=== PATIENT | male | born 1955 | race Caucasian/White ===

== ENCOUNTER → 2016-04-02 | Outpatient (CLI) | payer MEDICARE, MEDICAID ==
[~2016-04-02] MED LIST: /AUGM25TA PEG; /CIPR75TA PO; /MOM400 PEG; /ONDA4TA SL; /SCOPPA TD; ATIV0.5T3 PEG; BUSP30TA PEG; CELE40TA PEG; CIPR500T89 PEG; CLON1TAB PEG; DOCU10ELUD PEG; FLEEENE4 PR; FLEXERIL PO; HALDOL PO; HEPA50VL SC; KLON0.5T PEG; LACT20EL PEG; LANSOPRAZOLE PEG; MIRALEX PEG; NAPR500T OR; PERC5TAB PO; PREV30CA6 PEG; REGLAN LIQ PEG; RISP2TAB12 PEG; SYNT100T PEG; TERA1CA GT; TYLENOL ELIXIR PEG; VIST25CA OR; ZYPR5TAB PEG; ZYPR5TAB2 PEG
[2016-04-02 19:39] LABS: ALBUMIN 3.8 GM/DL (3.2-5.2); ALBUMIN/GLOBULIN RATIO 1.09 (1.00-1.93); ALKALINE PHOSPHATASE 104 U/L (45-117); ALT/SGPT 43 U/L (12-78); ANION GAP 6 MEQ/L (8-16); AST/SGOT 33 U/L (15-37); BILIRUBIN,TOTAL 0.6 MG/DL (0.2-1.0); BLOOD UREA NITROGEN 26 MG/DL (7-18); CALCIUM LEVEL 9.2 MG/DL (8.8-10.2); CARBON DIOXIDE LEVEL 33 MEQ/L (21-32); CHLORIDE LEVEL 103 MEQ/L (98-107); GLOMERULAR FILTRATION RATE > 60.0 (>49); GLUCOSE, FASTING 80 MG/DL (80-110); POTASSIUM SERUM 4.2 MEQ/L (3.5-5.1); SODIUM LEVEL 142 MEQ/L (136-145); TOTAL PROTEIN 7.3 GM/DL (6.4-8.2)
[2016-04-02 19:48] LABS: MEAN CORPUSCULAR HEMOGLOBIN 33.4 pg (27.0-33.0); MEAN CORPUSCULAR HGB CONC 32.7 g/dl (32.0-36.5); MEAN CORPUSCULAR VOLUME 102.2 fl (80.0-96.0); RED CELL DISTRIBUTION WIDTH 14.8 % (11.5-14.5); WHITE BLOOD COUNT 4.3 K/mm3 (4.0-10.0)
== END ==
LOC: M WUC 08:48
PROVIDERS: ATTEND Nurse Practitioner Family
DX: Z51.81 Encounter for therapeutic drug level monitoring (principal); Z79.899 Other long term (current) drug therapy

== ENCOUNTER 2016-05-31 09:38 | Inpatient (IN) | payer MEDICARE, MEDICAID ==
[2016-05-31] VITALS (9 sets, daily range): BP systolic 97–112; BP diastolic 59–66
[~2016-05-31] VITALS: Ht 177.8 cm; Wt 61.6 kg
[2016-05-31] MEDS ORDERED: NS 1,000 ML IV SCH (10:08)
[2016-05-31] MEDS ORDERED: cefTRIAXone SOD 2 GM in D5W MINI-BAG PLUS 50 ML IV ONE (10:15)
[2016-05-31] MEDS ORDERED: VANCOMYCIN HCL 1,000 MG, VIAL MATE ADAPTER 1 EACH in D5W 250 ML IV ONE (10:15)
[2016-05-31] MEDS ORDERED: DILUENT IV ONE (10:15)
[2016-05-31] MEDS ORDERED: ACETAMINOPHEN 325 MG TAB PO ONE (10:15)
[2016-05-31] MEDS ORDERED: NS IV ONE (10:15)
[2016-05-31] MEDS ORDERED: BUSP30TA GT (10:18)
[2016-05-31] MEDS ORDERED: PREV30TA3 GT (10:18)
[2016-05-31] MEDS ORDERED: NEUR300C GT (10:18)
[2016-05-31] MEDS ORDERED: ZOFR4TAB3 GT (10:18)
[2016-05-31] MEDS ORDERED: FOLI1TAB2 GT (10:18)
[2016-05-31] MEDS ORDERED: RISP1TAB41 GT (10:18)
[2016-05-31] MEDS ORDERED: LEVO75TA4 GT (10:18)
[2016-05-31] MEDS ORDERED: ZYPR15TA3 GT ×2 (10:18→12:20)
[2016-05-31 10:24] LABS: BASO % 0.1 % (0.0-1.0); EOS % 0.1 % (0.0-3.0); LARGE UNSTAINED CELL # 0.1 K/mm3 (0.0-0.4); LARGE UNSTAINED CELL % 1.2 % (0.0-4.0); LYMPH # 0.4 K/mm3 (1.5-4.5); LYMPH % 4.6 % (24.0-44.0); MEAN CORPUSCULAR HEMOGLOBIN 33.4 pg (27.0-33.0); MEAN CORPUSCULAR HGB CONC 33.1 g/dl (32.0-36.5); MONO # 0.4 K/mm3 (0.0-0.8); MONO % 5.7 % (0.0-5.0); NEUTROPHILS # 6.7 K/mm3 (1.8-7.7); NEUTROPHILS % 88.4 % (36.0-66.0); PLATELET COUNT, AUTOMATED 170 k/mm3 (150-450); RED CELL DISTRIBUTION WIDTH 15.7 % (11.5-14.5); WHITE BLOOD COUNT 7.5 K/mm3 (4.0-10.0)
[2016-05-31 10:25] LABS: INR 1.01
[2016-05-31 10:41] LABS: ALBUMIN 2.8 GM/DL (3.2-5.2); ALKALINE PHOSPHATASE 78 U/L (45-117); ALT/SGPT 46 U/L (12-78); AMYLASE 173 U/L (25-115); ANION GAP 6 MEQ/L (8-16); AST/SGOT 60 U/L (15-37); BILIRUBIN,DIRECT < 0.1 MG/DL (0.0-0.2); BILIRUBIN,TOTAL 0.3 MG/DL (0.2-1.0); BLOOD UREA NITROGEN 37 MG/DL (7-18); CALCIUM LEVEL 8.5 MG/DL (8.8-10.2); CARBON DIOXIDE LEVEL 31 MEQ/L (21-32); CHLORIDE LEVEL 101 MEQ/L (98-107); GLOMERULAR FILTRATION RATE 59.9 (>49); GLUCOSE, FASTING 159 MG/DL (80-110); POTASSIUM SERUM 4.2 MEQ/L (3.5-5.1); SODIUM LEVEL 138 MEQ/L (136-145); TOTAL PROTEIN 6.3 GM/DL (6.4-8.2)
--- NOTE | 2016-05-31 10:58 | REP ---
PORTABLE CHEST, ONE VIEW: HISTORY: Sepsis. COMPARISON: 06/04/2015. An increase in interstitial markings is present in the lungs consistent with chronic interstitial fibrosis. Increased density is present in the lower lobes consistent with bibasilar atelectasis or infiltrates. The heart is normal in size. The pulmonary vasculature is prominent. A hiatal hernia is present. There is marked dilatation of the esophagus. IMPRESSION: 1. Bibasilar atelectasis or infiltrates. 2. Chronic interstitial fibrosis. 3. Hiatal hernia. 4. There is a markedly dilated esophagus. Signed by Harman Wade MD 05/31/2016 11:27 A
[2016-05-31] MEDS ORDERED: IPRATROPIUM 0.5MG/ALBUTEROL 2.5MG INH SOL UD 3ML (DUONEB)(J7620) NEB ONE (11:45)
[2016-05-31] MEDS ORDERED: methylPREDNISolone INJ 125 MG/2 ML VIAL (J2930) IV ONE (11:45)
[2016-05-31] MEDS ORDERED: ALBUTEROL SULFATE 2.5 MG/0.5 ML INH NEB SOLN INH ONE (11:45)
[2016-05-31 12:09] LABS: ABG BASE EXCESS 2.7 (-2.0-2.0); ABG HCO3 27.3 MEQ/L (22.0-26.0); ABG PARTIAL PRESSURE O2 66.5 mmHg (75.0-100.0); ABG STANDARD HCO3 26.8 MEQ/L (22.0-26.0); ABG TOTAL CO2 28.6 MEQ/L (23.0-31.0); ABG pH (ARTERIAL) 7.431 UNITS (7.350-7.450)
[2016-05-31] MEDS ORDERED: CITA40TA4 GT (12:20)
[2016-05-31] MEDS ORDERED: METO5EL GT (12:20)
[2016-05-31] MEDS ORDERED: VITA500T3 GT (12:20)
[2016-05-31] MEDS ORDERED: FOLI400T GT (12:20)
[2016-05-31] MEDS ORDERED: ACET500L GT (12:20)
[2016-05-31] MEDS ORDERED: BISA10SU27 PR (12:20)
[2016-05-31] MEDS ORDERED: CLON0.5T GT (12:20)
[2016-05-31] MEDS ORDERED: TRAN1.5D2 TOP (12:20)
[2016-05-31] MEDS ORDERED: MIRA33504 GT (12:20)
[2016-05-31] MEDS ORDERED: TERA2CAP3 GT (12:20)
[2016-05-31] MEDS: NS 1,000 ML IV SCH ×2 (12:47→21:14)
--- NOTE | 2016-05-31 12:59 | HPEPDOC ---
Medical History and Physical Date of Admission 05/31/16 History and Physical ATTENDING: Dr. Jolley PCP: Jose G Toledo NP CC: Lethargy, Hypoxia HPI: 60yoM resident of [facility] with a past medical history significant for aspiration and dysphagia who has had cold symptoms, fatigue and fever for the past 5 days. This AM was noticed by staff to be lethargic, fatigued and when O2 sat was checked was in the 80s. EMS was called and was brought to ED for evaluation. Pt gives limited history. He is accompanied by [facility] staff. Pt has had congested cough- nonproductive. Denies any ABBOTT, CP, palpitations, abdominal pain, N/V/D or changes in bowel or bladder habits. Upon presentation to the hospital the patient was found to have aspiration pneumonia, thus the hospitalist team was consulted. PMHx: Mental Retardation. resident of [facility]. Anxiety depression Behavioral issues GERD Chronic aspiration/feeding tube. hypothyroid H/O C2, C7 fracture. Nondisplaced. 7/12 H/O Left hip fracture 7/12 H/O fall. PSHX: peg tube placement SOCHX: Resides in: [facility] residence [facility] Tobacco use: non smoker ETOH:none Recent travel: none Advanced directives: [facility] staff states has DNR valid at [facility] only. HCP christiane Ureña [phone]. FAMHX: Mother: Father: Siblings: 1 brother, 1 sister Alive, well Children: none ROS: As noted in HPI, otherwise 11pt ROS of systems reviewed and remarkable only for recent illness and cough. Pt is known to have chronic dysphagia. PE: GEN: 60yoM, appears stated age. Well-nourished, well developed. No acute distress. Alert. HEENT: Normocephalic, atraumatic. Pupils are equal, round, and reactive to light. Extraocular movements are intact. No nystagmus appreciated. Sclera are nonicteric. Conjunctiva without injection. Nose midline. Nasal turbinates without bogginess. EACs both patent BL. TMs both visualized and reyes with good cone of light, no bulging or erythema. No facial asymmetry. Moist mucous membranes. Dentition poor. Pharynx pink and moist, no cobblestoning. Neck supple , trachea midline. No lymphadenopathy or thyromegaly appreciated. CHEST: Regular rate and rhythm, +S1, +S2 LUNGS: Decreased BS bilaterally. Coarse rhonchi noted with inspiratory rales at bases. ABD: Round, soft, non-tender, non-distended. +Bowel sounds throughout. No rebound or guarding. No costovertebral angle tenderness. EXT: Pulses 2+ bilaterally dorsalis pedis and radial. No lower extremity edema appreciated. SKIN: [place], dry, warm. Capillary refill <2sec. No rashes. NEURO: Alert. Cranial nerves III-XII are intact. No focal deficits appreciated. CXR: 1. Bibasilar atelectasis or infiltrates. 2. Chronic interstitial fibrosis. 3. Hiatal hernia. 4. .There is a markedly dilated esophagus EKG: SR, NSST abn, 93 bpm BLOOD CULTURES: x 2 pending. UC pending. LA 2.2 Rapid flu pending Respiratory panel pending. A&P: HPI: 60yoM resident of [facility] with a past medical history significant for aspiration and dysphagia who has had cold symptoms, fatigue and fever for the past 5 days. This AM was noticed by staff to be lethargic, fatigued and when O2 sat was checked was in the 80s. EMS was called and was brought to ED for evaluation. The patient will be admitted to ICU for at least [address] Jolley's service. Pt is discussed with Dr Cosby. Severe sepsis. IVF bolus x 3 liters given in ED. IVF 120cc/hr. BP 84/52 in ED. Monitor closely. Aspiration pneumonia. IV Vanco with Pharm dosing/IV Cefepime. Duonebs/O2. Chronic aspiration/peg tube. NPO/IVF. Consider restarting feedings tomorrow. MR/Anxiety/depression/behavioral issues. Continue supportive care. hypothyroid. Cont supplement. GERD. PPI IV. prn Zofran IV. DVT prophylaxis. Lovenox. The patient is a Full code. PFS to assist with establishing code status. I have both independently examined this patient as well as reviewed the H&P. I have discussed in detail with Belkis the findings and plan of treatment as documented in [facility] note. I will continue to follow the patient and offer further guidance to the patients care as necessary during this hospital stay. Claudine Cosby MD Vital Signs 84/52 100 96.2 16 96% Laboratory Data Labs 24H Laboratory Tests 2 05/31/16 09:54: Activated Partial Thromboplast Time 33.2, Prothromb Time International Ratio 1.01, Prothrombin Time 13.4 05/31/16 09:55: Aspartate Amino Transf (AST/SGOT) 60H, Alanine Aminotransferase (ALT/SGPT) 46, Alkaline Phosphatase 78, Total Bilirubin 0.3, Direct Bilirubin < 0.1, Albumin 2.8L, Albumin/Globulin Ratio 0.80L, Amylase Level 173H, Anion Gap 6L, White Blood Count 7.5, Red Blood Count 3.27L, Hemoglobin 10.9L, Hematocrit 33.1L, Mean Corpuscular Volume 101.0H, Mean Corpuscular Hemoglobin 33.4H, Mean Corpuscular Hemoglobin Concent 33.1, Red Cell Distribution Width 15.7H, Platelet Count 170, Neutrophils (%) (Auto) 88.4H, Lymphocytes (%) (Auto) 4.6L, Monocytes (%) (Auto) 5.7H, Eosinophils (%) (Auto) 0.1, Basophils (%) (Auto) 0.1 , Neutrophils # (Auto) 6.7, Lymphocytes # (Auto) 0.4L, Monocytes # (Auto) 0.4, Eosinophils # (Auto) 0.0, Basophils # (Auto) 0.0, C-Reactive Protein, Quantitative 4.08H, Calcium Level 8.5L, Creatine Kinase MB 3.5, Creatine Kinase MB Relative Index 0.41, Glomerular Filtration Rate 59.9, Lactic Acid Level 2.2*H , Large Unclassified Cells # 0.1, Large Unclassified Cells % 1.2, Total Creatine Kinase 849H, Total Protein 6.3L, Troponin I 0.02 05/31/16 11:51: Arterial Blood pH 7.431, Arterial Blood Partial Pressure CO2 42.0, Arterial Blood Partial Pressure O2 66.5L, Arterial Blood Total CO2 28.6, Arterial Blood HCO3 27.3H, Arterial Blood Base Excess 2.7H, Arterial Blood Oxygen Saturation 92.7L, Blood Gas Bicarbonate Standard 26.8H CBC/BMP Laboratory Tests 05/31/16 09:55 Red Blood Count 3.27 L, Mean Corpuscular Volume 101.0 H, Mean Corpuscular Hemoglobin 33.4 H, Mean Corpuscular Hemoglobin Concent 33.1, Red Cell Distribution Width 15.7 H, Neutrophils (%) (Auto) 88.4 H, Lymphocytes (%) (Auto ) 4.6 L, Monocytes (%) (Auto) 5.7 H, Eosinophils (%) (Auto) 0.1, Basophils (%) ( Auto) 0.1, Neutrophils # (Auto) 6.7, Lymphocytes # (Auto) 0.4 L, Monocytes # ( Auto) 0.4, Eosinophils # (Auto) 0.0, Basophils # (Auto) 0.0 Microbiology Microbiology 05/31/16 Blood Culture, Received Pending 05/31/16 Blood Culture, Received Pending Home Medications Scheduled Buspirone HCl (Buspirone HCl) 30 Mg Tab 30 MG GT BID 0730,1530 Citalopram Hydrobromide (Citalopram Hydrobromide) 40 Mg Tab 40 MG GT DAILY Clonazepam (Clonazepam) 0.5 Mg Tab 0.5 MG GT TID 0730,1200,1530 Cyanocobalamin (Vitamin B-12) 500 Mcg Tab 500 MCG GT QHS Folic Acid (Folic Acid) 400 Mcg Tab 400 MCG GT QHS Gabapentin (Neurontin) 300 Mg Cap 600 MG GT TID 0730,1000,1530 Lansoprazole (Prevacid Solutab) 30 Mg Tab 30 MG GT DAILY Levothyroxine Sodium (Synthroid) 75 Mcg Tab 75 MCG GT DAILY Metoclopramide HCl (Metoclopramide HCl) 5 Mg/5 Ml Liq 10 MG GT AC OLANZapine DISINTEGRATING (Zyprexa Zydis) 15 Mg Tab 15 MG GT TID 0730,1000,1530 Risperidone (Risperdal) 1 Mg Tab 1 MG GT DAILY Scopolamine (Transderm-Scop) 1.5 Mg Dis 1.5 MG TOP Q72H Terazosin HCl (Terazosin HCl) 2 Mg Cap 2 MG GT QHS Scheduled PRN (Acetaminophen Extra Stren) 500 Mg/15 Ml Liq 20 ML GT Q4H PRN PRN PAIN / FEVER Bisacodyl (Bisacodyl Laxative) 10 Mg Sup 10 MG HI DAILY PRN PRN CONSTIPATION Ondansetron (Zofran Odt) 4 Mg Tab 4 MG GT Q8H PRN PRN NAUSEA Polyethylene Glycol (Miralax) 1 Pow Pow 17 GM GT DAILY PRN PRN CONSTIPATION Allergies Coded Allergies: No Known Drug Allergy (Verified Allergy, Unknown, CAREGIVER SAYS NO ALLERGIES, 05/31/16) Belkis Barton May 31, 2016 12:59 CLAUDINE COSBY MD Jun 06, 2016 08:35
[2016-05-31] MEDS ORDERED: NS 1,000 ML IV ONE (13:00)
[2016-05-31] MEDS ORDERED: IPRATROPIUM 0.5MG/ALBUTEROL 2.5MG INH SOL UD 3ML (DUONEB)(J7620) NEB PRN (13:15)
--- NOTE | 2016-05-31 13:29 | PHACANCOPD ---
PHARMACY VANCOMYCIN DOSING Pt Demographics Demographics Patient Age:60 , Weight: , Gender: male Adjusted Body Weight Date: 05/31/16, Adjusted Body Weight: [55.3] Kg Events Past 24 Hours Events Past 24 Hours: NO: Change in CrCl, Dialysis, Diuretic Therapy, Elevation in WBC, Fever, Other, Pending Diagnostics, Pending Procedures Vancomycin Vancomycin indication: SEPSIS/ ASPIRATION Vancomycin Target Ranges: 15-20 mcg/ml Vancomycin Load Y/N: Yes Load Dose Date Time Vancomycin Load Dose: 1.25G Date: 05/31/16 Time: 14 Vancomycin Dose Date: 05/31/16. Current Vancomycin Dose: Intermittent Dosing?: No Labs Labs Item Value Date Time White Blood Count 7.5 K/mm3 05/31/16 0955 Creatinine 1.30 MG/DL 05/31/16 0955 Micro Microbiology 05/31/16 Blood Culture, Received Pending 05/31/16 Blood Culture, Received Pending Creatinine Clearance Date:05/31/16. Creatinine Clearance: [62.4ML/MIN]. Assessment and Plan Maintaining Current Dose?: Yes Reason for dose change: No Dose Change Pharmacist Note Pharmacist Note Date: 05/31/16. Pharmacist note: PT is a 60 y/o male being treated for sepsis/ aspiration pna goal trough 15-20mcg/ml. pt has been treated with vancomycin at [facility] back in 2011. To achieve goal a 1.25g loading dose was gave at 14. Maintenance therapy will consist of 1g q12h starting 06/01 @ 01. We will continue to monitor and adjust dose as needed. NATALIIA CERNA PHARMACY May 31, 2016 13:29
[2016-05-31] MEDS ORDERED: ONDANSETRON 4MG/2ML VIAL (J2405) IV PRN (13:30)
[2016-05-31] MEDS: IPRATROPIUM 0.5MG/ALBUTEROL 2.5MG INH SOL UD 3ML (DUONEB)(J7620) NEB SCH ×2 (14:00→19:36)
[2016-05-31] MEDS ORDERED: VANCOMYCIN HCL 750 MG, VIAL MATE ADAPTER 1 EACH in D5W 250 ML IV ONE (14:00)
[2016-05-31] MEDS ORDERED: HYDROCORTISONE 100 MG/2 ML VIAL (J1720) IV ONE (14:15)
[2016-05-31] MEDS ORDERED: VANCOMYCIN HCL 500 MG in D5W MINI-BAG PLUS 100 ML IV ONE (15:00)
[2016-05-31] MEDS: ENOXAPARIN 40 MG/0.4 ML SYRINGE (J1650) SC SCH (15:09)
--- NOTE | 2016-05-31 15:38 | PHACANCOPD ---
PHARMACY VANCOMYCIN DOSING Pt Demographics Demographics Patient Age:60 , Weight: , Gender: male Adjusted Body Weight Date: 05/31/16, Adjusted Body Weight: [55.3] Kg Vancomycin Vancomycin indication: SEPSIS/ ASPIRATION Vancomycin Target Ranges: 15-20 mcg/ml Vancomycin Load Y/N: Yes Load Dose Date Time Vancomycin Load Dose: 1.25G Date: 05/31/16 Time: 14 Vancomycin Dose Date: 05/31/16. Current Vancomycin Dose: Intermittent Dosing?: No Labs Micro Microbiology 05/31/16 Blood Culture, Received Pending 05/31/16 Blood Culture, Received Pending 05/31/16 MRSA Screen, Received Pending 05/31/16 Respiratory Virus Panel (PCR) (EDMUND), Received Pending 05/31/16 Influenza Virus Type A Antigen, Received Pending 05/31/16 Influenza Virus Type B Antigen, Received Pending 05/31/16 Urine Culture, Received Pending Creatinine Clearance Date:05/31/16. Creatinine Clearance: [62.4ML/MIN]. Assessment and Plan Maintaining Current Dose?: Yes Reason for dose change: No Dose Change Pharmacist Note Pharmacist Note Date: 05/31/16. Pharmacist note: PT is a 60 y/o male being treated for sepsis/ aspiration pna goal trough 15-20mcg/ml. pt has been treated with vancomycin at [facility] back in 2011 A 1G dose was administered at 12:00 in the ER. Maintenance therapy will consist of 1g q12h starting 05/31 @ . We will continue to monitor and adjust dose as needed. NATALIIA CERNA PHARMACY May 31, 2016 15:38
--- NOTE | 2016-05-31 16:57 | CCN ---
DATE: 06/01/2015 CRITICAL CARE NOTE: I was called to evaluate this 60-year-old male for septic shock and respiratory failure. He has a history per the emergency department of current aspiration episode had a percutaneous endoscopic gastrostomy (PEG) tube placed in 2004 changed to a J-tube in 2006. He presented today from [facility] ([facility]) with lethargy hypoxemia. Apparently has been ill for 5 days but lethargic and coughing today. The patient off today. The patient is able. Answers to questions but only very simple answers, yes and no. History was obtained from [facility] staff that he is nothing by mouth (NPO) care since staff that he is nothing by mouth (n.p.o.) except citlali feedings which consist of a small amount of ice cream he is given orally. They do not believe that he was given a prior to the onset of his current symptom complex. He is kept in the upright posture when he receives his G tube feedings according to [facility] staff. His past medical history electronic health record includes acid reflux disease, chronic aspiration, hypothyroidism on replacement therapy. He has had fractures of the cervical spine and hip and left hip from falls in the past. Basal cell cancer removed from his nose in 2012. At bedside his temperature is 98, pulse rate 86, respirations 22, blood pressure 116/82. On a non-rebreather mask saturation 95%. HEENT: The patient is microcephalic oral mucosa is pink. He has mild to moderate periodontal disease There is no obvious stridor over the trachea. Jugular veins are 2 cm above sternal angle at 45 degrees carotid upstroke brisk no bruits. Heart sounds are regular. Breath sounds are coarse in the bases, otherwise clear. Abdomen soft. The G-tube is in place. Site is clean. There are bowel sounds and near somewhat hyperactive. Extremities are cool. His left hand shows some contracture deformities. Pulses are diminished but palpable. There is no edema. There is some excoriations of the skin of his legs. DIAGNOSTIC STUDIES White cell count is 7.5. Differential white cell count 88% neutrophils, 5.7 monocytes. Hemoglobin is 10.9, hematocrit 33, platelet count 170,000, PT 13, PTT 33. His sodium is 138, potassium 4.2, chloride 101, CO2 31, BUN 37, creatinine 1.3, glucose is 159, lactate 2.2, albumin 2.8, amylase 173. His arterial blood gases on oxygen, FIO2 unknown showed a pH 7.343, pCO2 42, pO2 65. Chest x-ray shows bibasilar atelectasis and chronic fibrosis, esophageal dilation in the upper chest and no other infiltrates are identified She will ventilation of the upper chest and no other infiltrates are identified. The primary problem requiring critical attention is hypoxemia. Presumably secondary to an aspiration event. He has had nine hospitalizations since 2004 for similar problems. He has been started on broad-spectrum antibiotic. Cultures will be attempted and we will change him to an aerosol oxygen system to facilitate cough and sputum production. One wonders if he may benefit from change to a G tube to reduce the likelihood of aspiration event and given the presence of periodontal disease whether. Hypotension. The patient has responded to initial fluid resuscitation. Given his hypoxemia, there may be limited opportunity for additional fluids should his blood pressure fall once again. A central line would be reasonable for administration of pressor therapy and measurement of central venous pressure. Deep venous thrombosis (DVT) prophylaxis and has been written and also has ulcer prophylaxis. I have updated the patient's brother at bedside. 87 minutes spent provision of bedside critical care coordination.
[2016-05-31] MEDS: OSELTAMIVIR 6 MG/ML 60ML SUSP PEG SCH (21:14)
[2016-05-31] MEDS: VANCOMYCIN HCL 1,000 MG, VIAL MATE ADAPTER 1 EACH in D5W 250 ML IV SCH (21:14)
[2016-05-31] MEDS: CEFEPIME HCL 2 GM in D5W MINI-BAG PLUS 50 ML IV SCH (22:43)
[2016-06-01] VITALS (18 sets, daily range): BP systolic 107–132; BP diastolic 66–81
[2016-06-01] MEDS: NS 1,000 ML IV SCH ×3 (00:15→15:02)
[2016-06-01] MEDS: IPRATROPIUM 0.5MG/ALBUTEROL 2.5MG INH SOL UD 3ML (DUONEB)(J7620) NEB SCH ×4 (01:03→20:06)
[2016-06-01] MEDS: LEVOTHYROXINE 0.075 MG TAB (75 MCG) GT SCH (06:04)
[2016-06-01 06:14] LABS: BASO % 0.1 % (0.0-1.0); EOS % 0.1 % (0.0-3.0); LARGE UNSTAINED CELL # 0.1 K/mm3 (0.0-0.4); LARGE UNSTAINED CELL % 1.1 % (0.0-4.0); LYMPH # 0.6 K/mm3 (1.5-4.5); LYMPH % 5.4 % (24.0-44.0); MEAN CORPUSCULAR HEMOGLOBIN 32.9 pg (27.0-33.0); MEAN CORPUSCULAR HGB CONC 32.9 g/dl (32.0-36.5); MONO # 0.6 K/mm3 (0.0-0.8); MONO % 4.9 % (0.0-5.0); NEUTROPHILS # 10.5 K/mm3 (1.8-7.7); NEUTROPHILS % 88.5 % (36.0-66.0); PLATELET COUNT, AUTOMATED 159 k/mm3 (150-450); RED CELL DISTRIBUTION WIDTH 15.3 % (11.5-14.5); WHITE BLOOD COUNT 11.9 K/mm3 (4.0-10.0)
[2016-06-01 06:25] LABS: ALBUMIN 2.4 GM/DL (3.2-5.2); ALBUMIN/GLOBULIN RATIO 0.71 (1.00-1.93); ALKALINE PHOSPHATASE 64 U/L (45-117); ALT/SGPT 41 U/L (12-78); ANION GAP 6 MEQ/L (8-16); AST/SGOT 45 U/L (15-37); BILIRUBIN,TOTAL 0.2 MG/DL (0.2-1.0); BLOOD UREA NITROGEN 27 MG/DL (7-18); CALCIUM LEVEL 7.4 MG/DL (8.8-10.2); CARBON DIOXIDE LEVEL 26 MEQ/L (21-32); CHLORIDE LEVEL 110 MEQ/L (98-107); GLOMERULAR FILTRATION RATE > 60.0 (>49); GLUCOSE, FASTING 127 MG/DL (80-110); MAGNESIUM LEVEL 1.7 MG/DL (1.8-2.4); POTASSIUM SERUM 4.3 MEQ/L (3.5-5.1); SODIUM LEVEL 142 MEQ/L (136-145); TOTAL PROTEIN 5.8 GM/DL (6.4-8.2)
--- NOTE | 2016-06-01 07:15 | ECGEPIP ---
Stationary ECG Study [facility] - ED Test Date: 2016-05-31 Pat Name: MAURICIO BOBBY Department: Room: - Gender: M Inventory Coordinator: JT : 1955 Requested By: Bhavya Goldstein Order Number: [id number] Reading MD: Libra Williamson Measurements Intervals [place] Rate: 93 P: 46 CA: 120 QRS: -11 QRSD: 97 T: 43 QT: 397 QTc: 495 Interpretive Statements SINUS RHYTHM NONSPECIFIC T-WAVE ABNORMALITY LOW VOLTAGE LIMB INCREASED RATE 01/17/13 Electronically Signed On 06-01-2016 7:15:38 EDT by Libra Williamson
[2016-06-01] MEDS ORDERED: MAG SULF 1GM/100ML (MAG RUN) 1 GM in APPROPRIATE DILUENT 1 EA IV ONE (07:30)
--- NOTE | 2016-06-01 08:13 | REP ---
Clinical: Aspiration pneumonia. Comparison: 05/31/2016 Findings: Mediastinum demonstrates a chronically distended air filled esophagus which is unchanged compared to 2015. The cardiac silhouette is stable. The lung arreola demonstrate chronic changes with superimposed lower lobe infiltrates (right greater than left). Right layering effusion cannot be excluded. No pneumothorax. Skeletal structures demonstrate osteopenia and degenerative changes. Impression: 1. Bibasilar consolidation/atelectasis (right greater than left) and suspected layering right effusion. 2. Chronically dilated air filled esophagus Signed by Niranjan Saenz MD 06/01/2016 08:05 A
[2016-06-01] MEDS: PANTOPRAZOLE 40MG INJ (PROTONIX) (C9113) IV SCH (09:42)
[2016-06-01] MEDS: CEFEPIME HCL 2 GM in D5W MINI-BAG PLUS 50 ML IV SCH ×2 (09:42→21:08)
[2016-06-01] MEDS: ENOXAPARIN 40 MG/0.4 ML SYRINGE (J1650) SC SCH (09:43)
[2016-06-01] MEDS: SCOPOLAMINE 1.5 MG TRANSDERMAL TOP SCH (09:43)
[2016-06-01] MEDS: OSELTAMIVIR 6 MG/ML 60ML SUSP PEG SCH (09:44)
[2016-06-01] MEDS: VANCOMYCIN HCL 1,000 MG, VIAL MATE ADAPTER 1 EACH in D5W 250 ML IV SCH ×2 (10:38→22:40)
[2016-06-01] MEDS ORDERED: busPIRone 10 MG TAB GT SCH (21:00)
[2016-06-01] MEDS ORDERED: OLANZapine ORAL DISINTEGRATING TAB 5MG GT ONE (22:15)
[2016-06-01] MEDS ORDERED: clonazePAM 0.5 MG TAB GT ONE (22:15)
[2016-06-02] VITALS (18 sets, daily range): BP systolic 100–148; BP diastolic 60–115
[2016-06-02] MEDS: IPRATROPIUM 0.5MG/ALBUTEROL 2.5MG INH SOL UD 3ML (DUONEB)(J7620) NEB SCH ×4 (02:00→21:30)
[2016-06-02] MEDS: NS 1,000 ML IV SCH (02:51)
[2016-06-02 04:46] LABS: BASO % 0.2 % (0.0-1.0); EOS # 0.1 K/mm3 (0.0-0.50); EOS % 0.7 % (0.0-3.0); LARGE UNSTAINED CELL # 0.2 K/mm3 (0.0-0.4); LARGE UNSTAINED CELL % 1.3 % (0.0-4.0); LYMPH # 1.3 K/mm3 (1.5-4.5); LYMPH % 8.2 % (24.0-44.0); MEAN CORPUSCULAR HEMOGLOBIN 32.8 pg (27.0-33.0); MEAN CORPUSCULAR HGB CONC 33.1 g/dl (32.0-36.5); MEAN CORPUSCULAR VOLUME 99.1 fl (80.0-96.0); MONO # 0.8 K/mm3 (0.0-0.8); MONO % 6.3 % (0.0-5.0); NEUTROPHILS # 11.1 K/mm3 (1.8-7.7); NEUTROPHILS % 83.3 % (36.0-66.0); PLATELET COUNT, AUTOMATED 182 k/mm3 (150-450); RED CELL DISTRIBUTION WIDTH 15.6 % (11.5-14.5); WHITE BLOOD COUNT 13.3 K/mm3 (4.0-10.0)
[2016-06-02] MEDS: LEVOTHYROXINE 0.075 MG TAB (75 MCG) GT SCH (05:09)
[2016-06-02] MEDS: ACETAMINOPHEN 325 MG/10.15 ML UDC GT PRN (05:09)
[2016-06-02 05:15] LABS: ALBUMIN 2.2 GM/DL (3.2-5.2); ALBUMIN/GLOBULIN RATIO 0.67 (1.00-1.93); ALKALINE PHOSPHATASE 62 U/L (45-117); ALT/SGPT 37 U/L (12-78); ANION GAP 10 MEQ/L (8-16); AST/SGOT 48 U/L (15-37); BILIRUBIN,TOTAL 0.5 MG/DL (0.2-1.0); BLOOD UREA NITROGEN 23 MG/DL (7-18); CALCIUM LEVEL 7.7 MG/DL (8.8-10.2); CARBON DIOXIDE LEVEL 25 MEQ/L (21-32); CHLORIDE LEVEL 111 MEQ/L (98-107); CREATININE FOR GFR 0.79 MG/DL (0.70-1.30); GLOMERULAR FILTRATION RATE > 60.0 (>49); GLUCOSE, FASTING 87 MG/DL (80-110); MAGNESIUM LEVEL 1.9 MG/DL (1.8-2.4); POTASSIUM SERUM 4.4 MEQ/L (3.5-5.1); SODIUM LEVEL 146 MEQ/L (136-145); TOTAL PROTEIN 5.5 GM/DL (6.4-8.2)
--- NOTE | 2016-06-02 08:28 | REP ---
Clinical: Hypoxemia. Comparison: Multiple examinations dating to 12/22/2014. Findings: Increasing bilateral lower lobe infiltrates suggest atelectasis/pneumonia and possible layering right effusion. Findings have progressed over time and also increased since 06/01/2016. Mediastinum and cardiac silhouette are stable distended esophagus and possible hiatal hernia. Cardiac silhouette is upper limits of normal. Impression: Increasing lower lobe infiltrates/opacities suggesting multifocal atelectasis/pneumonia and possible layering right effusion. Signed by Niranjan Saenz MD 06/02/2016 08:20 A
[2016-06-02] MEDS: clonazePAM 0.5 MG TAB GT SCH ×3 (08:31→15:03)
[2016-06-02] MEDS: OLANZapine ORAL DISINTEGRATING TAB 5MG GT SCH ×3 (08:31→15:03)
[2016-06-02] MEDS: ENOXAPARIN 40 MG/0.4 ML SYRINGE (J1650) SC SCH (08:32)
[2016-06-02] MEDS: PANTOPRAZOLE 40MG INJ (PROTONIX) (C9113) IV SCH (08:32)
[2016-06-02] MEDS ORDERED: clonazePAM 0.5 MG TAB GT SCH (09:00)
[2016-06-02] MEDS: CEFEPIME HCL 2 GM in D5W MINI-BAG PLUS 50 ML IV SCH ×2 (11:03→21:25)
[2016-06-02] MEDS: VANCOMYCIN HCL 1,000 MG, VIAL MATE ADAPTER 1 EACH in D5W 250 ML IV SCH ×2 (11:03→22:17)
--- NOTE | 2016-06-02 12:10 | IPNPDOC ---
Subjective Date Seen The patient was seen on 06/01/16. Subjective Chief Complaint/HPI The patient is a 60-year-old male admitted with a reason for visit of Pneumonia ; Sepsis. Events since last encounter patient did not allow physical examination today was getting very agitated on trying to do physical exam , patient responding to [facility] staff to simple questions with yes or no, not in any acute distress. Objective Physical Examination General Exam: Positive: Alert, No Acute Distress Eye Exam: Positive: PERRLA ENT Exam: Positive: Atraumatic, Mucous membr. moist/pink, Other ENT ( microcephaly) Neck Exam: Positive: Supple, Negative: JVD, thyromegaly Chest Exam: Positive: Rales Heart Exam: Positive: Normal S1, Normal S2, Rate Normal, Regular Rhythm Telemetry: Positive: No significant arrhythmia Abdomen Exam: Positive: Soft Extremity Exam: Positive: Normal pulses, Negative: Clubbing, Cyanosis, Edema Assessment /Plan Problems (1) Acute respiratory failure with hypoxemia Status: Acute Problem Text: due to pneumonia , possible aspiration and influenza. continue cefepime and vancomycin (2) Pneumonia Status: Acute Problem Text: possibly aspiration continue cefepime and vancomycin cultures are pending. (3) Influenza Status: Acute Problem Text: pcr positive for influenza b however symptoms have been for more than 5 days so tamiflu is not going to help (4) Sepsis Status: Acute Problem Text: due to respiratory tract infection continue antibiotics. (5) PEG (percutaneous endoscopic gastrostomy) status Status: Chronic (6) Hypothyroidism Status: Chronic (7) Developmental disability Status: Chronic Problem Text: is a resident of [facility] , at baseline is ambulatory by self. (8) GERD (gastroesophageal reflux disease) Status: Chronic (9) Esophageal dilatation Status: Chronic (10) Hiatal hernia Status: Chronic (11) Periodontal disease Status: Chronic Problem Text: will need to be evaluated by dental surgeon. Plan/VTE VTE Prophylaxis Ordered?: Yes Plan/Urinary Catheter Reason for insertion/continuin: Critical Pt monitoring VS, I&O, 24H, [place] Vital Signs/I&O Vital Signs Date Time Temp Pulse Resp B/P Pulse Ox O2 Delivery O2 Flow Rate FiO2 06/01/16 12:00 98.6 73 18 123/75 96 High Flow Cannula 20.0 I&O- Last 24 Hours up to 6 AM 06/01/16 05:59 Intake Total 5350 ml Output Total 1690 ml Balance 3660 ml Laboratory Data 24H LABS Laboratory Tests 2 05/31/16 15:13: Urine Amorphous Sediment , Urine Appearance CLEAR, Urine Color YELLOW, Urine pH 6.0, Urine Specific [place] 1.017, Urine Protein 1+H, Urine Glucose (UA) NEGATIVE, Urine Ketones NEGATIVE, Urine Urobilinogen 0.2, Urine Bilirubin NEGATIVE, Urine Leukocyte Esterase NEGATIVE, Urine Bacteria (Auto) NEGATIVE, Urine Blood NEGATIVE, Urine Calcium Carbonate Cryst(Auto) , Urine Calcium Oxalate Cryst (Auto) , Urine Calcium Phosphate Areli (Auto) , Urine Cellular Casts , Urine Cystine Crystals , Urine Granular Casts (Auto) , Urine Hyaline Casts (Auto) 0, Urine Leucine Crystals , Urine Mucus (Auto) , Urine Nitrite NEGATIVE, Urine Oval Fat Bodies (Auto) , Urine RBC (Auto) 4H, Urine Renal Epithelial Cells , Urine Sperm (Auto) , Urine Squamous Epithelial Cells 0, Urine Transitional Epithelial Cells , Urine Trichomonas (Auto) , Urine Triple Phosphate Cryst (Auto) , Urine Tyrosine Crystals , Urine Uric Acid Crystals ( Auto) , Urine WBC (Auto) 2, Urine Waxy Casts (Auto) , Urine Yeast-Like Cells ( Auto) 05/31/16 17:52: Lactic Acid Level 2.8*H 06/01/16 00:21: Lactic Acid Level 2.8*H 06/01/16 05:54: Lactic Acid Level 2.2*H, Blood Urea Nitrogen 27H, Creatinine 0.90, Sodium Level 142, Potassium Level 4.3, Chloride Level 110H, Carbon Dioxide Level 26, Calcium Level 7.4L, Aspartate Amino Transf (AST/SGOT) 45H, Alanine Aminotransferase (ALT /SGPT) 41, Alkaline Phosphatase 64, Total Bilirubin 0.2, Total Protein 5.8L, Albumin 2.4L, Albumin/Globulin Ratio 0.71L, Anion Gap 6L, White Blood Count 11.9H, Red Blood Count 3.31L, Hemoglobin 10.9L, Hematocrit 33.1L, Mean Corpuscular Volume 100.0H, Mean Corpuscular Hemoglobin 32.9, Mean Corpuscular Hemoglobin Concent 32.9, Red Cell Distribution Width 15.3H, Platelet Count 159, Neutrophils (%) (Auto) 88.5H, Lymphocytes (%) (Auto) 5.4L, Monocytes (%) (Auto) 4.9, Eosinophils (%) (Auto) 0.1, Basophils (%) (Auto) 0.1, Neutrophils # (Auto) 10.5H, Lymphocytes # (Auto) 0.6L, Monocytes # (Auto) 0.6, Eosinophils # (Auto) 0.0, Basophils # (Auto) 0.0, C-Reactive Protein, Quantitative 5.86H, Glomerular Filtration Rate > 60.0, Large Unclassified Cells # 0.1, Large Unclassified Cells % 1.1, Magnesium Level 1.7L CBC/BMP Laboratory Tests 06/01/16 05:54 Calcium Level 7.4 L, Aspartate Amino Transf (AST/SGOT) 45 H, Alanine Aminotransferase (ALT/SGPT) 41, Alkaline Phosphatase 64, Total Bilirubin 0.2, Total Protein 5.8 L, Albumin 2.4 L, Red Blood Count 3.31 L, Mean Corpuscular Volume 100.0 H, Mean Corpuscular Hemoglobin 32.9, Mean Corpuscular Hemoglobin Concent 32.9, Red Cell Distribution Width 15.3 H, Neutrophils (%) (Auto) 88.5 H , Lymphocytes (%) (Auto) 5.4 L, Monocytes (%) (Auto) 4.9, Eosinophils (%) (Auto ) 0.1, Basophils (%) (Auto) 0.1, Neutrophils # (Auto) 10.5 H, Lymphocytes # ( Auto) 0.6 L, Monocytes # (Auto) 0.6, Eosinophils # (Auto) 0.0, Basophils # (Auto ) 0.0 Microbiology Microbiology 05/31/16 Blood Culture - Preliminary, Resulted No growth after 24 hours . All specim... 05/31/16 Blood Culture - Preliminary, Resulted No growth after 24 hours . All specim... 05/31/16 MRSA Screen, Received Pending 05/31/16 Respiratory Virus Panel (PCR) (EDMUND) - Final, Complete Influenza B 05/31/16 Influenza Virus Type A Antigen - Final, Complete 05/31/16 Influenza Virus Type B Antigen - Final, Complete 05/31/16 Urine Culture, Received Pending ERICA TORRES MD Jun 01, 2016 14:33
[2016-06-02] MEDS ORDERED: MIRALAX *UNIT DOSE* 17GM PACKET GT PRN (12:15)
--- NOTE | 2016-06-02 12:20 | IPNPDOC ---
Subjective Date Seen The patient was seen on 06/02/16. Subjective Chief Complaint/HPI The patient is a 60-year-old male admitted with a reason for visit of Pneumonia ; Sepsis. Events since last encounter patient better today , more cooperative , agitation reduced after starting his home antipsychotic medication , still on 20 L high flow oxygen , febrile overnight , continues to have severe episodes of coughing and drooling requiring recurrent suction. Objective Physical Examination General Exam: Positive: Alert, No Acute Distress Eye Exam: Positive: PERRLA ENT Exam: Positive: Atraumatic, Mucous membr. moist/pink, Other ENT ( microcephaly) Neck Exam: Positive: Supple, Negative: JVD, thyromegaly Chest Exam: Positive: Rales Heart Exam: Positive: Normal S1, Normal S2, Rate Normal, Regular Rhythm Telemetry: Positive: No significant arrhythmia Abdomen Exam: Positive: Soft Extremity Exam: Positive: Normal pulses, Negative: Clubbing, Cyanosis, Edema Assessment /Plan Problems (1) Acute respiratory failure with hypoxemia Status: Acute Problem Text: due to pneumonia , possible aspiration and influenza. continue cefepime and vancomycin (2) Pneumonia Status: Acute Problem Text: possibly aspiration continue cefepime and vancomycin cultures are pending. (3) Influenza Status: Acute Problem Text: pcr positive for influenza b however symptoms have been for more than 5 days so tamiflu is not going to help (4) Sepsis Status: Acute Problem Text: due to respiratory tract infection continue antibiotics. (5) PEG (percutaneous endoscopic gastrostomy) status Status: Chronic Problem Text: will restart PEG tube feeding. (6) Hypothyroidism Status: Chronic (7) Developmental disability Status: Chronic Problem Text: is a resident of [facility] , at baseline is ambulatory by self. will restart buspirone, gabapentin , risperidone, olanzepine, citalopram. (8) GERD (gastroesophageal reflux disease) Status: Chronic (9) Esophageal dilatation Status: Chronic (10) Hiatal hernia Status: Chronic (11) Periodontal disease Status: Chronic Problem Text: will need to be evaluated by dental surgeon. Plan/VTE VTE Prophylaxis Ordered?: Yes Plan/Urinary Catheter Reason for insertion/continuin: Critical Pt monitoring VS, I&O, 24H, Fishbone Vital Signs/I&O Vital Signs Date Time Temp Pulse Resp B/P Pulse Ox O2 Delivery O2 Flow Rate FiO2 06/02/16 10:00 61 19 114/77 100 High Flow Cannula 20.0 06/02/16 08:00 100.3 I&O- Last 24 Hours up to 6 AM 06/02/16 06:00 Intake Total 2680 ml Output Total 1975 ml Balance 705 ml Laboratory Data 24H LABS Laboratory Tests 2 06/02/16 04:25: Blood Urea Nitrogen 23H, Creatinine 0.79, Sodium Level 146H, Potassium Level 4.4 , Chloride Level 111H, Carbon Dioxide Level 25, Calcium Level 7.7L, Aspartate Amino Transf (AST/SGOT) 48H, Alanine Aminotransferase (ALT/SGPT) 37, Alkaline Phosphatase 62, Total Bilirubin 0.5#, Total Protein 5.5L, Albumin 2.2L, Albumin/ Globulin Ratio 0.67L, Anion Gap 10, Glomerular Filtration Rate > 60.0, Magnesium Level 1.9 06/02/16 04:26: White Blood Count 13.3H, Red Blood Count 3.42L, Hemoglobin 11.2L, Hematocrit 33.8L, Mean Corpuscular Volume 99.1H, Mean Corpuscular Hemoglobin 32.8, Mean Corpuscular Hemoglobin Concent 33.1, Red Cell Distribution Width 15.6H, Platelet Count 182, Neutrophils (%) (Auto) 83.3H, Lymphocytes (%) (Auto) 8.2L, Monocytes (%) (Auto) 6.3H, Eosinophils (%) (Auto) 0.7, Basophils (%) (Auto) 0.2 , Neutrophils # (Auto) 11.1H, Lymphocytes # (Auto) 1.3L, Monocytes # (Auto) 0.8 , Eosinophils # (Auto) 0.1, Basophils # (Auto) 0.0, Large Unclassified Cells # 0.2, Large Unclassified Cells % 1.3 06/02/16 09:10: Vancomycin Level Trough 18.0 CBC/BMP Laboratory Tests 06/02/16 04:25 Calcium Level 7.7 L, Aspartate Amino Transf (AST/SGOT) 48 H, Alanine Aminotransferase (ALT/SGPT) 37, Alkaline Phosphatase 62, Total Bilirubin 0.5 #, Total Protein 5.5 L, Albumin 2.2 L 06/02/16 04:26 Red Blood Count 3.42 L, Mean Corpuscular Volume 99.1 H, Mean Corpuscular Hemoglobin 32.8, Mean Corpuscular Hemoglobin Concent 33.1, Red Cell Distribution Width 15.6 H, Neutrophils (%) (Auto) 83.3 H, Lymphocytes (%) (Auto ) 8.2 L, Monocytes (%) (Auto) 6.3 H, Eosinophils (%) (Auto) 0.7, Basophils (%) ( Auto) 0.2, Neutrophils # (Auto) 11.1 H, Lymphocytes # (Auto) 1.3 L, Monocytes # (Auto) 0.8, Eosinophils # (Auto) 0.1, Basophils # (Auto) 0.0 Microbiology Microbiology 05/31/16 Blood Culture - Preliminary, Resulted No Growth after 48 hours. All Specime... 05/31/16 Blood Culture - Preliminary, Resulted No Growth after 48 hours. All Specime... 05/31/16 MRSA Screen - Final, Complete 05/31/16 Respiratory Virus Panel (PCR) ([facility]) - Final, Complete Influenza B 05/31/16 Influenza Virus Type A Antigen - Final, Complete 05/31/16 Influenza Virus Type B Antigen - Final, Complete 05/31/16 Urine Culture - Final, Complete ERICA TORRES MD Jun 02, 2016 12:20
[2016-06-02] MEDS: CitaloPRAM (CeleXA) 20 MG TAB GT SCH (12:58)
[2016-06-02] MEDS: busPIRone 10 MG TAB GT SCH ×2 (12:58→21:25)
[2016-06-02] MEDS: risperiDONE 1 MG TAB GT SCH (12:58)
[2016-06-02] MEDS: GABAPENTIN 300 MG CAP GT SCH ×2 (15:04→21:25)
[2016-06-03] VITALS (12 sets, daily range): BP systolic 102–123; BP diastolic 56–80; O2SAT 95–98
[2016-06-03] MEDS: IPRATROPIUM 0.5MG/ALBUTEROL 2.5MG INH SOL UD 3ML (DUONEB)(J7620) NEB SCH ×4 (02:00→19:42)
[2016-06-03 05:28] LABS: BASO % 0.3 % (0.0-1.0); EOS % 0.2 % (0.0-3.0); LARGE UNSTAINED CELL # 0.2 K/mm3 (0.0-0.4); LARGE UNSTAINED CELL % 2.8 % (0.0-4.0); LYMPH # 1.2 K/mm3 (1.5-4.5); LYMPH % 14.7 % (24.0-44.0); MEAN CORPUSCULAR HEMOGLOBIN 33.1 pg (27.0-33.0); MEAN CORPUSCULAR HGB CONC 32.9 g/dl (32.0-36.5); MEAN CORPUSCULAR VOLUME 100.5 fl (80.0-96.0); MONO # 0.8 K/mm3 (0.0-0.8); MONO % 11.9 % (0.0-5.0); NEUTROPHILS # 4.9 K/mm3 (1.8-7.7); NEUTROPHILS % 70.1 % (36.0-66.0); PLATELET COUNT, AUTOMATED 230 k/mm3 (150-450); RED CELL DISTRIBUTION WIDTH 15.5 % (11.5-14.5); WHITE BLOOD COUNT 6.9 K/mm3 (4.0-10.0)
[2016-06-03 05:46] LABS: ALBUMIN/GLOBULIN RATIO 0.57 (1.00-1.93); ALKALINE PHOSPHATASE 63 U/L (45-117); ALT/SGPT 36 U/L (12-78); ANION GAP 7 MEQ/L (8-16); AST/SGOT 43 U/L (15-37); BILIRUBIN,TOTAL 0.5 MG/DL (0.2-1.0); BLOOD UREA NITROGEN 19 MG/DL (7-18); CALCIUM LEVEL 7.7 MG/DL (8.8-10.2); CARBON DIOXIDE LEVEL 28 MEQ/L (21-32); CHLORIDE LEVEL 108 MEQ/L (98-107); CREATININE FOR GFR 0.72 MG/DL (0.70-1.30); GLOMERULAR FILTRATION RATE > 60.0 (>49); GLUCOSE, FASTING 85 MG/DL (80-110); MAGNESIUM LEVEL 1.8 MG/DL (1.8-2.4); POTASSIUM SERUM 3.6 MEQ/L (3.5-5.1); SODIUM LEVEL 143 MEQ/L (136-145); TOTAL PROTEIN 5.5 GM/DL (6.4-8.2)
[2016-06-03] MEDS: LEVOTHYROXINE 0.075 MG TAB (75 MCG) GT SCH (06:10)
[2016-06-03] MEDS: clonazePAM 0.5 MG TAB GT SCH ×3 (08:11→16:38)
[2016-06-03] MEDS: risperiDONE 1 MG TAB GT SCH (08:12)
[2016-06-03] MEDS: CitaloPRAM (CeleXA) 20 MG TAB GT SCH (08:12)
[2016-06-03] MEDS: busPIRone 10 MG TAB GT SCH ×2 (08:12→20:55)
[2016-06-03] MEDS: OLANZapine ORAL DISINTEGRATING TAB 5MG GT SCH ×3 (08:12→16:39)
[2016-06-03] MEDS: ENOXAPARIN 40 MG/0.4 ML SYRINGE (J1650) SC SCH (08:13)
[2016-06-03] MEDS: PANTOPRAZOLE 40MG INJ (PROTONIX) (C9113) IV SCH (08:13)
[2016-06-03] MEDS: GABAPENTIN 300 MG CAP GT SCH ×3 (08:17→20:55)
--- NOTE | 2016-06-03 08:46 | IPNPDOC ---
Subjective Date Seen The patient was seen on 06/03/16. Subjective Chief Complaint/HPI The patient is a 60-year-old male admitted with a reason for visit of Pneumonia ; Sepsis. Events since last encounter patient comfortable, says feels better, cough decreased, patient calm and slept well overnight, no fever or chills, no diarrhea or vomiting or nausea, no abdominal pain Objective Physical Examination General Exam: Positive: Alert, No Acute Distress Eye Exam: Positive: PERRLA ENT Exam: Positive: Atraumatic, Mucous membr. moist/pink, Other ENT ( microcephaly) Neck Exam: Positive: Supple, Negative: JVD, thyromegaly Chest Exam: Positive: Rales Heart Exam: Positive: Normal S1, Normal S2, Rate Normal, Regular Rhythm Telemetry: Positive: No significant arrhythmia Abdomen Exam: Positive: Soft Extremity Exam: Positive: Normal pulses, Negative: Clubbing, Cyanosis, Edema Assessment /Plan Problems (1) Acute respiratory failure with hypoxemia Status: Acute Problem Text: due to pneumonia , possible aspiration and influenza. continue cefepime and vancomycin (2) Pneumonia Status: Acute Problem Text: possibly aspiration continue cefepime and start metronidazole . will dc vancomycin as no MRSA history. will consider changing gastrostomy tube to jejunostomy Tube to minimize episodes of aspiration. cultures are pending. (3) Influenza Status: Acute Problem Text: pcr positive for influenza b however symptoms have been for more than 5 days so tamiflu is not going to help (4) Sepsis Status: Acute Problem Text: due to pneumonia continue antibiotics. (5) PEG (percutaneous endoscopic gastrostomy) status Status: Chronic Problem Text: will restart PEG tube feeding. (6) Hypothyroidism Status: Chronic (7) Developmental disability Status: Chronic Problem Text: is a resident of [facility] , at baseline is ambulatory by self. will restart buspirone, gabapentin , risperidone, olanzepine, citalopram. (8) GERD (gastroesophageal reflux disease) Status: Chronic (9) Esophageal dilatation Status: Chronic (10) Hiatal hernia Status: Chronic (11) Periodontal disease Status: Chronic Problem Text: will need to be evaluated by dental surgeon. Plan/VTE VTE Prophylaxis Ordered?: Yes Plan/Urinary Catheter Reason for insertion/continuin: Critical Pt monitoring VS, I&O, 24H, Fishbone Vital Signs/I&O Vital Signs Date Time Temp Pulse Resp B/P Pulse Ox O2 Delivery O2 Flow Rate FiO2 06/03/16 08:00 98.6 63 19 113/77 96 High Flow Cannula 20.0 I&O- Last 24 Hours up to 6 AM 06/03/16 06:00 Intake Total 1600 ml Output Total 2595 ml Balance -995 ml Laboratory Data 24H LABS Laboratory Tests 2 06/02/16 09:10: Vancomycin Level Trough 18.0 06/03/16 04:54: Blood Urea Nitrogen 19H, Creatinine 0.72, Sodium Level 143, Potassium Level 3.6 , Chloride Level 108H, Carbon Dioxide Level 28, Calcium Level 7.7L, Aspartate Amino Transf (AST/SGOT) 43H, Alanine Aminotransferase (ALT/SGPT) 36, Alkaline Phosphatase 63, Total Bilirubin 0.5, Total Protein 5.5L, Albumin 2.0L, Albumin/ Globulin Ratio 0.57L, Anion Gap 7L, White Blood Count 6.9, Red Blood Count 3.29L , Hemoglobin 10.9L, Hematocrit 33.1L, Mean Corpuscular Volume 100.5H, Mean Corpuscular Hemoglobin 33.1H, Mean Corpuscular Hemoglobin Concent 32.9, Red Cell Distribution Width 15.5H, Platelet Count 230, Neutrophils (%) (Auto) 70.1H , Lymphocytes (%) (Auto) 14.7L, Monocytes (%) (Auto) 11.9H, Eosinophils (%) ( Auto) 0.2, Basophils (%) (Auto) 0.3, Neutrophils # (Auto) 4.9, Lymphocytes # ( Auto) 1.2L, Monocytes # (Auto) 0.8, Eosinophils # (Auto) 0.0, Basophils # (Auto ) 0.0, Glomerular Filtration Rate > 60.0, Large Unclassified Cells # 0.2, Large Unclassified Cells % 2.8, Magnesium Level 1.8 CBC/BMP Laboratory Tests 06/03/16 04:54 Calcium Level 7.7 L, Aspartate Amino Transf (AST/SGOT) 43 H, Alanine Aminotransferase (ALT/SGPT) 36, Alkaline Phosphatase 63, Total Bilirubin 0.5, Total Protein 5.5 L, Albumin 2.0 L, Red Blood Count 3.29 L, Mean Corpuscular Volume 100.5 H, Mean Corpuscular Hemoglobin 33.1 H, Mean Corpuscular Hemoglobin Concent 32.9, Red Cell Distribution Width 15.5 H, Neutrophils (%) (Auto) 70.1 H , Lymphocytes (%) (Auto) 14.7 L, Monocytes (%) (Auto) 11.9 H, Eosinophils (%) ( Auto) 0.2, Basophils (%) (Auto) 0.3, Neutrophils # (Auto) 4.9, Lymphocytes # ( Auto) 1.2 L, Monocytes # (Auto) 0.8, Eosinophils # (Auto) 0.0, Basophils # (Auto ) 0.0 Microbiology Microbiology 05/31/16 Blood Culture - Preliminary, Resulted No Growth after 48 hours. All Specime... 05/31/16 Blood Culture - Preliminary, Resulted No Growth after 48 hours. All Specime... 05/31/16 MRSA Screen - Final, Complete 05/31/16 Respiratory Virus Panel (PCR) ([facility]) - Final, Complete Influenza B 05/31/16 Influenza Virus Type A Antigen - Final, Complete 05/31/16 Influenza Virus Type B Antigen - Final, Complete 05/31/16 Urine Culture - Final, Complete ERICA TORRES MD Jun 03, 2016 08:46
--- NOTE | 2016-06-03 09:40 | REP ---
Clinical: Viral pneumonia. Comparison: 06/02/2016. Findings: New small infiltrate along the basilar right upper lobe is identified along with bilateral lower lobe infiltrates similar to prior examination. Layering effusion cannot be excluded. No pneumothorax. Mediastinum and cardiac silhouette stable. Skeletal structures stable. Impression: Multifocal infiltrates with new basilar right upper lobe infiltrate. Signed by Niranjan Saenz MD 06/03/2016 09:33 A
[2016-06-03] MEDS: CHLORHEXIDINE GLUCONATE 0.12 % 15ML UDC (PERIDEX ORAL RINSE) MT SCH ×3 (10:31→20:54)
[2016-06-03] MEDS: metroNIDAZOLE 500 MG in APPROPRIATE DILUENT 1 EA IV SCH ×2 (10:31→16:40)
[2016-06-03] MEDS: CEFEPIME HCL 2 GM in D5W MINI-BAG PLUS 50 ML IV SCH ×2 (10:32→20:53)
[2016-06-04 00:15] VITALS: O2SAT 98
[2016-06-04] MEDS: metroNIDAZOLE 500 MG in APPROPRIATE DILUENT 1 EA IV SCH ×4 (00:54→18:55)
[2016-06-04] MEDS: IPRATROPIUM 0.5MG/ALBUTEROL 2.5MG INH SOL UD 3ML (DUONEB)(J7620) NEB SCH ×4 (02:10→20:21)
[2016-06-04] MEDS: LEVOTHYROXINE 0.075 MG TAB (75 MCG) GT SCH (05:38)
[2016-06-04 06:00] VITALS: BP 118/69
[2016-06-04 06:32] LABS: MEAN CORPUSCULAR HEMOGLOBIN 32.6 pg (27.0-33.0); MEAN CORPUSCULAR HGB CONC 32.3 g/dl (32.0-36.5); PLATELET COUNT, AUTOMATED 250 k/mm3 (150-450); RED CELL DISTRIBUTION WIDTH 15.7 % (11.5-14.5)
[2016-06-04 06:39] LABS: ALBUMIN 1.8 GM/DL (3.2-5.2); ALBUMIN/GLOBULIN RATIO 0.51 (1.00-1.93); ALKALINE PHOSPHATASE 64 U/L (45-117); ALT/SGPT 35 U/L (12-78); ANION GAP 5 MEQ/L (8-16); AST/SGOT 31 U/L (15-37); BILIRUBIN,TOTAL 0.3 MG/DL (0.2-1.0); BLOOD UREA NITROGEN 20 MG/DL (7-18); CALCIUM LEVEL 7.7 MG/DL (8.8-10.2); CARBON DIOXIDE LEVEL 31 MEQ/L (21-32); CHLORIDE LEVEL 109 MEQ/L (98-107); CREATININE FOR GFR 0.78 MG/DL (0.70-1.30); GLOMERULAR FILTRATION RATE > 60.0 (>49); GLUCOSE, FASTING 97 MG/DL (80-110); MAGNESIUM LEVEL 1.9 MG/DL (1.8-2.4); POTASSIUM SERUM 3.8 MEQ/L (3.5-5.1); SODIUM LEVEL 145 MEQ/L (136-145); TOTAL PROTEIN 5.3 GM/DL (6.4-8.2)
[2016-06-04 07:22] LABS: BANDS 1 % (< 11)
[2016-06-04 07:23] LABS: ANISOCYTOSIS 1+
[2016-06-04] MEDS: clonazePAM 0.5 MG TAB GT SCH ×3 (07:30→14:48)
[2016-06-04] MEDS: CitaloPRAM (CeleXA) 20 MG TAB GT SCH (09:00)
[2016-06-04] MEDS: SCOPOLAMINE 1.5 MG TRANSDERMAL TOP SCH (09:00)
[2016-06-04] MEDS: ENOXAPARIN 40 MG/0.4 ML SYRINGE (J1650) SC SCH (09:35)
[2016-06-04] MEDS: busPIRone 10 MG TAB GT SCH ×2 (09:36→20:14)
[2016-06-04] MEDS: risperiDONE 1 MG TAB GT SCH (09:36)
[2016-06-04] MEDS: OLANZapine ORAL DISINTEGRATING TAB 5MG GT SCH ×3 (09:36→14:52)
[2016-06-04] MEDS: PANTOPRAZOLE 40MG INJ (PROTONIX) (C9113) IV SCH (09:37)
[2016-06-04] MEDS: GABAPENTIN 300 MG CAP GT SCH ×3 (09:37→20:14)
[2016-06-04] MEDS: CHLORHEXIDINE GLUCONATE 0.12 % 15ML UDC (PERIDEX ORAL RINSE) MT SCH ×3 (09:37→20:13)
[2016-06-04] MEDS: CEFEPIME HCL 2 GM in D5W MINI-BAG PLUS 50 ML IV SCH ×2 (09:37→20:11)
--- NOTE | 2016-06-04 11:15 | IPNPDOC ---
Subjective Date Seen The patient was seen on 06/04/16. Subjective Chief Complaint/HPI The patient is a 60-year-old male admitted with a reason for visit of Pneumonia ; Sepsis. Events since last encounter feeling better slept all night , very sleepy this morning so will hold the clonazepam, no fever or chills, no nausea or vomiting or diarrhea, no chest pain or sob , continues to have cough with lots of secretion. Objective Physical Examination General Exam: Positive: Alert, No Acute Distress Eye Exam: Positive: PERRLA ENT Exam: Positive: Atraumatic, Mucous membr. moist/pink, Other ENT ( microcephaly) Neck Exam: Positive: Supple, Negative: JVD, thyromegaly Chest Exam: Positive: Rales Heart Exam: Positive: Normal S1, Normal S2, Rate Normal, Regular Rhythm Telemetry: Positive: No significant arrhythmia Abdomen Exam: Positive: Soft Extremity Exam: Positive: Normal pulses, Negative: Clubbing, Cyanosis, Edema Assessment /Plan Problems (1) Acute respiratory failure with hypoxemia Status: Acute Problem Text: due to pneumonia , possible aspiration and influenza. continue cefepime and vancomycin (2) Pneumonia Status: Acute Problem Text: possibly aspiration continue cefepime and start metronidazole . will dc vancomycin as no MRSA history. will consider changing gastrostomy tube to jejunostomy Tube to minimize episodes of aspiration. cultures are pending. (3) Influenza Status: Acute Problem Text: pcr positive for influenza b however symptoms have been for more than 5 days so tamiflu is not going to help (4) Sepsis Status: Acute Problem Text: due to pneumonia continue antibiotics. (5) PEG (percutaneous endoscopic gastrostomy) status Status: Chronic Problem Text: will restart PEG tube feeding. (6) Hypothyroidism Status: Chronic (7) Developmental disability Status: Chronic Problem Text: is a resident of [facility] , at baseline is ambulatory by self. will restart buspirone, gabapentin , risperidone, olanzepine, citalopram. (8) GERD (gastroesophageal reflux disease) Status: Chronic (9) Esophageal dilatation Status: Chronic (10) Hiatal hernia Status: Chronic (11) Periodontal disease Status: Chronic Problem Text: will need to be evaluated by dental surgeon. Plan/VTE VTE Prophylaxis Ordered?: Yes Plan/Urinary Catheter Reason for insertion/continuin: Critical Pt monitoring VS, I&O, 24H, Fishbone Vital Signs/I&O Vital Signs Date Time Temp Pulse Resp B/P Pulse Ox O2 Delivery O2 Flow Rate FiO2 06/04/16 06:00 99.1 60 16 118/69 97 High Flow Cannula 10.0 I&O- Last 24 Hours up to 6 AM 06/04/16 05:59 Intake Total 565 ml Output Total 1120 ml Balance -555 ml Laboratory Data 24H LABS Laboratory Tests 2 06/04/16 05:48: Blood Urea Nitrogen 20H, Creatinine 0.78, Sodium Level 145, Potassium Level 3.8 , Chloride Level 109H, Carbon Dioxide Level 31, Calcium Level 7.7L, Aspartate Amino Transf (AST/SGOT) 31, Alanine Aminotransferase (ALT/SGPT) 35, Alkaline Phosphatase 64, Total Bilirubin 0.3, Total Protein 5.3L, Albumin 1.8L, Albumin/ Globulin Ratio 0.51L, Anion Gap 5L, Anisocytosis 1+, Atypical Lymphocytes 4, Band Neutrophils 1, White Blood Count 10.0, Red Blood Count 3.22L, Hemoglobin 10.5L, Hematocrit 32.5L, Mean Corpuscular Volume 101.0H, Mean Corpuscular Hemoglobin 32.6, Mean Corpuscular Hemoglobin Concent 32.3, Red Cell Distribution Width 15.7H, Platelet Count 250, Neutrophils (%) (Auto) , Lymphocytes (%) (Auto) , Monocytes (%) (Auto) , Eosinophils (%) (Auto) , Basophils (%) (Auto) , Neutrophils # (Auto) , Lymphocytes # (Auto) , Monocytes # (Auto) , Eosinophils # (Auto) , Basophils # (Auto) , Glomerular Filtration Rate > 60.0, Large Unclassified Cells # , Large Unclassified Cells % , Lymphocytes (Manual) 15L, Magnesium Level 1.9, Monocytes (Manual) 11H, Neutrophils 69, Platelet Estimate NORMAL CBC/BMP Laboratory Tests 06/04/16 05:48 Calcium Level 7.7 L, Aspartate Amino Transf (AST/SGOT) 31, Alanine Aminotransferase (ALT/SGPT) 35, Alkaline Phosphatase 64, Total Bilirubin 0.3, Total Protein 5.3 L, Albumin 1.8 L, Red Blood Count 3.22 L, Mean Corpuscular Volume 101.0 H, Mean Corpuscular Hemoglobin 32.6, Mean Corpuscular Hemoglobin Concent 32.3, Red Cell Distribution Width 15.7 H, Neutrophils (%) (Auto) , Lymphocytes (%) (Auto) , Monocytes (%) (Auto) , Eosinophils (%) (Auto) , Basophils (%) (Auto) , Neutrophils # (Auto) , Lymphocytes # (Auto) , Monocytes # (Auto) , Eosinophils # (Auto) , Basophils # (Auto) Microbiology Microbiology 05/31/16 Blood Culture - Preliminary, Resulted No Growth after 72 hours. All specime... 05/31/16 Blood Culture - Preliminary, Resulted No Growth after 72 hours. All specime... 05/31/16 MRSA Screen - Final, Complete 05/31/16 Respiratory Virus Panel (PCR) ([facility]) - Final, Complete Influenza B 05/31/16 Influenza Virus Type A Antigen - Final, Complete 05/31/16 Influenza Virus Type B Antigen - Final, Complete 05/31/16 Urine Culture - Final, Complete ERICA TORRES MD Jun 04, 2016 11:15
[2016-06-04 14:00] VITALS: BP 110/65
[2016-06-04 20:23] VITALS: O2SAT 97
[2016-06-04 22:00] VITALS: BP 101/70
[2016-06-05] MEDS: metroNIDAZOLE 500 MG in APPROPRIATE DILUENT 1 EA IV SCH ×3 (00:44→17:40)
[2016-06-05] MEDS: IPRATROPIUM 0.5MG/ALBUTEROL 2.5MG INH SOL UD 3ML (DUONEB)(J7620) NEB SCH ×5 (02:00→23:51)
[2016-06-05] MEDS: LEVOTHYROXINE 0.075 MG TAB (75 MCG) GT SCH (05:32)
[2016-06-05 06:00] VITALS: BP 100/57
--- NOTE | 2016-06-05 06:03 | IPNPDOC ---
Subjective Date Seen The patient was seen on 06/05/16. Subjective Chief Complaint/HPI The patient is a 60-year-old male admitted with a reason for visit of Pneumonia ; Sepsis. Events since last encounter no new complaints, sleeping well, still on 10 liters high flow oxygen . cough slightly better however still has lots of secretions. no fever or chills. Objective Physical Examination General Exam: Positive: Alert, No Acute Distress Eye Exam: Positive: PERRLA ENT Exam: Positive: Atraumatic, Mucous membr. moist/pink, Other ENT ( microcephaly) Neck Exam: Positive: Supple, Negative: JVD, thyromegaly Chest Exam: Positive: Rales Heart Exam: Positive: Normal S1, Normal S2, Rate Normal, Regular Rhythm Telemetry: Positive: No significant arrhythmia Abdomen Exam: Positive: Soft Extremity Exam: Positive: Normal pulses, Negative: Clubbing, Cyanosis, Edema Assessment /Plan Problems (1) Acute respiratory failure with hypoxemia Status: Acute Problem Text: due to pneumonia , possible aspiration and influenza. continue cefepime and vancomycin (2) Pneumonia Status: Acute Problem Text: possibly aspiration continue cefepime and start metronidazole . will dc vancomycin as no MRSA history. will consider changing gastrostomy tube to jejunostomy Tube to minimize episodes of aspiration. cultures are pending. (3) Influenza Status: Acute Problem Text: pcr positive for influenza b however symptoms have been for more than 5 days so tamiflu is not going to help (4) Sepsis Status: Acute Problem Text: due to pneumonia continue antibiotics. (5) PEG (percutaneous endoscopic gastrostomy) status Status: Chronic Problem Text: will restart PEG tube feeding. (6) Hypothyroidism Status: Chronic (7) Developmental disability Status: Chronic Problem Text: is a resident of [facility] , at baseline is ambulatory by self. will restart buspirone, gabapentin , risperidone, olanzepine, citalopram. (8) GERD (gastroesophageal reflux disease) Status: Chronic (9) Esophageal dilatation Status: Chronic (10) Hiatal hernia Status: Chronic (11) Periodontal disease Status: Chronic Problem Text: will need to be evaluated by dental surgeon. Plan/VTE VTE Prophylaxis Ordered?: Yes Plan/Urinary Catheter Reason for insertion/continuin: Critical Pt monitoring VS, I&O, 24H, Fishbone Vital Signs/I&O Vital Signs Date Time Temp Pulse Resp B/P Pulse Ox O2 Delivery O2 Flow Rate FiO2 3/25/17 22:00 98.6 80 20 101/70 94 High Flow Cannula 10.0 I&O- Last 24 Hours up to 6 AM 06/05/16 06:00 Intake Total 0 ml Output Total 600 ml Balance -600 ml Laboratory Data 24H LABS Laboratory Tests 2 06/05/16 05:35: Microbiology Microbiology 05/31/16 Blood Culture - Preliminary, Resulted No Growth after 72 hours. All specime... 05/31/16 Blood Culture - Preliminary, Resulted No Growth after 72 hours. All specime... 05/31/16 MRSA Screen - Final, Complete 05/31/16 Respiratory Virus Panel (PCR) ([facility]) - Final, Complete Influenza B 05/31/16 Influenza Virus Type A Antigen - Final, Complete 05/31/16 Influenza Virus Type B Antigen - Final, Complete 05/31/16 Urine Culture - Final, Complete ERICA TORRES MD Jun 05, 2016 06:03
[2016-06-05 06:12] LABS: MEAN CORPUSCULAR HEMOGLOBIN 33.1 pg (27.0-33.0); MEAN CORPUSCULAR HGB CONC 32.9 g/dl (32.0-36.5); MEAN CORPUSCULAR VOLUME 100.6 fl (80.0-96.0); PLATELET COUNT, AUTOMATED 285 k/mm3 (150-450); RED CELL DISTRIBUTION WIDTH 15.7 % (11.5-14.5); WHITE BLOOD COUNT 10.6 K/mm3 (4.0-10.0)
[2016-06-05 06:25] LABS: ALBUMIN 1.9 GM/DL (3.2-5.2); ALBUMIN/GLOBULIN RATIO 0.53 (1.00-1.93); ALKALINE PHOSPHATASE 64 U/L (45-117); ALT/SGPT 32 U/L (12-78); ANION GAP 6 MEQ/L (8-16); AST/SGOT 30 U/L (15-37); BILIRUBIN,TOTAL 0.4 MG/DL (0.2-1.0); BLOOD UREA NITROGEN 18 MG/DL (7-18); CALCIUM LEVEL 8.1 MG/DL (8.8-10.2); CARBON DIOXIDE LEVEL 30 MEQ/L (21-32); CHLORIDE LEVEL 106 MEQ/L (98-107); CREATININE FOR GFR 0.72 MG/DL (0.70-1.30); GLOMERULAR FILTRATION RATE > 60.0 (>49); GLUCOSE, FASTING 95 MG/DL (80-110); MAGNESIUM LEVEL 1.7 MG/DL (1.8-2.4); POTASSIUM SERUM 4.2 MEQ/L (3.5-5.1); SODIUM LEVEL 142 MEQ/L (136-145); TOTAL PROTEIN 5.5 GM/DL (6.4-8.2)
[2016-06-05 06:50] LABS: BASOPHILS 1 % (0-4)
[2016-06-05 06:52] LABS: ANISOCYTOSIS 1+
[2016-06-05] MEDS: OLANZapine ORAL DISINTEGRATING TAB 5MG GT SCH ×4 (07:30→17:39)
[2016-06-05] MEDS: busPIRone 5 MG TAB GT SCH ×2 (10:30→22:12)
[2016-06-05] MEDS: CEFEPIME HCL 2 GM in D5W MINI-BAG PLUS 50 ML IV SCH ×2 (10:43→22:12)
[2016-06-05] MEDS: ENOXAPARIN 40 MG/0.4 ML SYRINGE (J1650) SC SCH (10:44)
[2016-06-05] MEDS: CHLORHEXIDINE GLUCONATE 0.12 % 15ML UDC (PERIDEX ORAL RINSE) MT SCH ×3 (10:44→22:12)
[2016-06-05] MEDS: PANTOPRAZOLE 40MG INJ (PROTONIX) (C9113) IV SCH (10:44)
[2016-06-05] MEDS: CitaloPRAM (CeleXA) 20 MG TAB GT SCH (10:45)
[2016-06-05] MEDS: risperiDONE 1 MG TAB GT SCH (10:45)
[2016-06-05] MEDS: GABAPENTIN 300 MG CAP GT SCH ×3 (10:45→22:13)
[2016-06-05] MEDS: clonazePAM 0.5 MG TAB GT SCH (17:39)
[2016-06-05 19:02] VITALS: O2SAT 96
[2016-06-05 20:05] VITALS: O2SAT 90
[2016-06-05 22:00] VITALS: BP 91/50
[2016-06-05 23:45] VITALS: O2SAT 97
[2016-06-06] MEDS: metroNIDAZOLE 500 MG in APPROPRIATE DILUENT 1 EA IV SCH ×2 (01:50→09:45)
[2016-06-06] MEDS: LEVOTHYROXINE 0.075 MG TAB (75 MCG) GT SCH (05:27)
[2016-06-06 06:00] VITALS: BP 102/63
[2016-06-06 06:47] LABS: MEAN CORPUSCULAR HEMOGLOBIN 32.1 pg (27.0-33.0); MEAN CORPUSCULAR HGB CONC 32.7 g/dl (32.0-36.5); MEAN CORPUSCULAR VOLUME 98.3 fl (80.0-96.0); PLATELET COUNT, AUTOMATED 343 k/mm3 (150-450); RED CELL DISTRIBUTION WIDTH 15.1 % (11.5-14.5); WHITE BLOOD COUNT 10.5 K/mm3 (4.0-10.0)
[2016-06-06 07:00] LABS: ALBUMIN/GLOBULIN RATIO 0.57 (1.00-1.93); ALKALINE PHOSPHATASE 70 U/L (45-117); ALT/SGPT 44 U/L (12-78); ANION GAP 6 MEQ/L (8-16); AST/SGOT 51 U/L (15-37); BILIRUBIN,TOTAL 0.3 MG/DL (0.2-1.0); BLOOD UREA NITROGEN 20 MG/DL (7-18); CARBON DIOXIDE LEVEL 31 MEQ/L (21-32); CHLORIDE LEVEL 104 MEQ/L (98-107); CREATININE FOR GFR 0.79 MG/DL (0.70-1.30); GLOMERULAR FILTRATION RATE > 60.0 (>49); GLUCOSE, FASTING 138 MG/DL (80-110); MAGNESIUM LEVEL 1.8 MG/DL (1.8-2.4); POTASSIUM SERUM 4.2 MEQ/L (3.5-5.1); SODIUM LEVEL 141 MEQ/L (136-145); TOTAL PROTEIN 5.5 GM/DL (6.4-8.2)
[2016-06-06 07:19] LABS: BANDS 1 % (< 11); EOSINOPHILS 1 % (0-5)
[2016-06-06 07:20] LABS: ANISOCYTOSIS 1+
[2016-06-06 07:21] LABS: TOXIC GRANULATION 1+
[2016-06-06] MEDS: IPRATROPIUM 0.5MG/ALBUTEROL 2.5MG INH SOL UD 3ML (DUONEB)(J7620) NEB SCH ×3 (08:01→21:15)
[2016-06-06] MEDS: ENOXAPARIN 40 MG/0.4 ML SYRINGE (J1650) SC SCH (09:00)
--- NOTE | 2016-06-06 09:06 | IPNPDOC ---
Subjective Date Seen The patient was seen on 06/06/16. Subjective Chief Complaint/HPI The patient is a 60-year-old male admitted with a reason for visit of Pneumonia ; Sepsis. Events since last encounter patient says he feels better, cough and secretions less, he is cooperative and not in any distress, still on 10 l high flow normally does not use any oxygen at [facility] . will start weaning him off oxygen. Patient walks by himself at [facility]. will start mobilizing him. Objective Physical Examination General Exam: Positive: Alert, No Acute Distress Eye Exam: Positive: PERRLA ENT Exam: Positive: Atraumatic, Mucous membr. moist/pink, Other ENT ( microcephaly) Neck Exam: Positive: Supple, Negative: JVD, thyromegaly Chest Exam: Positive: Rales Heart Exam: Positive: Normal S1, Normal S2, Rate Normal, Regular Rhythm Telemetry: Positive: No significant arrhythmia Abdomen Exam: Positive: Soft Extremity Exam: Positive: Normal pulses, Negative: Clubbing, Cyanosis, Edema Assessment /Plan Problems (1) Acute respiratory failure with hypoxemia Status: Acute Response to Treatment: Improving Problem Text: due to pneumonia , possible aspiration and influenza. continue cefepime and vancomycin (2) Pneumonia Status: Acute Response to Treatment: Improving Problem Text: possibly aspiration continue cefepime and start metronidazole . will dc vancomycin as no MRSA history. will consider changing gastrostomy tube to jejunostomy Tube to minimize episodes of aspiration. cultures are pending. (3) Influenza Status: Acute Problem Text: pcr positive for influenza b however symptoms have been for more than 5 days so tamiflu is not going to help (4) Sepsis Status: Acute Problem Text: due to pneumonia continue antibiotics. (5) PEG (percutaneous endoscopic gastrostomy) status Status: Chronic Problem Text: will restart PEG tube feeding. (6) Hypothyroidism Status: Chronic (7) Developmental disability Status: Chronic Problem Text: is a resident of [facility] , at baseline is ambulatory by self. will restart buspirone, gabapentin , risperidone, olanzepine, citalopram. (8) GERD (gastroesophageal reflux disease) Status: Chronic (9) Esophageal dilatation Status: Chronic (10) Hiatal hernia Status: Chronic (11) Periodontal disease Status: Chronic Problem Text: will need to be evaluated by dental surgeon. Plan/VTE VTE Prophylaxis Ordered?: Yes Plan/Urinary Catheter Reason for insertion/continuin: Critical Pt monitoring VS, I&O, 24H, [facility] Vital Signs/I&O Vital Signs Date Time Temp Pulse Resp B/P Pulse Ox O2 Delivery O2 Flow Rate FiO2 06/06/16 06:00 98.7 69 18 102/63 94 Nasal Cannula 10.0 I&O- Last 24 Hours up to 6 AM 06/06/16 06:00 Intake Total 560 ml Output Total 1600 ml Balance -1040 ml Laboratory Data 24H LABS Laboratory Tests 2 06/06/16 06:25: Blood Urea Nitrogen 20H, Creatinine 0.79, Sodium Level 141, Potassium Level 4.2 , Chloride Level 104, Carbon Dioxide Level 31, Calcium Level 8.0L, Aspartate Amino Transf (AST/SGOT) 51H, Alanine Aminotransferase (ALT/SGPT) 44, Alkaline Phosphatase 70, Total Bilirubin 0.3, Total Protein 5.5L, Albumin 2.0L, Albumin/ Globulin Ratio 0.57L, Anion Gap 6L, Anisocytosis 1+, Band Neutrophils 1, White Blood Count 10.5H, Red Blood Count 3.17L, Hemoglobin 10.2L, Hematocrit 31.2L, Mean Corpuscular Volume 98.3H, Mean Corpuscular Hemoglobin 32.1, Mean Corpuscular Hemoglobin Concent 32.7, Red Cell Distribution Width 15.1H, Platelet Count 343, Neutrophils (%) (Auto) , Lymphocytes (%) (Auto) , Monocytes (%) (Auto) , Eosinophils (%) (Auto) , Basophils (%) (Auto) , Neutrophils # (Auto ) , Lymphocytes # (Auto) , Monocytes # (Auto) , Eosinophils # (Auto) , Basophils # (Auto) , Eosinophils (Manual) 1, Glomerular Filtration Rate > 60.0, Large Unclassified Cells # , Large Unclassified Cells % , Lymphocytes (Manual) 6L, Magnesium Level 1.8, Monocytes (Manual) 7, Myelocytes 4H, Neutrophils 81H, Platelet Estimate NORMAL, Toxic Granulation 1+ CBC/BMP Laboratory Tests 06/06/16 06:25 Calcium Level 8.0 L, Aspartate Amino Transf (AST/SGOT) 51 H, Alanine Aminotransferase (ALT/SGPT) 44, Alkaline Phosphatase 70, Total Bilirubin 0.3, Total Protein 5.5 L, Albumin 2.0 L, Red Blood Count 3.17 L, Mean Corpuscular Volume 98.3 H, Mean Corpuscular Hemoglobin 32.1, Mean Corpuscular Hemoglobin Concent 32.7, Red Cell Distribution Width 15.1 H, Neutrophils (%) (Auto) , Lymphocytes (%) (Auto) , Monocytes (%) (Auto) , Eosinophils (%) (Auto) , Basophils (%) (Auto) , Neutrophils # (Auto) , Lymphocytes # (Auto) , Monocytes # (Auto) , Eosinophils # (Auto) , Basophils # (Auto) Microbiology Microbiology 05/31/16 Blood Culture - Final, Complete NO GROWTH AFTER 5 DAYS 05/31/16 Blood Culture - Final, Complete NO GROWTH AFTER 5 DAYS 05/31/16 MRSA Screen - Final, Complete 05/31/16 Respiratory Virus Panel (PCR) ([facility]) - Final, Complete Influenza B 05/31/16 Influenza Virus Type A Antigen - Final, Complete 05/31/16 Influenza Virus Type B Antigen - Final, Complete 05/31/16 Urine Culture - Final, Complete ERICA TORRES MD Jun 06, 2016 09:06
[2016-06-06] MEDS: CHLORHEXIDINE GLUCONATE 0.12 % 15ML UDC (PERIDEX ORAL RINSE) MT SCH ×3 (09:43→21:45)
[2016-06-06] MEDS: CitaloPRAM (CeleXA) 20 MG TAB GT SCH (09:43)
[2016-06-06] MEDS: OLANZapine ORAL DISINTEGRATING TAB 5MG GT SCH ×3 (09:44→15:30)
[2016-06-06] MEDS: busPIRone 5 MG TAB GT SCH ×2 (09:44→21:45)
[2016-06-06] MEDS: GABAPENTIN 300 MG CAP GT SCH ×3 (09:44→21:45)
[2016-06-06] MEDS: risperiDONE 1 MG TAB GT SCH (09:44)
[2016-06-06] MEDS: PANTOPRAZOLE 40MG INJ (PROTONIX) (C9113) IV SCH (09:49)
[2016-06-06] MEDS: CEFEPIME HCL 2 GM in D5W MINI-BAG PLUS 50 ML IV SCH ×2 (10:00→21:45)
[2016-06-06 14:00] VITALS: BP 99/70
[2016-06-06] MEDS: metroNIDAZOLE (FLAGYL) 500 MG TAB GT SCH ×2 (14:00→21:45)
[2016-06-06] MEDS: clonazePAM 0.5 MG TAB GT SCH (15:30)
[2016-06-06 22:00] VITALS: BP 92/52
[2016-06-07] MEDS: IPRATROPIUM 0.5MG/ALBUTEROL 2.5MG INH SOL UD 3ML (DUONEB)(J7620) NEB SCH ×4 (01:32→21:06)
[2016-06-07] MEDS: metroNIDAZOLE (FLAGYL) 500 MG TAB GT SCH ×3 (05:41→21:34)
[2016-06-07] MEDS: LEVOTHYROXINE 0.075 MG TAB (75 MCG) GT SCH (05:41)
[2016-06-07 06:00] VITALS: BP 105/69
[2016-06-07 06:56] LABS: MEAN CORPUSCULAR HEMOGLOBIN 32.7 pg (27.0-33.0); MEAN CORPUSCULAR VOLUME 99.2 fl (80.0-96.0); PLATELET COUNT, AUTOMATED 414 k/mm3 (150-450); WHITE BLOOD COUNT 10.2 K/mm3 (4.0-10.0)
[2016-06-07 07:10] LABS: ALKALINE PHOSPHATASE 79 U/L (45-117); ALT/SGPT 54 U/L (12-78); ANION GAP 5 MEQ/L (8-16); AST/SGOT 56 U/L (15-37); BILIRUBIN,TOTAL 0.4 MG/DL (0.2-1.0); BLOOD UREA NITROGEN 25 MG/DL (7-18); CALCIUM LEVEL 8.6 MG/DL (8.8-10.2); CARBON DIOXIDE LEVEL 32 MEQ/L (21-32); CHLORIDE LEVEL 104 MEQ/L (98-107); CREATININE FOR GFR 0.86 MG/DL (0.70-1.30); GLOMERULAR FILTRATION RATE > 60.0 (>49); GLUCOSE, FASTING 118 MG/DL (80-110); POTASSIUM SERUM 4.4 MEQ/L (3.5-5.1); SODIUM LEVEL 141 MEQ/L (136-145)
[2016-06-07 07:11] LABS: ALBUMIN 2.3 GM/DL (3.2-5.2); ALBUMIN/GLOBULIN RATIO 0.58 (1.00-1.93); MAGNESIUM LEVEL 1.8 MG/DL (1.8-2.4); TOTAL PROTEIN 6.3 GM/DL (6.4-8.2)
[2016-06-07 07:19] LABS: BANDS 3 % (< 11); EOSINOPHILS 2 % (0-5)
[2016-06-07 07:20] LABS: TOXIC GRANULATION 1+
[2016-06-07] MEDS: OLANZapine ORAL DISINTEGRATING TAB 5MG GT SCH ×3 (07:41→15:24)
[2016-06-07] MEDS: PANTOPRAZOLE 40MG INJ (PROTONIX) (C9113) IV SCH (09:51)
[2016-06-07] MEDS: CitaloPRAM (CeleXA) 20 MG TAB GT SCH (09:54)
[2016-06-07] MEDS: CHLORHEXIDINE GLUCONATE 0.12 % 15ML UDC (PERIDEX ORAL RINSE) MT SCH ×3 (09:54→21:34)
[2016-06-07] MEDS: ENOXAPARIN 40 MG/0.4 ML SYRINGE (J1650) SC SCH (09:54)
[2016-06-07] MEDS: busPIRone 5 MG TAB GT SCH ×2 (09:54→21:34)
[2016-06-07] MEDS: GABAPENTIN 300 MG CAP GT SCH ×3 (09:54→21:34)
[2016-06-07] MEDS: CEFEPIME HCL 2 GM in D5W MINI-BAG PLUS 50 ML IV SCH ×2 (09:55→22:30)
[2016-06-07] MEDS: SCOPOLAMINE 1.5 MG TRANSDERMAL TOP SCH (09:55)
[2016-06-07] MEDS: risperiDONE 1 MG TAB GT SCH (09:55)
[2016-06-07 14:00] VITALS: BP 95/70
[2016-06-07] MEDS: clonazePAM 0.5 MG TAB GT SCH (15:23)
[2016-06-07 22:00] VITALS: BP 100/68
[2016-06-08 01:25] VITALS: O2SAT 90
[2016-06-08] MEDS: IPRATROPIUM 0.5MG/ALBUTEROL 2.5MG INH SOL UD 3ML (DUONEB)(J7620) NEB SCH ×4 (01:26→20:39)
[2016-06-08] MEDS: metroNIDAZOLE (FLAGYL) 500 MG TAB GT SCH ×3 (05:38→20:00)
[2016-06-08] MEDS: LEVOTHYROXINE 0.075 MG TAB (75 MCG) GT SCH (05:38)
[2016-06-08 06:00] VITALS: BP 101/68
[2016-06-08] MEDS: NS 1,000 ML IV SCH (06:30)
[2016-06-08] MEDS: OLANZapine ORAL DISINTEGRATING TAB 5MG GT SCH ×3 (07:33→14:48)
[2016-06-08] MEDS: GABAPENTIN 300 MG CAP GT SCH ×3 (09:45→20:00)
[2016-06-08] MEDS: risperiDONE 1 MG TAB GT SCH (09:46)
[2016-06-08] MEDS: busPIRone 5 MG TAB GT SCH ×2 (09:46→20:00)
[2016-06-08] MEDS: CitaloPRAM (CeleXA) 20 MG TAB GT SCH (09:46)
[2016-06-08] MEDS: CHLORHEXIDINE GLUCONATE 0.12 % 15ML UDC (PERIDEX ORAL RINSE) MT SCH ×3 (09:46→19:59)
[2016-06-08] MEDS: ENOXAPARIN 40 MG/0.4 ML SYRINGE (J1650) SC SCH (09:46)
[2016-06-08] MEDS: CEFEPIME HCL 2 GM in D5W MINI-BAG PLUS 50 ML IV SCH ×2 (09:47→19:59)
[2016-06-08] MEDS: PANTOPRAZOLE 40MG INJ (PROTONIX) (C9113) IV SCH (09:47)
[2016-06-08] MEDS: clonazePAM 0.5 MG TAB GT SCH (14:48)
[2016-06-08 22:00] VITALS: BP 94/58
[2016-06-09 01:23] VITALS: O2SAT 91
[2016-06-09] MEDS: IPRATROPIUM 0.5MG/ALBUTEROL 2.5MG INH SOL UD 3ML (DUONEB)(J7620) NEB SCH ×4 (01:24→20:13)
[2016-06-09] MEDS: metroNIDAZOLE (FLAGYL) 500 MG TAB GT SCH ×3 (05:27→22:07)
[2016-06-09] MEDS: LEVOTHYROXINE 0.075 MG TAB (75 MCG) GT SCH ×2 (05:27→06:00)
[2016-06-09] MEDS: NS 1,000 ML IV SCH (05:28)
[2016-06-09 06:00] VITALS: BP 97/62
[2016-06-09] MEDS: OLANZapine ORAL DISINTEGRATING TAB 5MG GT SCH ×3 (07:50→16:43)
[2016-06-09] MEDS: ENOXAPARIN 40 MG/0.4 ML SYRINGE (J1650) SC SCH (07:57)
[2016-06-09] MEDS: GABAPENTIN 300 MG CAP GT SCH ×3 (07:58→22:07)
[2016-06-09] MEDS: CHLORHEXIDINE GLUCONATE 0.12 % 15ML UDC (PERIDEX ORAL RINSE) MT SCH ×3 (07:58→22:06)
[2016-06-09] MEDS: risperiDONE 1 MG TAB GT SCH (07:59)
[2016-06-09] MEDS: CitaloPRAM (CeleXA) 20 MG TAB GT SCH (08:00)
[2016-06-09] MEDS: busPIRone 5 MG TAB GT SCH ×2 (08:00→22:07)
[2016-06-09] MEDS: PANTOPRAZOLE 40MG INJ (PROTONIX) (C9113) IV SCH (08:01)
--- NOTE | 2016-06-09 08:34 | IPNPDOC ---
Subjective Date Seen The patient was seen on 06/08/16. pt was seen on 06/08 note is entered on 06/09 Subjective Chief Complaint/HPI The patient is a 60-year-old male admitted with a reason for visit of Pneumonia ; Sepsis. General: Reports: ROS Unobtainable Objective Physical Examination General Exam: Positive: Cooperative, No Acute Distress Eye Exam: Positive: PERRLA ENT Exam: Positive: Atraumatic, Mucous membr. moist/pink, Other ENT ( microcephaly) Neck Exam: Positive: Supple, Negative: JVD, thyromegaly Chest Exam: Positive: Rales Heart Exam: Positive: Normal S1, Normal S2, Rate Normal, Regular Rhythm Telemetry: Positive: No significant arrhythmia Abdomen Exam: Positive: Soft Extremity Exam: Positive: Normal pulses, Negative: Clubbing, Cyanosis, Edema Assessment /Plan Problems (1) Urinary retention Status: Acute Problem Text: * unknown if this is a chronic problem * per care process manager pt has a hard time voiding at baseline but no history of catheterization * since admission pt had a villasenor that was placed in the ED and been requiring straight cath since it was discontinued * will continue bladder scan and if he continues to require catheterization will replace villasenor and have pt follow up with urology outpt * will check psa level and start Flomax (2) Acute respiratory failure with hypoxemia Status: Acute Response to Treatment: Improving Problem Text: * due to pneumonia , possible aspiration and influenza. * will switch to oral levaquin (3) Pneumonia Status: Acute Response to Treatment: Improving Problem Text: * possibly aspiration * will switch to oral levaquin. (4) Influenza Status: Acute Problem Text: pcr positive for influenza b however symptoms have been for more than 5 days so tamiflu is not going to help he received 2 doses (5) Sepsis Status: Resolved Problem Text: due to pneumonia continue antibiotics. (6) PEG (percutaneous endoscopic gastrostomy) status Status: Chronic Problem Text: continue PEG tube feeding. (7) Hypothyroidism Status: Chronic (8) Developmental disability Status: Chronic Problem Text: is a resident of [facility] , at baseline is ambulatory by self. continue buspirone, gabapentin , risperidone, olanzepine, citalopram. (9) GERD (gastroesophageal reflux disease) Status: Chronic (10) Esophageal dilatation Status: Chronic (11) Hiatal hernia Status: Chronic (12) Periodontal disease Status: Chronic Problem Text: will need to be evaluated by dental surgeon. Plan/VTE VTE Prophylaxis Ordered?: Yes Plan/Urinary Catheter Reason for insertion/continuin: Critical Pt monitoring VS, I&O, 24H, Fishbone Vital Signs/I&O Vital Signs Date Time Temp Pulse Resp B/P Pulse Ox O2 Delivery O2 Flow Rate FiO2 06/09/16 06:00 98.6 63 18 97/62 97 Room Air 06/07/16 14:00 1.5 I&O- Last 24 Hours up to 6 AM 06/09/16 06:00 Intake Total 410 ml Output Total 1450 ml Balance -1040 ml Laboratory Data Microbiology Microbiology 05/31/16 Blood Culture - Final, Complete NO GROWTH AFTER 5 DAYS 05/31/16 Blood Culture - Final, Complete NO GROWTH AFTER 5 DAYS 05/31/16 MRSA Screen - Final, Complete 05/31/16 Respiratory Virus Panel (PCR) (EDMUND) - Final, Complete Influenza B 05/31/16 Influenza Virus Type A Antigen - Final, Complete 05/31/16 Influenza Virus Type B Antigen - Final, Complete 05/31/16 Urine Culture - Final, Complete ADELA CORRALES DO Jun 09, 2016 08:34
[2016-06-09 09:15] LABS: ALBUMIN 2.5 GM/DL (3.2-5.2); ALBUMIN/GLOBULIN RATIO 0.61 (1.00-1.93); ALKALINE PHOSPHATASE 76 U/L (45-117); ALT/SGPT 62 U/L (12-78); ANION GAP 6 MEQ/L (8-16); AST/SGOT 65 U/L (15-37); BILIRUBIN,TOTAL 0.4 MG/DL (0.2-1.0); BLOOD UREA NITROGEN 24 MG/DL (7-18); CALCIUM LEVEL 8.9 MG/DL (8.8-10.2); CARBON DIOXIDE LEVEL 30 MEQ/L (21-32); CHLORIDE LEVEL 105 MEQ/L (98-107); CREATININE FOR GFR 0.91 MG/DL (0.70-1.30); GLOMERULAR FILTRATION RATE > 60.0 (>49); GLUCOSE, FASTING 104 MG/DL (80-110); POTASSIUM SERUM 4.4 MEQ/L (3.5-5.1); SODIUM LEVEL 141 MEQ/L (136-145); TOTAL PROTEIN 6.6 GM/DL (6.4-8.2)
[2016-06-09] MEDS: CEFEPIME HCL 2 GM in D5W MINI-BAG PLUS 50 ML IV SCH ×2 (11:02→22:07)
[2016-06-09 14:00] VITALS: BP 99/64
[2016-06-09 15:43] LABS: MEAN CORPUSCULAR HEMOGLOBIN 32.6 pg (27.0-33.0); PLATELET COUNT, AUTOMATED 463 k/mm3 (150-450); RED CELL DISTRIBUTION WIDTH 15.2 % (11.5-14.5); WHITE BLOOD COUNT 6.8 K/mm3 (4.0-10.0)
[2016-06-09 16:16] LABS: EOSINOPHILS 5 % (0-5)
[2016-06-09 16:17] LABS: ANISOCYTOSIS 1+; DOHLE BODIES 1+; POIKILOCYTOSIS 1+; SMUDGE CELLS 1+; TOXIC GRANULATION 1+
[2016-06-09 16:18] LABS: OVALOCYTES 1+; POLYCHROMASIA 1+
--- NOTE | 2016-06-09 16:23 | IPNPDOC ---
Subjective Date Seen The patient was seen on 06/09/16. Subjective Chief Complaint/HPI The patient is a 60-year-old male admitted with a reason for visit of Pneumonia ; Sepsis. Objective Physical Examination General Exam: Positive: Cooperative, No Acute Distress Eye Exam: Positive: PERRLA ENT Exam: Positive: Atraumatic, Mucous membr. moist/pink, Other ENT ( microcephaly) Neck Exam: Positive: Supple, Negative: JVD, thyromegaly Chest Exam: Positive: Rales Heart Exam: Positive: Normal S1, Normal S2, Rate Normal, Regular Rhythm Telemetry: Positive: No significant arrhythmia Abdomen Exam: Positive: Soft Extremity Exam: Positive: Normal pulses, Negative: Clubbing, Cyanosis, Edema Assessment /Plan Problems (1) Urinary retention Status: Acute Problem Text: * unknown if this is a chronic problem * per urgent care pt has a hard time voiding at baseline but no history of catheterization * since admission pt had a villasenor that was placed in the ED and been requiring straight cath since it was discontinued * will continue bladder scan and if he continues to require catheterization will replace villasenor and have pt follow up with urology outpt * will check psa level and start Flomax (2) Acute respiratory failure with hypoxemia Status: Acute Response to Treatment: Improving Problem Text: * due to pneumonia , possible aspiration and influenza. * will switch to oral levaquin (3) Pneumonia Status: Acute Response to Treatment: Improving Problem Text: * possibly aspiration * will switch to oral levaquin. (4) Influenza Status: Acute Problem Text: pcr positive for influenza b however symptoms have been for more than 5 days so tamiflu is not going to help he received 2 doses (5) Sepsis Status: Resolved Problem Text: due to pneumonia continue antibiotics. (6) PEG (percutaneous endoscopic gastrostomy) status Status: Chronic Problem Text: continue PEG tube feeding. (7) Hypothyroidism Status: Chronic (8) Developmental disability Status: Chronic Problem Text: is a resident of [facility] [[email or web address]] , at baseline is ambulatory by self. continue buspirone, gabapentin , risperidone, olanzepine, citalopram. (9) GERD (gastroesophageal reflux disease) Status: Chronic (10) Esophageal dilatation Status: Chronic (11) Hiatal hernia Status: Chronic (12) Periodontal disease Status: Chronic Problem Text: will need to be evaluated by dental surgeon. Plan/VTE VTE Prophylaxis Ordered?: Yes Plan/Urinary Catheter Reason for insertion/continuin: Critical Pt monitoring VS, I&O, 24H, Fishbone Vital Signs/I&O Vital Signs Date Time Temp Pulse Resp B/P Pulse Ox O2 Delivery O2 Flow Rate FiO2 06/09/16 06:00 98.6 63 18 97/62 97 Room Air 06/07/16 14:00 1.5 I&O- Last 24 Hours up to 6 AM 06/09/16 06:00 Intake Total 410 ml Output Total 1450 ml Balance -1040 ml Laboratory Data 24H LABS Laboratory Tests 2 06/09/16 08:39: Blood Urea Nitrogen 24H, Creatinine 0.91, Sodium Level 141, Potassium Level 4.4 , Chloride Level 105, Carbon Dioxide Level 30, Calcium Level 8.9, Aspartate Amino Transf (AST/SGOT) 65H, Alanine Aminotransferase (ALT/SGPT) 62, Alkaline Phosphatase 76, Total Bilirubin 0.4, Total Protein 6.6, Albumin 2.5L, Albumin/ Globulin Ratio 0.61L, Anion Gap 6L, Anisocytosis 1+, Atypical Lymphocytes 6H, White Blood Count 6.8, Red Blood Count 3.61L, Hemoglobin 11.8L, Hematocrit 36.9L , Mean Corpuscular Volume 102.0H, Mean Corpuscular Hemoglobin 32.6, Mean Corpuscular Hemoglobin Concent 32.0, Red Cell Distribution Width 15.2H, Platelet Count 463H, Neutrophils (%) (Auto) , Lymphocytes (%) (Auto) , Monocytes (%) (Auto) , Eosinophils (%) (Auto) , Basophils (%) (Auto) , Neutrophils # (Auto) , Lymphocytes # (Auto) , Monocytes # (Auto) , Eosinophils # (Auto) , Basophils # (Auto) , Dohle Bodies 1+, Eosinophils (Manual) 5, Glomerular Filtration Rate > 60.0, Large Unclassified Cells # , Large Unclassified Cells % , Lymphocytes (Manual) 23, Macrocytosis 1+, Metamyelocytes 1H, Monocytes (Manual) 3, Myelocytes 5H, Neutrophils 57, Ovalocytes 1+, Platelet Estimate INCREASED, Poikilocytosis 1+, Polychromasia 1+, Prostate Specific Antigen 4.06H, Smudge Cells 1+, Toxic Granulation 1+ CBC/BMP Laboratory Tests 06/09/16 08:39 Calcium Level 8.9, Aspartate Amino Transf (AST/SGOT) 65 H, Alanine Aminotransferase (ALT/SGPT) 62, Alkaline Phosphatase 76, Total Bilirubin 0.4, Total Protein 6.6, Albumin 2.5 L, Red Blood Count 3.61 L, Mean Corpuscular Volume 102.0 H, Mean Corpuscular Hemoglobin 32.6, Mean Corpuscular Hemoglobin Concent 32.0, Red Cell Distribution Width 15.2 H, Neutrophils (%) (Auto) , Lymphocytes (%) (Auto) , Monocytes (%) (Auto) , Eosinophils (%) (Auto) , Basophils (%) (Auto) , Neutrophils # (Auto) , Lymphocytes # (Auto) , Monocytes # (Auto) , Eosinophils # (Auto) , Basophils # (Auto) Microbiology Microbiology 05/31/16 Blood Culture - Final, Complete NO GROWTH AFTER 5 DAYS 05/31/16 Blood Culture - Final, Complete NO GROWTH AFTER 5 DAYS 05/31/16 MRSA Screen - Final, Complete 05/31/16 Respiratory Virus Panel (PCR) (EDMUND) - Final, Complete Influenza B 05/31/16 Influenza Virus Type A Antigen - Final, Complete 05/31/16 Influenza Virus Type B Antigen - Final, Complete 05/31/16 Urine Culture - Final, Complete ADELA CORRALES DO Jun 09, 2016 16:23
[2016-06-09] MEDS: clonazePAM 0.5 MG TAB GT SCH (16:43)
[2016-06-09 22:00] VITALS: BP 95/66
[2016-06-10] MEDS: IPRATROPIUM 0.5MG/ALBUTEROL 2.5MG INH SOL UD 3ML (DUONEB)(J7620) NEB SCH ×4 (01:58→19:25)
[2016-06-10 06:00] VITALS: BP 95/60
[2016-06-10] MEDS: LEVOTHYROXINE 0.075 MG TAB (75 MCG) GT SCH (06:04)
[2016-06-10] MEDS: metroNIDAZOLE (FLAGYL) 500 MG TAB GT SCH ×3 (06:04→21:04)
[2016-06-10] MEDS: NS 1,000 ML IV SCH (06:05)
[2016-06-10] MEDS: OLANZapine ORAL DISINTEGRATING TAB 5MG GT SCH ×3 (06:07→15:30)
[2016-06-10] MEDS: ENOXAPARIN 40 MG/0.4 ML SYRINGE (J1650) SC SCH (09:00)
[2016-06-10] MEDS: busPIRone 5 MG TAB GT SCH ×2 (09:55→21:03)
[2016-06-10] MEDS: CEFEPIME HCL 2 GM in D5W MINI-BAG PLUS 50 ML IV SCH ×2 (09:55→21:03)
[2016-06-10] MEDS: PANTOPRAZOLE 40MG INJ (PROTONIX) (C9113) IV SCH (09:55)
[2016-06-10] MEDS: CHLORHEXIDINE GLUCONATE 0.12 % 15ML UDC (PERIDEX ORAL RINSE) MT SCH ×3 (09:56→21:02)
[2016-06-10] MEDS: CitaloPRAM (CeleXA) 20 MG TAB GT SCH (09:56)
[2016-06-10] MEDS: GABAPENTIN 300 MG CAP GT SCH ×3 (09:56→21:04)
[2016-06-10] MEDS: SCOPOLAMINE 1.5 MG TRANSDERMAL TOP SCH (09:59)
[2016-06-10] MEDS: risperiDONE 1 MG TAB GT SCH (09:59)
[2016-06-10 14:00] VITALS: BP 87/55
--- NOTE | 2016-06-10 16:07 | IPNPDOC ---
Subjective Date Seen The patient was seen on 06/10/16. Subjective Chief Complaint/HPI The patient is a 60-year-old male admitted with a reason for visit of Pneumonia ; Sepsis. Objective Physical Examination General Exam: Positive: Cooperative, No Acute Distress Eye Exam: Positive: PERRLA ENT Exam: Positive: Atraumatic, Mucous membr. moist/pink, Other ENT ( microcephaly) Neck Exam: Positive: Supple, Negative: JVD, thyromegaly Chest Exam: Positive: Rales Heart Exam: Positive: Normal S1, Normal S2, Rate Normal, Regular Rhythm Telemetry: Positive: No significant arrhythmia Abdomen Exam: Positive: Soft Extremity Exam: Positive: Normal pulses, Negative: Clubbing, Cyanosis, Edema Assessment /Plan Problems (1) Urinary retention Status: Acute Problem Text: * unknown if this is a chronic problem * per housekeeper caregiver pt has a hard time voiding at baseline but no history of catheterization * since admission pt had a villasenor that was placed in the ED and been requiring straight cath since it was discontinued * will continue bladder scan and if he continues to require catheterization will replace villasenor and have pt follow up with urology outpt * will check psa level and start Flomax (2) Acute respiratory failure with hypoxemia Status: Acute Response to Treatment: Improving Problem Text: * due to pneumonia , possible aspiration and influenza. * will switch to oral levaquin (3) Pneumonia Status: Acute Response to Treatment: Improving Problem Text: * possibly aspiration * will switch to oral levaquin. (4) Influenza Status: Acute Problem Text: pcr positive for influenza b however symptoms have been for more than 5 days so tamiflu is not going to help he received 2 doses (5) Sepsis Status: Resolved Problem Text: due to pneumonia continue antibiotics. (6) PEG (percutaneous endoscopic gastrostomy) status Status: Chronic Problem Text: continue PEG tube feeding. (7) Hypothyroidism Status: Chronic (8) Developmental disability Status: Chronic Problem Text: is a resident of [facility] , at baseline is ambulatory by self. continue buspirone, gabapentin , risperidone, olanzepine, citalopram. (9) GERD (gastroesophageal reflux disease) Status: Chronic (10) Esophageal dilatation Status: Chronic (11) Hiatal hernia Status: Chronic (12) Periodontal disease Status: Chronic Problem Text: will need to be evaluated by dental surgeon. Plan/VTE VTE Prophylaxis Ordered?: Yes Plan/Urinary Catheter Reason for insertion/continuin: Critical Pt monitoring VS, I&O, 24H, Fishbone Vital Signs/I&O Vital Signs Date Time Temp Pulse Resp B/P Pulse Ox O2 Delivery O2 Flow Rate FiO2 06/10/16 14:00 99.6 89 16 87/55 93 Room Air 06/07/16 14:00 1.5 I&O- Last 24 Hours up to 6 AM 06/10/16 06:00 Intake Total 1311 ml Output Total 3250 ml Balance -1939 ml Laboratory Data Microbiology Microbiology 05/31/16 Blood Culture - Final, Complete NO GROWTH AFTER 5 DAYS 05/31/16 Blood Culture - Final, Complete NO GROWTH AFTER 5 DAYS 05/31/16 MRSA Screen - Final, Complete 05/31/16 Respiratory Virus Panel (PCR) (EDMUND) - Final, Complete Influenza B 05/31/16 Influenza Virus Type A Antigen - Final, Complete 05/31/16 Influenza Virus Type B Antigen - Final, Complete 05/31/16 Urine Culture - Final, Complete ADELA CORRALES DO Jun 10, 2016 16:07
[2016-06-10] MEDS: clonazePAM 0.5 MG TAB GT SCH (16:56)
[2016-06-10 19:26] VITALS: O2SAT 93
[2016-06-10 22:00] VITALS: BP 93/54
[2016-06-11] MEDS: IPRATROPIUM 0.5MG/ALBUTEROL 2.5MG INH SOL UD 3ML (DUONEB)(J7620) NEB SCH ×3 (00:39→13:24)
[2016-06-11] MEDS: LEVOTHYROXINE 0.075 MG TAB (75 MCG) GT SCH (05:10)
[2016-06-11] MEDS: metroNIDAZOLE (FLAGYL) 500 MG TAB GT SCH ×2 (05:10→14:00)
[2016-06-11 06:00] VITALS: BP 111/77
[2016-06-11] MEDS: NS 1,000 ML IV SCH (06:30)
[2016-06-11] MEDS: OLANZapine ORAL DISINTEGRATING TAB 5MG GT SCH ×2 (07:30→10:00)
[2016-06-11] MEDS: CEFEPIME HCL 2 GM in D5W MINI-BAG PLUS 50 ML IV SCH (10:50)
[2016-06-11] MEDS: PANTOPRAZOLE 40MG INJ (PROTONIX) (C9113) IV SCH (10:50)
[2016-06-11] MEDS: ENOXAPARIN 40 MG/0.4 ML SYRINGE (J1650) SC SCH (10:53)
[2016-06-11] MEDS: CHLORHEXIDINE GLUCONATE 0.12 % 15ML UDC (PERIDEX ORAL RINSE) MT SCH (10:53)
[2016-06-11] MEDS: busPIRone 5 MG TAB GT SCH (10:54)
[2016-06-11] MEDS: ACETAMINOPHEN 325 MG/10.15 ML UDC GT PRN (10:54)
[2016-06-11] MEDS: risperiDONE 1 MG TAB GT SCH (10:55)
[2016-06-11] MEDS: CitaloPRAM (CeleXA) 20 MG TAB GT SCH (10:55)
[2016-06-11] MEDS: GABAPENTIN 300 MG CAP GT SCH (10:55)
[2016-06-11 11:11] LABS: DIFF SLIDE NUMBER 102; MEAN CORPUSCULAR HEMOGLOBIN 33.6 pg (27.0-33.0); MEAN CORPUSCULAR HGB CONC 33.1 g/dl (32.0-36.5); MEAN CORPUSCULAR VOLUME 101.4 fl (80.0-96.0); PLATELET COUNT, AUTOMATED 524 k/mm3 (150-450); RED CELL DISTRIBUTION WIDTH 16.5 % (11.5-14.5); WHITE BLOOD COUNT 7.1 K/mm3 (4.0-10.0)
[2016-06-11 11:22] LABS: ALBUMIN 2.4 GM/DL (3.2-5.2); ALBUMIN/GLOBULIN RATIO 0.71 (1.00-1.93); ALKALINE PHOSPHATASE 70 U/L (45-117); ALT/SGPT 48 U/L (12-78); ANION GAP 4 MEQ/L (8-16); AST/SGOT 41 U/L (15-37); BILIRUBIN,TOTAL 0.4 MG/DL (0.2-1.0); BLOOD UREA NITROGEN 26 MG/DL (7-18); CALCIUM LEVEL 8.6 MG/DL (8.8-10.2); CARBON DIOXIDE LEVEL 31 MEQ/L (21-32); CHLORIDE LEVEL 108 MEQ/L (98-107); GLOMERULAR FILTRATION RATE > 60.0 (>49); GLUCOSE, FASTING 93 MG/DL (80-110); POTASSIUM SERUM 4.6 MEQ/L (3.5-5.1); SODIUM LEVEL 143 MEQ/L (136-145); TOTAL PROTEIN 5.8 GM/DL (6.4-8.2)
[2016-06-11 11:54] LABS: EOSINOPHILS 2 % (0-5)
[2016-06-11 11:55] LABS: ANISOCYTOSIS 1+; TOXIC GRANULATION 1+
[2016-06-11] MEDS ORDERED: FLOM5CAP PEG (13:08)
== END 2016-06-11 15:15 | disposition home or self-care (01) | DRG 871 ==
LOC: EDBD 09:38 → M ED 11:07 → M ED INP 14:00 → M ICU 14:52 → M MS5PR 06-03 12:13
PROVIDERS: ADMIT Hospitalist; ATTEND Internal Medicine
DX: A41.9 Sepsis, unspecified organism (principal); J69.0 Pneumonitis due to inhalation of food and vomit; R65.21 Severe sepsis with septic shock; J96.01 Acute respiratory failure with hypoxia; J10.08 Influenza due to other identified influenza virus with other specified pneumonia; F41.9 Anxiety disorder, unspecified; F32.9 Major depressive disorder, single episode, unspecified; R33.9 Retention of urine, unspecified; K21.9 Gastro-esophageal reflux disease without esophagitis; K44.9 Diaphragmatic hernia without obstruction or gangrene; K05.6 Periodontal disease, unspecified; E03.9 Hypothyroidism, unspecified; K22.8 Other specified diseases of esophagus; R13.10 Dysphagia, unspecified; Z93.1 Gastrostomy status; Z79.899 Other long term (current) drug therapy; Z85.828 Personal history of other malignant neoplasm of skin

== ENCOUNTER 2016-06-29 14:29 | Emergency (ER) | payer MEDICARE, MEDICAID ==
[~2016-06-29] VITALS: Ht 188 cm; Wt 55.3 kg
[~2016-06-29 14:29] MED LIST changes: +ACET500L GT; +BISA10SU27 PR; +BUSP30TA GT; +CITA40TA4 GT; +CLON0.5T GT; +FLOM5CAP PEG; +FOLI1TAB2 GT; +FOLI400T GT; +LEVO75TA4 GT; +METO5EL GT; +MIRA33504 GT; +NEUR300C GT; +PREV30TA3 GT; +RISP1TAB41 GT; +TERA2CAP3 GT; +TRAN1.5D2 TOP; +VITA500T3 GT; +ZOFR4TAB3 GT; +ZYPR15TA3 GT
[2016-06-29] MEDS ORDERED: AUGM250S13 PO (14:46)
[2016-06-29] MEDS ORDERED: ALBU1.25 INH (14:46)
[2016-06-29 15:55] LABS: MEAN CORPUSCULAR HEMOGLOBIN 32.9 pg (27.0-33.0); MEAN CORPUSCULAR HGB CONC 32.6 g/dl (32.0-36.5); PLATELET COUNT, AUTOMATED 261 k/mm3 (150-450); RED CELL DISTRIBUTION WIDTH 16.4 % (11.5-14.5); WHITE BLOOD COUNT 9.4 K/mm3 (4.0-10.0)
[2016-06-29 15:57] LABS: INR 0.89
[2016-06-29 16:31] LABS: ALBUMIN 3.1 GM/DL (3.2-5.2); ALKALINE PHOSPHATASE 99 U/L (45-117); ALT/SGPT 29 U/L (12-78); ANION GAP 10 MEQ/L (8-16); AST/SGOT 21 U/L (15-37); BILIRUBIN,DIRECT 0.1 MG/DL (0.0-0.2); BILIRUBIN,TOTAL 0.2 MG/DL (0.2-1.0); BLOOD UREA NITROGEN 25 MG/DL (7-18); CALCIUM LEVEL 8.7 MG/DL (8.8-10.2); CARBON DIOXIDE LEVEL 29 MEQ/L (21-32); CHLORIDE LEVEL 103 MEQ/L (98-107); CREATININE FOR GFR 0.95 MG/DL (0.70-1.30); GLOMERULAR FILTRATION RATE > 60.0 (>49); GLUCOSE, FASTING 112 MG/DL (80-110); SODIUM LEVEL 142 MEQ/L (136-145); TOTAL PROTEIN 7.5 GM/DL (6.4-8.2)
[2016-06-29 16:32] LABS: ANISOCYTOSIS 1+; BANDS 1 % (< 11); EOSINOPHILS 6 % (0-5); NUCLEATED RED BLOOD CELL 1 % (0-0); TEAR DROP CELLS 1+
[2016-06-29 16:33] LABS: SCHISTOCYTES 1+
[2016-06-29 16:49] LABS: MICROSCOPIC INDICATED? MAN YES (NO)
[2016-06-29 16:54] LABS: RBC, URINE TNTC /hpf (0-3)
[2016-06-29 16:55] LABS: BACTERIA, URINE SMALL AMOUNT
[2016-06-29 16:56] LABS: HYALINE CAST, URINE NONE SEEN /lpf (0-1); MICROSCOPIC EXAM PERFORMED; SQUAMOUS EPITHELIAL CELL URINE NONE SEEN /hpf (SMALL AMT)
[2016-06-29] MEDS ORDERED: BACT800T5 PO (17:16)
[2016-06-29 17:29] VITALS: BP 110/70
== END 2016-06-29 17:30 | disposition home or self-care (01) ==
LOC: M ED 15:33
DX: R31.9 Hematuria, unspecified (principal); N30.90 Cystitis, unspecified without hematuria; Z87.01 Personal history of pneumonia (recurrent); N18.9 Chronic kidney disease, unspecified

== ENCOUNTER → 2016-07-05 | Outpatient (CLI) | payer MEDICARE, MEDICAID ==
[~2016-07-05] MED LIST changes: +ALBU1.25 INH; +AUGM250S13 PO; +BACT800T5 PO
--- NOTE | 2016-07-06 13:19 | REP ---
CHEST, TWO VIEWS: HISTORY: Possible pneumonia. COMPARISON: 06/03/2016, a semiupright portable exam. The lung field opacities seen on the prior exam have nearly completely or completely resolved with subtle bibasilar opacities. There is a hiatal hernia. There is evidence of mild fibrotic change throughout the lung arreola. No acute patchy parenchymal opacities or pleural effusions have developed. There is no change in the osseous structures. IMPRESSION: Bibasilar subsegmental atelectatic change versus fibrotic change. No definite evidence of pneumonia at this time. Consider followup if clinically relevant. Other findings as described above. Signed by Michael Geol DO 07/05/2016 03:02 P
== END ==
LOC: M WUC 14:23
PROVIDERS: ATTEND Nurse Practitioner Family
DX: J69.0 Pneumonitis due to inhalation of food and vomit (principal); R91.8 Other nonspecific abnormal finding of lung field

== ENCOUNTER → 2016-07-08 | Outpatient (CLI) | payer MEDICARE, MEDICAID | LOC: M WUC 08:45 | PROVIDERS: ATTEND Nurse Practitioner Women's Health | DX: R97.20 Elevated prostate specific antigen [PSA] (principal); R33.9 Retention of urine, unspecified; Z79.899 Other long term (current) drug therapy; E03.9 Hypothyroidism, unspecified ==

== ENCOUNTER → 2016-07-08 | Outpatient (CLI) | payer MEDICARE, MEDICAID | LOC: M WUC 08:49 | PROVIDERS: ATTEND Anesthesiology Pain Medicine | DX: Z79.899 Other long term (current) drug therapy (principal) ==

== ENCOUNTER → 2016-07-08 | Outpatient (CLI) | payer MEDICARE, MEDICAID ==
[2016-07-08 14:01] LABS: FREE T4 0.97 NG/DL (0.76-1.46)
== END ==
LOC: M WUC 08:55
PROVIDERS: ATTEND Nurse Practitioner Family
DX: E03.9 Hypothyroidism, unspecified (principal)

== ENCOUNTER 2016-07-22 06:34 | Inpatient (IN) | payer MEDICARE, MEDICAID ==
[~2016-07-22] VITALS: Ht 177.8 cm; Wt 58.8 kg
[~2016-07-22 06:34] MED LIST changes: -LEVO75TA4 GT; +LEVO75TA4 PEG; -PREV30TA3 GT; +PREV30TA3 PEG; -RISP1TAB41 GT; +RISP1TAB41 PEG
[2016-07-22] MEDS ORDERED: ZYPR15TA PEG (07:18)
[2016-07-22] MEDS ORDERED: REGL5TAB2 PEG (07:23)
[2016-07-22] MEDS ORDERED: NS 1,000 ML IV ONE ×2 (07:45→10:30)
[2016-07-22] MEDS ORDERED: ACETAMINOPHEN 325 MG TAB PO ONE (07:45)
[2016-07-22] MEDS ORDERED: IPRATROPIUM 0.5MG/ALBUTEROL 2.5MG INH SOL UD 3ML (DUONEB)(J7620) NEB ONE (07:45)
[2016-07-22] MEDS ORDERED: methylPREDNISolone INJ 125 MG/2 ML VIAL (J2930) IV ONE (07:45)
[2016-07-22] MEDS ORDERED: ONDANSETRON 4 MG ORAL DISINTEGRATING TAB (S0181) PO ONE (07:45)
[2016-07-22] MEDS ORDERED: ALBUTEROL SULFATE 2.5 MG/0.5 ML INH NEB SOLN INH ONE (07:45)
[2016-07-22 08:13] LABS: BASO % 0.2 % (0.0-1.0); EOS % 0.2 % (0.0-3.0); LARGE UNSTAINED CELL # 0.4 K/mm3 (0.0-0.4); LARGE UNSTAINED CELL % 3.2 % (0.0-4.0); LYMPH % 4.7 % (24.0-44.0); MEAN CORPUSCULAR HEMOGLOBIN 32.2 pg (27.0-33.0); MEAN CORPUSCULAR HGB CONC 32.5 g/dl (32.0-36.5); MEAN CORPUSCULAR VOLUME 98.9 fl (80.0-96.0); MONO % 7.2 % (0.0-5.0); NEUTROPHILS # 11.2 K/mm3 (1.8-7.7); NEUTROPHILS % 84.4 % (36.0-66.0); PLATELET COUNT, AUTOMATED 230 k/mm3 (150-450); RED CELL DISTRIBUTION WIDTH 16.9 % (11.5-14.5); WHITE BLOOD COUNT 13.2 K/mm3 (4.0-10.0)
[2016-07-22 08:34] LABS: ABG BASE EXCESS 7.6 (-2.0-2.0); ABG HCO3 31.4 MEQ/L (22.0-26.0); ABG PARTIAL PRESSURE CO2 41.1 mmHg (35.0-45.0); ABG STANDARD HCO3 31.5 MEQ/L (22.0-26.0); ABG TOTAL CO2 32.7 MEQ/L (23.0-31.0); ABG pH (ARTERIAL) 7.501 UNITS (7.350-7.450)
[2016-07-22 08:45] LABS: ALBUMIN 2.3 GM/DL (3.2-5.2); ALBUMIN/GLOBULIN RATIO 0.49 (1.00-1.93); ALKALINE PHOSPHATASE 82 U/L (45-117); ALT/SGPT 26 U/L (12-78); ANION GAP 7 MEQ/L (8-16); AST/SGOT 24 U/L (15-37); BILIRUBIN,DIRECT 0.2 MG/DL (0.0-0.2); BILIRUBIN,TOTAL 0.4 MG/DL (0.2-1.0); BLOOD UREA NITROGEN 54 MG/DL (7-18); CALCIUM LEVEL 8.4 MG/DL (8.8-10.2); CARBON DIOXIDE LEVEL 32 MEQ/L (21-32); CHLORIDE LEVEL 102 MEQ/L (98-107); GLOMERULAR FILTRATION RATE 36.5 (>49); GLUCOSE, FASTING 114 MG/DL (80-110); POTASSIUM SERUM 4.4 MEQ/L (3.5-5.1); SODIUM LEVEL 141 MEQ/L (136-145); THYROXINE (T4) 5.5 UG/DL (4.5-12.0)
[2016-07-22] MEDS ORDERED: ACETAMINOPHEN 325 MG TAB PEG ONE (08:45)
--- NOTE | 2016-07-22 08:50 | REP ---
PORTABLE CHEST X-RAY: Single view. HISTORY: Systemic inflammatory response syndrome. COMPARISON STUDY: July 05, 2016. FINDINGS: EKG monitoring electrodes overlie the chest. There is a moderate size hiatal hernia behind the heart. Heart is mildly enlarged. There is a large air-filled structure in the mediastinum superimposed on the trachea consistent with the dilated air filled esophagus. Mild bibasilar interstitial fibrotic changes are seen. No infiltrate is seen. Pulmonary vasculature is not increased. No evidence of effusion. IMPRESSION: Mild cardiomegaly. Moderate size hiatal hernia with dilated air filled esophagus seen in the mediastinum. Bibasilar interstitial fibrosis. Otherwise no acute disease. Signed by Jose Raul Timmons MD 07/22/2016 10:20 A
[2016-07-22] MEDS ORDERED: OLAN15TA10 GT (08:54)
[2016-07-22] MEDS ORDERED: LEVA1.25 INH (08:54)
[2016-07-22] MEDS ORDERED: CEFEPIME HCL 2 GM in D5W MINI-BAG PLUS 50 ML IV ONE (09:00)
[2016-07-22] MEDS ORDERED: VANCOMYCIN HCL 1,000 MG, VIAL MATE ADAPTER 1 EACH in D5W 250 ML IV ONE (09:00)
[2016-07-22] MEDS: risperiDONE 1 MG TAB PEG SCH (09:00)
[2016-07-22] MEDS: MIRALAX *UNIT DOSE* 17GM PACKET GT SCH (09:00)
[2016-07-22] MEDS ORDERED: LevoFLOXacin IV 750 MG in APPROPRIATE DILUENT 1 EA IV ONE (09:00)
[2016-07-22] MEDS: CitaloPRAM (CeleXA) 20 MG TAB GT SCH (09:00)
[2016-07-22] MEDS ORDERED: SCOPOLAMINE 1.5 MG TRANSDERMAL TOP SCH (09:00)
--- NOTE | 2016-07-22 09:47 | ECGEPIP ---
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
--- NOTE | 2016-07-22 10:21 | REP ---
CT CHEST WITHOUT IV CONTRAST: CT chest performed without IV contrast. Comparison is made with prior CT of the chest 11/11/2011. In both lower lobes, there is confluent fibroatelectatic change, which was seen on the prior study with new areas of parenchymal opacity representing bibasilar atelectasis/infiltrate. There is a large hiatal hernia. The esophagus is diffusely dilated with air. No gross adenopathy is seen although evaluation is limited without IV contrast. The heart is upper limits of normal in size. No definite pleural effusion is seen. There is no pericardial effusion. IMPRESSION: Large hiatal hernia. Dilated esophagus. Bilateral lower lobe fibroatelectatic change with mild superimposed atelectasis/infiltrate in each lower lobe. Signed by Paddy Phelps MD 07/22/2016 07:58 P
--- NOTE | 2016-07-22 10:49 | REP ---
CT ABDOMEN AND PELVIS WITHOUT CONTRAST: CT abdomen and pelvis performed without oral or IV contrast. Sagittal and coronal reconstruction images are performed. Liver, spleen, adrenals, pancreas and kidneys are grossly unremarkable. There is no hydronephrosis. No renal calculi are seen. There is no evidence of abdominal aortic aneurysm. No gross adenopathy is seen. There is no free air. There is mild free fluid in the pelvis. No gross bowel wall thickening is seen. I do not see evidence for appendicitis. There is no definite evidence for bowel obstruction. Smith catheter is seen in a collapsed urinary bladder which also contains a small amount of air. A gastrostomy tube is seen in place. IMPRESSION: Mild free fluid in the pelvis. No free air. No evidence of appendicitis. No evidence for renal or ureteral calculus. No definite evidence for obstruction. Signed by Paddy Phelps MD 07/22/2016 07:58 P
[2016-07-22] MEDS ORDERED: IPRATROPIUM 0.5MG/ALBUTEROL 2.5MG INH SOL UD 3ML (DUONEB)(J7620) NEB PRN (11:15)
[2016-07-22] MEDS ORDERED: ACETAMINOPHEN TAB 650MG DOSE (2X325MG) PO PRN (11:15)
[2016-07-22] MEDS ORDERED: SODIUM CHLORIDE 0.9% 1000 ML IV ONE (11:15)
[2016-07-22] MEDS: PIPERACILLIN/TAZOBACTAM SOD 3.375 GM in D5W MINI-BAG PLUS 50 ML IV SCH ×2 (12:00→20:37)
[2016-07-22] MEDS: NS 1,000 ML IV SCH ×2 (12:49→21:45)
[2016-07-22] MEDS ORDERED: VANCOMYCIN HCL 1,000 MG, VIAL MATE ADAPTER 1 EACH in D5W 250 ML IV SCH (13:00)
[2016-07-22 14:14] LABS: RETIC HEMOGLOBIN CONTENT CHr 26.5 PG (24-36); RETICULOCYTE % ADVIA2120 1.6 % (0.5-1.5)
[2016-07-22 14:33] LABS: PERCENT SATURATION 6.3 % (19.7-37.4)
[2016-07-22] MEDS: OLANZapine ORAL DISINTEGRATING TAB 5MG GT SCH ×2 (16:00→21:45)
[2016-07-22] MEDS: GABAPENTIN 300 MG CAP GT SCH ×2 (16:00→21:45)
[2016-07-22 16:25] VITALS: BP 101/67
--- NOTE | 2016-07-22 17:31 | HPEPDOC ---
General Date of Admission July 22, 2016 at 11:13 Chief Complaint The patient is a 60-year-old male Presented to the ER from [facility] because of a recurring fever over last 2 days and hypoxia. History of Present Illness Patient is a 60 year old male who is a resident at [facility], he has a PMHx of Mental retardation, Hypothyroidism, Anxiety, Depression, Avoidant personality disorder, Hx of C2/C7 fracture, and GERD who presented to the ER from [facility] because of a fever and hypoxia. Patient is a poor historian and is unable to provide details to his story. Information has been collected from his care provider and the medical record. Care provider has noted that he has been having fevers for the last 2 days, the maximum recorded was 101.5F. Today upon waking he was noted to be hypoxic in the 80s and he was transferred to the ER. They note that he may have aspirated this morning. They noted a single vomiting episode of dark material. Since that point he has not vomited. They note that he has been feeling tired, anxieties and may have had intermittent confusion. Home Medications Scheduled Buspirone HCl (Buspirone HCl) 30 Mg Tab, 30 MG GT BID, (Reported) 0730,1530 Citalopram Hydrobromide (Citalopram Hydrobromide) 40 Mg Tab, 40 MG GT DAILY, ( Reported) Clonazepam (Clonazepam) 0.5 Mg Tab, 0.5 MG GT TID, (Reported) 0730,1200,1530 Cyanocobalamin (Vitamin B-12) 500 Mcg Tab, 500 MCG GT QHS, (Reported) Folic Acid (Folic Acid) 400 Mcg Tab, 400 MCG GT QHS, (Reported) Gabapentin (Neurontin) 300 Mg Cap, 600 MG GT TID, (Reported) 0730,1130,1530 Lansoprazole (Prevacid Solutab) 30 Mg Tab, 30 MG PEG DAILY, (Reported) Levothyroxine Sodium (Synthroid) 75 Mcg Tab, 75 MCG PEG DAILY, (Reported) Metoclopramide HCl (Metoclopramide HCl) 5 Mg/5 Ml Liq, 10 MG GT AC, (Reported) 30 MINUTES PRIOR TO MEALS OLANZapine DISINTEGRATING (Olanzapine Odt) 15 Mg Tab, 15 MG GT TID, (Reported) 0800,1200,1530 Polyethylene Glycol (Miralax) 1 Pow Pow, 17 GM GT DAILY, (Reported) Risperidone (Risperdal) 1 Mg Tab, 1 MG PEG DAILY, (Reported) Scopolamine (Transderm-Scop) 1.5 Mg Dis, 1.5 MG TOP Q72H, (Reported) CURRENTLY BEHIND RIGHT EAR Scheduled PRN (Acetaminophen Extra Stren) 500 Mg/15 Ml Liq, 20 ML GT Q4H PRN for PAIN / FEVER , (Reported) Levalbuterol Hydrochloride (Levalbuterol) 1.25 Mg/0.5 Ml Neb, 1.25 MG INH PRN PRN for SHORTNESS OF BREATH, (Reported) Allergies Coded Allergies: No Known Drug Allergy (Verified Allergy, Unknown, CAREGIVER SAYS NO ALLERGIES, 05/31/16) Past Medical History Medical History Mental retardation, Hypothyroidism, Anxiety, Depression, Avoidant personality disorder, Hx of C2/C7 fracture, and GERD Surgical History s/p PEG tube (1 year prior) Family History - Mother and father: - Siblings: 1 brother and 1 sister Social History - Denies the use of alcohol, tobacco or illicit drugs - Denies recent travel or sick contacts - Lives at [facility] Review of Symptoms Other systems Unable to acquire as patient is unable to provide history Vital Signs - Vitals: BP 86/56, HR 62, RR 18, Sat 96%NC2L, Temp 101.4F - General: Lying in bed, No acute distress, Speaking in full sentences, Awake + Alert - HEENT: NC, AT, Left eye deviated laterally, Pupils reactive to light - Oral: Dry mucous membranes - CVS: Regular rhythm, Bradycardic, +S1S2, - Lungs: Fair air entry bilaterally, Positive crackles at b/l lung bases - Abdomen: Soft, Non-distended, Non-tender, + Bowel sounds x 4, + PEG tube - Extremities: + PPx4, No lower extremity edema, No calf tenderness - Neuro: No focal motor or sensory deficit - Skin: No visible rashes Laboratory Data Labs 24H Laboratory Tests 2 07/22/16 08:02: White Blood Count 13.2H, Red Blood Count 3.25L, Hemoglobin 10.5L, Hematocrit 32.1L, Mean Corpuscular Volume 98.9H, Mean Corpuscular Hemoglobin 32.2, Mean Corpuscular Hemoglobin Concent 32.5, Red Cell Distribution Width 16.9H, Platelet Count 230, Neutrophils (%) (Auto) 84.4H, Lymphocytes (%) (Auto) 4.7L, Monocytes (%) (Auto) 7.2H, Eosinophils (%) (Auto) 0.2, Basophils (%) (Auto) 0.2 , Neutrophils # (Auto) 11.2H, Lymphocytes # (Auto) 1.0L, Monocytes # (Auto) 1.0H , Eosinophils # (Auto) 0.0, Basophils # (Auto) 0.0, Large Unclassified Cells % 3.2, Large Unclassified Cells # 0.4, Anion Gap 7L, Glomerular Filtration Rate 36.5L, Lactic Acid Level 1.2, Calcium Level 8.4L, Aspartate Amino Transf (AST/ SGOT) 24, Alanine Aminotransferase (ALT/SGPT) 26, Alkaline Phosphatase 82, Total Bilirubin 0.4, Direct Bilirubin 0.2, Total Creatine Kinase 63, Creatine Kinase MB 1.0, Creatine Kinase MB Relative Index 1.58, Troponin I < 0.02, Total Protein 7.0, Albumin 2.3L, Albumin/Globulin Ratio 0.49L, Lipase 217, Thyroid Stimulating Hormone (TSH) 0.766, Thyroxine (T4) 5.5 07/22/16 08:03: Blood Gas Bicarbonate Standard 31.5H, Arterial Blood pH 7.501H, Arterial Blood Partial Pressure CO2 41.1, Arterial Blood Partial Pressure O2 228.0H, Arterial Blood Total CO2 32.7H, Arterial Blood HCO3 31.4H, Arterial Blood Base Excess 7.6H, Arterial Blood Oxygen Saturation 99.6H 07/22/16 08:13: Urine Appearance CLOUDYH, Urine Color YELLOW, Urine pH 7.0, Urine Specific [place] 1.010, Urine Protein 1+H, Urine Glucose (UA) NEGATIVE, Urine Ketones NEGATIVE, Urine Urobilinogen 2.0H, Urine Bilirubin NEGATIVE, Urine Leukocyte Esterase 3+H, Urine Blood NEGATIVE, Urine Nitrite NEGATIVE, Urine WBC (Auto) 148H, Urine RBC (Auto) 40H, Urine Hyaline Casts (Auto) 0, Urine Bacteria (Auto) 2+H, Urine Squamous Epithelial Cells 0, Urine Amorphous Sediment SMALLH, Urine Mucus (Auto) SMALL, Urine Sperm (Auto) 07/22/16 13:56: Absolute Reticulocyte Count 46, Percent Reticulocyte Count 1.60H, Reticulocyte Hgb Content (CHr) 26.5, Iron Level 11L, Total Iron Binding Capacity 175L, Transferrin % Saturation 6.3L, Ferritin 238 CBC/BMP Laboratory Tests 07/22/16 08:02 Red Blood Count 3.25 L, Mean Corpuscular Volume 98.9 H, Mean Corpuscular Hemoglobin 32.2, Mean Corpuscular Hemoglobin Concent 32.5, Red Cell Distribution Width 16.9 H, Neutrophils (%) (Auto) 84.4 H, Lymphocytes (%) (Auto ) 4.7 L, Monocytes (%) (Auto) 7.2 H, Eosinophils (%) (Auto) 0.2, Basophils (%) ( Auto) 0.2, Neutrophils # (Auto) 11.2 H, Lymphocytes # (Auto) 1.0 L, Monocytes # (Auto) 1.0 H, Eosinophils # (Auto) 0.0, Basophils # (Auto) 0.0 07/22/16 13:56 Microbiology Microbiology 07/22/16 Blood Culture, Received Pending 07/22/16 Blood Culture, Received Pending 07/22/16 Influenza Virus Type A Antigen - Final, Complete 07/22/16 Influenza Virus Type B Antigen - Final, Complete 07/22/16 Urine Culture, Received Pending Plan / VTE VTE Prophylaxis Ordered?: Yes Plan / Urinary Catheter Reason for insertion/continuin: Acute obstruct/retention Plan Plan Fever possible 2/2 HCAP, possible aspiration, possible UTI - Presented with fever for 2 days, hypoxia - Has had indwelling Smith catheter for 1.5 months because of prostate enlargement - Hypotensive in ER; responsive to IV fluid hydration - UA consistent with infection - CT chest 07/22: bilateral LL changes and possible infiltrate - Elevation in WBC, no elevation in lactic acid - Will check blood cultures, sputum cultures and urine cultures - c/w Vancomycin and Zosyn (Day #0) Acute kidney injury - Baseline Cr of 0.8 - Creatinine on admission of 2.0 - Will check urine elctrolytes - c/w IV fluid hydration Dark vomitus possibly 2/2 upper Gi bleed - Presented with a single vomiting episode - Will check anemia workup, H&H q6 hours - Type and screen - Will transfuse if Hg < 8 or symptomatic - c/w Protonix 40 IV Macrocytic anemia - Hg baseline of 10-11 - Hg on presentation of 10.5 - Will follow H&H q6 hours - Tranfuse if <8 or symptomatic Mental retardation Hypothyroidism - c/w Levothyroxine Anxiety, Depression and Avoidant personality disorder - c/w Risperidone, Olanzapine, Citalopram, Clonazepam, Buspirone and Gabapentin Hx of C2/C7 fracture GERD - Will start protonix DVT prophylaxis - Will start SCDs LUCINA DAIGLE MD July 22, 2016 17:31
[2016-07-22 19:22] VITALS: BP 97/67
[2016-07-22] MEDS ORDERED: ONDANSETRON 4MG/2ML VIAL (J2405) IV ONE (20:00)
[2016-07-22 20:11] VITALS: BP 108/68
[2016-07-22] MEDS: PANTOPRAZOLE 40MG INJ (PROTONIX) (C9113) IV SCH (20:22)
[2016-07-22] MEDS: CYANOCOBALAMIN 500 MCG TAB GT SCH (21:45)
[2016-07-22] MEDS: clonazePAM 0.5 MG TAB GT SCH (21:45)
[2016-07-22] MEDS: busPIRone 10 MG TAB GT SCH (21:45)
[2016-07-22 21:49] VITALS: BP 98/66
[2016-07-22 23:00] VITALS: BP 104/74
[2016-07-22] MEDS: VANCOMYCIN HCL 1,000 MG, VIAL MATE ADAPTER 1 EACH in D5W 250 ML IV SCH (23:15)
[2016-07-23] VITALS (11 sets, daily range): BP systolic 89–112; BP diastolic 55–71
[2016-07-23] MEDS: PIPERACILLIN/TAZOBACTAM SOD 3.375 GM in D5W MINI-BAG PLUS 50 ML IV SCH ×3 (04:24→19:55)
[2016-07-23] MEDS ORDERED: LEVOTHYROXINE 0.075 MG TAB (75 MCG) PEG SCH (06:00)
[2016-07-23 06:15] LABS: BASO % 0.1 % (0.0-1.0); EOS % 0.2 % (0.0-3.0); LARGE UNSTAINED CELL # 0.1 K/mm3 (0.0-0.4); LARGE UNSTAINED CELL % 0.5 % (0.0-4.0); LYMPH # 0.7 K/mm3 (1.5-4.5); LYMPH % 5.1 % (24.0-44.0); MEAN CORPUSCULAR VOLUME 103.3 fl (80.0-96.0); MONO # 0.3 K/mm3 (0.0-0.8); MONO % 2.5 % (0.0-5.0); NEUTROPHILS # 12.8 K/mm3 (1.8-7.7); NEUTROPHILS % 91.6 % (36.0-66.0); PLATELET COUNT, AUTOMATED 232 k/mm3 (150-450); RED CELL DISTRIBUTION WIDTH 16.5 % (11.5-14.5); WHITE BLOOD COUNT 13.9 K/mm3 (4.0-10.0)
[2016-07-23 06:29] LABS: ALBUMIN 1.9 GM/DL (3.2-5.2); ALBUMIN/GLOBULIN RATIO 0.51 (1.00-1.93); ALKALINE PHOSPHATASE 64 U/L (45-117); ALT/SGPT 23 U/L (12-78); ANION GAP 10 MEQ/L (8-16); AST/SGOT 14 U/L (15-37); BILIRUBIN,TOTAL 0.3 MG/DL (0.2-1.0); BLOOD UREA NITROGEN 50 MG/DL (7-18); CALCIUM LEVEL 7.4 MG/DL (8.8-10.2); CARBON DIOXIDE LEVEL 27 MEQ/L (21-32); CHLORIDE LEVEL 110 MEQ/L (98-107); CREATININE FOR GFR 1.57 MG/DL (0.70-1.30); GLOMERULAR FILTRATION RATE 48.2 (>49); GLUCOSE, FASTING 142 MG/DL (80-110); MAGNESIUM LEVEL 2.3 MG/DL (1.8-2.4); POTASSIUM SERUM 5.1 MEQ/L (3.5-5.1); SODIUM LEVEL 147 MEQ/L (136-145); TOTAL PROTEIN 5.6 GM/DL (6.4-8.2)
[2016-07-23] MEDS ORDERED: NS 0.45% 1,000 ML IV SCH (07:15)
[2016-07-23] MEDS: GABAPENTIN 300 MG CAP GT SCH ×3 (09:23→20:01)
[2016-07-23] MEDS: OLANZapine ORAL DISINTEGRATING TAB 5MG GT SCH ×3 (09:24→20:01)
[2016-07-23] MEDS: risperiDONE 1 MG TAB PEG SCH (09:26)
[2016-07-23] MEDS: clonazePAM 0.5 MG TAB GT SCH (09:26)
[2016-07-23] MEDS: CitaloPRAM (CeleXA) 20 MG TAB GT SCH (09:28)
[2016-07-23] MEDS: busPIRone 10 MG TAB GT SCH ×2 (09:28→20:01)
[2016-07-23] MEDS: MIRALAX *UNIT DOSE* 17GM PACKET GT SCH (09:29)
--- NOTE | 2016-07-23 09:40 | IPNPDOC ---
Date Seen The patient was seen on 07/23/16. Progress Note SUBJECTIVE: Mr. White is a 60-year-old male evaluated bedside this morning. He is sleeping upon evaluation, but is easily arousable and able to answer my questions. Denies chest pain, shortness of breath, diffuse aches or pains, swelling. His aide was in the room with him and I discussed with her likely underlying reason for his fever is his urinary tract infection. Patient will remain on antibiotics. He is also hypotensive and has acute kidney injury for which he is receiving fluids. Has remained afebrile. Obtaining sputum cultures. Urine culture is pending. Blood culture thus far has been negative. Patient is being transferred to progressive care unit. OBJECTIVE PHYSICAL EXAMINATION: VITAL SIGNS: Please see below. GENERAL: Well-developed, well-nourished male is evaluated bedside this morning, has baseline MR, in no apparent distress HEENT: Atraumatic, normocephalic, PERRL, EOMI, oral mucosa appears somewhat dry , dentition in poor condition, nares appear patent CARDIOVASCULAR: Regular rate and rhythm, normal S1 and S2, bradycardic, no murmur, click appreciated RESPIRATORY: Clear to auscultation bilaterally, adequate inspiratory and expiratory airway excursion, no wheeze, rhonchi, crackles appreciated ABDOMINAL: Flat, soft, nontender, nondistended, bowel sounds appreciated EXTREMITIES: Peripheral pulses appreciated bilaterally in upper and lower extremities, equal, symmetrical, +2/4, no edema NEUROLOGICAL: Not assessed at this time PSYCHOLOGICAL: Baseline MR LABORATORY DATA: Please see below. MICROBIOLOGY: Please see below. DVT prophylaxis ordered?: TEDs and sequentials with knee high compression stockings ASSESSMENT AND PLAN: Mr. White is a 60-year-old male who presented with fever and found to have urinary tract infection. PROBLEMS: 1. Fever, likely secondary to urinary tract infection: Remains on Zosyn and vancomycin until urine culture returns with sensitivities. Blood cultures thus far negative. Awaiting sputum culture. CRP is improving. Has remained afebrile. 2. Acute kidney injury: Likely related to hyperkalemia. Have adjusted patient's intravenous fluid resuscitation to 1/2 normal saline. Continue to monitor BMP. 3. Hypernatremia: Likely related to intravenous fluid resuscitation with normal saline. Adjusted to half normal saline. Continue to monitor BMP. 4. Hyperglycemia: Obtaining A1c. 5. Anemia: Macrocytic. Improved from yesterday. Obtaining folate and B12. 6. Hypertension: Likely related to volume status. Receiving half normal saline. Continue to monitor vital signs. 7. Hypothyroidism. Continue levothyroxine. 8. Anxiety, depression, avoidant personality disorder: Continue current medication regimen. 9. Bradycardia: Aide states that bradycardia is patient's baseline. Continue to monitor on telemetry. 10. Hypercalcemia: Corrected calcium for hypoalbuminemia is 9.2. No intervention required at this time. DISPOSITION: Transferred to PCU. Anticipate discharge soon as patient improves to baseline. VS, I&O, 24H, Fishbone Vital Signs/I&O Vital Signs Date Time Temp Pulse Resp B/P (MAP) Pulse Ox O2 Delivery O2 Flow Rate FiO2 07/23/16 08:00 Nasal Cannula 2.0 07/23/16 08:00 97.1 55 20 96/64 (75) 96 I&O- Last 24 Hours up to 6 AM 07/23/16 06:00 Intake Total 3900 ml Output Total 1685 ml Balance 2215 ml Laboratory Data 24H LABS Laboratory Tests 2 07/22/16 13:56: Absolute Reticulocyte Count 46, Percent Reticulocyte Count 1.60H, Reticulocyte Hgb Content (CHr) 26.5, Iron Level 11L, Total Iron Binding Capacity 175L, Transferrin % Saturation 6.3L, Ferritin 238 07/22/16 20:43: Urine Random Creatinine 48.1, Urine Random Sodium 20 07/23/16 05:54: White Blood Count 13.9H, Red Blood Count 3.02L, Hemoglobin 10.0L, Hematocrit 31.1L, Mean Corpuscular Volume 103.3H, Mean Corpuscular Hemoglobin 33.0, Mean Corpuscular Hemoglobin Concent 32.0, Red Cell Distribution Width 16.5H, Platelet Count 232, Neutrophils (%) (Auto) 91.6H, Lymphocytes (%) (Auto) 5.1L, Monocytes (%) (Auto) 2.5, Eosinophils (%) (Auto) 0.2, Basophils (%) (Auto) 0.1, Neutrophils # (Auto) 12.8H, Lymphocytes # (Auto) 0.7L, Monocytes # (Auto) 0.3, Eosinophils # (Auto) 0.0, Basophils # (Auto) 0.0, Large Unclassified Cells % 0.5 , Large Unclassified Cells # 0.1, Anion Gap 10, Glomerular Filtration Rate 48.2L , Blood Urea Nitrogen 50H, Creatinine 1.57H, Sodium Level 147H, Potassium Level 5.1, Chloride Level 110H, Carbon Dioxide Level 27, Calcium Level 7.4L, Aspartate Amino Transf (AST/SGOT) 14L, Alanine Aminotransferase (ALT/SGPT) 23, Alkaline Phosphatase 64, Total Bilirubin 0.3, Total Protein 5.6L, Albumin 1.9L, Magnesium Level 2.3, C-Reactive Protein, Quantitative 10.70H, Albumin/Globulin Ratio 0.51L CBC/BMP Laboratory Tests 07/22/16 13:56 07/22/16 20:25 07/23/16 02:09 07/23/16 05:54 Red Blood Count 3.02 L, Mean Corpuscular Volume 103.3 H, Mean Corpuscular Hemoglobin 33.0, Mean Corpuscular Hemoglobin Concent 32.0, Red Cell Distribution Width 16.5 H, Neutrophils (%) (Auto) 91.6 H, Lymphocytes (%) (Auto ) 5.1 L, Monocytes (%) (Auto) 2.5, Eosinophils (%) (Auto) 0.2, Basophils (%) ( Auto) 0.1, Neutrophils # (Auto) 12.8 H, Lymphocytes # (Auto) 0.7 L, Monocytes # (Auto) 0.3, Eosinophils # (Auto) 0.0, Basophils # (Auto) 0.0, Calcium Level 7.4 L, Aspartate Amino Transf (AST/SGOT) 14 L, Alanine Aminotransferase (ALT/SGPT) 23, Alkaline Phosphatase 64, Total Bilirubin 0.3, Total Protein 5.6 L, Albumin 1.9 L Microbiology Microbiology 07/22/16 Blood Culture - Preliminary, Resulted No growth after 24 hours . All specim... 07/22/16 Blood Culture - Preliminary, Resulted No growth after 24 hours . All specim... 07/22/16 Influenza Virus Type A Antigen - Final, Complete 07/22/16 Influenza Virus Type B Antigen - Final, Complete 07/22/16 Urine Culture, Received Pending JOSE MCKENZIE July 23, 2016 09:40
[2016-07-23] MEDS: VANCOMYCIN HCL 1,000 MG, VIAL MATE ADAPTER 1 EACH in D5W 250 ML IV SCH ×2 (10:40→22:59)
--- NOTE | 2016-07-23 11:17 | PHACANCOPD ---
PHARMACY VANCOMYCIN DOSING Pt Demographics Demographics Patient Age:60 , Weight:59.200 , Gender: male Adjusted Body Weight Date: 07/23/16, Adjusted Body Weight: [NA] Kg Events Past 24 Hours Events Past 24 Hours: YES: Change in CrCl, Elevation in WBC, NO: Dialysis, Diuretic Therapy, Fever, Pending Diagnostics, Pending Procedures, Other Vancomycin Vancomycin indication: HCAP coverage Vancomycin Target Ranges: 15-20 mcg/ml Vancomycin Load Y/N: No Load Dose Date Time Vancomycin Load Dose: Date: Time: Vancomycin Dose Date: 07/23/16. Current Vancomycin Dose: [1g q12h @23] Intermittent Dosing?: No Labs Labs Item Value Date Time White Blood Count 13.9 K/mm3 H 07/23/16 0554 Creatinine 2.00 MG/DL H 07/22/16 0802 Creatinine 1.57 MG/DL H 07/23/16 0554 C-Reactive Protein, Quantitative 14.10 MG/DL H 07/22/16 0802 C-Reactive Protein, Quantitative 10.70 MG/DL H 07/23/16 0554 Micro Microbiology 07/22/16 Blood Culture - Preliminary, Resulted No growth after 24 hours . All specim... 07/22/16 Blood Culture - Preliminary, Resulted No growth after 24 hours . All specim... 07/22/16 Influenza Virus Type A Antigen - Final, Complete 07/22/16 Influenza Virus Type B Antigen - Final, Complete 07/22/16 Urine Culture, Received Pending Creatinine Clearance Date:07/23/16. Creatinine Clearance: [~51 ml/min]. Pending Labs Vanco trough scheduled 07/23 @10:00am Assessment and Plan Maintaining Current Dose?: Yes Reason for dose change: No Dose Change Pharmacist Note Pharmacist Note Date: 07/23/16. Pharmacist note: pt was admitted yesterday for HCAP, he was started on Zosyn and Vancomycin. Scr is still elevated, baseline ~0.8 mg/dl, currently receiving IV fluids. Past culture Hx significant for MRSA (sputum, 2011, EDMUND = 1). He was last on vancomycin here in May 2016 and I have resumed the same dosing with no load as his SCr is higher than his previous admission. I have a trough scheduled tomorrow morning before the 5th dose. We will continue to monitor. Rob Page Pharm.D. July 23, 2016 11:17
[2016-07-23] MEDS: PANTOPRAZOLE 40MG INJ (PROTONIX) (C9113) IV SCH (12:38)
[2016-07-23] MEDS ORDERED: SCOPOLAMINE 1.5 MG TRANSDERMAL TOP SCH (15:30)
[2016-07-23] MEDS: CYANOCOBALAMIN 500 MCG TAB GT SCH (20:01)
[2016-07-24] VITALS (7 sets, daily range): BP systolic 81–104; BP diastolic 50–69
[2016-07-24 04:26] LABS: BASO % 0.1 % (0.0-1.0); EOS # 0.1 K/mm3 (0.0-0.50); EOS % 0.3 % (0.0-3.0); LARGE UNSTAINED CELL # 0.3 K/mm3 (0.0-0.4); LARGE UNSTAINED CELL % 1.4 % (0.0-4.0); LYMPH # 1.7 K/mm3 (1.5-4.5); LYMPH % 7.2 % (24.0-44.0); MEAN CORPUSCULAR HEMOGLOBIN 32.1 pg (27.0-33.0); MEAN CORPUSCULAR HGB CONC 31.9 g/dl (32.0-36.5); MEAN CORPUSCULAR VOLUME 100.8 fl (80.0-96.0); MONO # 1.1 K/mm3 (0.0-0.8); MONO % 5.5 % (0.0-5.0); NEUTROPHILS # 17.1 K/mm3 (1.8-7.7); NEUTROPHILS % 85.4 % (36.0-66.0); PLATELET COUNT, AUTOMATED 321 k/mm3 (150-450); RED CELL DISTRIBUTION WIDTH 16.7 % (11.5-14.5); WHITE BLOOD COUNT 20.1 K/mm3 (4.0-10.0)
[2016-07-24] MEDS: PIPERACILLIN/TAZOBACTAM SOD 3.375 GM in D5W MINI-BAG PLUS 50 ML IV SCH ×3 (04:33→22:46)
[2016-07-24 04:50] LABS: ALKALINE PHOSPHATASE 65 U/L (45-117); ALT/SGPT 20 U/L (12-78); ANION GAP 5 MEQ/L (8-16); AST/SGOT 16 U/L (15-37); BILIRUBIN,TOTAL 0.3 MG/DL (0.2-1.0); BLOOD UREA NITROGEN 47 MG/DL (7-18); CALCIUM LEVEL 7.9 MG/DL (8.8-10.2); CARBON DIOXIDE LEVEL 29 MEQ/L (21-32); CHLORIDE LEVEL 111 MEQ/L (98-107); CREATININE FOR GFR 1.27 MG/DL (0.70-1.30); GLOMERULAR FILTRATION RATE > 60.0 (>49); GLUCOSE, FASTING 92 MG/DL (80-110); POTASSIUM SERUM 4.3 MEQ/L (3.5-5.1); SODIUM LEVEL 145 MEQ/L (136-145); TOTAL PROTEIN 6.3 GM/DL (6.4-8.2)
[2016-07-24 04:51] LABS: ALBUMIN/GLOBULIN RATIO 0.47 (1.00-1.93); MAGNESIUM LEVEL 2.3 MG/DL (1.8-2.4)
[2016-07-24] MEDS: LEVOTHYROXINE 0.075 MG TAB (75 MCG) PEG SCH (05:32)
[2016-07-24] MEDS ORDERED: NS 0.45% 1,000 ML IV SCH (07:15)
[2016-07-24] MEDS ORDERED: PANTOPRAZOLE 40MG TAB (PROTONIX) PO SCH (09:00)
[2016-07-24] MEDS: OLANZapine ORAL DISINTEGRATING TAB 5MG GT SCH ×3 (09:36→22:47)
[2016-07-24] MEDS: CitaloPRAM (CeleXA) 20 MG TAB GT SCH (09:36)
[2016-07-24] MEDS: risperiDONE 1 MG TAB PEG SCH (09:36)
[2016-07-24] MEDS: MIRALAX *UNIT DOSE* 17GM PACKET GT SCH (09:36)
[2016-07-24] MEDS: GABAPENTIN 300 MG CAP GT SCH ×3 (09:36→22:47)
[2016-07-24] MEDS: busPIRone 10 MG TAB GT SCH ×2 (09:36→22:47)
--- NOTE | 2016-07-24 10:45 | IPNPDOC ---
Text Note Date of Service The patient was seen on 07/24/16. NOTE Subjective: Patient is a 60 year old male who is a resident at [facility], he has a PMHx of Mental retardation, Hypothyroidism, Anxiety, Depression, Avoidant personality disorder, Hx of C2/C7 fracture, and GERD who presented to the ER from [facility] because of a fever and hypoxia. Patient was admitted to ICU because of hypotension and likely aspiration pneumonia. His BP responded to IV fluid hydration. Patient was seen and examined at the bedside. He is a poor historian, but he denies any pain at this time. Objective: Vitals (See below) General: Lying in bed, no acute distress, comfortable, AAOx3 HEENT: NC, AT, Left pupil deviated laterally CVS: Regular rhythm, bradycardic, +S1S2 Lungs: Fair air entry b/l, no appreciable crackles / wheezing / rhonchi Abdomen: Soft, ND, NT, +BSx4, +PEG tube Extremities: +PPx4, - Edema, - Calf tenderness Assessment and plan: 1. Fever - possible 2/2 HCAP, possible aspiration, possible UTI - Presented with fever for 2 days, hypoxia - Has had indwelling Smith catheter for 1.5 months because of prostate enlargement - Hypotensive in ER; responsive to IV fluid hydration - UA consistent with infection; Urine culture positive for E.coli - CT chest 12: bilateral LL changes and possible infiltrate - Elevation in WBC; has trended up - possibly 2/2 steroids (Solumedrol 125 in ER ) - No elevation in lactic acid - c/w Vancomycin and Zosyn (Day #3) 2. Acute kidney injury - likely 2/2 pre-renal etiology - Baseline Cr of 0.8 - Creatinine on admission of 2.0; has been trending down - FENa 0.6 - c/w IV fluid hydration 3. s/p Hypernatremia 4. Dark vomitus - likely bilious vomitus, less likely 2/2 upper GI bleed - Presented with a single vomiting episode - Hg has remained stable - Will change to protonix via PEG 5. Macrocytic anemia - Hg baseline of 10-11 - Hg on presentation of 10.5 - Hg remains stable 6. Mental retardation 7. Hypothyroidism - c/w Levothyroxine 8. Anxiety, Depression and Avoidant personality disorder - c/w Risperidone, Olanzapine, Citalopram, Clonazepam, Buspirone and Gabapentin 9. Hx of C2/C7 fracture 10. GERD - c/w Protonix 11. DVT prophylaxis - c/w SCDs VS,Fishbone, I+O VS, Fishbone, I+O Laboratory Tests 07/24/16 04:10 Red Blood Count 3.26 L, Mean Corpuscular Volume 100.8 H, Mean Corpuscular Hemoglobin 32.1, Mean Corpuscular Hemoglobin Concent 31.9 L, Red Cell Distribution Width 16.7 H, Neutrophils (%) (Auto) 85.4 H, Lymphocytes (%) (Auto ) 7.2 L, Monocytes (%) (Auto) 5.5 H, Eosinophils (%) (Auto) 0.3, Basophils (%) ( Auto) 0.1, Neutrophils # (Auto) 17.1 H, Lymphocytes # (Auto) 1.7, Monocytes # ( Auto) 1.1 H, Eosinophils # (Auto) 0.1, Basophils # (Auto) 0.0, Calcium Level 7.9 L, Aspartate Amino Transf (AST/SGOT) 16, Alanine Aminotransferase (ALT/SGPT ) 20, Alkaline Phosphatase 65, Total Bilirubin 0.3, Total Protein 6.3 L, Albumin 2.0 L Vital Signs Date Time Temp Pulse Resp B/P (MAP) Pulse Ox O2 Delivery O2 Flow Rate FiO2 07/24/16 08:00 Nasal Cannula 2.0 07/24/16 08:00 97.8 46 14 86/50 (11) 98 I&O- Last 24 Hours up to 6 AM 07/24/16 06:00 Intake Total 2520 ml Output Total 1610 ml Balance 910 ml LUCINA DAIGLE MD July 24, 2016 10:45
--- NOTE | 2016-07-24 11:51 | PHACANCOPD ---
PHARMACY VANCOMYCIN DOSING Pt Demographics Demographics Patient Age:60 , Weight:58.200 , Gender: male Adjusted Body Weight Date: 07/23/16, Adjusted Body Weight: [NA] Kg Events Past 24 Hours Events Past 24 Hours: YES: Change in CrCl, Elevation in WBC, NO: Dialysis, Diuretic Therapy, Fever, Pending Diagnostics, Pending Procedures, Other Vancomycin Vancomycin indication: HCAP coverage Vancomycin Target Ranges: 15-20 mcg/ml Vancomycin Load Y/N: No Load Dose Date Time Vancomycin Load Dose: Date: Time: Vancomycin Dose Date: 07/23/16. Current Vancomycin Dose: [1g q12h @23] Intermittent Dosing?: No Labs Labs Item Value Date Time White Blood Count 13.9 K/mm3 H 07/23/16 0554 White Blood Count 20.1 K/mm3 H 07/24/16 0410 Vancomycin Level Trough 25.9 UG/ML *H 07/24/16 0958 Creatinine 1.57 MG/DL H 07/23/16 0554 Creatinine 1.27 MG/DL 07/24/16 0410 Creatinine 2.00 MG/DL H 07/22/16 0802 C-Reactive Protein, Quantitative 10.70 MG/DL H 07/23/16 0554 C-Reactive Protein, Quantitative 6.45 MG/DL H 07/24/16 0410 Micro Microbiology 07/22/16 Blood Culture - Preliminary, Resulted No Growth after 48 hours. All Specime... 07/22/16 Blood Culture - Preliminary, Resulted No Growth after 48 hours. All Specime... 07/22/16 Influenza Virus Type A Antigen - Final, Complete 07/22/16 Influenza Virus Type B Antigen - Final, Complete 07/22/16 Urine Culture - Final, Complete Escherichia Coli Creatinine Clearance Date:07/24/16. Creatinine Clearance: [~50 ml/min using actual BW]. Assessment and Plan Maintaining Current Dose?: Yes Reason for dose change: Trough too high, Other Pharmacist Note Pharmacist Note Date: 07/24/16. Pharmacist note: vanco trough was drawn on time ~1 hour prior to the 5th dose and came back at 25.9. I have held his 11am dose and will resume q12h dosing tonight. SCr has significantly improved since admission and I expect it to continue to improve to baseline. Urine culture positive for E. coli (> 100,000 cfu, covered by Zosyn), blood cultures have been NGTD. We will continue to monitor and order a repeat trough as necessary. Date: 07/23/16. Pharmacist note: pt was admitted yesterday for HCAP, he was started on Zosyn and Vancomycin. Scr is still elevated, baseline ~0.8 mg/dl, currently receiving IV fluids. Past culture Hx significant for MRSA (sputum, 2011, EDMUND = 1). He was last on vancomycin here in May 2016 and I have resumed the same dosing with no load as his SCr is higher than his previous admission. I have a trough scheduled tomorrow morning before the 5th dose. We will continue to monitor. Rob Page Pharm.D. July 24, 2016 11:51
[2016-07-24] MEDS: PANTOPRAZOLE 40MG INJ (PROTONIX) (C9113) IV SCH (11:58)
[2016-07-24] MEDS ORDERED: SODIUM CHLORIDE 0.9% 1000 ML IV ONE (16:15)
[2016-07-24] MEDS ORDERED: SLF 3 ML SYR IV PRN (19:30)
[2016-07-24] MEDS: SLF 3 ML SYR IV SCH (22:00)
[2016-07-24] MEDS: CYANOCOBALAMIN 500 MCG TAB GT SCH (22:47)
[2016-07-25] VITALS: BP 104/65
[2016-07-25] MEDS: VANCOMYCIN HCL 1,000 MG, VIAL MATE ADAPTER 1 EACH in D5W 250 ML IV SCH ×2 (00:23→11:38)
[2016-07-25 04:00] VITALS: BP 106/69
[2016-07-25] MEDS: PIPERACILLIN/TAZOBACTAM SOD 3.375 GM in D5W MINI-BAG PLUS 50 ML IV SCH ×2 (04:19→12:58)
[2016-07-25 05:18] LABS: BASO # 0.1 K/mm3 (0.0-0.2); BASO % 0.5 % (0.0-1.0); EOS # 0.1 K/mm3 (0.0-0.50); LARGE UNSTAINED CELL # 0.2 K/mm3 (0.0-0.4); LARGE UNSTAINED CELL % 1.8 % (0.0-4.0); LYMPH # 1.4 K/mm3 (1.5-4.5); LYMPH % 9.9 % (24.0-44.0); MEAN CORPUSCULAR HEMOGLOBIN 32.6 pg (27.0-33.0); MEAN CORPUSCULAR HGB CONC 32.7 g/dl (32.0-36.5); MEAN CORPUSCULAR VOLUME 99.7 fl (80.0-96.0); MONO # 1.2 K/mm3 (0.0-0.8); NEUTROPHILS # 9.3 K/mm3 (1.8-7.7); NEUTROPHILS % 76.8 % (36.0-66.0); PLATELET COUNT, AUTOMATED 366 k/mm3 (150-450); RED CELL DISTRIBUTION WIDTH 16.7 % (11.5-14.5); WHITE BLOOD COUNT 12.1 K/mm3 (4.0-10.0)
[2016-07-25] MEDS: LEVOTHYROXINE 0.075 MG TAB (75 MCG) PEG SCH (05:31)
[2016-07-25] MEDS: SLF 3 ML SYR IV SCH ×2 (05:31→13:00)
[2016-07-25 05:40] LABS: ANION GAP 6 MEQ/L (8-16); AST/SGOT 14 U/L (15-37); BLOOD UREA NITROGEN 39 MG/DL (7-18); CALCIUM LEVEL 8.1 MG/DL (8.8-10.2); CARBON DIOXIDE LEVEL 29 MEQ/L (21-32); CHLORIDE LEVEL 111 MEQ/L (98-107); CREATININE FOR GFR 1.16 MG/DL (0.70-1.30); GLOMERULAR FILTRATION RATE > 60.0 (>49); GLUCOSE, FASTING 107 MG/DL (80-110); POTASSIUM SERUM 3.8 MEQ/L (3.5-5.1); SODIUM LEVEL 146 MEQ/L (136-145)
[2016-07-25 05:41] LABS: ALBUMIN 1.9 GM/DL (3.2-5.2); ALBUMIN/GLOBULIN RATIO 0.49 (1.00-1.93); ALKALINE PHOSPHATASE 79 U/L (45-117); ALT/SGPT 19 U/L (12-78); BILIRUBIN,TOTAL 0.3 MG/DL (0.2-1.0); MAGNESIUM LEVEL 2.1 MG/DL (1.8-2.4); TOTAL PROTEIN 5.8 GM/DL (6.4-8.2)
[2016-07-25 08:00] VITALS: BP 97/67
[2016-07-25] MEDS: busPIRone 10 MG TAB GT SCH (09:52)
[2016-07-25] MEDS: CitaloPRAM (CeleXA) 20 MG TAB GT SCH (09:52)
[2016-07-25] MEDS: OLANZapine ORAL DISINTEGRATING TAB 5MG GT SCH (09:52)
[2016-07-25] MEDS: risperiDONE 1 MG TAB PEG SCH (09:52)
[2016-07-25] MEDS: MIRALAX *UNIT DOSE* 17GM PACKET GT SCH (09:52)
[2016-07-25] MEDS: GABAPENTIN 300 MG CAP GT SCH (09:53)
[2016-07-25] MEDS: PANTOPRAZOLE 40MG INJ (PROTONIX) (C9113) IV SCH (09:53)
[2016-07-25 10:21] LABS: FOLATE > 24.0 NG/ML; VITAMIN B12 LEVEL 1485 PG/ML
[2016-07-25 12:00] VITALS: BP 119/87
[2016-07-25] MEDS ORDERED: LEVA500T PO (12:05)
--- NOTE | 2016-07-25 14:20 | DSES ---
DATE OF ADMISSION: 07/22/2016 DATE OF DISCHARGE: 07/25/2016 ATTENDING PHYSICIAN: Dr. Sis Vega PRIMARY CARE PROVIDER: Jose G Toledo REFERRING PHYSICIANS: None. CONSULTING PHYSICIANS: None. CONDITION ON DISCHARGE: Stable. FINAL DIAGNOSES: 1. Fever, possibly secondary to healthcare-associated pneumonia, possibly secondary to aspiration, possibly secondary to urinary tract infection. 2. Acute kidney injury. PROCEDURES: None. HISTORY OF PRESENT ILLNESS: Patient is a 60-year-old male who is a resident at [facility] ([facility]). He has a past medical history of mental retardation, hypothyroidism, anxiety, depression, avoidant personality disorder, history of C2, C7 fracture, and gastroesophageal reflux disease (GERD), who presented to the emergency room from [facility] because of fever and hypoxia. Patient was admitted to intensive care unit (ICU) because of hypotension and likely aspiration pneumonia. His blood pressure responded to IV fluid hydration. HOSPITAL COURSE: 1. Fever, possibly secondary to healthcare-associated pneumonia, possibly secondary to aspiration, possibly secondary to urinary tract infection. Presented with fever for 2 days and hypoxia. Has had indwelling catheter for 1-1/2 months because of prostate enlargement. Hypotension in the emergency room and has responded to IV fluid hydration. Urinalysis was consistent with infection, and urine culture was positive for Escherichia (E) coli. CT chest on 07/22/2016 revealed bilateral left lower lobe changes and possible infiltrate. Elevation in white blood cell (WBC) initially trended up but has normalized upon discharge. There has been no elevation in his lactic acid. Patient has been continued with vancomycin and Zosyn for day #4. Upon discharge, he has been put on Levaquin orally to be taken for the next 4 days for completion of antibiotic course. 2. Acute kidney injury, likely secondary to prerenal etiology. Baseline creatinine is 0.8. Creatinine on admission was 2.0 and has been trending down to baseline. Fractional excretion of sodium (FENa) is 0.6. He has been continued with IV fluid hydration. 3. Status post hypernatremia. 4. Dark vomitus, likely bilious vomitus, less likely secondary to upper gastrointestinal (GI) bleed. Presented with single episode of vomiting. Hemoglobin has remained stable. He has been put on Protonix IV initially but will be discharged without Protonix. 5. Macrocytic anemia. Hemoglobin baseline of 10-11. Hemoglobin on presentation was 10.5. Hemoglobin remained stable. 6. Mental retardation. 7. Hypothyroidism. Continue with levothyroxine. 8. Anxiety, depression, and avoidant personality disorder. Continue with risperidone, olanzapine, citalopram, clonazepam, buspirone, and gabapentin. 9. History of C2, C7 fracture. 10. GERD. Continue with Protonix. 11. Deep venous thrombosis (DVT) prophylaxis. Continue with sleeve compression devices. DISCHARGE MEDICATION: Patient will be discharged home with the following medication list: - acetaminophen 20 mL through gastric tube every 4 hours as needed pain or fever - buspirone 30 mg through gastric tube twice a day - citalopram 40 mg through gastric tube daily - clonazepam 0.5 mg gastric tube three times a day - cyanocobalamin 500 mcg through gastric tube nightly - folic acid 400 mcg through the gastric tube nightly - gabapentin 600 mg through gastric tube three times a day - lansoprazole 30 mg percutaneous endoscopic gastrostomy (PEG) daily - levalbuterol 1.25 mg inhaled as needed shortness of breath - levothyroxine 75 mg through PEG daily - metoclopramide 10 mg through gastric tube with meals - olanzapine 15 mg through gastric tube three times a day - polyethylene glycol 17 grams through gastric tube daily - risperidone 1 mg through PEG daily Stopped medications include: - scopolamine 1.5 mg topically every 72 hours New medications prescribed include: - levofloxacin 500 mg through PEG tube daily DISCHARGE INSTRUCTIONS: Patient has been advised to followup with his primary care provider within the next 7 days. He has been advised to remain compliant with treatment plan and medications and return to the emergency room if he experiences any problems. TIME SPENT ON DISCHARGE: 35 minutes. Edited: 07/26/2016 1127
[2016-07-25 14:30] VITALS: BP 109/72
[2016-07-25] MEDS ORDERED: LEVA500T PEG (17:07)
--- NOTE | 2016-07-25 17:38 | ECGEPIP ---
Stationary ECG Study [facility] Test Date: 2016-07-25 Pat Name: MAURICIO BOBBY Department: Room: [place] [address] Gender: M Bench Technician: : 1955 Requested By: LUCINA DAIGLE Order Number: [id number] Reading MD: Karla Ochoa Measurements Intervals [place] Rate: 91 P: 40 GA: 116 QRS: -2 QRSD: 86 T: 20 QT: 367 QTc: 453 Interpretive Statements SINUS RHYTHM WITH SHORT GA INTERVAL NONSPECIFIC T-WAVE ABNORMALITY LOW VOLTAGE LIMB LEADS STABLE C/W 07/22/16 Electronically Signed On 07-25-2016 17:38:28 EDT by Karla Ochoa
== END 2016-07-25 15:16 | disposition home or self-care (01) | DRG 689 ==
LOC: EDBD 06:34 → M ED 08:11 → M ED INP 11:13 → M ICU 16:28 → M PCU 07-24 13:42
PROVIDERS: ADMIT Internal Medicine; ATTEND Internal Medicine
DX: N39.0 Urinary tract infection, site not specified (principal); J18.9 Pneumonia, unspecified organism; N17.9 Acute kidney failure, unspecified; K92.2 Gastrointestinal hemorrhage, unspecified; E03.9 Hypothyroidism, unspecified; F41.9 Anxiety disorder, unspecified; F32.9 Major depressive disorder, single episode, unspecified; F60.6 Avoidant personality disorder; K21.9 Gastro-esophageal reflux disease without esophagitis; I95.9 Hypotension, unspecified; B96.29 Other Escherichia coli [E. coli] as the cause of diseases classified elsewhere; D53.9 Nutritional anemia, unspecified; F79 Unspecified intellectual disabilities; Z79.899 Other long term (current) drug therapy; Z93.1 Gastrostomy status; E83.52 Hypercalcemia

== ENCOUNTER → 2016-08-23 | Outpatient (REF) | payer MEDICARE, MEDICAID ==
[~2016-08-23] MED LIST changes: +LEVA1.25 INH; +LEVA500T PEG; +LEVA500T PO; +OLAN15TA10 GT; +REGL5TAB2 PEG; +ZYPR15TA PEG
== END ==
LOC: M SMT 17:57
PROVIDERS: ATTEND Nurse Practitioner Women's Health
DX: N39.0 Urinary tract infection, site not specified (principal)

== ENCOUNTER 2016-10-16 10:39 | Inpatient (IN) | payer MEDICARE, MEDICAID ==
[~2016-10-16] VITALS: Ht 185.4 cm; Wt 57.4 kg
[~2016-10-16 10:39] MED LIST changes: -FOLI1TAB2 GT; +FOLI1TAB4 GT; +LEVA1TAB2 PEG; +LEVA1TAB2 PO; -LEVA500T PEG; -LEVA500T PO; +LEVO75TA4 GT; -LEVO75TA4 PEG; +PREV30TA3 GT; -PREV30TA3 PEG; -RISP1TAB41 PEG; +RISP1TAB42 GT
[2016-10-16] MEDS ORDERED: IPRATROPIUM 0.5MG/ALBUTEROL 2.5MG INH SOL UD 3ML (DUONEB)(J7620) NEB ONE (11:15)
[2016-10-16 11:33] LABS: ABG HCO3 27.1 MEQ/L (22.0-26.0); ABG PARTIAL PRESSURE CO2 44.4 mmHg (35.0-45.0); ABG PARTIAL PRESSURE O2 52.5 mmHg (75.0-100.0); ABG TOTAL CO2 28.5 MEQ/L (23.0-31.0); ABG pH (ARTERIAL) 7.404 UNITS (7.350-7.450)
[2016-10-16 13:01] LABS: BASO % 0.4 % (0.0-1.0); EOS # 0.1 K/mm3 (0.0-0.50); EOS % 1.1 % (0.0-3.0); LARGE UNSTAINED CELL # 0.2 K/mm3 (0.0-0.4); LYMPH # 1.3 K/mm3 (1.5-4.5); MEAN CORPUSCULAR HEMOGLOBIN 32.2 pg (27.0-33.0); MEAN CORPUSCULAR VOLUME 97.4 fl (80.0-96.0); MONO # 0.5 K/mm3 (0.0-0.8); MONO % 7.4 % (0.0-5.0); NEUTROPHILS # 5.3 K/mm3 (1.8-7.7); PLATELET COUNT, AUTOMATED 201 k/mm3 (150-450); RED CELL DISTRIBUTION WIDTH 17.2 % (11.5-14.5); WHITE BLOOD COUNT 7.3 K/mm3 (4.0-10.0)
[2016-10-16 13:37] LABS: ANION GAP 5 MEQ/L (8-16); BLOOD UREA NITROGEN 26 MG/DL (7-18); CALCIUM LEVEL 9.4 MG/DL (8.8-10.2); CARBON DIOXIDE LEVEL 33 MEQ/L (21-32); CHLORIDE LEVEL 105 MEQ/L (98-107); CREATININE FOR GFR 1.07 MG/DL (0.70-1.30); GLOMERULAR FILTRATION RATE > 60.0 (>49); GLUCOSE, FASTING 88 MG/DL (80-110); POTASSIUM SERUM 3.8 MEQ/L (3.5-5.1); SODIUM LEVEL 143 MEQ/L (136-145)
--- NOTE | 2016-10-16 14:05 | REP ---
AP LATERAL SEATED CHEST: 10/16/2016. Clinical history: Dyspnea. Comparison: AP chest 07/22/2016, CT 07/22/2016, chest x-ray 07/05/2016, portable chest 06/03/2016. Findings: Lung are less well inflated. There is diffuse interstitial change in bibasilar atelectasis or infiltrates, left greater than right. Distended gas filled mediastinal structure that may be gastric pull-through or very dilated esophagus, I do not have surgical history. Underlying fibrosis and venous hypertension. CP angle obscured by patchy infiltrate or atelectasis. Heart size not enlarged. Bones demineralized. Gas filled bowel loops upper abdomen. Impression: 1. Diffuse interstitial fibrotic changes with superimposed lower lobe patchy infiltrates or atelectasis, left greater than right. Please correlate for acute pneumonia. 2. Some vascular congestion with suspected interstitial edema with indistinct vessel margins now present. 3. Distended air-filled structure in the mediastinum may be gastric pull-through or very distended esophagus with or without hiatal hernia. Severe achalasia could do this. I do not have surgical history. Signed by Darien Levine MD 10/16/2016 06:11 P
[2016-10-16] MEDS ORDERED: ACETAMINOPHEN TAB 650MG DOSE (2X325MG) PO ONE (14:30)
[2016-10-16] MEDS ORDERED: ACETAMINOPHEN SUSP DYE FREE 160 MG/5 ML UDC PO ONE (14:30)
--- NOTE | 2016-10-16 14:39 | REP ---
CT CHEST WITHOUT CONTRAST: 10/16/2016. Clinical history: Hypoxia, cough, possible pneumonia. Comparison: Chest x-ray 10/16/2016, CT 07/22/2016, portable chest 07/22/2016. Findings: Noncontrast scanning with coronal and sagittal reconstructions provided. Lung arreola are well inflated. There are bilateral lower lobe infiltrate superimposed on some minor fibrotic changes, this is a changing pattern of infiltrates compared to the previous CT. There is more consolidation in the left base than right on today's study. I do not see pleural effusion. There is no pneumothorax or pneumomediastinum. Heart is mildly prominent. There is no pericardial thickening or effusion. The aorta is ectatic and tortuous with calcifications at the arch but no gross aneurysm. There are nodes in the mediastinum with 8 mm precarinal node and other nodes all subcentimeter sized. No pericardial thickening or effusion. There is a moderate sized hiatal hernia and a quite large distended esophagus, chronic similar to the previous exam. The stomach is quite distended on today's study with air fluid level within it. There is a PEG tube into the stomach in the upper abdomen as on the prior study and distended loops of colon with a few air-fluid levels in the left upper quadrant within the splenic flexure. Bones show diffuse degenerative changes in the spine with the sternum, manubrium, clavicles, scapulae, visible portion of the humerus on each side and the ribs without discrete lesion. There are old healed rib fractures on the left. There is no abdominal free air. No pneumothorax. Impression: 1. Bilateral lower lobe infiltrates in a changing pattern from the 07/22/2016 CT, slightly more left than right. No effusion. The upper lobes, right middle lobe and lingula were clear. 2. Distended stomach with a PEG tube and air-fluid level with a moderate hiatal hernia. Esophagus distended, filled with fluid as is the stomach. I suspect achalasia or other chronic dilatation of the esophagus with that associated hiatal hernia. 3. No pathologic mediastinal or hilar adenopathy. Aortic aneurysm or acute bony finding. Some old healed posterior left rib fractures noted. No other significant finding or interval change. Signed by Darien Levine MD 10/16/2016 06:21 P
[2016-10-16] MEDS ORDERED: cefTRIAXone SOD 2 GM in D5W MINI-BAG PLUS 50 ML IV ONE (14:45)
[2016-10-16] MEDS ORDERED: AZITHROMYCIN INJ 500 MG, VIAL MATE ADAPTER 1 EACH in D5W 250 ML IV ONE (15:00)
[2016-10-16] MEDS ORDERED: MIRA33504 GT (15:22)
[2016-10-16] MEDS ORDERED: TWOCLIQ GT ×2 (15:22)
[2016-10-16] MEDS ORDERED: IPRATROPIUM 0.5MG/ALBUTEROL 2.5MG INH SOL UD 3ML (DUONEB)(J7620) NEB PRN (16:15)
[2016-10-16] MEDS ORDERED: MIRALAX *UNIT DOSE* 17GM PACKET GT PRN (16:15)
[2016-10-16 17:00] VITALS: BP 109/76
[2016-10-16 17:04] LABS: ALBUMIN 3.7 GM/DL (3.2-5.2); ALBUMIN/GLOBULIN RATIO 1.06 (1.00-1.93); ALKALINE PHOSPHATASE 105 U/L (45-117); ALT/SGPT 29 U/L (12-78); AST/SGOT 25 U/L (15-37); BILIRUBIN,DIRECT 0.1 MG/DL (0.0-0.2); BILIRUBIN,TOTAL 0.3 MG/DL (0.2-1.0); TOTAL PROTEIN 7.2 GM/DL (6.4-8.2)
[2016-10-16] MEDS: busPIRone 10 MG TAB GT SCH (17:52)
[2016-10-16] MEDS: clonazePAM 0.5 MG TAB GT SCH (17:53)
[2016-10-16] MEDS: OLANZapine ORAL DISINTEGRATING TAB 5MG GT SCH (17:53)
[2016-10-16] MEDS: GABAPENTIN 300 MG CAP GT SCH (17:53)
[2016-10-16] MEDS: METOCLOPRAMIDE HCL LIQUID 10 MG/10 ML UDC GT SCH (17:54)
[2016-10-16] MEDS: MIRALAX *UNIT DOSE* 17GM PACKET GT SCH (17:55)
[2016-10-16 18:30] LABS: MICROSCOPIC INDICATED? MAN YES (NO)
[2016-10-16 18:34] LABS: BACTERIA, URINE SMALL AMOUNT; HYALINE CAST, URINE NONE SEEN /lpf (0-1); RBC, URINE 0-1 /hpf (0-3); SQUAMOUS EPITHELIAL CELL URINE NONE SEEN /hpf (SMALL AMT)
[2016-10-16 18:35] LABS: MICROSCOPIC EXAM PERFORMED
[2016-10-16] MEDS: IPRATROPIUM 0.5MG/ALBUTEROL 2.5MG INH SOL UD 3ML (DUONEB)(J7620) NEB SCH (20:17)
--- NOTE | 2016-10-16 21:20 | HPE ---
DATE OF ADMISSION: 10/16/2016 CHIEF COMPLAINT: This is a 60-year-old gentleman sent from [facility] ([facility]) because of "sounding bad" and oxygenation of 80% on room air with blue nail beds. HISTORY OF PRESENT ILLNESS: This is a 60-year-old gentleman with significant past medical history of mental retardation, hypothyroidism, anxiety, depression, avoidant personality disorder, history of C2-C7 fracture, and gastroesophageal reflux disease (GERD) who resides at [facility], presenting due to "sounding bad" this morning and saturating 80% on room air along with his nail bed turning blue. As per chart review, it seems that emergency medical services (EMS) was called and evaluated the patient, noted to be on room air at 96% but had cool hands and rales bilaterally, therefore brought to the emergency room for further evaluation. In the emergency room, patient was evaluated, did not have any fevers, no leukocytosis, but did show some hypoxemia on arterial blood gas (ABG), pO2 of 52, but saturating well on room air, above 90%. Chest x-ray did show abnormal finding and therefore, a CT of the chest was performed which showed bilateral lower lobe infiltrate in a changing pattern from 07/22/2016 CT, slightly more left than the right. No effusion. The upper lobe and middle lobe and lingula were clear. Distended stomach with a PEG tube and air-fluid level with moderate hiatal hernia. Esophagus distended, filled with fluid as is the stomach. Radiologist suspected achalasia or other chronic dilatation of the esophagus without associated hiatal hernia. Otherwise, no pathologic mediastinal or hilar adenopathy, aortic aneurysm or acute bony finding. Some old healed posterior left rib fractures noted. No other significant finding or interval changes. Patient is being admitted for further treatment for possible hospital-acquired pneumonia. Patient does have a history of having aspiration pneumonia in the past and subsequent PEG placement. Currently, patient is nothing by mouth at the [facility]. As per staff member who is at the bedside, patient was coughing this morning. No fever, no dysuria, but she normally has chronic diarrhea which is unchanged. Also to note, it seems that there were multiple staff members who had somewhat of a bronchitis recently and may have exposed the patient. Patient denies of any acute complaints, resting comfortably, did not show any signs of hypoxemia, breathing without any difficulty. Denies of any pain. Due to his mild mental retardation (MR), unable to fully obtain medical history from the patient, but medical history is obtained from his caregiver and staff report and chart review. REVIEW OF SYSTEMS: Ten point review of systems is negative, other than those described in the history of present illness (HPI). Also, his nail bed does not seem cyanotic at this time. PAST MEDICAL HISTORY: Significant for: 1. Mental retardation. 2. Hypothyroidism. 3. Anxiety. 4. Depression. 5. Avoidant personality. 6. History of C2-C7 fracture. 7. GERD. 8. Aspiration pneumonia, has a PEG in place. Based off of the CT finding, most likely hiatal hernia, achalasia, and chronic dilatation of the esophagus. SURGICAL HISTORY: Again, history of PEG tube placement 1 year ago. FAMILY AND MEDICAL HISTORY: Mother and father . Siblings: One brother and one sister. Unable to fully obtain at this time. SOCIAL HISTORY: Patient currently resides at [facility]. No history of alcohol, tobacco, or drug use. ALLERGIES: The patient does not seem to have any known allergies. MEDICATIONS: From the [facility] are as follows, and again verify with pharmacy as patient is taking multiple anti-psychiatric medications, which include: - buspirone 30 mg gastrostomy (G) tube twice a day - citalopram 40 mg G-tube daily - clonazepam 0.5 mg G-tube three times a day - vitamin B 12 500 mcg G-tube nightly - folic acid 400 mg G-tube nightly - gabapentin 600 mg G-tube three times a day - Prevacid 30 mg G-tube daily - Synthroid 75 mcg G-tube daily - metoclopramide 10 mg G-tube before food - olanzapine 15 mg G-tube three times a day - MiraLAX 17 grams G-tube daily - MiraLAX 17 grams as directed on days when he has had no bowel movement on 3, 4, 5 - Risperdal 1 mg G-tube daily - TwoCal 1.5 liquid G-tube twice a day - TwoCal one liquid G-tube every evening PHYSICAL EXAMINATION: His vital signs are as follows: Initially, patient had a temperature of 98.6, afebrile, heart rate of 99, respiratory rate of 22, blood pressure 118/78, saturating at 88% on room air, but subsequently his saturation has improved with oxygenation and he was taken off of oxygen and saturated well on room air at 91, and currently, on my examination he is saturating 98% on room air. Last temperature is 99.4, heart rate 84, respiratory rate of 20, blood pressure 138/82, again saturating 98% on room air. HEENT: Normocephalic. No trauma noted. Inspection of the eyes, nose, and throat is within normal. Pupils equal, round, and reactive to light and accommodation. Mucous is moist. Neck is supple. No tracheal deviation. CARDIAC: S1, S2, regular rate and rhythm. Pulses present. LUNGS: Equal air entry. No wheezing, but some crackle at the left base compared to the right. No rales or rhonchi. ABDOMEN: Soft, nontender. Bowel sounds present. Although he does get irritated when examining his leg, but no overt signs for pain or edema. Denies of any pain, but he just did not want to be examined on his feet. SKIN: Is intact, warm to touch, afebrile. The patient is currently awake, alert with history of MRLandy Does not seem to be in any respiratory stress and his nail beds are not cyanotic at this time. DIAGNOSTIC STUDIES: Patient had a WBC of 7 and platelets of 201, within normal. Hemoglobin and hematocrit 13.1 and 39.7. Patient's metabolic profile is within normal except for carbon dioxide of 33, BUN of 26. ABG showed pH of 7.404, pCO2 of 44.5, oxygen of 52.5, bicarbonate 27.1, saturating at 84.8. Blood cultures are pending at this time. Chest x-ray, as per radiology, showed diffuse interstitial fibrotic changes with superimposed lower lobe patchy infiltrates or atelectasis, left greater than the right. Some vascular congestion with suspected interstitial edema with indistinct vessel margin. Distended air filled structure in the mediastinum may be gastric pull-through or very distended esophagus with or without hiatal hernia. Severe achalasia could do this. Patient had a CT of the chest for further evaluation which showed bilateral lower lobe infiltrate in a changing pattern from the July 2016 CT, slightly more left than the right. No effusion. The upper lobe, right middle lobe, and lingula are clear. Distended stomach with PEG tube and air-fluid filled level with moderate hiatal hernia. Esophagus distended, filled with fluid as is the stomach. Suspect achalasia or other chronic dilatation of the esophagus without associated hiatal hernia. No pathologic mediastinal or hilar adenopathy. Aortic aneurysm or acute bony finding. Some old healed posterior left rib fractures noted. No other significant finding or interval change. I will, again, speak to radiology and verify that there is no aortic aneurysm or acute bony finding, but based on the body there is no pneumothorax or pneumomediastinum, aorta is ectatic and tortuous with calcification at the arch but no gross aneurysm. I presume the impression is meant to say no pathologic, mediastinal, or hilar adenopathy, or aortic aneurysm or acute bony finding, and not no pathologic, mediastinal, or hilar adenopathy. And then aortic aneurysm or acute bony findings. Again, will verify with radiology, but patient does not seem to show any clinical sign for any acute process of the aorta. Blood pressure is stable, not hypertensive, not tachycardic, not hypotensive. I did speak to Dr. Levine, the radiologist, and he has confirmed to me that patient does not indeed have any aortic aneurysm or acute bony finding that I should be concerned with. ASSESSMENT AND PLAN: This is a 60-year-old gentleman with significant past medical history of mental retardation, hypothyroidism, anxiety, depression, avoidant personality disorder, history of C2-C7 fracture, and gastroesophageal reflux disease (GERD), recently admitted to the hospital for health care associated pneumonia (HCAP) earlier in July of this year, who has done well at [facility] ([facility]), who today was noted to have some "bad sounds" and saturating at 80% on room air and blue nail beds with history of exposure to staff members with bronchitis. 1. Hypoxemia with bilateral lower lobe infiltrate on the left suspicious for pending pneumonia. Patient is currently saturating well on room air, does not seem to be hypoxemic, and no cyanotic appendages. Will obtain lactate, provide him with respiratory treatment, oxygen therapy as needed. Patient's last admission for health care associated pneumonia (HCAP) was slightly greater than 2 months ago and no overt sign for sepsis, therefore we will provide him with azithromycin and Rocephin empirically for now and continue to clinically monitor and further evaluate with blood culture, urinalysis, influenza studies, and Legionella studies, in addition to gastrointestinal (GI) panel as the patient has chronic diarrhea history. Will also place him on aspirin precaution and keep him nothing by mouth for now and have speech therapy come and evaluate for possible aspiration from his saliva. 2. Percutaneous endoscopic gastrostomy (PEG) tube, hiatal hernia history, achalasia, chronic dilatation of the esophagus associated with hiatal hernia. Aspiration risk. Nothing by mouth. Hold percutaneous endoscopic gastrostomy (PEG) feed for now and consult GI as needed. 3. Mental retardation and personality disorder. I confirmed the antipsychotic medication with pharmacy. Resume buspirone, citalopram, clonazepam, gabapentin, olanzapine, and risperidone that patient takes at [facility] ([facility]) via the percutaneous endoscopic gastrostomy (PEG). 4. Hypothyroidism. Synthroid. 5. Gastroesophageal reflux disease (GERD). Prevacid. 6. Deep venous thrombosis (DVT) prophylaxis.
[2016-10-16 22:00] VITALS: BP 74/54
[2016-10-16] MEDS: HEPARIN SOD (PORCINE) 5000 UNITS/ML VIAL SC SCH ×2 (22:00→22:18)
[2016-10-16] MEDS: CYANOCOBALAMIN 500 MCG TAB GT SCH (22:18)
[2016-10-16] MEDS: ACETAMINOPHEN TAB 650MG DOSE (2X325MG) PO PRN (23:10)
[2016-10-16] MEDS ORDERED: SODIUM CHLORIDE 0.9% 1000 ML IV ONE (23:15)
[2016-10-17 01:00] VITALS: BP 84/60
[2016-10-17] MEDS: IPRATROPIUM 0.5MG/ALBUTEROL 2.5MG INH SOL UD 3ML (DUONEB)(J7620) NEB SCH ×4 (01:21→20:58)
[2016-10-17] MEDS: LEVOTHYROXINE 75MCG TABLET (0.075MG) GT SCH (05:47)
[2016-10-17] MEDS: HEPARIN SOD (PORCINE) 5000 UNITS/ML VIAL SC SCH ×3 (05:47→21:39)
[2016-10-17 06:00] VITALS: BP 94/62
[2016-10-17 06:55] LABS: MEAN CORPUSCULAR HEMOGLOBIN 32.3 pg (27.0-33.0); MEAN CORPUSCULAR HGB CONC 33.2 g/dl (32.0-36.5); MEAN CORPUSCULAR VOLUME 97.4 fl (80.0-96.0); RED CELL DISTRIBUTION WIDTH 17.1 % (11.5-14.5); WHITE BLOOD COUNT 10.6 K/mm3 (4.0-10.0)
[2016-10-17 07:15] LABS: ANION GAP 3 MEQ/L (8-16); BLOOD UREA NITROGEN 24 MG/DL (7-18); CALCIUM LEVEL 8.9 MG/DL (8.8-10.2); CARBON DIOXIDE LEVEL 33 MEQ/L (21-32); CHLORIDE LEVEL 107 MEQ/L (98-107); CREATININE FOR GFR 1.15 MG/DL (0.70-1.30); GLOMERULAR FILTRATION RATE > 60.0 (>49); GLUCOSE, FASTING 80 MG/DL (80-110); POTASSIUM SERUM 3.9 MEQ/L (3.5-5.1); SODIUM LEVEL 143 MEQ/L (136-145)
[2016-10-17] MEDS: GABAPENTIN 300 MG CAP GT SCH ×3 (07:30→17:00)
[2016-10-17] MEDS ORDERED: SODIUM CHLORIDE 0.9% 1000 ML IV ONE ×2 (07:30→10:00)
[2016-10-17] MEDS ORDERED: VANCOMYCIN HCL 1,000 MG, VIAL MATE ADAPTER 1 EACH in D5W 250 ML IV ONE (09:00)
[2016-10-17] MEDS: PIPERACILLIN/TAZOBACTAM SOD 3.375 GM in D5W MINI-BAG PLUS 50 ML IV SCH ×2 (09:13→17:06)
[2016-10-17] MEDS: METOCLOPRAMIDE HCL LIQUID 10 MG/10 ML UDC GT SCH ×3 (09:13→17:01)
[2016-10-17] MEDS: LANSOPRAZOLE SUSPENSION 30 MG/10 ML ORAL SYRINGE (FIRST-LANSOPRAZOLE) GT SCH (09:13)
[2016-10-17] MEDS: OLANZapine ORAL DISINTEGRATING TAB 5MG GT SCH ×3 (09:14→17:01)
[2016-10-17] MEDS: MIRALAX *UNIT DOSE* 17GM PACKET GT SCH (09:14)
[2016-10-17] MEDS: busPIRone 10 MG TAB GT SCH ×2 (09:15→17:00)
[2016-10-17] MEDS: clonazePAM 0.5 MG TAB GT SCH ×3 (09:15→17:01)
[2016-10-17] MEDS: CitaloPRAM (CeleXA) 20 MG TAB GT SCH (09:15)
[2016-10-17] MEDS: risperiDONE 1 MG TAB GT SCH (09:15)
[2016-10-17] MEDS: NS 1,000 ML IV SCH ×2 (11:09→21:40)
[2016-10-17 14:00] VITALS: BP 85/51
[2016-10-17] MEDS ORDERED: cefTRIAXone SOD 2 GM in D5W MINI-BAG PLUS 50 ML IV SCH (15:00)
[2016-10-17 15:02] LABS: CORTISOL BASELINE 17.4 UG/DL (4.3-22.4)
--- NOTE | 2016-10-17 15:02 | PHACANCOPD ---
PHARMACY VANCOMYCIN DOSING Pt Demographics Demographics Patient Age:60 , Weight:57.400 , Gender: male Adjusted Body Weight Date: 10/17/16, Adjusted Body Weight: Kg Events Past 24 Hours Events Past 24 Hours: NO: Dialysis, Diuretic Therapy, Change in CrCl, Fever, Elevation in WBC, Pending Diagnostics, Pending Procedures, Other Vancomycin Vancomycin indication: HCAP coverage Vancomycin Target Ranges: 15-20 mcg/ml Vancomycin Load Y/N: Yes Load Dose Date Time Vancomycin Load Dose: 1000mg Date: 10/17 Time: 900 Vancomycin Dose Date: 10/17/16. Current Vancomycin Dose: [750mg IV q12h@18] Intermittent Dosing?: No Labs Labs Item Value Date Time White Blood Count 10.6 K/mm3 H 10/17/16 0641 White Blood Count 7.3 K/mm3 10/16/16 1100 Creatinine 1.15 MG/DL 10/17/16 0641 Creatinine 1.07 MG/DL 10/16/16 1305 Micro Microbiology 10/17/16 Blood Culture, Received Pending 10/17/16 Blood Culture, Received Pending 10/16/16 Blood Culture - Preliminary, Resulted No growth after 24 hours . All specim... 10/16/16 Blood Culture - Preliminary, Resulted No growth after 24 hours . All specim... 10/16/16 Urine Culture, Received Pending Creatinine Clearance Date:10/17/16. Creatinine Clearance: . Assessment and Plan Maintaining Current Dose?: Yes Reason for dose change: No Dose Change Pharmacist Note Pharmacist Note Date: 10/17/16. Pharmacist note: Patient presented to the emergency department not feeling well and low O2 stats. He is being treated empirically with Vancomycin and Zosyn for HCAP coverage. He does have history of MRSA Pneumonia here at [facility], and history of Vancomycin use. He has been experiencing low grade fevers, but his WBC was within normal limits upon admission. We have loaded him with 1 gram of Vancomycin and continued him on Vancomycin 750mg IV q12h @1800. We will continue to monitor him and make adjustments as necessary. PORSHA URBINA PHARMACY Oct 17, 2016 15:02
[2016-10-17] MEDS ORDERED: AZITHROMYCIN INJ 500 MG, VIAL MATE ADAPTER 1 EACH in D5W 250 ML IV SCH (16:00)
--- NOTE | 2016-10-17 16:09 | IPNPDOC ---
Text Note Date of Service The patient was seen on 10/17/16. NOTE Subjective: Patient is a 60 year old male who is a resident at [facility], he has a PMHx of Mental retardation, Hypothyroidism, Anxiety, Depression, Avoidant personality disorder, Hx of C2/C7 fracture, GERD, s/p PEG tube and history of aspiration pneumonia who presented to the ER from [facility] because course lung sounds and hypoxia. Patient was admitted medical surgical floor because community acquired pneumonia. This morning patient was noted to be hypotensive. He was given IV fluids. Patient was seen and examined at the bedside. He did not have any complaints of dizziness, shortness of breath, cough or palpitations. Objective: Vitals (See below) General: Lying in bed, no acute distress, comfortable, Awake and alert HEENT: NC, AT CVS: RRR, +S1S2 Lungs: Course lung sounds bilaterally Abdomen: Soft, ND, NT, + PEG tube Extremities: - Edema, - Calf tenderness Assessment and plan: 1. Hypotension - likely at baseline; less likely 2/2 sepsis - Chronically with low blood pressure with SBPs of upper 80s to low 90s - Clinically has no symptoms while blood pressure is this low - BP on 10/17 AM was noted to be in 70s - Patient was started on IV fluid hydration; BP improved to 110s - Lactic acid level was checked in AM and repeat this afternoon; normal on both occasions - Will continue to monitor 2. Course lung sounds and hypoxia upon presentation - likely 2/2 bilateral lower lobe infiltrate - likely 2/2 pneumonia (Possibly HCAP) - Presented with course lung sounds, hypoxia at [facility] - Physical with course lung sounds - Elevation in WBC, No elevation in Lactic acid; Mild elevation of CRP - Chest CT 10/16: bilateral LL infiltrate, distended stomach with PEG tube, moderate hiatal hernia - Follow up pneumonia antigens - s/p Ceftriaxone and Azithromycin - Started Vancomycin and Zosyn (Start 10/17 AM) - c/w Aspiration precautions 3. s/p PEG tube - feedings on hold for now - will restart this afternoon 4. Hypothyroidism - c/w Levothyroxine 5. Mental retardation / Personality disorder / Anxiety / Depression - c/w antipsychotic medications (buspirone, citalopram, clonazepam, gabapentin, olanzapine, and risperidone) - Will reduce dose of Clonazepam (re: has some sedative effects this afternoon) 6. C2/C7 fracture 7. GERD - c/w Lansoprazole 8. DVT prophylaxis - c/w Heparin VS,Fishbone, I+O VS, Fishbone, I+O Laboratory Tests 10/17/16 06:41 Red Blood Count 3.51 L, Mean Corpuscular Volume 97.4 H, Mean Corpuscular Hemoglobin 32.3, Mean Corpuscular Hemoglobin Concent 33.2, Red Cell Distribution Width 17.1 H, Calcium Level 8.9 Vital Signs Date Time Temp Pulse Resp B/P (MAP) Pulse Ox O2 Delivery O2 Flow Rate FiO2 10/17/16 14:00 98.3 58 16 85/51 (62) 92 Room Air 10/16/16 11:15 91 10/16/16 10:55 4.0 I&O- Last 24 Hours up to 6 AM 10/17/16 06:00 Intake Total 550 ml Output Total 925 ml Balance -375 ml LUCINA DAIGLE MD Oct 17, 2016 16:09
[2016-10-17] MEDS: VANCOMYCIN HCL 750 MG, VIAL MATE ADAPTER 1 EACH in D5W 250 ML IV SCH (18:45)
[2016-10-17] MEDS: CYANOCOBALAMIN 500 MCG TAB GT SCH (21:39)
[2016-10-17 22:00] VITALS: BP 100/66
[2016-10-18] MEDS: PIPERACILLIN/TAZOBACTAM SOD 3.375 GM in D5W MINI-BAG PLUS 50 ML IV SCH ×3 (00:59→15:22)
[2016-10-18] MEDS: IPRATROPIUM 0.5MG/ALBUTEROL 2.5MG INH SOL UD 3ML (DUONEB)(J7620) NEB SCH ×4 (01:09→20:05)
[2016-10-18] MEDS: LEVOTHYROXINE 75MCG TABLET (0.075MG) GT SCH (05:40)
[2016-10-18] MEDS: HEPARIN SOD (PORCINE) 5000 UNITS/ML VIAL SC SCH ×3 (05:40→21:43)
[2016-10-18] MEDS: VANCOMYCIN HCL 750 MG, VIAL MATE ADAPTER 1 EACH in D5W 250 ML IV SCH (05:41)
[2016-10-18] MEDS: NS 1,000 ML IV SCH ×2 (05:41→15:23)
[2016-10-18 06:00] VITALS: BP 107/70
[2016-10-18 06:52] LABS: MEAN CORPUSCULAR HEMOGLOBIN 33.4 pg (27.0-33.0); MEAN CORPUSCULAR HGB CONC 33.6 g/dl (32.0-36.5); MEAN CORPUSCULAR VOLUME 99.4 fl (80.0-96.0); RED CELL DISTRIBUTION WIDTH 16.7 % (11.5-14.5); WHITE BLOOD COUNT 6.6 K/mm3 (4.0-10.0)
[2016-10-18 07:08] LABS: ANION GAP 5 MEQ/L (8-16); BLOOD UREA NITROGEN 14 MG/DL (7-18); CALCIUM LEVEL 8.3 MG/DL (8.8-10.2); CARBON DIOXIDE LEVEL 28 MEQ/L (21-32); CHLORIDE LEVEL 111 MEQ/L (98-107); GLOMERULAR FILTRATION RATE > 60.0 (>49); GLUCOSE, FASTING 98 MG/DL (80-110); POTASSIUM SERUM 4.1 MEQ/L (3.5-5.1); SODIUM LEVEL 144 MEQ/L (136-145)
--- NOTE | 2016-10-18 08:12 | IPNPDOC ---
Text Note Date of Service The patient was seen on 10/18/16. NOTE NOTE Subjective: Patient is a 60 year old male who is a resident at [facility], he has a PMHx of Mental retardation, Hypothyroidism, Anxiety, Depression, Avoidant personality disorder, Hx of C2/C7 fracture, GERD, s/p PEG tube and history of aspiration pneumonia who presented to the ER from [facility] because course lung sounds and hypoxia. Patient was admitted medical surgical floor because community acquired pneumonia. Patient was seen and examined at the bedside. Patient with no medical complaints. Objective: Vitals (See below) General: Lying in bed, no acute distress, comfortable, Awake and alert; oriented to place HEENT: NC, AT CVS: RRR, +S1S2 Lungs: Course lung sounds bilaterally Abdomen: Soft, ND, NT, + PEG tube Extremities: - Edema, - Calf tenderness Assessment and plan: 1. Hypotension - appears grossly at baseline; less likely 2/2 sepsis - Chronically with low blood pressure with SBPs of upper 80s to low 90s - Clinically has no symptoms while blood pressure is this low - BP on 8 AM was noted to be in 70s - Patient was started on IV fluid hydration; BP improved to 110s - Will continue to monitor 2. Course lung sounds and hypoxia upon presentation - likely 2/2 bilateral lower lobe infiltrate - likely 2/2 pneumonia (Possibly HCAP) - Presented with course lung sounds, hypoxia at [facility] - Physical with course lung sounds - Elevation in WBC, No elevation in Lactic acid; Mild elevation of CRP - Chest CT 10/16: bilateral LL infiltrate, distended stomach with PEG tube, moderate hiatal hernia - Follow up pneumonia antigens - s/p Ceftriaxone and Azithromycin - Started Vancomycin and Zosyn (Start 87 AM) - c/w Aspiration precautions - sputum cultures/gram stain pending - MRSA screen and respiratory panel ordered 3. s/p PEG tube - feedings on hold for now - will likely restart this afternoon - CT A/P pending 4. Hypothyroidism - c/w Levothyroxine 5. Mental retardation / Personality disorder / Anxiety / Depression - c/w antipsychotic medications (buspirone, citalopram, clonazepam, gabapentin, olanzapine, and risperidone) - Will reduce dose of Clonazepam (re: has some sedative effects this afternoon) 6. C2/C7 fracture 7. GERD - c/w Lansoprazole 8. UTI - UCx and sensitivities noted - receiving Vanc/Zosyn 9. DVT prophylaxis - c/w Heparin Code Status: DNR - Extensive discussion today with case management, and previously with guardian regarding out of hospital DNR. As per advisement from [facility] [place], his advanced directive can be honored. DNR will be implemented. VS,Fishbone, I+O VS, Fishbone, I+O Laboratory Tests 10/18/16 06:36 Red Blood Count 3.45 L, Mean Corpuscular Volume 99.4 H, Mean Corpuscular Hemoglobin 33.4 H, Mean Corpuscular Hemoglobin Concent 33.6, Red Cell Distribution Width 16.7 H, Calcium Level 8.3 L Vital Signs Date Time Temp Pulse Resp B/P (MAP) Pulse Ox O2 Delivery O2 Flow Rate FiO2 10/18/16 06:00 99.7 58 16 107/70 (82) 99 Room Air 10/16/16 11:15 91 10/16/16 10:55 4.0 I&O- Last 24 Hours up to 6 AM 10/18/16 06:00 Intake Total 2100 ml Output Total 1575 ml Balance 525 ml CHON GAMBINO MD Oct 18, 2016 08:12
[2016-10-18] MEDS: MIRALAX *UNIT DOSE* 17GM PACKET GT SCH (09:23)
[2016-10-18] MEDS: LANSOPRAZOLE SUSPENSION 30 MG/10 ML ORAL SYRINGE (FIRST-LANSOPRAZOLE) GT SCH (09:23)
[2016-10-18] MEDS: OLANZapine ORAL DISINTEGRATING TAB 5MG GT SCH ×3 (09:24→15:22)
[2016-10-18] MEDS: clonazePAM 0.5 MG TAB GT SCH ×3 (09:24→15:22)
[2016-10-18] MEDS: GABAPENTIN 300 MG CAP GT SCH ×3 (09:24→15:22)
[2016-10-18] MEDS: METOCLOPRAMIDE HCL LIQUID 10 MG/10 ML UDC GT SCH ×3 (09:24→18:35)
[2016-10-18] MEDS: CitaloPRAM (CeleXA) 20 MG TAB GT SCH (09:25)
[2016-10-18] MEDS: busPIRone 10 MG TAB GT SCH ×2 (09:25→15:22)
[2016-10-18] MEDS: risperiDONE 1 MG TAB GT SCH (09:28)
--- NOTE | 2016-10-18 09:44 | REP ---
CT abdomen pelvis without IV contrast: Comparisons are the chest CT dated 10/16/2016 and abdomen and pelvis CT dated 07/22/2016. Within the visualized lung arreola. There are bibasilar infiltrates, unchanged from 10/16/2016. There is a fixed hiatal hernia measuring 8.2 cm transversely, also unchanged. There is a peg tube entering from the anterior abdominal wall as previously. There is no evidence of extravasation or free air along the tube tract. The unenhanced hepatic parenchyma, gallbladder, pancreas and spleen are unremarkable. The adrenals and kidneys are unremarkable. The abdominal aorta is unremarkable. There is diffuse moderate distension of small and large bowel. This is nonspecific. On the chest CT of 10/16/2016 there was marked gastric distension on the preliminary roustabout supervisor view. This is no longer present on the current study. There is a small volume of ascites in the mid mesentery and the bowel loops. Pelvis: There is no ascites in the pelvis. The bladder is nondistended and cannot be further evaluated. There are a few tiny air bubbles within the bladder. There is a Smith catheter in the bladder. Impression: There is diffuse moderate small bowel distension and large bowel distension, nonspecific. The marked gaseous distension of the stomach identified on the chest CT of 10/16/2016 is no longer present. There is a peg tube, unchanged. There is opaque material in the cecum and there are multiple appendicoliths on the study today, not present on 07/22/2016. There is no CT evidence of acute appendicitis. There is a small volume of ascites interposed between the bowel loops in the mid abdomen. There are bibasilar infiltrates and there is a fixed hiatal hernia. These are unchanged from the chest CT of 10/16/2016 There is no pelvic adenopathy. There is internal fixation of the left hip. Signed by Paddy Tate MD 10/18/2016 09:35 A
[2016-10-18 14:00] VITALS: BP 98/60
[2016-10-18] MEDS: VANCOMYCIN HCL 1,000 MG, VIAL MATE ADAPTER 1 EACH in D5W 250 ML IV SCH (18:35)
[2016-10-18] MEDS: CYANOCOBALAMIN 500 MCG TAB GT SCH (21:43)
[2016-10-18 22:00] VITALS: BP 107/70
[2016-10-19] MEDS: PIPERACILLIN/TAZOBACTAM SOD 3.375 GM in D5W MINI-BAG PLUS 50 ML IV SCH ×3 (00:55→16:56)
[2016-10-19] MEDS: IPRATROPIUM 0.5MG/ALBUTEROL 2.5MG INH SOL UD 3ML (DUONEB)(J7620) NEB SCH ×4 (01:43→19:12)
[2016-10-19 06:00] VITALS: BP 119/77
[2016-10-19] MEDS: VANCOMYCIN HCL 1,000 MG, VIAL MATE ADAPTER 1 EACH in D5W 250 ML IV SCH (06:13)
[2016-10-19] MEDS: HEPARIN SOD (PORCINE) 5000 UNITS/ML VIAL SC SCH ×3 (06:13→21:41)
[2016-10-19] MEDS: LEVOTHYROXINE 75MCG TABLET (0.075MG) GT SCH (06:13)
[2016-10-19] MEDS: NS 1,000 ML IV SCH ×3 (06:14→21:41)
[2016-10-19 07:29] LABS: MEAN CORPUSCULAR HEMOGLOBIN 32.9 pg (27.0-33.0); MEAN CORPUSCULAR HGB CONC 33.6 g/dl (32.0-36.5); MEAN CORPUSCULAR VOLUME 97.9 fl (80.0-96.0); RED CELL DISTRIBUTION WIDTH 17.2 % (11.5-14.5); WHITE BLOOD COUNT 6.7 K/mm3 (4.0-10.0)
[2016-10-19 07:43] LABS: ANION GAP 7 MEQ/L (8-16); BLOOD UREA NITROGEN 12 MG/DL (7-18); CALCIUM LEVEL 8.8 MG/DL (8.8-10.2); CARBON DIOXIDE LEVEL 25 MEQ/L (21-32); CHLORIDE LEVEL 114 MEQ/L (98-107); CREATININE FOR GFR 0.96 MG/DL (0.70-1.30); GLOMERULAR FILTRATION RATE > 60.0 (>49); GLUCOSE, FASTING 98 MG/DL (80-110); POTASSIUM SERUM 4.3 MEQ/L (3.5-5.1); SODIUM LEVEL 146 MEQ/L (136-145)
[2016-10-19] MEDS: busPIRone 10 MG TAB GT SCH ×2 (09:30→16:54)
[2016-10-19] MEDS: OLANZapine ORAL DISINTEGRATING TAB 5MG GT SCH ×3 (09:30→16:55)
[2016-10-19] MEDS: CitaloPRAM (CeleXA) 20 MG TAB GT SCH (09:31)
[2016-10-19] MEDS: GABAPENTIN 300 MG CAP GT SCH ×3 (09:31→16:54)
[2016-10-19] MEDS: risperiDONE 1 MG TAB GT SCH (09:31)
[2016-10-19] MEDS: clonazePAM 0.5 MG TAB GT SCH ×3 (09:31→16:55)
[2016-10-19] MEDS: LANSOPRAZOLE SUSPENSION 30 MG/10 ML ORAL SYRINGE (FIRST-LANSOPRAZOLE) GT SCH (09:32)
[2016-10-19] MEDS: MIRALAX *UNIT DOSE* 17GM PACKET GT SCH (09:32)
[2016-10-19] MEDS: METOCLOPRAMIDE HCL LIQUID 10 MG/10 ML UDC GT SCH ×3 (09:32→16:55)
--- NOTE | 2016-10-19 12:25 | PHACANCOPD ---
PHARMACY VANCOMYCIN DOSING Pt Demographics Demographics Patient Age:60 , Weight:57.400 , Gender: male Adjusted Body Weight Date: 10/17/16, Adjusted Body Weight: Kg Vancomycin Vancomycin indication: HCAP coverage Vancomycin Target Ranges: 15-20 mcg/ml Vancomycin Load Y/N: Yes Load Dose Date Time Vancomycin Load Dose: 1000mg Date: 10/17 Time: 900 Vancomycin Dose Date: 10/17/16. Current Vancomycin Dose: [750mg IV q12h@18] Intermittent Dosing?: No Labs Micro Microbiology 10/17/16 Blood Culture - Preliminary, Resulted No Growth after 48 hours. All Specime... 10/17/16 Blood Culture - Preliminary, Resulted No Growth after 48 hours. All Specime... 10/16/16 Blood Culture - Preliminary, Resulted No Growth after 48 hours. All Specime... 10/16/16 Blood Culture - Preliminary, Resulted No Growth after 48 hours. All Specime... 10/18/16 MRSA Screen, Resulted Pending 10/18/16 Respiratory Virus Panel (PCR) (EDMUND) - Final, Resulted 10/18/16 Influenza Virus Type A Antigen - Final, Complete 10/18/16 Influenza Virus Type B Antigen - Final, Complete 10/16/16 Urine Culture - Final, Complete Enterococcus Faecalis Morganella Morganii Ssp Jagjit Creatinine Clearance Date:10/17/16. Creatinine Clearance: . Assessment and Plan Maintaining Current Dose?: No Reason for dose change: Trough too low Pharmacist Note Pharmacist Note 10/19/16: Day #3 empiric zosyn/vancomycin tx. Trough yesterday resulted at 13.8, and thus regimen was increased to vancomycin 1g IV Q12H. Scr and output remain stable. Urine culture as resulted enterococcus sensitive to vancomycin (EDMUND = 1) , and morganella sensitive to zosyn. MRSA screen and blood cultures are still pending. A follow-up vancomycin trough has been scheduled 10/20/16 @0500. We will continue to monitor and make further dose adjustments if needed. Date: 10/17/16. Pharmacist note: Patient presented to the emergency department not feeling well and low O2 stats. He is being treated empirically with Vancomycin and Zosyn for HCAP coverage. He does have history of MRSA Pneumonia here at [facility], and history of Vancomycin use. He has been experiencing low grade fevers, but his WBC was within normal limits upon admission. We have loaded him with 1 gram of Vancomycin and continued him on Vancomycin 750mg IV q12h @1800. We will continue to monitor him and make adjustments as necessary. ANGELO ANGELA PHARMACY Oct 19, 2016 12:25
[2016-10-19] MEDS: ACETAMINOPHEN TAB 650MG DOSE (2X325MG) PO PRN ×2 (12:35→21:40)
--- NOTE | 2016-10-19 13:59 | IPNPDOC ---
Text Note Date of Service The patient was seen on 10/19/16. NOTE Subjective: Patient is a 60 year old male who is a resident at [facility], he has a PMHx of Mental retardation, Hypothyroidism, Anxiety, Depression, Avoidant personality disorder, Hx of C2/C7 fracture, GERD, s/p PEG tube and history of aspiration pneumonia who presented to the ER from [facility] because course lung sounds and hypoxia. Patient was admitted medical surgical floor because community acquired pneumonia. Patient was seen and examined at the bedside. Patient with no medical complaints. In good spirits this morning. Objective: Vitals (See below) General: Lying in bed, no acute distress, comfortable, Awake and alert; oriented to place HEENT: NC, AT CVS: RRR, +S1S2 Lungs: Course lung sounds bilaterally Abdomen: Soft, ND, NT, + PEG tube Extremities: - Edema, - Calf tenderness Assessment and plan: 1. Hypotension - appears grossly at baseline; less likely 2/2 sepsis - Chronically with low blood pressure with SBPs of upper 80s to low 90s - Clinically has no symptoms while blood pressure is this low - BP on 8 AM was noted to be in 70s - Patient was started on IV fluid hydration; BP improved to 110s - Will continue to monitor 2. Course lung sounds and hypoxia upon presentation - likely 2/2 bilateral lower lobe infiltrate - likely 2/2 pneumonia (Possibly HCAP) - Presented with course lung sounds, hypoxia at [facility] - Physical with course lung sounds - Elevation in WBC, No elevation in Lactic acid; Mild elevation of CRP - Chest CT 10/16: bilateral LL infiltrate, distended stomach with PEG tube, moderate hiatal hernia - Follow up pneumonia antigens - s/p Ceftriaxone and Azithromycin - Started Vancomycin and Zosyn (Start 8 AM) - c/w Aspiration precautions - sputum cultures/gram stain pending - MRSA screen and respiratory panel ordered 3. s/p PEG tube - feedings on hold for now - will likely restart this afternoon - CT A/P pending 4. Hypothyroidism - c/w Levothyroxine 5. Mental retardation / Personality disorder / Anxiety / Depression - c/w antipsychotic medications (buspirone, citalopram, clonazepam, gabapentin, olanzapine, and risperidone) - Will reduce dose of Clonazepam (re: has some sedative effects this afternoon) 6. C2/C7 fracture 7. GERD - c/w Lansoprazole 8. UTI - UCx and sensitivities noted - receiving Vanc/Zosyn 9. DVT prophylaxis - c/w Heparin Code Status: DNR - Extensive discussion with case management, and previously with guardian regarding out of hospital DNR. As per advisement from [facility] [employer] [employer], his advanced directive can be honored. DNR has been implemented. VS,Fishbone, I+O VS, Fishbone, I+O Laboratory Tests 10/19/16 07:12 Red Blood Count 3.63 L, Mean Corpuscular Volume 97.9 H, Mean Corpuscular Hemoglobin 32.9, Mean Corpuscular Hemoglobin Concent 33.6, Red Cell Distribution Width 17.2 H, Calcium Level 8.8 Vital Signs Date Time Temp Pulse Resp B/P (MAP) Pulse Ox O2 Delivery O2 Flow Rate FiO2 10/19/16 06:00 98.7 63 18 119/77 (91) 95 Room Air 10/16/16 11:15 91 10/16/16 10:55 4.0 I&O- Last 24 Hours up to 6 AM 10/19/16 05:59 Intake Total 1600 ml Output Total 2000 ml Balance -400 ml CHON GAMBINO MD Oct 19, 2016 13:59
[2016-10-19 14:15] LABS: ORGANISM ID Not indicated. (.); SPECIMEN SOURCE Urine (.)
[2016-10-19 19:10] VITALS: O2SAT 95
[2016-10-19] MEDS: CYANOCOBALAMIN 500 MCG TAB GT SCH (21:41)
[2016-10-19 22:00] VITALS: BP 106/61
[2016-10-20] MEDS: PIPERACILLIN/TAZOBACTAM SOD 3.375 GM in D5W MINI-BAG PLUS 50 ML IV SCH ×2 (00:57→07:33)
[2016-10-20] MEDS: IPRATROPIUM 0.5MG/ALBUTEROL 2.5MG INH SOL UD 3ML (DUONEB)(J7620) NEB SCH ×4 (00:59→20:00)
[2016-10-20 05:38] LABS: MEAN CORPUSCULAR HEMOGLOBIN 33.2 pg (27.0-33.0); MEAN CORPUSCULAR HGB CONC 33.8 g/dl (32.0-36.5); MEAN CORPUSCULAR VOLUME 98.1 fl (80.0-96.0); RED CELL DISTRIBUTION WIDTH 16.7 % (11.5-14.5); WHITE BLOOD COUNT 8.8 K/mm3 (4.0-10.0)
[2016-10-20] MEDS: LEVOTHYROXINE 75MCG TABLET (0.075MG) GT SCH (05:55)
[2016-10-20] MEDS: ACETAMINOPHEN TAB 650MG DOSE (2X325MG) PO PRN ×3 (05:55→21:24)
[2016-10-20] MEDS: HEPARIN SOD (PORCINE) 5000 UNITS/ML VIAL SC SCH ×3 (05:56→21:25)
[2016-10-20 06:00] VITALS: BP 124/86
[2016-10-20 06:07] LABS: ANION GAP 8 MEQ/L (8-16); BLOOD UREA NITROGEN 14 MG/DL (7-18); CALCIUM LEVEL 8.5 MG/DL (8.8-10.2); CARBON DIOXIDE LEVEL 25 MEQ/L (21-32); CHLORIDE LEVEL 118 MEQ/L (98-107); CREATININE FOR GFR 1.07 MG/DL (0.70-1.30); GLOMERULAR FILTRATION RATE > 60.0 (>49); GLUCOSE, FASTING 77 MG/DL (80-110); POTASSIUM SERUM 3.5 MEQ/L (3.5-5.1); SODIUM LEVEL 151 MEQ/L (136-145)
[2016-10-20] MEDS: MIRALAX *UNIT DOSE* 17GM PACKET GT SCH (07:32)
[2016-10-20] MEDS: METOCLOPRAMIDE HCL LIQUID 10 MG/10 ML UDC GT SCH ×3 (07:32→16:41)
[2016-10-20] MEDS: busPIRone 10 MG TAB GT SCH ×2 (07:33→16:42)
[2016-10-20] MEDS: GABAPENTIN 300 MG CAP GT SCH ×3 (07:33→16:42)
[2016-10-20] MEDS: OLANZapine ORAL DISINTEGRATING TAB 5MG GT SCH ×3 (07:33→16:42)
[2016-10-20] MEDS: LANSOPRAZOLE SUSPENSION 30 MG/10 ML ORAL SYRINGE (FIRST-LANSOPRAZOLE) GT SCH (07:33)
[2016-10-20] MEDS: CitaloPRAM (CeleXA) 20 MG TAB GT SCH (07:34)
[2016-10-20] MEDS: clonazePAM 0.5 MG TAB GT SCH ×3 (07:34→16:41)
[2016-10-20] MEDS: risperiDONE 1 MG TAB GT SCH (07:34)
--- NOTE | 2016-10-20 08:28 | IPNPDOC ---
Text Note Date of Service The patient was seen on 10/20/16. NOTE Subjective: Patient is a 60 year old male who is a resident at [facility], he has a PMHx of Mental retardation, Hypothyroidism, Anxiety, Depression, Avoidant personality disorder, Hx of C2/C7 fracture, GERD, s/p PEG tube and history of aspiration pneumonia who presented to the ER from [facility] because course lung sounds and hypoxia. Patient was admitted medical surgical floor because community acquired pneumonia. Patient was seen and examined at the bedside. Patient with no medical complaints. Patient with behavioral changes yesterday after started feedings. Feedings held - resumed today at lower amount. Objective: Vitals (See below) General: Lying in bed, no acute distress, comfortable, Awake and alert; oriented to place HEENT: NC, AT CVS: RRR, +S1S2 Lungs: Course lung sounds bilaterally Abdomen: Soft, ND, NT, + PEG tube Extremities: - Edema, - Calf tenderness Assessment and plan: 1. Hypotension - appears grossly at baseline; less likely 2/2 sepsis - Chronically with low blood pressure with SBPs of upper 80s to low 90s - Clinically has no symptoms while blood pressure is this low - BP on 8 AM was noted to be in 70s - Patient was started on IV fluid hydration; BP improved to 110s - Will continue to monitor 2. Course lung sounds and hypoxia upon presentation - likely 2/2 bilateral lower lobe infiltrate - likely 2/2 pneumonia (Possibly HCAP) - Presented with course lung sounds, hypoxia at [facility] - Physical with course lung sounds - Elevation in WBC, No elevation in Lactic acid; Mild elevation of CRP - Chest CT 10/16: bilateral LL infiltrate, distended stomach with PEG tube, moderate hiatal hernia - Follow up pneumonia antigens - s/p Ceftriaxone and Azithromycin - Started Vancomycin and Zosyn (Start 8/7 AM) - Transitioned to Unasyn 10/20/16 - c/w Aspiration precautions - sputum cultures/gram stain pending - MRSA screen and respiratory panel - negative 3. s/p PEG tube - feedings on hold for now - restarted 10/19/16 however was not well tolerated - resuming today 10/20/16 at lower volume - CT A/P completed 10/19/16 4. Hypothyroidism - c/w Levothyroxine 5. Mental retardation / Personality disorder / Anxiety / Depression - c/w antipsychotic medications (buspirone, citalopram, clonazepam, gabapentin, olanzapine, and risperidone) - reduced dose of Clonazepam 6. C2/C7 fracture 7. GERD - c/w Lansoprazole 8. UTI - UCx and sensitivities noted - transitioned to unasyn - unable to obtain IV access - will transition to Augmentin 9. Profound intellectual disabilities - complicates medical care 10. Moderate protein calorie malnutrition - BMI 16.7 11. DVT prophylaxis - c/w Heparin Code Status: DNR - Extensive discussion with case management, and previously with guardian regarding out of hospital DNR. As per advisement from [facility] [employer], his advanced directive can be honored. DNR has been implemented. VS,Fishbone, I+O VS, Fishbone, I+O Laboratory Tests 10/20/16 05:22 Red Blood Count 3.47 L, Mean Corpuscular Volume 98.1 H, Mean Corpuscular Hemoglobin 33.2 H, Mean Corpuscular Hemoglobin Concent 33.8, Red Cell Distribution Width 16.7 H, Calcium Level 8.5 L Vital Signs Date Time Temp Pulse Resp B/P (MAP) Pulse Ox O2 Delivery O2 Flow Rate FiO2 10/20/16 06:00 98.1 66 18 124/86 (99) 97 Room Air 10/16/16 11:15 91 10/16/16 10:55 4.0 I&O- Last 24 Hours up to 6 AM 10/20/16 06:00 Intake Total 2670 ml Output Total 1700 ml Balance 970 ml CHON GAMBINO MD Oct 20, 2016 08:28
[2016-10-20] MEDS ORDERED: AMPICILLIN SOD/SULBACTAM SOD 1.5 GM in D5W MINI-BAG PLUS 50 ML IV SCH (10:00)
[2016-10-20] MEDS: CYANOCOBALAMIN 500 MCG TAB GT SCH (21:24)
[2016-10-20] MEDS: AUGMENTIN 500 MG TAB PEG SCH (21:24)
[2016-10-20 22:00] VITALS: BP 106/75
[2016-10-21] MEDS: IPRATROPIUM 0.5MG/ALBUTEROL 2.5MG INH SOL UD 3ML (DUONEB)(J7620) NEB SCH ×2 (01:47→08:55)
[2016-10-21] MEDS: ACETAMINOPHEN TAB 650MG DOSE (2X325MG) PO PRN (05:33)
[2016-10-21] MEDS: HEPARIN SOD (PORCINE) 5000 UNITS/ML VIAL SC SCH (05:33)
[2016-10-21] MEDS: LEVOTHYROXINE 75MCG TABLET (0.075MG) GT SCH (05:33)
[2016-10-21 06:00] VITALS: BP 124/57
[2016-10-21 07:06] LABS: MEAN CORPUSCULAR HEMOGLOBIN 32.7 pg (27.0-33.0); MEAN CORPUSCULAR HGB CONC 32.9 g/dl (32.0-36.5); MEAN CORPUSCULAR VOLUME 99.4 fl (80.0-96.0); RED CELL DISTRIBUTION WIDTH 17.4 % (11.5-14.5); WHITE BLOOD COUNT 5.7 K/mm3 (4.0-10.0)
[2016-10-21 07:17] LABS: ANION GAP 9 MEQ/L (8-16); BLOOD UREA NITROGEN 15 MG/DL (7-18); CALCIUM LEVEL 9.2 MG/DL (8.8-10.2); CARBON DIOXIDE LEVEL 26 MEQ/L (21-32); CHLORIDE LEVEL 114 MEQ/L (98-107); CREATININE FOR GFR 0.93 MG/DL (0.70-1.30); GLOMERULAR FILTRATION RATE > 60.0 (>49); GLUCOSE, FASTING 91 MG/DL (80-110); POTASSIUM SERUM 3.5 MEQ/L (3.5-5.1); SODIUM LEVEL 149 MEQ/L (136-145)
[2016-10-21] MEDS: busPIRone 10 MG TAB GT SCH (07:30)
[2016-10-21] MEDS: clonazePAM 0.5 MG TAB GT SCH ×2 (07:30→11:14)
[2016-10-21] MEDS: METOCLOPRAMIDE HCL LIQUID 10 MG/10 ML UDC GT SCH ×2 (07:30→11:13)
[2016-10-21] MEDS: GABAPENTIN 300 MG CAP GT SCH ×2 (07:30→11:15)
[2016-10-21] MEDS: OLANZapine ORAL DISINTEGRATING TAB 5MG GT SCH ×2 (08:00→11:15)
[2016-10-21] MEDS ORDERED: CLON0.5T GT (08:02)
[2016-10-21] MEDS ORDERED: AMOX500T2 PEG (08:02)
[2016-10-21] MEDS: CitaloPRAM (CeleXA) 20 MG TAB GT SCH ×2 (09:00→11:15)
[2016-10-21] MEDS: LANSOPRAZOLE SUSPENSION 30 MG/10 ML ORAL SYRINGE (FIRST-LANSOPRAZOLE) GT SCH (11:14)
[2016-10-21] MEDS: MIRALAX *UNIT DOSE* 17GM PACKET GT SCH (11:14)
[2016-10-21] MEDS: AUGMENTIN 500 MG TAB PEG SCH (11:15)
[2016-10-21] MEDS: risperiDONE 1 MG TAB GT SCH (11:15)
--- NOTE | 2016-10-21 12:43 | DS.PDOC ---
Discharge Summary General Date of Admission Oct 17, 2016 at 07:25 Date of Discharge 10/21/16 Discharge Summary PROCEDURES PERFORMED DURING STAY: [None]. DISCHARGE DIAGNOSES: 1. Pneumonia 2. UTI 3. mental retardation 4. hypothyroidism 5. anxiety/depression 6. avoidant personality disorder 7. Hx c2-c7 fracture 8. dysphagia s/p PEG tube 9. GERD 10 moderate protein calorie malnutrition COMPLICATIONS/CHIEF COMPLAINT: Breathing Difficulty. HOSPITAL COURSE: 60 yo male resident of [facility] brought in for coarse breath sounds and signs suggestive of hypoxia. Admitted for hypoxemia, deemed to be secondary to pneumonia, possibly from aspiration. Patient responded well to IV antibiotics. Was incidentally found to have UTI. He was kept NPO with fluids, and then feedings were resumed at lower volume. Feeds were tolerated well. There were some periods of agitation with outbursts, but on discussion with [facility] staff, it seems these outbursts have been part of his regular behavior. Patient discharge today in stable condition with outpatient follow up. DISCHARGE MEDICATIONS: Please see below. ALLERGIES: Please see below. PHYSICAL EXAMINATION ON DISCHARGE: VITAL SIGNS: Please see below. GENERAL: NAD, lying comfortably in bed HEENT: NC/AT NECK: supple CARDIOVASCULAR EXAMINATION: +S1S2, RRR RESPIRATORY EXAMINATION: CTA B/L ABDOMINAL EXAMINATION: soft, NT, +BS, PEG tube in place, area is C/D/I EXTREMITIES: no edema LABORATORY DATA: Please see below. ACTIVITY: [As tolerated]. DIET: NPO, feedings as directed DISCHARGE INSTRUCTIONS: 1. Follow up PCP in 3-5 days. DISCHARGE CONDITION: [Stable]. TIME SPENT ON DISCHARGE: Greater than 30 minutes. Vital Signs/I&Os Vital Signs Date Time Temp Pulse Resp B/P (MAP) Pulse Ox O2 Delivery O2 Flow Rate FiO2 10/21/16 11:59 Room Air 10/21/16 06:00 96.8 69 20 124/57 (79) 92 10/16/16 11:15 91 10/16/16 10:55 4.0 I&O- Last 24 Hours up to 6 AM 10/21/16 05:59 Intake Total 3410 ml Output Total 500 ml Balance 2910 ml Laboratory Data Labs 24H Laboratory Tests 2 10/21/16 06:40: Anion Gap 9, Glomerular Filtration Rate > 60.0, Blood Urea Nitrogen 15, Creatinine 0.93, Sodium Level 149H, Potassium Level 3.5, Chloride Level 114H, Carbon Dioxide Level 26, Calcium Level 9.2, C-Reactive Protein, Quantitative 0.51H CBC/BMP Laboratory Tests 10/21/16 06:40 Red Blood Count 3.51 L, Mean Corpuscular Volume 99.4 H, Mean Corpuscular Hemoglobin 32.7, Mean Corpuscular Hemoglobin Concent 32.9, Red Cell Distribution Width 17.4 H, Calcium Level 9.2 Microbiology Microbiology 10/17/16 Blood Culture - Preliminary, Resulted No Growth after 72 hours. All specime... 10/17/16 Blood Culture - Preliminary, Resulted No Growth after 72 hours. All specime... 10/16/16 Blood Culture - Preliminary, Resulted No Growth after 72 hours. All specime... 10/16/16 Blood Culture - Preliminary, Resulted No Growth after 72 hours. All specime... 10/18/16 MRSA Screen - Final, Complete 10/18/16 Respiratory Virus Panel (PCR) ([facility]) - Final, Complete 10/18/16 Influenza Virus Type A Antigen - Final, Complete 10/18/16 Influenza Virus Type B Antigen - Final, Complete 10/16/16 Urine Culture - Final, Complete Enterococcus Faecalis Morganella Morganii [facility] Discharge Medications Scheduled ([place] [facility]) 1 Liq Liq, 1.5 LIQ GT BID, (Reported) 1.5 CANS EVERY AM AND 1200, FLUSH WITH 100CC WATER ([place] [facility]) 1 Liq Liq, 1 LIQ GT QPM, (Reported) GIVEN FROM [id number], FLUSH WITH 60CC WATER Amoxicillin/Clavulanate Potas (Amoxicillin/Clavulanate P 500-125 mg) 1 Tab Tab, 500 MG PEG BID Buspirone HCl (Buspirone HCl) 30 Mg Tab, 30 MG GT BID, (Reported) 0730,1530 Citalopram Hydrobromide (Citalopram Hydrobromide) 40 Mg Tab, 40 MG GT DAILY, ( Reported) Clonazepam (Clonazepam) 0.5 Mg Tab, 0.125 MG GT TID@0730,1200,1530 Cyanocobalamin (Vitamin B-12) 500 Mcg Tab, 500 MCG GT QHS, (Reported) Folic Acid (Folic Acid) 400 Mcg Tab, 400 MCG GT QHS, (Reported) Gabapentin (Neurontin) 300 Mg Cap, 600 MG GT TID, (Reported) 0730,1130,1530 Lansoprazole (Prevacid Solutab) 30 Mg Tab, 30 MG GT DAILY, (Reported) Levothyroxine Sodium (Synthroid) 75 Mcg Tab, 75 MCG GT DAILY, (Reported) Metoclopramide HCl (Metoclopramide HCl) 5 Mg/5 Ml Liq, 10 MG GT AC, (Reported) 30 MINUTES PRIOR TO MEALS OLANZapine DISINTEGRATING (Olanzapine Odt) 15 Mg Tab, 15 MG GT TID, (Reported) DISSOLVE IN FLUID, 0800,1200,1530 Polyethylene Glycol (Miralax) 1 Pow Pow, 17 GM GT DAILY, (Reported) Polyethylene Glycol (Miralax) 1 Pow Pow, 17 GM GT ASDIRECTED, (Reported) GIVE ON DAYS 3, 4, & 5 OF NO BM Risperidone (Risperdal) 1 Mg Tab, 1 MG GT DAILY, (Reported) Allergies Coded Allergies: No Known Drug Allergy (Verified Allergy, Unknown, CAREGIVER SAYS NO ALLERGIES, 05/31/16) CHON GAMBINO MD Oct 21, 2016 12:43
== END 2016-10-21 14:21 | disposition home or self-care (01) | DRG 178 ==
LOC: M ED 10:39 → EDBD 10:39 → M ED INP 16:11 → M MS5PR 17:10 → OBSVTOIN 10-17 07:25
PROVIDERS: ADMIT Internal Medicine; ATTEND Internal Medicine
DX: J69.0 Pneumonitis due to inhalation of food and vomit (principal); E44.0 Moderate protein-calorie malnutrition; N39.0 Urinary tract infection, site not specified; F70 Mild intellectual disabilities; E03.9 Hypothyroidism, unspecified; F41.9 Anxiety disorder, unspecified; F32.9 Major depressive disorder, single episode, unspecified; F60.6 Avoidant personality disorder; K21.9 Gastro-esophageal reflux disease without esophagitis; K44.9 Diaphragmatic hernia without obstruction or gangrene; K22.0 Achalasia of cardia; K22.8 Other specified diseases of esophagus; Z66 Do not resuscitate; Z93.1 Gastrostomy status; Z79.899 Other long term (current) drug therapy

== ENCOUNTER 2016-11-03 09:33 | Inpatient (IN) | payer MEDICARE, MEDICAID ==
[2016-11-03] VITALS (9 sets, daily range): BP systolic 91–108; BP diastolic 55–68
[~2016-11-03] VITALS: Ht 177.8 cm; Wt 58.9 kg
[~2016-11-03 09:33] MED LIST changes: +AMOX500T2 PEG; +TWOCLIQ GT
[2016-11-03] MEDS ORDERED: DILUENT IV ONE (10:00)
[2016-11-03] MEDS ORDERED: NS IV ONE (10:00)
[2016-11-03] MEDS ORDERED: IBUPROFEN 100 MG/5 ML SUSP UDC DYE FREE PO ONE (10:15)
[2016-11-03 10:20] LABS: ADD MANUAL DIFFER YES; INR 0.98; MEAN CORPUSCULAR HEMOGLOBIN 32.6 pg (27.0-33.0); MEAN CORPUSCULAR HGB CONC 33.5 g/dl (32.0-36.5); MEAN CORPUSCULAR VOLUME 97.2 fl (80.0-96.0); PLATELET COUNT, AUTOMATED 205 k/mm3 (150-450); RED CELL DISTRIBUTION WIDTH 16.6 % (11.5-14.5); WHITE BLOOD COUNT 16.3 K/mm3 (4.0-10.0)
[2016-11-03 10:22] LABS: VENOUS BASE EXCESS 2.9 (-2.0-2.0); VENOUS O2 SATURATION 76.9 % (60.0-80.0); VENOUS PARTIAL PRESSURE CO2 51.8 mmHg (38.0-50.0); VENOUS PARTIAL PRESSURE O2 45.3 mmHg (30.0-50.0); VENOUS STANDARD HCO3 26.6 MEQ/L; VENOUS TOTAL CO2 30.6 MEQ/L (24.0-28.0)
[2016-11-03 10:33] LABS: ALBUMIN 2.9 GM/DL (3.2-5.2); ALBUMIN/GLOBULIN RATIO 0.88 (1.00-1.93); ALKALINE PHOSPHATASE 93 U/L (45-117); ALT/SGPT 18 U/L (12-78); AMYLASE 113 U/L (25-115); ANION GAP 7 MEQ/L (8-16); AST/SGOT 18 U/L (15-37); BILIRUBIN,DIRECT 0.1 MG/DL (0.0-0.2); BILIRUBIN,TOTAL 0.4 MG/DL (0.2-1.0); BLOOD UREA NITROGEN 26 MG/DL (7-18); CALCIUM LEVEL 8.6 MG/DL (8.8-10.2); CARBON DIOXIDE LEVEL 29 MEQ/L (21-32); CHLORIDE LEVEL 105 MEQ/L (98-107); CREATININE FOR GFR 1.48 MG/DL (0.70-1.30); GLOMERULAR FILTRATION RATE 51.6 (>49); GLUCOSE, FASTING 147 MG/DL (80-110); POTASSIUM SERUM 3.8 MEQ/L (3.5-5.1); SODIUM LEVEL 141 MEQ/L (136-145); TOTAL PROTEIN 6.2 GM/DL (6.4-8.2)
[2016-11-03 10:43] LABS: ANISOCYTOSIS 1+; EOSINOPHILS 1 % (0-5)
[2016-11-03] MEDS ORDERED: NS 500 ML IV ONE ×2 (10:45→11:15)
[2016-11-03] MEDS ORDERED: cefTRIAXone SOD 1 GM in D5W MINI-BAG PLUS 50 ML IV ONE (10:45)
--- NOTE | 2016-11-03 10:50 | REP ---
PORTABLE CHEST: AP portable view of the chest is performed and compared to multiple prior exams most recently 10/16/2016 and 07/22/2016. There is bibasilar interstitial fibrosis which appears stable. No definite acute infiltrate is seen. The heart is slightly enlarged. The mediastinal silhouette is unchanged. IMPRESSION: Chronic fibrotic changes without definite acute infiltrate. Signed by Paddy Phelps MD 11/03/2016 03:13 P
[2016-11-03 11:32] LABS: ABG BASE EXCESS -3.2 (-2.0-2.0); ABG HCO3 22.1 MEQ/L (22.0-26.0); ABG PARTIAL PRESSURE CO2 40.6 mmHg (35.0-45.0); ABG PARTIAL PRESSURE O2 71.5 mmHg (75.0-100.0); ABG STANDARD HCO3 21.7 MEQ/L (22.0-26.0); ABG TOTAL CO2 23.3 MEQ/L (23.0-31.0); ABG pH (ARTERIAL) 7.353 UNITS (7.350-7.450)
[2016-11-03] MEDS ORDERED: TYLE325T5 GT (11:55)
[2016-11-03] MEDS ORDERED: CLON0.5T GT (11:55)
--- NOTE | 2016-11-03 12:39 | REP ---
CT CHEST WITHOUT CONTRAST: HISTORY: Sepsis. COMPARISON STUDY: October 16, 2016. CT FINDINGS: There is increased consolidation in the left lower lobe on today's CT study consistent with pneumonia. This is more extensive and more opaque than on the October 16, 2016 study. There are some increased markings again noted in the right lower lobe. These are similar to those seen on October 16, 2016. No other new area of consolidation is seen. The patient is again noted a large hiatal hernia. The thoracic esophagus is dilated and air-filled. There is an aberrant right subclavian artery again noted. No mediastinal mass or obvious adenopathy. No pleural or pericardial effusion is seen. Gastrostomy tube is seen in the upper abdomen entering the stomach. No adrenal lesion is seen. IMPRESSION: :Increased consolidation in the left lower lobe consistent with pneumonia compared to the October 16, 2016 study. Large hiatal hernia esophageal dilation persists. Aberrant right subclavian artery again seen. Signed by Jose Raul Timmons MD 11/03/2016 02:00 P
--- NOTE | 2016-11-03 13:04 | REP ---
CT abdomen and pelvis without IV or oral contrast: History: Sepsis. Comparison study October 18, 2016. Findings: Hiatal hernia and consolidation in the lung bases noted as on chest CT. Feeding gastrostomy tube in place. No hepatic or splenic lesion seen. No evidence of free intraperitoneal air seen. Air filled small and large bowel loops are seen throughout the abdomen. Question ileus pattern. No obstructive lesion is seen. Kidneys are morphologically intact. No adrenal lesion is seen. No pancreatic lesion noted. Gallbladder is unremarkable. Smith catheter is seen in place. Impression: Mild ileus pattern in the bowel gas. Gastrostomy tube in place. No abnormal fluid collection or free air seen. No obstructive lesion seen. Hiatal hernia noted. Signed by Jose Raul Timmons MD 11/03/2016 02:00 P
--- NOTE | 2016-11-03 14:39 | REP ---
Portable chest x-ray: Single view. History: Central line placement. Comparison study: November 03, 2016. Findings: A left subclavian line has been inserted with its tip in the expected location of the superior vena cava. There is no evidence of pneumothorax or hydrothorax. The lungs are symmetrically somewhat better inflated today and free of infiltrate. Heart is moderately enlarged. This is unchanged. Impression: Left subclavian line with its tip in the expected location of the superior vena cava. No complication identified. Signed by Jose Raul Timmons MD 11/03/2016 04:22 P
[2016-11-03] MEDS ORDERED: NOREPINEPHRINE 4 MG/4 ML AMP As Ordered ONE (14:49)
[2016-11-03] MEDS ORDERED: ONDANSETRON 4 MG TAB (S0181) PO PRN (15:00)
[2016-11-03] MEDS ORDERED: MIRALAX *UNIT DOSE* 17GM PACKET GT PRN (15:00)
[2016-11-03] MEDS: NOREPINEPHRINE BITARTRATE 8 MG in D5W 500 ML IV SCH ×6 (15:00→15:29)
--- NOTE | 2016-11-03 15:43 | PHACANCOPD ---
PHARMACY VANCOMYCIN DOSING Pt Demographics Demographics Patient Age:60 , Weight:87.000 , Gender: male Adjusted Body Weight Date: 11/03/16, Adjusted Body Weight: [57] Kg Events Past 24 Hours Events Past 24 Hours: NO: Dialysis, Diuretic Therapy, Change in CrCl, Fever, Elevation in WBC, Pending Diagnostics, Pending Procedures, Other Vancomycin Vancomycin indication: HCAP Vancomycin Target Ranges: 15-20 mcg/ml Vancomycin Load Y/N: Yes Load Dose Date Time Vancomycin Load Dose: 1000MG Date: 11/03/16 Time: 17:00 Vancomycin Dose Date: 11/03/16. Current Vancomycin Dose: [750MG IV Q12H] Intermittent Dosing?: No Labs Labs Item Value Date Time White Blood Count 16.3 K/mm3 H 11/03/16 0945 Creatinine 1.48 MG/DL H 11/03/16 0945 Micro Microbiology 11/03/16 Blood Culture, Received Pending 11/03/16 Blood Culture, Received Pending 11/03/16 Urine Culture, Received Pending Creatinine Clearance Date:11/03/16. Creatinine Clearance: [54.8ML/HR]. Assessment and Plan Maintaining Current Dose?: Yes Reason for dose change: No Dose Change Pharmacist Note Pharmacist Note Date: 11/03/16. Pharmacist note:PT is a 60 year old male being treated for HCAP with a history of treatment with vancomycin at [facility] goal trough 15-20mcg/ml. Pt serum creatinine is currently elevated at 1.48mg/dl while baseline has been 1 mg /dl in the past. We will initiate therapy with a 1g iv loading dose 11/03/16 @ 17. Maintenance therapy will start 11/04/16 @05 at 750mg iv q 12 hours. We will continue to monitor and adjust dose as needed. NATAL[facility]A [facility] Nov 03, 2016 15:43
[2016-11-03] MEDS: OLANZapine ORAL DISINTEGRATING TAB 5MG GT SCH ×2 (16:00→21:00)
--- NOTE | 2016-11-03 16:31 | HPEPDOC ---
Medical History and Physical Date of Admission Nov 03, 2016 at 14:51 History and Physical HISTORY AND PHYSICAL Date of admission: 11/03/2016 PCP: Unknown Chief complaint: Unsteady on his feet and fevers HPI: 60-year-old male with intellectual disability, hypothyroidism, anxiety, depression, avoidant personality disorder, history of C2-C7 fracture, GERD, suspected achalasia or other chronic dilation of the esophagus with associated hiatal hernia, history of aspiration pneumonia now with the PEG tube, who resides at [facility] and was brought to the emergency department after he was noted to be unsteady on his feet and have a fever to 105. He had a recent admission for healthcare associated pneumonia and was discharged approximately 2 weeks ago. The [facility] staff says that he had been doing well until this morning. They deny any coughing, vomiting, or other abnormalities with him other than what was noted. The patient himself, while pleasant and able to answer a few very simple questions, is not able to participate in this interview. The history is obtained from chart review and some discussion with the [facility] staff and his brother. Upon my interview, the patient keeps repeating that "he feels better." In the emergency department, he arrived with an indwelling Smith, and was noted to have no urine in the bag, and a bladder scan did not initially reveal any urine either. It appears that the patient was extremely dehydrated, and initially had blood pressures in the 70s. With 4 L of normal saline, his systolic pressure was still in the upper 70s to 80s, but he was beginning to produce urine. Past medical history: intellectual disability, hypothyroidism, anxiety, depression, avoidant personality disorder, history of C2-C7 fracture, GERD, suspected achalasia or other chronic dilation of the esophagus with associated hiatal hernia, history of aspiration pneumonia now with the PEG tube Past surgical history: PEG tube placement Family history: Mother and father are . The patient has 1 brother and 1 sister, but it is unknown if they have any health issues Social history: The patient currently resides at [facility]. He does not use any alcohol, tobacco, or drugs. Allergies: No known drug allergies Review of systems: Due to the patient's intellectual disability, he is unable to participate in a full review of systems. According to the [facility] staff, they have not noted any coughing or vomiting. The only things they have noted is that he was unsteady on his feet and had a fever this morning. Home meds: See below Physical exam: Vital signs: Vital Sign - Last 24 Hours 11/03/16 11/03/16 11/03/16 11/03/16 09:41 09:55 10:00 10:03 Pulse 99 101 96 Resp 20 18 B/P (MAP) 76/44 (55) () 75/47 (56) 70/40 (50) Pulse Ox 91 89 96 O2 Delivery Room Air Room Air 11/03/16 11/03/16 11/03/16 11/03/16 10:08 10:14 10:15 10:15 Temp 102.1 B/P (MAP) 73/49 (57) 81/52 (62) Pulse Ox 96 O2 Delivery Non-Rebreather 11/03/16 11/03/16 11/03/16 11/03/16 10:18 10:33 10:45 10:48 Pulse 85 87 81 B/P (MAP) 85/52 (63) Pulse Ox 97 93 93 11/03/16 11/03/16 11/03/16 11/03/16 10:52 11:00 11:03 11:15 Pulse 78 B/P (MAP) 87/55 (66) 87/54 (65) 78/51 (60) Pulse Ox 95 11/03/16 11/03/16 11/03/16 11/03/16 11:18 11:19 11:30 11:33 Pulse 76 B/P (MAP) 81/53 (62) 85/56 (66) Pulse Ox 94 92 11/03/16 11/03/16 11/03/16 11/03/16 11:45 11:48 12:03 12:18 Pulse 73 76 72 B/P (MAP) 72/48 (56) Pulse Ox 93 92 11/03/16 11/03/16 11/03/16 11/03/16 12:20 12:25 12:30 12:32 Temp 98.7 B/P (MAP) 72/48 (56) 75/52 (60) 74/43 (53) 11/03/16 11/03/16 11/03/16 11/03/16 12:33 12:35 12:41 12:46 Pulse 88 B/P (MAP) 90/59 (69) 98/63 (75) 96/66 (76) Pulse Ox 94 11/03/16 11/03/16 11/03/16 11/03/16 12:48 12:51 12:56 13:01 Pulse 87 B/P (MAP) 93/61 (72) 92/59 (70) 95/59 (71) Pulse Ox 95 11/03/16 11/03/16 11/03/16 11/03/16 13:03 13:06 13:11 13:16 Pulse 81 B/P (MAP) 93/59 (70) 89/58 (68) 91/60 (70) Pulse Ox 95 11/03/16 11/03/16 11/03/16 11/03/16 13:18 13:21 13:25 13:30 Pulse 79 B/P (MAP) 91/57 (68) 92/59 (70) 92/58 (69) Pulse Ox 95 11/03/16 11/03/16 11/03/16 11/03/16 13:33 13:35 13:40 13:46 Pulse 78 B/P (MAP) 88/56 (67) 88/55 (66) 84/53 (63) Pulse Ox 100 11/03/16 11/03/16 11/03/16 11/03/16 13:48 13:51 13:56 14:01 Pulse 75 B/P (MAP) 86/54 (65) 85/55 (65) 78/52 (61) Pulse Ox 99 11/03/16 11/03/16 11/03/16 11/03/16 14:03 14:11 14:13 14:16 Pulse 73 B/P (MAP) 78/53 (61) 79/51 (60) 74/52 (59) Pulse Ox 100 11/03/16 11/03/16 11/03/16 11/03/16 14:18 14:21 14:25 14:30 Pulse 72 B/P (MAP) 77/50 (59) 74/49 (57) 73/48 (56) Pulse Ox 100 11/03/16 11/03/16 11/03/16 11/03/16 14:33 14:35 14:40 14:55 Pulse 70 68 Resp 18 B/P (MAP) 76/52 (60) 77/52 (60) Pulse Ox 100 100 11/03/16 11/03/16 11/03/16 11/03/16 14:57 15:00 15:04 15:04 Resp 20 B/P (MAP) 76/52 (60) 98/56 (70) 100/64 (76) 76/52 Pulse Ox 100 11/03/16 11/03/16 11/03/16 11/03/16 15:10 15:17 15:19 15:20 Pulse 81 81 84 Resp 20 B/P (MAP) 112/75 111/61 117/55 (75) Pulse Ox 96 11/03/16 11/03/16 11/03/16 11/03/16 15:22 15:22 15:24 15:26 Pulse 72 B/P (MAP) 117/55 110/70 (83) 106/66 (79) 107/55 (72) 11/03/16 11/03/16 11/03/16 11/03/16 15:28 15:29 15:30 15:32 B/P (MAP) 108/56 (73) 108/56 96/59 (71) 102/60 (74) 11/03/16 11/03/16 11/03/16 11/03/16 15:34 15:36 15:38 15:40 Pulse 73 B/P (MAP) 103/61 (75) 96/63 (74) 96/61 (73) 94/56 (69) Pulse Ox 95 11/03/16 16:00 O2 Delivery Room Air Gen.: awake, alert, no acute distress Eyes: Extraocular movements intact, normal sclera ENT: Dry mucous membranes Cardiovascular: RRR Lungs: clear to auscultation other than crackles at left base Abdomen: Soft, NT/ND, normal BS Extremities: No peripheral edema Neuro: alert and oriented 2 which is baseline per [facility] staff Psych: calm and cooperative Labs and radiology: See below BUN 26, creatinine 1.48 WBC 16.3 Lactate 2.9 Troponin, amylase, coags, hepatic function panel unremarkable CRP elevated at 0.82 Blood cultures pending Urine culture pending CT of the chest shows left lower lobe consolidation as well as a large hiatal hernia with esophageal dilation CT of the abdomen and pelvis shows mild ileus pattern in the bowel gas but no obstructive lesion. Assessment and plan: 60-year-old male with intellectual disability, hypothyroidism, anxiety, depression, avoidant personality disorder, history of C2-C7 fracture, GERD, suspected achalasia or other chronic dilation of the esophagus with associated hiatal hernia, history of aspiration pneumonia now with the PEG tube, who resides at [facility] and was brought to the emergency department after he was noted to be unsteady on his feet and have a fever to 105 and is admitted with septic shock secondary to healthcare associated pneumonia. 1. Septic shock: The patient's blood pressure was in the 70s upon arrival, and despite 4 L of normal saline, he continues to be hypotensive in the 70s to 80s systolic. I do suspect that he is extremely volume down as upon arrival, his Smith bag did not have any urine in it, and a bladder scan did not reveal any urine. At this time, he has started to make urine, however, we do have him on levophed. We will also continue running normal saline, and we'll wean the levophed as able. Initial lactate was 2.9, and this will be repeated. 2. Healthcare associated pneumonia: CT of the chest shows a left lower lobe consolidation that is worsened since 2 weeks ago. The patient is currently satting in the 90s on a nonrebreather. We will follow up blood and urine cultures and also check a sputum culture. He received Rocephin in the ER, and we have initiated him on broad-spectrum antibiotics of vancomycin, Levaquin, and Zosyn. His Tmax at [facility] was 105, and his white count here is 16.3 3. Acute kidney injury: The patient's BUN and creatinine are elevated. He appears to be extremely volume down, and we will continue IV fluids and follow his creatinine. 4. Hypothyroidism: Continue home Synthroid. 5. Anxiety, depression, avoidant personality disorder: Continue home BuSpar, Celexa, Klonopin, Neurontin, Zyprexa, Risperdal. 6. GERD with suspected achalasia or other chronic dilation of the esophagus with associated hiatal hernia: The patient has a history of aspiration pneumonia in the past, and now receives all of his feeds via PEG tube. We will keep him nothing by mouth, and we'll replace his usual oral PPI with IV PPI while he is in the ICU. We will also continue his home Reglan. Given that an initial CT of the abdomen and pelvis shows concern for ileus, we will keep him nothing by mouth overnight, and we'll reassess function of his GI tract in the morning. DVT prophylaxis: Lovenox Dispo: admit as an inpatient to the service of Dr. Brie Jolley CODE STATUS: The patient does not have capacity to make medical decisions, and his guardian is his sister Maria G Wong. I have spoken to Maria G on the phone, and she states that she would like the patient to be DNR/DNI, but she did give permission for him to receive a central line and get pressors. This conversation was also witnessed by Dr. Libra Saini in the emergency department. Given that the patient had a prior DNR on his chart, I have been informed by PFS that we are able to honor the DNR portion at this time. However , since the DNI is new, we have had to fill out appropriate paperwork that PFS will have to file, and when that is approved, then the patient can be DNI. In the meantime, the patient is not DNI and if intubation becomes an issue, we will proceed with intubation. Vital Signs Vital Signs Date Time Temp Pulse Resp B/P (MAP) Pulse Ox O2 Delivery O2 Flow Rate FiO2 11/03/16 16:00 Room Air 11/03/16 15:40 94/56 (69) 11/03/16 15:34 73 95 11/03/16 15:10 20 11/03/16 12:32 98.7 Laboratory Data Labs 24H Laboratory Tests 2 11/03/16 09:45: Neutrophils 92H, Lymphocytes (Manual) 5L, Monocytes (Manual) 2, Eosinophils ( Manual) 1, Platelet Estimate NORMAL, Anisocytosis 1+, Prothrombin Time 13.1, Prothromb Time International Ratio 0.98, Activated Partial Thromboplast Time 30.7, Anion Gap 7L, Glomerular Filtration Rate 51.6, Lactic Acid Level 2.9*H, Calcium Level 8.6L, Aspartate Amino Transf (AST/SGOT) 18, Alanine Aminotransferase (ALT/SGPT) 18, Alkaline Phosphatase 93, Total Bilirubin 0.4, Direct Bilirubin 0.1, Total Creatine Kinase 98, Creatine Kinase MB 1.0, Creatine Kinase MB Relative Index 1.02, Troponin I < 0.02, C-Reactive Protein, Quantitative 0.82H, Total Protein 6.2L, Albumin 2.9L, Albumin/Globulin Ratio 0.88L, Amylase Level 113 11/03/16 09:49: Blood Gas Bicarbonate Standard 26.6, Venous Blood pH 7.366, Venous Blood Partial Pressure CO2 51.8H, Venous Blood Partial Pressure O2 45.3, Venous Blood Total Carbon Dioxide 30.6H, Venous Blood HCO3 29.0H, Venous Blood Oxygen Saturation 76.9, Venous Blood Base Excess 2.9H 11/03/16 10:57: Urine Appearance CLOUDYH, Urine Color NIGEL, Urine pH 6.0, Urine Specific [place] 1.012, Urine Protein 2+H, Urine Glucose (UA) NEGATIVE, Urine Ketones NEGATIVE, Urine Urobilinogen 0.2, Urine Bilirubin NEGATIVE, Urine Leukocyte Esterase 3+H, Urine Blood 3+H, Urine Nitrite NEGATIVE, Urine WBC (Auto) TNTCH, Urine RBC (Auto) TNTCH, Urine Hyaline Casts (Auto) 0, Urine Bacteria (Auto) NEGATIVE, Urine Squamous Epithelial Cells 0, Urine Mucus (Auto) SMALL, Urine Sperm (Auto) 11/03/16 11:22: Blood Gas Bicarbonate Standard 21.7L, Arterial Blood pH 7.353, Arterial Blood Partial Pressure CO2 40.6, Arterial Blood Partial Pressure O2 71.5L, Arterial Blood Total CO2 23.3, Arterial Blood HCO3 22.1, Arterial Blood Base Excess -3.2L , Arterial Blood Oxygen Saturation 91.7L 11/03/16 14:38: Lactic Acid Followup at 4 Hours 1.5 CBC/BMP Laboratory Tests 11/03/16 09:45 Red Blood Count 3.58 L, Mean Corpuscular Volume 97.2 H, Mean Corpuscular Hemoglobin 32.6, Mean Corpuscular Hemoglobin Concent 33.5, Red Cell Distribution Width 16.6 H Microbiology Microbiology 11/03/16 Blood Culture, Received Pending 11/03/16 Blood Culture, Received Pending 11/03/16 Urine Culture, Received Pending Home Medications Scheduled ([place] Hn) 1 Liq Liq, 1 LIQ GT QID FLUSH WITH 100CC WATER Buspirone HCl (Buspirone HCl) 30 Mg Tab, 30 MG GT BID 0730,1530 Citalopram Hydrobromide (Citalopram Hydrobromide) 40 Mg Tab, 40 MG GT DAILY Clonazepam (Clonazepam) 0.5 Mg Tab, 0.5 MG GT TID AM, 1000, 1530 Cyanocobalamin (Vitamin B-12) 500 Mcg Tab, 500 MCG GT QHS Folic Acid (Folic Acid) 400 Mcg Tab, 400 MCG GT QHS Gabapentin (Neurontin) 300 Mg Cap, 600 MG GT TID 0730,1130,1530 Lansoprazole (Prevacid Solutab) 30 Mg Tab, 30 MG GT DAILY Levothyroxine Sodium (Synthroid) 75 Mcg Tab, 75 MCG GT DAILY Metoclopramide HCl (Metoclopramide HCl) 5 Mg/5 Ml Liq, 10 MG GT AC 30 MINUTES PRIOR TO MEALS OLANZapine DISINTEGRATING (Olanzapine Odt) 15 Mg Tab, 15 MG GT TID DISSOLVE IN FLUID, 0800,1200,1530 Polyethylene Glycol (Miralax) 1 Pow Pow, 17 GM GT DAILY Polyethylene Glycol (Miralax) 1 Pow Pow, 17 GM GT ASDIRECTED GIVE ON DAYS 3, 4, & 5 OF NO BM Risperidone (Risperdal) 1 Mg Tab, 1 MG GT DAILY Scheduled PRN Acetaminophen (Tylenol) 325 Mg Tab, 650 MG GT Q4H PRN for PAIN PATIENT TAKES LIQUID TYLENOL 500MG/15ML Allergies Coded Allergies: No Known Drug Allergy (Verified Allergy, Unknown, CAREGIVER SAYS NO ALLERGIES, 05/31/16) KATELYN RUIZ Nov 03, 2016 16:31
[2016-11-03] MEDS: PIPERACILLIN/TAZOBACTAM SOD 3.375 GM in D5W MINI-BAG PLUS 50 ML IV SCH ×2 (16:34→23:11)
[2016-11-03] MEDS: NS 1,000 ML IV SCH ×2 (16:34→23:12)
[2016-11-03] MEDS ORDERED: VANCOMYCIN HCL 1,000 MG, VIAL MATE ADAPTER 1 EACH in D5W 250 ML IV ONE (17:00)
[2016-11-03] MEDS: ENOXAPARIN 30 MG/0.3 ML SYR (J1650) SC SCH (17:13)
[2016-11-03] MEDS: ACETAMINOPHEN TAB 650MG DOSE (2X325MG) PO PRN (17:13)
[2016-11-03] MEDS: clonazePAM 0.5 MG TAB GT SCH ×2 (17:13→21:00)
[2016-11-03] MEDS: GABAPENTIN 300 MG CAP GT SCH ×2 (17:13→21:00)
[2016-11-03] MEDS: METOCLOPRAMIDE HCL LIQUID 10 MG/10 ML UDC GT SCH (17:30)
[2016-11-03] MEDS: LevoFLOXacin IV 750 MG in APPROPRIATE DILUENT 1 EA IV SCH (19:57)
[2016-11-03] MEDS: busPIRone 10 MG TAB GT SCH (21:00)
[2016-11-04] VITALS (14 sets, daily range): BP systolic 87–130; BP diastolic 55–78
[2016-11-04] MEDS: ACETAMINOPHEN TAB 650MG DOSE (2X325MG) PO PRN (03:17)
[2016-11-04] MEDS: NOREPINEPHRINE BITARTRATE 8 MG in D5W 500 ML IV SCH ×2 (04:20→17:40)
[2016-11-04] MEDS: PIPERACILLIN/TAZOBACTAM SOD 3.375 GM in D5W MINI-BAG PLUS 50 ML IV SCH ×4 (04:36→23:23)
[2016-11-04 05:00] LABS: BASO % 0.1 % (0.0-1.0); EOS # 0.2 K/mm3 (0.0-0.50); EOS % 1.4 % (0.0-3.0); LARGE UNSTAINED CELL # 0.3 K/mm3 (0.0-0.4); LARGE UNSTAINED CELL % 1.8 % (0.0-4.0); LYMPH # 1.2 K/mm3 (1.5-4.5); LYMPH % 6.4 % (24.0-44.0); MEAN CORPUSCULAR HEMOGLOBIN 32.5 pg (27.0-33.0); MEAN CORPUSCULAR HGB CONC 33.3 g/dl (32.0-36.5); MEAN CORPUSCULAR VOLUME 97.5 fl (80.0-96.0); MONO # 1.1 K/mm3 (0.0-0.8); MONO % 7.3 % (0.0-5.0); NEUTROPHILS # 11.9 K/mm3 (1.8-7.7); PLATELET COUNT, AUTOMATED 166 k/mm3 (150-450); RED CELL DISTRIBUTION WIDTH 16.8 % (11.5-14.5); WHITE BLOOD COUNT 14.4 K/mm3 (4.0-10.0)
[2016-11-04 05:26] LABS: ALBUMIN 2.2 GM/DL (3.2-5.2); ALBUMIN/GLOBULIN RATIO 0.76 (1.00-1.93); ALKALINE PHOSPHATASE 75 U/L (45-117); ALT/SGPT 14 U/L (12-78); ANION GAP 4 MEQ/L (8-16); AST/SGOT 14 U/L (15-37); BILIRUBIN,TOTAL 0.4 MG/DL (0.2-1.0); BLOOD UREA NITROGEN 16 MG/DL (7-18); CALCIUM LEVEL 7.7 MG/DL (8.8-10.2); CARBON DIOXIDE LEVEL 27 MEQ/L (21-32); CHLORIDE LEVEL 113 MEQ/L (98-107); CREATININE FOR GFR 0.95 MG/DL (0.70-1.30); GLOMERULAR FILTRATION RATE > 60.0 (>49); GLUCOSE, FASTING 87 MG/DL (80-110); MAGNESIUM LEVEL 1.7 MG/DL (1.8-2.4); SODIUM LEVEL 144 MEQ/L (136-145); TOTAL PROTEIN 5.1 GM/DL (6.4-8.2)
[2016-11-04] MEDS: VANCOMYCIN HCL 750 MG, VIAL MATE ADAPTER 1 EACH in D5W 250 ML IV SCH ×2 (05:58→17:21)
[2016-11-04] MEDS: LEVOTHYROXINE 75MCG TABLET (0.075MG) GT SCH (05:58)
[2016-11-04] MEDS: PANTOPRAZOLE 40MG INJ (PROTONIX) (C9113) IV SCH (06:00)
[2016-11-04] MEDS: METOCLOPRAMIDE HCL LIQUID 10 MG/10 ML UDC GT SCH ×3 (08:16→17:21)
[2016-11-04] MEDS: clonazePAM 0.5 MG TAB GT SCH ×3 (08:17→20:08)
[2016-11-04] MEDS: MIRALAX *UNIT DOSE* 17GM PACKET GT SCH (08:17)
[2016-11-04] MEDS: GABAPENTIN 300 MG CAP GT SCH ×3 (08:17→20:07)
[2016-11-04] MEDS: CitaloPRAM (CeleXA) 20 MG TAB GT SCH (08:17)
[2016-11-04] MEDS: OLANZapine ORAL DISINTEGRATING TAB 5MG GT SCH ×3 (08:17→20:07)
[2016-11-04] MEDS: busPIRone 10 MG TAB GT SCH ×2 (08:18→20:07)
[2016-11-04] MEDS: risperiDONE 1 MG TAB GT SCH (08:18)
--- NOTE | 2016-11-04 10:23 | ECGEPIP ---
Stationary ECG Study [facility] - ED Test Date: 2016-11-03 Pat Name: MAURICIO BOBBY Department: Room: - Gender: M Web [employer] Designer: jazz : 1955 Requested By: Libra Williamson Order Number: [id number] Reading MD: Libra Williamson Measurements Intervals [place] Rate: 87 P: 60 FL: 126 QRS: -24 QRSD: 111 T: 37 QT: 426 QTc: 515 Interpretive Statements SINUS RHYTHM BORDERLINE LEFT AXIS DEVIATION LOW QRS VOLTAGE IN PRECORDIAL LEADS MODERATE INTRAVENTRICULAR CONDUCTION DELAY PROLONGED QT INTERVAL SIMIALR 07/25/16 Electronically Signed On 11-04-2016 10:22:32 EDT by Libra Williamson
[2016-11-04] MEDS: NS 1,000 ML IV SCH (10:37)
--- NOTE | 2016-11-04 10:40 | IPNPDOC ---
Subjective Date Seen The patient was seen on 11/04/16. Subjective Chief Complaint/HPI The patient is a 60-year-old male admitted with a reason for visit of Left Lower Lbe Pneumonia,Septic Shock. Events since last encounter patient says " feeling better" "want to go home " . As per [facility] staff at bed side patient becomes easily agitated, violent and uncooperative in hospital setting and was trying to get out of bed this am. Patient answers simple questions could say his day and how old he is. At baseline patient is ambulatory with supervision. no fever , no chills, poor cough reflex and cannot bring up any phlegm. Denies any abdominal pain , has intermittent nausea. Objective Physical Examination General Exam: Positive: Alert, Cooperative, No Acute Distress Eye Exam: Positive: PERRLA, Conjunctiva & lids normal, EOMI, Negative: Sclera icteric ENT Exam: Positive: Atraumatic, Mucous membr. moist/pink, Pharynx Normal Neck Exam: Positive: Supple Chest Exam: Positive: Rales, Diminished Heart Exam: Positive: Rate Normal, Regular Rhythm, Normal S1, Normal S2 Telemetry: Positive: No significant arrhythmia Abdomen Exam: Positive: Normal bowel sounds, Soft Extremity Exam: Positive: Normal pulses, Negative: Clubbing, Cyanosis, Edema Assessment /Plan Problems (1) Septic shock Status: Resolved Problem Text: due to pneumonia. patient off levophed since last night. (2) Left lower lobe pneumonia Status: Acute Problem Text: Health care associated pneumonia , may also have underlying silent recurrent aspirations going on. will continue with vanco and zosyn patient could not give a sputum sample. (3) LAUREEN (acute kidney injury) Status: Resolved (4) Developmental disability Status: Chronic Problem Text: With mental retardation and avoidant personality disorde resident of [facility]. (5) Esophageal dilatation Status: Chronic Problem Text: possible achalasia which is chronic. (6) Hiatal hernia Status: Chronic (7) Hypothyroidism Status: Chronic (8) GERD (gastroesophageal reflux disease) Status: Chronic (9) PEG (percutaneous endoscopic gastrostomy) status Status: Chronic (10) Periodontal disease Status: Chronic (11) History of cervical fracture Status: Chronic (12) Anxiety and depression Status: Chronic Problem Text: will continue with home medications will add prn ativan iv if becomes agitated. Plan/VTE VTE Prophylaxis Ordered?: Yes Plan Advance Directives: Other Advance Directive (No CPR but ok to intubate. ) [facility] V[facility] Signs/I&O Vital Signs Date Time Temp Pulse Resp B/P (MAP) Pulse Ox O2 Delivery O2 Flow Rate FiO2 11/04/16 06:00 68 22 105/60 (75) 97 Room Air 11/04/16 04:00 98.9 I&O- Last 24 Hours up to 6 AM 11/04/16 06:00 Intake Total 3887.4 ml Output Total 1600 ml Balance 2287.4 ml Laboratory Data 24H LABS Laboratory Tests 2 11/03/16 10:57: Urine Appearance CLOUDYH, Urine Color NIGEL, Urine pH 6.0, Urine Specific [place] 1.012, Urine Protein 2+H, Urine Glucose (UA) NEGATIVE, Urine Ketones NEGATIVE, Urine Urobilinogen 0.2, Urine Bilirubin NEGATIVE, Urine Leukocyte Esterase 3+H, Urine Blood 3+H, Urine Nitrite NEGATIVE, Urine WBC (Auto) TNTCH, Urine RBC (Auto) TNTCH, Urine Hyaline Casts (Auto) 0, Urine Bacteria (Auto) NEGATIVE, Urine Squamous Epithelial Cells 0, Urine Mucus (Auto) SMALL, Urine Sperm (Auto) 11/03/16 11:22: Blood Gas Bicarbonate Standard 21.7L, Arterial Blood pH 7.353, Arterial Blood Partial Pressure CO2 40.6, Arterial Blood Partial Pressure O2 71.5L, Arterial Blood Total CO2 23.3, Arterial Blood HCO3 22.1, Arterial Blood Base Excess -3.2L , Arterial Blood Oxygen Saturation 91.7L 11/03/16 14:38: Lactic Acid Followup at 4 Hours 1.5 11/04/16 04:38: White Blood Count 14.4H, Red Blood Count 3.20L, Hemoglobin 10.4L, Hematocrit 31.2L, Mean Corpuscular Volume 97.5H, Mean Corpuscular Hemoglobin 32.5, Mean Corpuscular Hemoglobin Concent 33.3, Red Cell Distribution Width 16.8H, Platelet Count 166, Neutrophils (%) (Auto) 83.0H, Lymphocytes (%) (Auto) 6.4L, Monocytes (%) (Auto) 7.3H, Eosinophils (%) (Auto) 1.4, Basophils (%) (Auto) 0.1 , Neutrophils # (Auto) 11.9H, Lymphocytes # (Auto) 1.2L, Monocytes # (Auto) 1.1H , Eosinophils # (Auto) 0.2, Basophils # (Auto) 0.0, Large Unclassified Cells % 1.8, Large Unclassified Cells # 0.3, Anion Gap 4L, Glomerular Filtration Rate > 60.0, Blood Urea Nitrogen 16, Creatinine 0.95, Sodium Level 144, Potassium Level 4.0, Chloride Level 113H, Carbon Dioxide Level 27, Calcium Level 7.7L, Aspartate Amino Transf (AST/SGOT) 14L, Alanine Aminotransferase (ALT/SGPT) 14, Alkaline Phosphatase 75, Total Bilirubin 0.4, Total Protein 5.1L, Albumin 2.2#L , Magnesium Level 1.7L, C-Reactive Protein, Quantitative 6.98H, Albumin/ Globulin Ratio 0.76L CBC/BMP Laboratory Tests 11/04/16 04:38 Red Blood Count 3.20 L, Mean Corpuscular Volume 97.5 H, Mean Corpuscular Hemoglobin 32.5, Mean Corpuscular Hemoglobin Concent 33.3, Red Cell Distribution Width 16.8 H, Neutrophils (%) (Auto) 83.0 H, Lymphocytes (%) (Auto ) 6.4 L, Monocytes (%) (Auto) 7.3 H, Eosinophils (%) (Auto) 1.4, Basophils (%) ( Auto) 0.1, Neutrophils # (Auto) 11.9 H, Lymphocytes # (Auto) 1.2 L, Monocytes # (Auto) 1.1 H, Eosinophils # (Auto) 0.2, Basophils # (Auto) 0.0, Calcium Level 7.7 L, Aspartate Amino Transf (AST/SGOT) 14 L, Alanine Aminotransferase (ALT/ SGPT) 14, Alkaline Phosphatase 75, Total Bilirubin 0.4, Total Protein 5.1 L, Albumin 2.2 #L Microbiology Microbiology 11/03/16 Blood Culture - Preliminary, Resulted No growth after 24 hours . All specim... 11/03/16 Blood Culture - Preliminary, Resulted No growth after 24 hours . All specim... 11/03/16 Urine Culture, Received Pending ERICA TORRES MD Nov 04, 2016 10:40
[2016-11-04] MEDS: LORazepam 2 MG/ML VIAL (J2060) IV PRN ×2 (10:49→14:49)
[2016-11-04] MEDS: ONDANSETRON 4MG/2ML VIAL (J2405) IV PRN (15:41)
[2016-11-04] MEDS: ENOXAPARIN 30 MG/0.3 ML SYR (J1650) SC SCH (17:22)
[2016-11-04] MEDS: NYSTATIN 100,000 UNITS/GM TOPICAL PWD 15 GM TOP SCH (20:08)
[2016-11-05] VITALS (7 sets, daily range): BP systolic 89–113; BP diastolic 52–71; PULSE 53
[2016-11-05] MEDS: NS 1,000 ML IV SCH (03:55)
[2016-11-05 04:19] LABS: BASO % 0.2 % (0.0-1.0); EOS # 0.4 K/mm3 (0.0-0.50); EOS % 5.1 % (0.0-3.0); LARGE UNSTAINED CELL # 0.2 K/mm3 (0.0-0.4); LARGE UNSTAINED CELL % 2.2 % (0.0-4.0); LYMPH # 1.5 K/mm3 (1.5-4.5); LYMPH % 14.2 % (24.0-44.0); MEAN CORPUSCULAR HEMOGLOBIN 32.7 pg (27.0-33.0); MEAN CORPUSCULAR HGB CONC 32.9 g/dl (32.0-36.5); MEAN CORPUSCULAR VOLUME 99.5 fl (80.0-96.0); MONO # 0.7 K/mm3 (0.0-0.8); MONO % 8.1 % (0.0-5.0); NEUTROPHILS # 6.2 K/mm3 (1.8-7.7); NEUTROPHILS % 70.2 % (36.0-66.0); PLATELET COUNT, AUTOMATED 172 k/mm3 (150-450); RED CELL DISTRIBUTION WIDTH 16.8 % (11.5-14.5); WHITE BLOOD COUNT 8.9 K/mm3 (4.0-10.0)
[2016-11-05 04:42] LABS: ALBUMIN 2.3 GM/DL (3.2-5.2); ALBUMIN/GLOBULIN RATIO 0.79 (1.00-1.93); ALKALINE PHOSPHATASE 68 U/L (45-117); ALT/SGPT 14 U/L (12-78); ANION GAP 6 MEQ/L (8-16); AST/SGOT 14 U/L (15-37); BILIRUBIN,TOTAL 0.4 MG/DL (0.2-1.0); BLOOD UREA NITROGEN 12 MG/DL (7-18); CALCIUM LEVEL 7.3 MG/DL (8.8-10.2); CARBON DIOXIDE LEVEL 27 MEQ/L (21-32); CHLORIDE LEVEL 115 MEQ/L (98-107); CREATININE FOR GFR 0.93 MG/DL (0.70-1.30); GLOMERULAR FILTRATION RATE > 60.0 (>49); GLUCOSE, FASTING 82 MG/DL (80-110); MAGNESIUM LEVEL 1.7 MG/DL (1.8-2.4); POTASSIUM SERUM 3.8 MEQ/L (3.5-5.1); SODIUM LEVEL 148 MEQ/L (136-145); TOTAL PROTEIN 5.2 GM/DL (6.4-8.2)
[2016-11-05] MEDS: VANCOMYCIN HCL 750 MG, VIAL MATE ADAPTER 1 EACH in D5W 250 ML IV SCH ×2 (05:02→18:12)
[2016-11-05] MEDS: PIPERACILLIN/TAZOBACTAM SOD 3.375 GM in D5W MINI-BAG PLUS 50 ML IV SCH ×3 (05:02→21:01)
[2016-11-05] MEDS: LEVOTHYROXINE 75MCG TABLET (0.075MG) GT SCH (06:06)
[2016-11-05] MEDS: PANTOPRAZOLE 40MG INJ (PROTONIX) (C9113) IV SCH (06:06)
[2016-11-05] MEDS: MAG SULF 1GM/100ML (MAG RUN) 1 GM in APPROPRIATE DILUENT 1 EA IV SCH ×2 (06:36→08:44)
[2016-11-05] MEDS: D5W/0.9% SODIUM CHLORIDE 1,000 ML IV SCH ×2 (06:36→21:01)
[2016-11-05] MEDS: MIRALAX *UNIT DOSE* 17GM PACKET GT SCH (08:44)
[2016-11-05] MEDS: GABAPENTIN 300 MG CAP GT SCH ×3 (08:44→21:01)
[2016-11-05] MEDS: METOCLOPRAMIDE HCL LIQUID 10 MG/10 ML UDC GT SCH ×3 (08:44→17:13)
[2016-11-05] MEDS: clonazePAM 0.5 MG TAB GT SCH ×3 (08:44→21:02)
[2016-11-05] MEDS: risperiDONE 1 MG TAB GT SCH (08:44)
[2016-11-05] MEDS: CitaloPRAM (CeleXA) 20 MG TAB GT SCH (08:48)
[2016-11-05] MEDS: OLANZapine ORAL DISINTEGRATING TAB 5MG GT SCH ×3 (08:48→21:01)
[2016-11-05] MEDS: NYSTATIN 100,000 UNITS/GM TOPICAL PWD 15 GM TOP SCH ×2 (09:00→21:03)
[2016-11-05] MEDS: busPIRone 10 MG TAB GT SCH ×2 (09:00→21:02)
--- NOTE | 2016-11-05 10:14 | IPNPDOC ---
Subjective Date Seen The patient was seen on 11/05/16. Subjective Chief Complaint/HPI The patient is a 60-year-old male admitted with a reason for visit of Left Lower Lbe Pneumonia,Septic Shock. Events since last encounter today complains of headache, denies any abdominal pain , no nausea or vomiting overnight. no fever or chills, says " i want to go home." "I am feeling better " Objective Physical Examination General Exam: Positive: Alert, Cooperative, No Acute Distress Eye Exam: Positive: PERRLA, Conjunctiva & lids normal, EOMI, Negative: Sclera icteric ENT Exam: Positive: Atraumatic, Mucous membr. moist/pink, Pharynx Normal Neck Exam: Positive: Supple Chest Exam: Positive: Rales, Diminished Heart Exam: Positive: Rate Normal, Regular Rhythm, Normal S1, Normal S2 Telemetry: Positive: No significant arrhythmia Abdomen Exam: Positive: Normal bowel sounds, Soft Extremity Exam: Positive: Normal pulses, Negative: Clubbing, Cyanosis, Edema Assessment /Plan Problems (1) Septic shock Status: Resolved Problem Text: due to pneumonia. patient off levophed since last night. (2) Left lower lobe pneumonia Status: Acute Problem Text: Health care associated pneumonia , may also have underlying silent recurrent aspirations going on. will continue with vanco and zosyn and levofloxacin patient could not give a sputum sample. Blood culture 1/2 positive for gram positive cocci in clusters. (3) LAUEREN (acute kidney injury) Status: Resolved (4) Developmental disability Status: Chronic Problem Text: With mental retardation and avoidant personality disorde resident of [facility]. (5) Esophageal dilatation Status: Chronic Problem Text: possible achalasia which is chronic. (6) Hiatal hernia Status: Chronic (7) Hypothyroidism Status: Chronic (8) GERD (gastroesophageal reflux disease) Status: Chronic (9) PEG (percutaneous endoscopic gastrostomy) status Status: Chronic (10) Periodontal disease Status: Chronic (11) History of cervical fracture Status: Chronic (12) Anxiety and depression Status: Chronic Problem Text: will continue with home medications will add prn ativan iv if becomes agitated. Plan/VTE VTE Prophylaxis Ordered?: Yes Plan Advance Directives: Other Advance Directive (No CPR but ok to intubate. ) VS, I&O, 24H, Fishbone Vital Signs/I&O Vital Signs Date Time Temp Pulse Resp B/P (MAP) Pulse Ox O2 Delivery O2 Flow Rate FiO2 11/05/16 08:00 Room Air 11/05/16 04:02 98.2 64 16 113/71 (85) 96 2.0 I&O- Last 24 Hours up to 6 AM 11/05/16 06:00 Intake Total 2375 ml Output Total 2000 ml Balance 375 ml Laboratory Data 24H LABS Laboratory Tests 2 11/05/16 03:56: White Blood Count 8.9, Red Blood Count 3.17L, Hemoglobin 10.4L, Hematocrit 31.5L , Mean Corpuscular Volume 99.5H, Mean Corpuscular Hemoglobin 32.7, Mean Corpuscular Hemoglobin Concent 32.9, Red Cell Distribution Width 16.8H, Platelet Count 172, Neutrophils (%) (Auto) 70.2H, Lymphocytes (%) (Auto) 14.2L, Monocytes (%) (Auto) 8.1H, Eosinophils (%) (Auto) 5.1H, Basophils (%) (Auto) 0.2 , Neutrophils # (Auto) 6.2, Lymphocytes # (Auto) 1.5, Monocytes # (Auto) 0.7, Eosinophils # (Auto) 0.4, Basophils # (Auto) 0.0, Large Unclassified Cells % 2.2 , Large Unclassified Cells # 0.2, Anion Gap 6L, Glomerular Filtration Rate > 60.0, Blood Urea Nitrogen 12, Creatinine 0.93, Sodium Level 148H, Potassium Level 3.8, Chloride Level 115H, Carbon Dioxide Level 27, Calcium Level 7.3L, Aspartate Amino Transf (AST/SGOT) 14L, Alanine Aminotransferase (ALT/SGPT) 14, Alkaline Phosphatase 68, Total Bilirubin 0.4, Total Protein 5.2L, Albumin 2.3L, Magnesium Level 1.7L, C-Reactive Protein, Quantitative 4.50H, Albumin/Globulin Ratio 0.79L, Vancomycin Level Trough 13.7 CBC/BMP Laboratory Tests 11/05/16 03:56 Red Blood Count 3.17 L, Mean Corpuscular Volume 99.5 H, Mean Corpuscular Hemoglobin 32.7, Mean Corpuscular Hemoglobin Concent 32.9, Red Cell Distribution Width 16.8 H, Neutrophils (%) (Auto) 70.2 H, Lymphocytes (%) (Auto ) 14.2 L, Monocytes (%) (Auto) 8.1 H, Eosinophils (%) (Auto) 5.1 H, Basophils (% ) (Auto) 0.2, Neutrophils # (Auto) 6.2, Lymphocytes # (Auto) 1.5, Monocytes # ( Auto) 0.7, Eosinophils # (Auto) 0.4, Basophils # (Auto) 0.0, Calcium Level 7.3 L , Aspartate Amino Transf (AST/SGOT) 14 L, Alanine Aminotransferase (ALT/SGPT) 14 , Alkaline Phosphatase 68, Total Bilirubin 0.4, Total Protein 5.2 L, Albumin 2.3 L Microbiology Microbiology 11/03/16 Blood Culture - Preliminary, Resulted 11/03/16 Blood Culture - Preliminary, Resulted No Growth after 48 hours. All Specime... 11/03/16 Urine Culture, Received Pending ERICA TORRES MD Nov 05, 2016 10:14
[2016-11-05] MEDS: LevoFLOXacin IV 750 MG in APPROPRIATE DILUENT 1 EA IV SCH (16:31)
[2016-11-05] MEDS: ENOXAPARIN 30 MG/0.3 ML SYR (J1650) SC SCH (17:14)
[2016-11-06] VITALS: PULSE 53
[2016-11-06] MEDS: PIPERACILLIN/TAZOBACTAM SOD 3.375 GM in D5W MINI-BAG PLUS 50 ML IV SCH ×5 (00:05→22:18)
[2016-11-06 04:00] VITALS: BP 115/71; PULSE 68
[2016-11-06] MEDS: LEVOTHYROXINE 75MCG TABLET (0.075MG) GT SCH (05:21)
[2016-11-06] MEDS: VANCOMYCIN HCL 750 MG, VIAL MATE ADAPTER 1 EACH in D5W 250 ML IV SCH (05:21)
[2016-11-06] MEDS: PANTOPRAZOLE 40MG INJ (PROTONIX) (C9113) IV SCH (05:21)
[2016-11-06] MEDS: ACETAMINOPHEN TAB 650MG DOSE (2X325MG) PO PRN (05:28)
[2016-11-06 06:16] LABS: BASO % 0.2 % (0.0-1.0); EOS # 0.4 K/mm3 (0.0-0.50); LARGE UNSTAINED CELL # 0.2 K/mm3 (0.0-0.4); LARGE UNSTAINED CELL % 2.5 % (0.0-4.0); LYMPH % 11.4 % (24.0-44.0); MEAN CORPUSCULAR HEMOGLOBIN 32.1 pg (27.0-33.0); MEAN CORPUSCULAR HGB CONC 32.2 g/dl (32.0-36.5); MEAN CORPUSCULAR VOLUME 99.8 fl (80.0-96.0); MONO # 0.5 K/mm3 (0.0-0.8); MONO % 6.5 % (0.0-5.0); NEUTROPHILS # 5.5 K/mm3 (1.8-7.7); NEUTROPHILS % 73.4 % (36.0-66.0); PLATELET COUNT, AUTOMATED 191 k/mm3 (150-450); RED CELL DISTRIBUTION WIDTH 16.6 % (11.5-14.5); WHITE BLOOD COUNT 7.4 K/mm3 (4.0-10.0)
[2016-11-06 06:46] LABS: ANION GAP 9 MEQ/L (8-16); AST/SGOT 13 U/L (15-37); BLOOD UREA NITROGEN 11 MG/DL (7-18); CALCIUM LEVEL 7.9 MG/DL (8.8-10.2); CARBON DIOXIDE LEVEL 28 MEQ/L (21-32); CHLORIDE LEVEL 114 MEQ/L (98-107); CREATININE FOR GFR 0.89 MG/DL (0.70-1.30); GLOMERULAR FILTRATION RATE > 60.0 (>49); GLUCOSE, FASTING 96 MG/DL (80-110); POTASSIUM SERUM 3.8 MEQ/L (3.5-5.1); SODIUM LEVEL 151 MEQ/L (136-145)
[2016-11-06 06:47] LABS: ALBUMIN 2.2 GM/DL (3.2-5.2); ALBUMIN/GLOBULIN RATIO 0.59 (1.00-1.93); ALKALINE PHOSPHATASE 69 U/L (45-117); ALT/SGPT 15 U/L (12-78); BILIRUBIN,TOTAL 0.3 MG/DL (0.2-1.0); MAGNESIUM LEVEL 1.8 MG/DL (1.8-2.4); TOTAL PROTEIN 5.9 GM/DL (6.4-8.2)
[2016-11-06] MEDS: D5W 1,000 ML IV SCH (07:43)
[2016-11-06 08:00] VITALS: BP 110/71
[2016-11-06] MEDS: METOCLOPRAMIDE HCL LIQUID 10 MG/10 ML UDC GT SCH ×3 (08:47→16:34)
[2016-11-06] MEDS: busPIRone 10 MG TAB GT SCH ×2 (08:47→20:34)
[2016-11-06] MEDS: MIRALAX *UNIT DOSE* 17GM PACKET GT SCH (08:48)
[2016-11-06] MEDS: GABAPENTIN 300 MG CAP GT SCH ×3 (08:48→20:33)
[2016-11-06] MEDS: risperiDONE 1 MG TAB GT SCH (08:48)
[2016-11-06] MEDS: clonazePAM 0.5 MG TAB GT SCH ×3 (08:48→20:34)
[2016-11-06] MEDS: CitaloPRAM (CeleXA) 20 MG TAB GT SCH (08:48)
[2016-11-06] MEDS: NYSTATIN 100,000 UNITS/GM TOPICAL PWD 15 GM TOP SCH ×2 (08:48→20:34)
[2016-11-06] MEDS: OLANZapine ORAL DISINTEGRATING TAB 5MG GT SCH ×3 (08:48→20:33)
--- NOTE | 2016-11-06 10:32 | IPNPDOC ---
Subjective Date Seen The patient was seen on 11/06/16. Subjective Chief Complaint/HPI The patient is a 60-year-old male admitted with a reason for visit of Left Lower Lbe Pneumonia,Septic Shock. Events since last encounter no complaints, wants to go home , did vomit after tube feeding this am . has lots of oral secretions which pools around the mouth and cannot swallow well or spit out has to be repeatedly suctioned off by the staff. no ffever or chills, no further episodes of hypotension. Objective Physical Examination General Exam: Positive: Alert, Cooperative, No Acute Distress Eye Exam: Positive: PERRLA, Conjunctiva & lids normal, EOMI, Negative: Sclera icteric ENT Exam: Positive: Atraumatic, Mucous membr. moist/pink, Pharynx Normal Neck Exam: Positive: Supple Chest Exam: Positive: Rales, Diminished Heart Exam: Positive: Rate Normal, Regular Rhythm, Normal S1, Normal S2 Telemetry: Positive: No significant arrhythmia Abdomen Exam: Positive: Normal bowel sounds, Soft Extremity Exam: Positive: Normal pulses, Negative: Clubbing, Cyanosis, Edema Assessment /Plan Problems (1) Hypernatremia Status: Acute Problem Text: due to free water deficit , will change ivf to dextrose , continue free water through peg tube. (2) Septic shock Status: Resolved Problem Text: due to pneumonia. patient off levophed since last night. (3) Left lower lobe pneumonia Status: Acute Problem Text: Health care associated pneumonia , may also have underlying silent recurrent aspirations going on. will continue with vanco and zosyn and levofloxacin patient could not give a sputum sample. Blood culture 1/2 positive for staph capitis so vanco discontinued . 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 (6) Esophageal dilatation Status: Chronic Problem Text: possible achalasia which is chronic. (7) Hiatal hernia Status: Chronic (8) Hypothyroidism Status: Chronic (9) GERD (gastroesophageal reflux disease) Status: Chronic (10) PEG (percutaneous endoscopic gastrostomy) status Status: Chronic (11) Periodontal disease Status: Chronic (12) History of cervical fracture Status: Chronic (13) Anxiety and depression Status: Chronic Problem Text: will continue with home medications will add prn ativan iv if becomes agitated. Plan/VTE VTE Prophylaxis Ordered?: Yes Plan Advance Directives: Other Advance Directive (No CPR but ok to intubate. ) VS, I&O, 24H, Fishbone Vital Signs/I&O Vital Signs Date Time Temp Pulse Resp B/P (MAP) Pulse Ox O2 Delivery O2 Flow Rate FiO2 11/06/16 08:00 Nasal Cannula 2.0 11/06/16 04:00 68 11/06/16 04:00 97.5 18 115/71 (86) 95 I&O- Last 24 Hours up to 6 AM 11/06/16 06:00 Intake Total 1815 ml Output Total 2200 ml Balance -385 ml Laboratory Data 24H LABS Laboratory Tests 2 11/06/16 05:38: White Blood Count 7.4, Red Blood Count 3.39L, Hemoglobin 10.9L, Hematocrit 33.8L , Mean Corpuscular Volume 99.8H, Mean Corpuscular Hemoglobin 32.1, Mean Corpuscular Hemoglobin Concent 32.2, Red Cell Distribution Width 16.6H, Platelet Count 191, Neutrophils (%) (Auto) 73.4H, Lymphocytes (%) (Auto) 11.4L, Monocytes (%) (Auto) 6.5H, Eosinophils (%) (Auto) 6.0H, Basophils (%) (Auto) 0.2 , Neutrophils # (Auto) 5.5, Lymphocytes # (Auto) 1.0L, Monocytes # (Auto) 0.5, Eosinophils # (Auto) 0.4, Basophils # (Auto) 0.0, Large Unclassified Cells % 2.5 , Large Unclassified Cells # 0.2, Anion Gap 9, Glomerular Filtration Rate > 60.0 , Blood Urea Nitrogen 11, Creatinine 0.89, Sodium Level 151H, Potassium Level 3.8, Chloride Level 114H, Carbon Dioxide Level 28, Calcium Level 7.9L, Aspartate Amino Transf (AST/SGOT) 13L, Alanine Aminotransferase (ALT/SGPT) 15, Alkaline Phosphatase 69, Total Bilirubin 0.3, Total Protein 5.9L, Albumin 2.2L, Magnesium Level 1.8, C-Reactive Protein, Quantitative 1.82H, Albumin/Globulin Ratio 0.59L CBC/BMP Laboratory Tests 11/06/16 05:38 Red Blood Count 3.39 L, Mean Corpuscular Volume 99.8 H, Mean Corpuscular Hemoglobin 32.1, Mean Corpuscular Hemoglobin Concent 32.2, Red Cell Distribution Width 16.6 H, Neutrophils (%) (Auto) 73.4 H, Lymphocytes (%) (Auto ) 11.4 L, Monocytes (%) (Auto) 6.5 H, Eosinophils (%) (Auto) 6.0 H, Basophils (% ) (Auto) 0.2, Neutrophils # (Auto) 5.5, Lymphocytes # (Auto) 1.0 L, Monocytes # (Auto) 0.5, Eosinophils # (Auto) 0.4, Basophils # (Auto) 0.0, Calcium Level 7.9 L, Aspartate Amino Transf (AST/SGOT) 13 L, Alanine Aminotransferase (ALT/SGPT) 15, Alkaline Phosphatase 69, Total Bilirubin 0.3, Total Protein 5.9 L, Albumin 2.2 L Microbiology Microbiology 11/03/16 Blood Culture - Final, Complete Staphylococcus Capitis 11/03/16 Blood Culture - Preliminary, Resulted No Growth after 72 hours. All specime... 11/03/16 Urine Culture - Final, Complete Pseudomonas Aeruginosa ERICA TORRES MD Nov 06, 2016 10:32
[2016-11-06 16:00] VITALS: BP 108/80
[2016-11-06] MEDS: ENOXAPARIN 30 MG/0.3 ML SYR (J1650) SC SCH (17:47)
[2016-11-06 19:55] VITALS: BP 93/61
[2016-11-07 04:40] VITALS: BP 108/65
[2016-11-07] MEDS: METOCLOPRAMIDE HCL LIQUID 10 MG/10 ML UDC GT SCH ×3 (06:14→17:53)
[2016-11-07] MEDS: PIPERACILLIN/TAZOBACTAM SOD 3.375 GM in D5W MINI-BAG PLUS 50 ML IV SCH ×4 (06:14→23:16)
[2016-11-07] MEDS: PANTOPRAZOLE 40MG INJ (PROTONIX) (C9113) IV SCH (06:14)
[2016-11-07] MEDS: D5W 1,000 ML IV SCH (06:14)
[2016-11-07] MEDS: LEVOTHYROXINE 75MCG TABLET (0.075MG) GT SCH (06:14)
[2016-11-07 06:28] LABS: BASO % 0.5 % (0.0-1.0); EOS # 0.4 K/mm3 (0.0-0.50); EOS % 8.3 % (0.0-3.0); LARGE UNSTAINED CELL # 0.2 K/mm3 (0.0-0.4); LARGE UNSTAINED CELL % 2.8 % (0.0-4.0); LYMPH # 1.2 K/mm3 (1.5-4.5); LYMPH % 19.5 % (24.0-44.0); MEAN CORPUSCULAR HEMOGLOBIN 32.7 pg (27.0-33.0); MEAN CORPUSCULAR HGB CONC 32.6 g/dl (32.0-36.5); MEAN CORPUSCULAR VOLUME 100.2 fl (80.0-96.0); MONO # 0.3 K/mm3 (0.0-0.8); NEUTROPHILS # 3.4 K/mm3 (1.8-7.7); NEUTROPHILS % 62.8 % (36.0-66.0); PLATELET COUNT, AUTOMATED 197 k/mm3 (150-450); RED CELL DISTRIBUTION WIDTH 16.4 % (11.5-14.5); WHITE BLOOD COUNT 5.4 K/mm3 (4.0-10.0)
[2016-11-07 06:46] LABS: ALBUMIN 2.3 GM/DL (3.2-5.2); ALBUMIN/GLOBULIN RATIO 0.68 (1.00-1.93); ALKALINE PHOSPHATASE 62 U/L (45-117); ALT/SGPT 14 U/L (12-78); ANION GAP 7 MEQ/L (8-16); AST/SGOT 13 U/L (15-37); BILIRUBIN,TOTAL 0.3 MG/DL (0.2-1.0); BLOOD UREA NITROGEN 10 MG/DL (7-18); CALCIUM LEVEL 8.6 MG/DL (8.8-10.2); CARBON DIOXIDE LEVEL 30 MEQ/L (21-32); CHLORIDE LEVEL 111 MEQ/L (98-107); CREATININE FOR GFR 0.88 MG/DL (0.70-1.30); GLOMERULAR FILTRATION RATE > 60.0 (>49); GLUCOSE, FASTING 82 MG/DL (80-110); MAGNESIUM LEVEL 1.6 MG/DL (1.8-2.4); POTASSIUM SERUM 3.8 MEQ/L (3.5-5.1); SODIUM LEVEL 148 MEQ/L (136-145); TOTAL PROTEIN 5.7 GM/DL (6.4-8.2)
[2016-11-07 08:00] VITALS: BP 98/57
[2016-11-07] MEDS: GABAPENTIN 300 MG CAP GT SCH ×3 (10:49→20:48)
[2016-11-07] MEDS: clonazePAM 0.5 MG TAB GT SCH ×3 (10:49→20:48)
[2016-11-07] MEDS: MIRALAX *UNIT DOSE* 17GM PACKET GT SCH (10:49)
[2016-11-07] MEDS: OLANZapine ORAL DISINTEGRATING TAB 5MG GT SCH ×3 (10:49→20:48)
[2016-11-07] MEDS: CitaloPRAM (CeleXA) 20 MG TAB GT SCH (10:50)
[2016-11-07] MEDS: busPIRone 10 MG TAB GT SCH ×2 (10:50→20:48)
[2016-11-07] MEDS: risperiDONE 1 MG TAB GT SCH (10:50)
[2016-11-07] MEDS: NYSTATIN 100,000 UNITS/GM TOPICAL PWD 15 GM TOP SCH ×2 (10:50→20:49)
--- NOTE | 2016-11-07 11:02 | IPNPDOC ---
Subjective Date Seen The patient was seen on 11/07/16. Subjective Chief Complaint/HPI The patient is a 60-year-old male admitted with a reason for visit of Left Lower Lbe Pneumonia,Septic Shock. Events since last encounter no new issues overnight. Objective Physical Examination General Exam: Positive: Alert, Cooperative, No Acute Distress Eye Exam: Positive: PERRLA, Conjunctiva & lids normal, EOMI, Negative: Sclera icteric ENT Exam: Positive: Atraumatic, Mucous membr. moist/pink, Pharynx Normal Neck Exam: Positive: Supple Chest Exam: Positive: Rales, Diminished Heart Exam: Positive: Rate Normal, Regular Rhythm, Normal S1, Normal S2 Telemetry: Positive: No significant arrhythmia Abdomen Exam: Positive: Normal bowel sounds, Soft Extremity Exam: Positive: Normal pulses, Negative: Clubbing, Cyanosis, Edema Assessment /Plan Problems (1) Hypernatremia Status: Acute Problem Text: due to free water deficit , continue dextrose , increase free water through peg tube. (2) Septic shock Status: Resolved Problem Text: due to pneumonia. Had required levophed initially now resolved. (3) Left lower lobe pneumonia Status: Acute Problem Text: Health care associated pneumonia , may also have underlying silent recurrent aspirations going on. will continue with zosyn and levofloxacin patient could not give a sputum sample. Blood culture 1/2 positive for staph capitis so vanco discontinued . 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 (6) Esophageal dilatation Status: Chronic Problem Text: possible achalasia which is chronic. (7) Hiatal hernia Status: Chronic (8) Hypothyroidism Status: Chronic (9) GERD (gastroesophageal reflux disease) Status: Chronic (10) PEG (percutaneous endoscopic gastrostomy) status Status: Chronic (11) Periodontal disease Status: Chronic (12) History of cervical fracture Status: Chronic (13) Anxiety and depression Status: Chronic Problem Text: will continue with home medications will add prn ativan iv if becomes agitated. Plan/VTE VTE Prophylaxis Ordered?: Yes Plan Advance Directives: Other Advance Directive (No CPR but ok to intubate. ) VS, I&O, 24H, Fishbone Vital Signs/I&O Vital Signs Date Time Temp Pulse Resp B/P (MAP) Pulse Ox O2 Delivery O2 Flow Rate FiO2 11/07/16 08:27 Room Air 11/07/16 08:00 97.6 71 18 98/57 (71) 90 11/06/16 08:00 2.0 I&O- Last 24 Hours up to 6 AM 11/07/16 06:00 Intake Total 1340 ml Output Total 1925 ml Balance -585 ml Laboratory Data 24H LABS Laboratory Tests 2 11/07/16 06:10: White Blood Count 5.4, Red Blood Count 3.09L, Hemoglobin 10.1L, Hematocrit 31.0L , Mean Corpuscular Volume 100.2H, Mean Corpuscular Hemoglobin 32.7, Mean Corpuscular Hemoglobin Concent 32.6, Red Cell Distribution Width 16.4H, Platelet Count 197, Neutrophils (%) (Auto) 62.8, Lymphocytes (%) (Auto) 19.5L, Monocytes (%) (Auto) 6.0H, Eosinophils (%) (Auto) 8.3H, Basophils (%) (Auto) 0.5 , Neutrophils # (Auto) 3.4, Lymphocytes # (Auto) 1.2L, Monocytes # (Auto) 0.3, Eosinophils # (Auto) 0.4, Basophils # (Auto) 0.0, Large Unclassified Cells % 2.8 , Large Unclassified Cells # 0.2, Anion Gap 7L, Glomerular Filtration Rate > 60.0, Blood Urea Nitrogen 10, Creatinine 0.88, Sodium Level 148H, Potassium Level 3.8, Chloride Level 111H, Carbon Dioxide Level 30, Calcium Level 8.6L, Aspartate Amino Transf (AST/SGOT) 13L, Alanine Aminotransferase (ALT/SGPT) 14, Alkaline Phosphatase 62, Total Bilirubin 0.3, Total Protein 5.7L, Albumin 2.3L, Magnesium Level 1.6L, C-Reactive Protein, Quantitative 1.12H, Albumin/Globulin Ratio 0.68L CBC/BMP Laboratory Tests 11/07/16 06:10 Red Blood Count 3.09 L, Mean Corpuscular Volume 100.2 H, Mean Corpuscular Hemoglobin 32.7, Mean Corpuscular Hemoglobin Concent 32.6, Red Cell Distribution Width 16.4 H, Neutrophils (%) (Auto) 62.8, Lymphocytes (%) (Auto) 19.5 L, Monocytes (%) (Auto) 6.0 H, Eosinophils (%) (Auto) 8.3 H, Basophils (%) (Auto) 0.5, Neutrophils # (Auto) 3.4, Lymphocytes # (Auto) 1.2 L, Monocytes # ( Auto) 0.3, Eosinophils # (Auto) 0.4, Basophils # (Auto) 0.0, Calcium Level 8.6 L , Aspartate Amino Transf (AST/SGOT) 13 L, Alanine Aminotransferase (ALT/SGPT) 14 , Alkaline Phosphatase 62, Total Bilirubin 0.3, Total Protein 5.7 L, Albumin 2.3 L Microbiology Microbiology 11/03/16 Blood Culture - Final, Complete Staphylococcus Capitis 11/03/16 Blood Culture - Preliminary, Resulted No Growth after 72 hours. All specime... 11/03/16 Urine Culture - Final, Complete Pseudomonas Aeruginosa ERICA TORRES MD Nov 07, 2016 11:02
[2016-11-07] MEDS: MAG SULF 1GM/100ML (MAG RUN) 1 GM in APPROPRIATE DILUENT 1 EA IV SCH ×2 (12:00→12:02)
[2016-11-07 16:00] VITALS: BP 103/61
[2016-11-07] MEDS: LevoFLOXacin IV 750 MG in APPROPRIATE DILUENT 1 EA IV SCH (16:13)
[2016-11-07 17:00] VITALS: BP 94/61
[2016-11-07] MEDS: ENOXAPARIN 30 MG/0.3 ML SYR (J1650) SC SCH (17:38)
[2016-11-07 22:00] VITALS: BP 112/68
[2016-11-08] MEDS: LEVOTHYROXINE 75MCG TABLET (0.075MG) GT SCH (05:28)
[2016-11-08] MEDS: ACETAMINOPHEN TAB 650MG DOSE (2X325MG) PO PRN (05:28)
[2016-11-08] MEDS: PIPERACILLIN/TAZOBACTAM SOD 3.375 GM in D5W MINI-BAG PLUS 50 ML IV SCH ×2 (05:40→11:00)
[2016-11-08 06:00] VITALS: BP 116/79
[2016-11-08 06:00] LABS: BASO % 0.5 % (0.0-1.0); EOS # 0.4 K/mm3 (0.0-0.50); EOS % 7.6 % (0.0-3.0); LARGE UNSTAINED CELL # 0.2 K/mm3 (0.0-0.4); LYMPH % 19.1 % (24.0-44.0); MEAN CORPUSCULAR HEMOGLOBIN 33.4 pg (27.0-33.0); MEAN CORPUSCULAR HGB CONC 33.8 g/dl (32.0-36.5); MEAN CORPUSCULAR VOLUME 98.8 fl (80.0-96.0); MONO # 0.3 K/mm3 (0.0-0.8); NEUTROPHILS # 3.1 K/mm3 (1.8-7.7); NEUTROPHILS % 62.8 % (36.0-66.0); PLATELET COUNT, AUTOMATED 201 k/mm3 (150-450); RED CELL DISTRIBUTION WIDTH 16.2 % (11.5-14.5)
[2016-11-08] MEDS: PANTOPRAZOLE 40MG INJ (PROTONIX) (C9113) IV SCH (06:07)
[2016-11-08] MEDS: D5W 1,000 ML IV SCH (06:07)
[2016-11-08 06:24] LABS: ALBUMIN 2.5 GM/DL (3.2-5.2); ALBUMIN/GLOBULIN RATIO 0.71 (1.00-1.93); ALKALINE PHOSPHATASE 86 U/L (45-117); ALT/SGPT 18 U/L (12-78); ANION GAP 6 MEQ/L (8-16); AST/SGOT 18 U/L (15-37); BILIRUBIN,TOTAL 0.3 MG/DL (0.2-1.0); BLOOD UREA NITROGEN 12 MG/DL (7-18); CALCIUM LEVEL 8.5 MG/DL (8.8-10.2); CARBON DIOXIDE LEVEL 30 MEQ/L (21-32); CHLORIDE LEVEL 110 MEQ/L (98-107); CREATININE FOR GFR 0.95 MG/DL (0.70-1.30); GLOMERULAR FILTRATION RATE > 60.0 (>49); GLUCOSE, FASTING 99 MG/DL (80-110); MAGNESIUM LEVEL 1.9 MG/DL (1.8-2.4); POTASSIUM SERUM 4.1 MEQ/L (3.5-5.1); SODIUM LEVEL 146 MEQ/L (136-145)
[2016-11-08] MEDS: MIRALAX *UNIT DOSE* 17GM PACKET GT SCH (08:02)
[2016-11-08] MEDS: clonazePAM 0.5 MG TAB GT SCH ×3 (08:12→20:41)
[2016-11-08] MEDS: CitaloPRAM (CeleXA) 20 MG TAB GT SCH (08:12)
[2016-11-08] MEDS: risperiDONE 1 MG TAB GT SCH (08:12)
[2016-11-08] MEDS: busPIRone 10 MG TAB GT SCH ×2 (08:13→20:41)
[2016-11-08] MEDS: GABAPENTIN 300 MG CAP GT SCH ×3 (08:13→20:41)
[2016-11-08] MEDS: METOCLOPRAMIDE HCL LIQUID 10 MG/10 ML UDC GT SCH ×3 (08:13→18:02)
[2016-11-08] MEDS: OLANZapine ORAL DISINTEGRATING TAB 5MG GT SCH ×3 (08:13→20:41)
[2016-11-08] MEDS: NYSTATIN 100,000 UNITS/GM TOPICAL PWD 15 GM TOP SCH ×2 (08:22→20:42)
[2016-11-08 14:00] VITALS: BP 133/88
--- NOTE | 2016-11-08 14:08 | IPNPDOC ---
Date Seen The patient was seen on 11/08/16. Progress Note Hospitalist Progress Note Subjective: Patient tells me that he is "feeling better." He also is asking when he will be able to go home. Objective: Physical Exam: Vitals: Vital Sign - Last 24 Hours 11/07/16 11/07/16 11/07/16 11/08/16 16:00 17:00 22:00 06:00 Temp 97.7 97.5 97.5 97.6 Pulse 58 55 66 63 Resp 18 18 18 18 B/P (MAP) 103/61 (75) 94/61 (72) 112/68 (83) 116/79 (91) Pulse Ox 92 91 95 96 O2 Delivery Room Air Room Air Room Air Room Air General: Awake, alert, no acute distress, listening to music on his phone HEENT: Moist mucous membranes CV: Regular rate and rhythm Lungs: Clear to auscultation bilaterally Abd: Soft, nontender, nondistended Extremities: No edema Neuro: Alert and oriented 2, which is baseline for the patient Psych: Calm and cooperative Labs and Imaging: Laboratory Tests 11/08/16 05:45 Red Blood Count 3.47 L, Mean Corpuscular Volume 98.8 H, Mean Corpuscular Hemoglobin 33.4 H, Mean Corpuscular Hemoglobin Concent 33.8, Red Cell Distribution Width 16.2 H, Neutrophils (%) (Auto) 62.8, Lymphocytes (%) (Auto) 19.1 L, Monocytes (%) (Auto) 6.0 H, Eosinophils (%) (Auto) 7.6 H, Basophils (%) (Auto) 0.5, Neutrophils # (Auto) 3.1, Lymphocytes # (Auto) 1.0 L, Monocytes # ( Auto) 0.3, Eosinophils # (Auto) 0.4, Basophils # (Auto) 0.0, Calcium Level 8.5 L , Aspartate Amino Transf (AST/SGOT) 18, Alanine Aminotransferase (ALT/SGPT) 18, Alkaline Phosphatase 86, Total Bilirubin 0.3, Total Protein 6.0 L, Albumin 2.5 L Assessment and Plan: 60-year-old male with intellectual disability, hypothyroidism, anxiety, depression, avoidant personality disorder, history of C2-C7 fracture, GERD, suspected achalasia or other chronic dilation of the esophagus with associated hiatal hernia, history of aspiration pneumonia now with the PEG tube, who resides at [facility] and was brought to the emergency department after he was noted to be unsteady on his feet and have a fever to 105 and is admitted with septic shock secondary to healthcare associated pneumonia and UTI. 1. Septic shock: Secondary to HCAP and UTI. The patient initially required Levophed, but he is now maintaining his pressure on his own. Septic shock has resolved. 2. Healthcare associated pneumonia: CT of the chest shows a left lower lobe consolidation that has worsened since 2 weeks ago. Patient was initially placed on vancomycin and Levaquin and Zosyn, which has now been narrowed to just Levaquin and Zosyn. His white count has entirely resolved, and he is now afebrile. We will change him to per tube Levaquin and Augmentin. Blood cultures show staph capitis in 1 out of 2 bottles. 3. UTI: The patient has a chronic indwelling Smith catheter. Urine culture grew Pseudomonas. We will continue him on Levaquin, and ensure that his catheter is exchanged prior to discharge. 4. Acute kidney injury: The patient's BUN and creatinine were elevated upon admission, likely secondary to septic shock. This is now resolved. We will stop IV fluids. 5. Hypothyroidism: Continue home Synthroid. 6. Anxiety, depression, avoidant personality disorder: Continue home BuSpar, Celexa, Klonopin, Neurontin, Zyprexa, Risperdal. 7. GERD with suspected achalasia or other chronic dilation of the esophagus with associated hiatal hernia: The patient has a history of aspiration pneumonia in the past, and now receives all of his feeds via PEG tube. Continue PEG feeds, PPI, and Reglan. 8. Hypernatremia: Secondary to free water deficit. We have increased the patient 's free water flushes with his PEG feedings. Sodium is now improving. We will stop IV fluids and monitor overnight. DVT prophylaxis: Lovenox Dispo: hopefully home in the next day or two, depending on how he does with stopping IV fluids and transitioning to oral antibiotics; also pending clearance by PT and OT CODE STATUS: the patient continues to be DNR, but DNI is still pending appropriate approval VS, I&O, 24H, Fishbone Vital Signs/I&O Vital Signs Date Time Temp Pulse Resp B/P (MAP) Pulse Ox O2 Delivery O2 Flow Rate FiO2 11/08/16 06:00 97.6 63 18 116/79 (91) 96 Room Air 11/06/16 08:00 2.0 I&O- Last 24 Hours up to 6 AM 11/08/16 06:00 Intake Total 2925 ml Output Total 2450 ml Balance 475 ml Laboratory Data 24H LABS Laboratory Tests 2 11/08/16 05:45: White Blood Count 5.0, Red Blood Count 3.47L, Hemoglobin 11.6L, Hematocrit 34.2L , Mean Corpuscular Volume 98.8H, Mean Corpuscular Hemoglobin 33.4H, Mean Corpuscular Hemoglobin Concent 33.8, Red Cell Distribution Width 16.2H, Platelet Count 201, Neutrophils (%) (Auto) 62.8, Lymphocytes (%) (Auto) 19.1L, Monocytes (%) (Auto) 6.0H, Eosinophils (%) (Auto) 7.6H, Basophils (%) (Auto) 0.5 , Neutrophils # (Auto) 3.1, Lymphocytes # (Auto) 1.0L, Monocytes # (Auto) 0.3, Eosinophils # (Auto) 0.4, Basophils # (Auto) 0.0, Large Unclassified Cells % 4.0 , Large Unclassified Cells # 0.2, Anion Gap 6L, Glomerular Filtration Rate > 60.0, Blood Urea Nitrogen 12, Creatinine 0.95, Sodium Level 146H, Potassium Level 4.1, Chloride Level 110H, Carbon Dioxide Level 30, Calcium Level 8.5L, Aspartate Amino Transf (AST/SGOT) 18, Alanine Aminotransferase (ALT/SGPT) 18, Alkaline Phosphatase 86, Total Bilirubin 0.3, Total Protein 6.0L, Albumin 2.5L, Magnesium Level 1.9, C-Reactive Protein, Quantitative 0.75H, Albumin/Globulin Ratio 0.71L CBC/BMP Laboratory Tests 11/08/16 05:45 Red Blood Count 3.47 L, Mean Corpuscular Volume 98.8 H, Mean Corpuscular Hemoglobin 33.4 H, Mean Corpuscular Hemoglobin Concent 33.8, Red Cell Distribution Width 16.2 H, Neutrophils (%) (Auto) 62.8, Lymphocytes (%) (Auto) 19.1 L, Monocytes (%) (Auto) 6.0 H, Eosinophils (%) (Auto) 7.6 H, Basophils (%) (Auto) 0.5, Neutrophils # (Auto) 3.1, Lymphocytes # (Auto) 1.0 L, Monocytes # ( Auto) 0.3, Eosinophils # (Auto) 0.4, Basophils # (Auto) 0.0, Calcium Level 8.5 L , Aspartate Amino Transf (AST/SGOT) 18, Alanine Aminotransferase (ALT/SGPT) 18, Alkaline Phosphatase 86, Total Bilirubin 0.3, Total Protein 6.0 L, Albumin 2.5 L Microbiology Microbiology 11/03/16 Blood Culture - Final, Complete Staphylococcus Capitis 11/03/16 Blood Culture - Final, Complete NO GROWTH AFTER 5 DAYS 11/03/16 Urine Culture - Final, Complete Pseudomonas Aeruginosa KATELYN RUIZ Nov 08, 2016 14:08
[2016-11-08] MEDS: ENOXAPARIN 30 MG/0.3 ML SYR (J1650) SC SCH (18:03)
[2016-11-08] MEDS: AUGMENTIN 500 MG TAB GT SCH (20:41)
[2016-11-08 20:50] VITALS: BP 107/69
[2016-11-09 05:50] LABS: BASO % 0.5 % (0.0-1.0); EOS # 0.3 K/mm3 (0.0-0.50); EOS % 4.3 % (0.0-3.0); LARGE UNSTAINED CELL # 0.2 K/mm3 (0.0-0.4); LARGE UNSTAINED CELL % 2.4 % (0.0-4.0); LYMPH # 1.1 K/mm3 (1.5-4.5); LYMPH % 12.3 % (24.0-44.0); MEAN CORPUSCULAR HEMOGLOBIN 32.9 pg (27.0-33.0); MEAN CORPUSCULAR HGB CONC 33.6 g/dl (32.0-36.5); MEAN CORPUSCULAR VOLUME 98.1 fl (80.0-96.0); MONO # 0.4 K/mm3 (0.0-0.8); MONO % 5.4 % (0.0-5.0); NEUTROPHILS # 5.5 K/mm3 (1.8-7.7); PLATELET COUNT, AUTOMATED 219 k/mm3 (150-450); RED CELL DISTRIBUTION WIDTH 16.6 % (11.5-14.5); WHITE BLOOD COUNT 7.4 K/mm3 (4.0-10.0)
[2016-11-09 06:00] VITALS: BP 129/86
[2016-11-09] MEDS ORDERED: LevoFLOXacin 750 MG TABLET GT SCH (06:00)
[2016-11-09] MEDS: PANTOPRAZOLE 40MG INJ (PROTONIX) (C9113) IV SCH (06:06)
[2016-11-09] MEDS: LEVOTHYROXINE 75MCG TABLET (0.075MG) GT SCH (06:06)
[2016-11-09] MEDS: ONDANSETRON 4MG/2ML VIAL (J2405) IV PRN (06:06)
[2016-11-09 06:18] LABS: ALBUMIN/GLOBULIN RATIO 0.83 (1.00-1.93); ALKALINE PHOSPHATASE 90 U/L (45-117); ALT/SGPT 24 U/L (12-78); ANION GAP 6 MEQ/L (8-16); AST/SGOT 22 U/L (15-37); BILIRUBIN,TOTAL 0.3 MG/DL (0.2-1.0); BLOOD UREA NITROGEN 15 MG/DL (7-18); CARBON DIOXIDE LEVEL 32 MEQ/L (21-32); CHLORIDE LEVEL 107 MEQ/L (98-107); CREATININE FOR GFR 0.89 MG/DL (0.70-1.30); GLOMERULAR FILTRATION RATE > 60.0 (>49); GLUCOSE, FASTING 80 MG/DL (80-110); POTASSIUM SERUM 3.9 MEQ/L (3.5-5.1); SODIUM LEVEL 145 MEQ/L (136-145); TOTAL PROTEIN 6.6 GM/DL (6.4-8.2)
[2016-11-09] MEDS: METOCLOPRAMIDE HCL LIQUID 10 MG/10 ML UDC GT SCH ×3 (09:25→16:57)
[2016-11-09] MEDS: MIRALAX *UNIT DOSE* 17GM PACKET GT SCH (09:25)
[2016-11-09] MEDS: CitaloPRAM (CeleXA) 20 MG TAB GT SCH (09:26)
[2016-11-09] MEDS: GABAPENTIN 300 MG CAP GT SCH ×3 (09:26→21:02)
[2016-11-09] MEDS: clonazePAM 0.5 MG TAB GT SCH ×3 (09:26→21:03)
[2016-11-09] MEDS: busPIRone 10 MG TAB GT SCH ×2 (09:26→21:02)
[2016-11-09] MEDS: AUGMENTIN 500 MG TAB GT SCH ×2 (09:26→21:02)
[2016-11-09] MEDS: risperiDONE 1 MG TAB GT SCH (09:27)
[2016-11-09] MEDS: OLANZapine ORAL DISINTEGRATING TAB 5MG GT SCH ×3 (09:27→21:03)
[2016-11-09] MEDS: NYSTATIN 100,000 UNITS/GM TOPICAL PWD 15 GM TOP SCH ×2 (09:28→21:03)
[2016-11-09 13:56] VITALS: BP 86/51
--- NOTE | 2016-11-09 14:20 | IPNPDOC ---
Date Seen The patient was seen on 11/09/16. Progress Note Hospitalist Progress Note Subjective: Patient tells me that he is "feeling better." He also is asking when he will be able to go home. Per nursing, he began having vomiting last evening right before feeds; this is after we adjusted the timing of his free water flushes. Objective: Physical Exam: Vitals: Vital Sign - Last 24 Hours 11/08/16 11/09/16 11/09/16 11/09/16 20:50 06:00 11:15 13:56 Temp 97.2 97.6 98.1 Pulse 70 80 82 Resp 18 16 12 B/P (MAP) 107/69 (82) 129/86 (100) 86/51 (63) Pulse Ox 94 93 91 O2 Delivery Room Air Room Air Room Air Room Air General: Awake, alert, no acute distress HEENT: Moist mucous membranes CV: Regular rate and rhythm Lungs: Clear to auscultation bilaterally Abd: Soft, nontender, nondistended Extremities: No edema Neuro: Alert and oriented 2, which is baseline for the patient Psych: Calm and cooperative Labs and Imaging: Laboratory Tests 11/09/16 05:25 Red Blood Count 3.60 L, Mean Corpuscular Volume 98.1 H, Mean Corpuscular Hemoglobin 32.9, Mean Corpuscular Hemoglobin Concent 33.6, Red Cell Distribution Width 16.6 H, Neutrophils (%) (Auto) 75.0 H, Lymphocytes (%) (Auto ) 12.3 L, Monocytes (%) (Auto) 5.4 H, Eosinophils (%) (Auto) 4.3 H, Basophils (% ) (Auto) 0.5, Neutrophils # (Auto) 5.5, Lymphocytes # (Auto) 1.1 L, Monocytes # (Auto) 0.4, Eosinophils # (Auto) 0.3, Basophils # (Auto) 0.0, Calcium Level 9.0 , Aspartate Amino Transf (AST/SGOT) 22, Alanine Aminotransferase (ALT/SGPT) 24, Alkaline Phosphatase 90, Total Bilirubin 0.3, Total Protein 6.6, Albumin 3.0 L Assessment and Plan: 60-year-old male with intellectual disability, hypothyroidism, anxiety, depression, avoidant personality disorder, history of C2-C7 fracture, GERD, suspected achalasia or other chronic dilation of the esophagus with associated hiatal hernia, history of aspiration pneumonia now with the PEG tube, who resides at [facility] and was brought to the emergency department after he was noted to be unsteady on his feet and have a fever to 105 and is admitted with septic shock secondary to healthcare associated pneumonia and UTI. 1. Septic shock: Secondary to HCAP and UTI. The patient initially required Levophed, but he is now maintaining his pressure on his own. Septic shock has resolved. 2. Healthcare associated pneumonia: CT of the chest shows a left lower lobe consolidation that has worsened since 2 weeks ago. Patient was initially placed on vancomycin and Levaquin and Zosyn, which has now been narrowed to just Levaquin and Augmentin. His white count has entirely resolved, and he is now afebrile. Blood cultures show staph capitis in 1 out of 2 bottles, which is likely a contaminant, especially as the patient has continued to do well on levaquin and augmentin. 3. UTI: The patient has a chronic indwelling Smith catheter. Urine culture grew Pseudomonas. We will continue him on Levaquin, and ensure that his catheter is exchanged prior to discharge. 4. Acute kidney injury: The patient's BUN and creatinine were elevated upon admission, likely secondary to septic shock. This is now resolved. He is off IV fluids. 5. Hypothyroidism: Continue home Synthroid. 6. Anxiety, depression, avoidant personality disorder: Continue home BuSpar, Celexa, Klonopin, Neurontin, Zyprexa, Risperdal. 7. GERD with suspected achalasia or other chronic dilation of the esophagus with associated hiatal hernia: The patient has a history of aspiration pneumonia in the past, and now receives all of his feeds via PEG tube. Continue PEG feeds, PPI, and Reglan. 8. Hypernatremia: Secondary to free water deficit. After further discussion with [facility], we did not have correct information about how often and how much free water the patient receives. We increased the total amount yesterday, after which he was noted to vomit (although residuals were zero). However, we have now learned, that he takes the free water much more frequently and thereby in smaller individual amounts. Will change to his home schedule for free water and reassess vomiting. DVT prophylaxis: Lovenox Dispo: hopefully home in the next day or two, depending on how he does with changing his free water flushes CODE STATUS: the patient continues to be DNR, but DNI is still pending appropriate approval VS, I&O, 24H, Jeannie Vital Signs/I&O Vital Signs Date Time Temp Pulse Resp B/P (MAP) Pulse Ox O2 Delivery O2 Flow Rate FiO2 11/09/16 13:56 98.1 82 12 86/51 (63) 91 Room Air 11/06/16 08:00 2.0 I&O- Last 24 Hours up to 6 AM 11/09/16 06:00 Intake Total 1230 ml Output Total 3575 ml Balance -2345 ml Laboratory Data 24H LABS Laboratory Tests 2 11/09/16 05:25: White Blood Count 7.4, Red Blood Count 3.60L, Hemoglobin 11.9L, Hematocrit 35.3L , Mean Corpuscular Volume 98.1H, Mean Corpuscular Hemoglobin 32.9, Mean Corpuscular Hemoglobin Concent 33.6, Red Cell Distribution Width 16.6H, Platelet Count 219, Neutrophils (%) (Auto) 75.0H, Lymphocytes (%) (Auto) 12.3L, Monocytes (%) (Auto) 5.4H, Eosinophils (%) (Auto) 4.3H, Basophils (%) (Auto) 0.5 , Neutrophils # (Auto) 5.5, Lymphocytes # (Auto) 1.1L, Monocytes # (Auto) 0.4, Eosinophils # (Auto) 0.3, Basophils # (Auto) 0.0, Large Unclassified Cells % 2.4 , Large Unclassified Cells # 0.2, Anion Gap 6L, Glomerular Filtration Rate > 60.0, Blood Urea Nitrogen 15, Creatinine 0.89, Sodium Level 145, Potassium Level 3.9, Chloride Level 107, Carbon Dioxide Level 32, Calcium Level 9.0, Aspartate Amino Transf (AST/SGOT) 22, Alanine Aminotransferase (ALT/SGPT) 24, Alkaline Phosphatase 90, Total Bilirubin 0.3, Total Protein 6.6, Albumin 3.0L, Magnesium Level 2.0, C-Reactive Protein, Quantitative 0.71H, Albumin/Globulin Ratio 0.83L CBC/BMP Laboratory Tests 11/09/16 05:25 Red Blood Count 3.60 L, Mean Corpuscular Volume 98.1 H, Mean Corpuscular Hemoglobin 32.9, Mean Corpuscular Hemoglobin Concent 33.6, Red Cell Distribution Width 16.6 H, Neutrophils (%) (Auto) 75.0 H, Lymphocytes (%) (Auto ) 12.3 L, Monocytes (%) (Auto) 5.4 H, Eosinophils (%) (Auto) 4.3 H, Basophils (% ) (Auto) 0.5, Neutrophils # (Auto) 5.5, Lymphocytes # (Auto) 1.1 L, Monocytes # (Auto) 0.4, Eosinophils # (Auto) 0.3, Basophils # (Auto) 0.0, Calcium Level 9.0 , Aspartate Amino Transf (AST/SGOT) 22, Alanine Aminotransferase (ALT/SGPT) 24, Alkaline Phosphatase 90, Total Bilirubin 0.3, Total Protein 6.6, Albumin 3.0 L Microbiology Microbiology 11/03/16 Blood Culture - Final, Complete Staphylococcus Capitis 11/03/16 Blood Culture - Final, Complete NO GROWTH AFTER 5 DAYS 11/03/16 Urine Culture - Final, Complete Pseudomonas Aeruginosa KATELYN RUIZ Nov 09, 2016 14:20
[2016-11-09] MEDS ORDERED: NS 500 ML IV ONE ×2 (15:00→17:45)
[2016-11-09] MEDS: ENOXAPARIN 30 MG/0.3 ML SYR (J1650) SC SCH (16:57)
[2016-11-09 22:00] VITALS: BP 109/61
[2016-11-10] MEDS: LEVOTHYROXINE 75MCG TABLET (0.075MG) GT SCH (05:41)
[2016-11-10 06:00] VITALS: BP 116/69
[2016-11-10 06:01] LABS: BASO # 0.1 K/mm3 (0.0-0.2); BASO % 0.9 % (0.0-1.0); EOS # 0.2 K/mm3 (0.0-0.50); EOS % 4.1 % (0.0-3.0); LARGE UNSTAINED CELL # 0.2 K/mm3 (0.0-0.4); LARGE UNSTAINED CELL % 3.4 % (0.0-4.0); LYMPH # 1.5 K/mm3 (1.5-4.5); LYMPH % 20.7 % (24.0-44.0); MEAN CORPUSCULAR HEMOGLOBIN 32.9 pg (27.0-33.0); MEAN CORPUSCULAR HGB CONC 33.7 g/dl (32.0-36.5); MEAN CORPUSCULAR VOLUME 97.6 fl (80.0-96.0); MONO # 0.4 K/mm3 (0.0-0.8); MONO % 6.2 % (0.0-5.0); NEUTROPHILS % 64.7 % (36.0-66.0); PLATELET COUNT, AUTOMATED 213 k/mm3 (150-450); RED CELL DISTRIBUTION WIDTH 16.6 % (11.5-14.5); WHITE BLOOD COUNT 6.1 K/mm3 (4.0-10.0)
[2016-11-10 06:36] LABS: ALBUMIN 2.5 GM/DL (3.2-5.2); ALBUMIN/GLOBULIN RATIO 0.66 (1.00-1.93); ALKALINE PHOSPHATASE 73 U/L (45-117); ALT/SGPT 24 U/L (12-78); ANION GAP 8 MEQ/L (8-16); AST/SGOT 21 U/L (15-37); BILIRUBIN,TOTAL 0.3 MG/DL (0.2-1.0); BLOOD UREA NITROGEN 17 MG/DL (7-18); CALCIUM LEVEL 8.5 MG/DL (8.8-10.2); CARBON DIOXIDE LEVEL 28 MEQ/L (21-32); CHLORIDE LEVEL 109 MEQ/L (98-107); CREATININE FOR GFR 0.98 MG/DL (0.70-1.30); GLOMERULAR FILTRATION RATE > 60.0 (>49); GLUCOSE, FASTING 85 MG/DL (80-110); MAGNESIUM LEVEL 1.8 MG/DL (1.8-2.4); POTASSIUM SERUM 4.2 MEQ/L (3.5-5.1); SODIUM LEVEL 145 MEQ/L (136-145); TOTAL PROTEIN 6.3 GM/DL (6.4-8.2)
[2016-11-10] MEDS: METOCLOPRAMIDE HCL LIQUID 10 MG/10 ML UDC GT SCH ×2 (08:46→12:20)
[2016-11-10] MEDS: GABAPENTIN 300 MG CAP GT SCH (08:47)
[2016-11-10] MEDS: OLANZapine ORAL DISINTEGRATING TAB 5MG GT SCH (08:47)
[2016-11-10] MEDS: risperiDONE 1 MG TAB GT SCH (08:48)
[2016-11-10] MEDS: busPIRone 10 MG TAB GT SCH (08:48)
[2016-11-10] MEDS: clonazePAM 0.5 MG TAB GT SCH (08:48)
[2016-11-10] MEDS: CitaloPRAM (CeleXA) 20 MG TAB GT SCH (08:48)
[2016-11-10] MEDS: AUGMENTIN 500 MG TAB GT SCH (08:48)
[2016-11-10] MEDS: NYSTATIN 100,000 UNITS/GM TOPICAL PWD 15 GM TOP SCH (08:49)
[2016-11-10] MEDS: MIRALAX *UNIT DOSE* 17GM PACKET GT SCH (08:49)
[2016-11-10] MEDS ORDERED: LANSOPRAZOLE SUSPENSION 30 MG/10 ML ORAL SYRINGE (FIRST-LANSOPRAZOLE) GT SCH (09:00)
[2016-11-10] MEDS: ONDANSETRON 4MG/2ML VIAL (J2405) IV PRN (10:52)
[2016-11-10] MEDS: LORazepam 2 MG/ML VIAL (J2060) IV PRN (10:52)
[2016-11-10 12:02] VITALS: BP 101/71
[2016-11-10] MEDS ORDERED: AMOX500T2 GT (12:43)
[2016-11-10] MEDS ORDERED: LEVA750T7 GT (12:43)
[2016-11-10 14:00] VITALS: BP_SYST 115; BP_SYST 138; BP_DIAS 72; BP_DIAS 80
--- NOTE | 2016-11-18 11:09 | DS.PDOC ---
Discharge Summary General Date of Admission Nov 03, 2016 at 14:51 Date of Discharge 11/10/2016 Discharge Summary DISCHARGE SUMMARY DATE OF ADMISSION: 11/03/2016 DATE OF DISCHARGE: 11/10/2016 PRIMARY CARE PHYSICIAN: Jose G Toledo DISCHARGE DIAGNOS(E)S: Septic shock secondary to HCAP and UTI Acute kidney injury, likely secondary to septic shock Hypernatremia HPI & HOSPITAL COURSE: 60-year-old male with intellectual disability, hypothyroidism, anxiety, depression, avoidant personality disorder, history of C2-C7 fracture, GERD, suspected achalasia or other chronic dilation of the esophagus with associated hiatal hernia, history of aspiration pneumonia now with the PEG tube, who resides at [facility] and was brought to the emergency department after he was noted to be unsteady on his feet and have a fever to 105 and is admitted with septic shock secondary to healthcare associated pneumonia and UTI. 1. Septic shock: Secondary to HCAP and UTI. The patient initially required Levophed, but he is now maintaining his pressure on his own. Septic shock has resolved. 2. Healthcare associated pneumonia: CT of the chest shows a left lower lobe consolidation that has worsened since 2 weeks ago. Patient was initially placed on vancomycin and Levaquin and Zosyn, which has now been narrowed to just Levaquin and Augmentin. His white count has entirely resolved, and he is now afebrile. Blood cultures show staph capitis in 1 out of 2 bottles, which is likely a contaminant, especially as the patient has continued to do well on levaquin and augmentin. 3. UTI: The patient has a chronic indwelling Smith catheter. Urine culture grew Pseudomonas. We will continue him on Levaquin, and ensure that his catheter is exchanged prior to discharge. 4. Acute kidney injury: The patient's BUN and creatinine were elevated upon admission, likely secondary to septic shock. This is now resolved. He is off IV fluids. 5. Hypothyroidism: Continue home Synthroid. 6. Anxiety, depression, avoidant personality disorder: Continue home BuSpar, Celexa, Klonopin, Neurontin, Zyprexa, Risperdal. 7. GERD with suspected achalasia or other chronic dilation of the esophagus with associated hiatal hernia: The patient has a history of aspiration pneumonia in the past, and now receives all of his feeds via PEG tube. Continue PEG feeds, PPI, and Reglan. 8. Hypernatremia: Secondary to free water deficit. After further discussion with [facility], we did not have correct information about how often and how much free water the patient receives. We increased the total amount 2 days ago, after which he was noted to vomit (although residuals were zero). However, we have now learned, that he takes the free water much more frequently and thereby in smaller individual amounts. We have changed to his home schedule for free water and vomiting has resolved. DVT prophylaxis: Lovenox CODE STATUS: Upon admission, the patient had a valid DNR in place, but no DNI. Upon admission, discussion was had with the patient's guardian, who is his sister, who stated that she wished for the patient to be DNI as well. Appropriate paperwork was completed and signed by 2 attending physicians, myself , and Dr. Libra Saini in the emergency department. However, this request was denied by mental hygiene. Upon discharge, we request that [facility] continue working with mental hygiene and the patient's primary physician to get this in place prior to the patient becoming critically ill again. PHYSICAL EXAMINATION ON DISCHARGE: VITAL SIGNS: Temperature 99.9, heart rate 86, respirations 18, blood pressure 138/72, oxygen saturation 94% on room air General: Awake, alert, no acute distress HEENT: Moist mucous membranes CV: Regular rate and rhythm Lungs: Clear to auscultation bilaterally Abd: Soft, nontender, nondistended Extremities: No edema Neuro: Alert and oriented 2, which is baseline for the patient Psych: Calm and cooperative DISPOSITION: Home to [facility] DISCHARGE INSTRUCTIONS: Patient may return to [facility]. Resume tube feeds and free water flushes as previously given at [facility]. Follow-up with PCP within one week. If symptoms return, or if you experience worsening of your symptoms, please call your doctor or return to the emergency department. ITEMS THAT NEED OUTPATIENT FOLLOWUP: [facility] needs to continue to work with the guardian, primary physician, and mental hygiene to complete the guardian's request of getting a valid DNI order in place. Patient was seen and examined by me on the day of discharge, and I spent a total time of greater than 30 minutes on this discharge. Discharge Medications Scheduled (Twocal Hn) 1 Liq Liq, 1 LIQ GT QID, (Reported) FLUSH WITH 100CC WATER Amoxicillin/Clavulanate Potas (Amoxicillin/Clavulanate P 500-125 mg) 1 Tab Tab, 500 MG GT Q12H Buspirone HCl (Buspirone HCl) 30 Mg Tab, 30 MG GT BID, (Reported) 0730,1530 Citalopram Hydrobromide (Citalopram Hydrobromide) 40 Mg Tab, 40 MG GT DAILY, ( Reported) Clonazepam (Clonazepam) 0.5 Mg Tab, 0.5 MG GT TID, (Reported) AM, 1000, 1530 Cyanocobalamin (Vitamin B-12) 500 Mcg Tab, 500 MCG GT QHS, (Reported) Folic Acid (Folic Acid) 400 Mcg Tab, 400 MCG GT QHS, (Reported) Gabapentin (Neurontin) 300 Mg Cap, 600 MG GT TID, (Reported) 0730,1130,1530 Lansoprazole (Prevacid Solutab) 30 Mg Tab, 30 MG GT DAILY, (Reported) Levofloxacin Hemihydrate (Levaquin) 750 Mg Tab, 750 MG GT Q48H Next dose is due Sept 1 Levothyroxine Sodium (Synthroid) 75 Mcg Tab, 75 MCG GT DAILY, (Reported) Metoclopramide HCl (Metoclopramide HCl) 5 Mg/5 Ml Liq, 10 MG GT AC, (Reported) 30 MINUTES PRIOR TO MEALS OLANZapine DISINTEGRATING (Olanzapine Odt) 15 Mg Tab, 15 MG GT TID, (Reported) DISSOLVE IN FLUID, 0800,1200,1530 Polyethylene Glycol (Miralax) 1 Pow Pow, 17 GM GT DAILY, (Reported) Polyethylene Glycol (Miralax) 1 Pow Pow, 17 GM GT ASDIRECTED, (Reported) GIVE ON DAYS 3, 4, & 5 OF NO BM Risperidone (Risperdal) 1 Mg Tab, 1 MG GT DAILY, (Reported) Scheduled PRN Acetaminophen (Tylenol) 325 Mg Tab, 650 MG GT Q4H PRN for PAIN, (Reported) PATIENT TAKES LIQUID TYLENOL 500MG/15ML Allergies Coded Allergies: No Known Drug Allergy (Verified Allergy, Unknown, CAREGIVER SAYS NO ALLERGIES, 05/31/16) KATELYN RUIZ Nov 18, 2016 11:09
== END 2016-11-10 14:28 | disposition home or self-care (01) | DRG 871 ==
LOC: EDBD 09:33 → M ED 09:33 → M ED INP 14:51 → M ICU 15:55 → M PCU 11-05 16:15 → M MSPAV 11-07 16:53
PROVIDERS: ADMIT Hospitalist; ATTEND Hospitalist
DX: A41.9 Sepsis, unspecified organism (principal); R65.21 Severe sepsis with septic shock; J18.9 Pneumonia, unspecified organism; N17.9 Acute kidney failure, unspecified; N39.0 Urinary tract infection, site not specified; E87.0 Hyperosmolality and hypernatremia; F79 Unspecified intellectual disabilities; K44.9 Diaphragmatic hernia without obstruction or gangrene; E03.9 Hypothyroidism, unspecified; B96.5 Pseudomonas (aeruginosa) (mallei) (pseudomallei) as the cause of diseases classified elsewhere; K22.0 Achalasia of cardia; F41.9 Anxiety disorder, unspecified; F32.9 Major depressive disorder, single episode, unspecified; K21.9 Gastro-esophageal reflux disease without esophagitis; F60.6 Avoidant personality disorder; Z96.0 Presence of urogenital implants; Z93.1 Gastrostomy status; Z66 Do not resuscitate; Y95 Nosocomial condition

== ENCOUNTER → 2016-11-23 | Outpatient (CLI) | payer MEDICARE, MEDICAID ==
[~2016-11-23] MED LIST changes: +ACET500L PO; +AMOX500T2 GT; +AUGM500T34 GT; +AUGM500T34 PO; +LEVA1.256 INH; +LEVA750T7 GT; +TYLE325T5 GT
[2016-11-23 13:27] LABS: ANION GAP 4 MEQ/L (8-16); BLOOD UREA NITROGEN 27 MG/DL (7-18); CALCIUM LEVEL 9.8 MG/DL (8.8-10.2); CARBON DIOXIDE LEVEL 35 MEQ/L (21-32); CHLORIDE LEVEL 100 MEQ/L (98-107); CREATININE FOR GFR 0.98 MG/DL (0.70-1.30); GLOMERULAR FILTRATION RATE > 60.0 (>49); GLUCOSE, FASTING 85 MG/DL (80-110); POTASSIUM SERUM 4.4 MEQ/L (3.5-5.1); SODIUM LEVEL 139 MEQ/L (136-145)
== END ==
LOC: M WUC 09:00
PROVIDERS: ATTEND Internal Medicine
DX: E87.0 Hyperosmolality and hypernatremia (principal)

== ENCOUNTER → 2016-12-08 | Outpatient (CLI) | payer MEDICARE, MEDICAID ==
--- NOTE | 2016-12-08 09:29 | REP ---
Chest two views HISTORY: Pneumonia Comparison: 11/03/2016 The lungs are clear. The heart is upper limits of normal in size. The pulmonary vasculature is normal in appearance. There are old left rib fractures. Degenerative change is present in the thoracic spine. IMPRESSION: No acute disease. Signed by Harman Wade MD 12/08/2016 09:20 A
== END ==
LOC: M WUC 08:57
PROVIDERS: ATTEND Family Medicine
DX: J18.9 Pneumonia, unspecified organism (principal)

== ENCOUNTER 2016-12-27 20:18 | Emergency (ER) | payer MEDICARE, MEDICAID ==
[~2016-12-27] VITALS: Ht 177.8 cm; Wt 55.0 kg
[~2016-12-27 20:18] MED LIST changes: -ACET500L PO; -AUGM500T34 GT; -AUGM500T34 PO; -LEVA1.256 INH
[2016-12-27 22:12] LABS: BASO % 0.1 % (0.0-1.0); EOS # 0.2 10^3/uL (0.0-0.50); EOS % 1.6 % (0.0-3.0); IMMATURE GRANULOCYTE % 0.4 % (0-0); LYMPH # 1.7 10^3/uL (1.5-4.5); LYMPH % 17.3 % (24.0-44.0); MEAN CORPUSCULAR HEMOGLOBIN 32.5 pg (27.0-33.0); MEAN CORPUSCULAR HGB CONC 32.5 g/dl (32.0-36.5); MONO # 1.4 10^3/uL (0.0-0.8); MONO % 14.8 % (0.0-5.0); NEUTROPHILS # 6.3 10^3/uL (1.8-7.7); NEUTROPHILS % 65.8 % (36.0-66.0); PLATELET COUNT, AUTOMATED 180 10^3/uL (150-450); RED CELL DISTRIBUTION WIDTH 15.7 % (11.5-14.5); WHITE BLOOD COUNT 9.6 10^3/uL (4.0-10.0)
[2016-12-27] MEDS ORDERED: NS 500 ML IV ONE (23:15)
[2016-12-27 23:35] LABS: ANION GAP 4 MEQ/L (8-16); BLOOD UREA NITROGEN 20 MG/DL (7-18); CALCIUM LEVEL 8.7 MG/DL (8.8-10.2); CARBON DIOXIDE LEVEL 33 MEQ/L (21-32); CHLORIDE LEVEL 102 MEQ/L (98-107); CREATININE FOR GFR 0.96 MG/DL (0.70-1.30); GLOMERULAR FILTRATION RATE > 60.0 (>49); GLUCOSE, FASTING 87 MG/DL (80-110); POTASSIUM SERUM 3.6 MEQ/L (3.5-5.1); SODIUM LEVEL 139 MEQ/L (136-145)
[2016-12-28] MEDS ORDERED: FUROSEMIDE 20 MG/2 ML VIAL (J1940) IV ONE
[2016-12-28] MEDS ORDERED: AUGM500T34 PO (00:05)
[2016-12-28 00:14] VITALS: BP 110/75
[2016-12-28] MEDS ORDERED: AUGMENTIN 500 MG TAB PO ONE (00:15)
--- NOTE | 2016-12-28 08:28 | ECGEPIP ---
Stationary ECG Study [facility] - ED Test Date: 2016-12-27 Pat Name: MAURICIO BOBBY Department: Room: - Gender: M Healthcare Administrator: : 1955 Requested By: ANAHY Gibbs Order Number: [id number] Reading MD: Libra Williamson Measurements Intervals [place] Rate: 77 P: 14 MA: 109 QRS: -21 QRSD: 96 T: 4 QT: 404 QTc: 460 Interpretive Statements SINUS RHYTHM WITH SHORT MA INTERVAL BORDERLINE LEFT AXIS DEVIATION NONSPECIFIC T-WAVE ABNORMALITY PROLONGED QTC DECREASED RATE 11/03/16 Electronically Signed On 12-28-2016 8:27:33 EDT by Libra Williamson
--- NOTE | 2016-12-28 09:03 | REP ---
CHEST, TWO VIEWS: HISTORY: Cough. COMPARISON: 12/08/2016 Increased density is present in the lower lobes consistent with bibasilar atelectasis or infiltrates. The heart is normal in size. The pulmonary vasculature is normal in appearance. The bony structure is intact. IMPRESSION: Bibasilar atelectasis or infiltrates. Signed by Harman Wade MD 12/28/2016 09:04 A
[2016-12-29] MEDS ORDERED: LEVA1.256 INH (06:10)
[2016-12-29] MEDS ORDERED: ACET500L PO (06:10)
[2016-12-29] MEDS ORDERED: AUGM500T34 GT (06:10)
== END 2016-12-28 00:47 | disposition home or self-care (01) ==
LOC: M ED 20:18
DX: R50.9 Fever, unspecified (principal); J18.9 Pneumonia, unspecified organism; Z87.09 Personal history of other diseases of the respiratory system; Z87.448 Personal history of other diseases of urinary system; Z79.899 Other long term (current) drug therapy
CPT/HCPCS: 71020; 80048; 83605; 83880; 85025; 87040; 87804; 87880; 93005; 96374; 99285; J1940

== ENCOUNTER 2016-12-29 03:07 | Observation (INO) | payer MEDICARE, MEDICAID ==
[~2016-12-29] VITALS: Ht 165.1 cm; Wt 55.9 kg
[~2016-12-29 03:07] MED LIST changes: +AUGM500T34 PO
[2016-12-29 03:58] LABS: BASO % 0.2 % (0.0-1.0); EOS # 0.4 10^3/uL (0.0-0.50); EOS % 4.8 % (0.0-3.0); IMMATURE GRANULOCYTE % 0.5 % (0-0); LYMPH # 1.1 10^3/uL (1.5-4.5); MEAN CORPUSCULAR HEMOGLOBIN 32.6 pg (27.0-33.0); MEAN CORPUSCULAR HGB CONC 32.9 g/dl (32.0-36.5); MEAN CORPUSCULAR VOLUME 99.1 fl (80.0-96.0); MONO # 1.1 10^3/uL (0.0-0.8); MONO % 13.4 % (0.0-5.0); NEUTROPHILS # 5.5 10^3/uL (1.8-7.7); NEUTROPHILS % 68.1 % (36.0-66.0); PLATELET COUNT, AUTOMATED 203 10^3/uL (150-450); RED CELL DISTRIBUTION WIDTH 15.4 % (11.5-14.5); WHITE BLOOD COUNT 8.1 10^3/uL (4.0-10.0)
[2016-12-29 04:17] LABS: ANION GAP 5 MEQ/L (8-16); BLOOD UREA NITROGEN 18 MG/DL (7-18); CALCIUM LEVEL 8.6 MG/DL (8.8-10.2); CARBON DIOXIDE LEVEL 32 MEQ/L (21-32); CHLORIDE LEVEL 104 MEQ/L (98-107); CREATININE FOR GFR 0.97 MG/DL (0.70-1.30); GLOMERULAR FILTRATION RATE > 60.0 (>49); GLUCOSE, FASTING 95 MG/DL (80-110); SODIUM LEVEL 141 MEQ/L (136-145)
[2016-12-29 04:19] LABS: ABG BASE EXCESS 6.4 (-2.0-2.0); ABG HCO3 30.7 MEQ/L (22.0-26.0); ABG PARTIAL PRESSURE O2 60.8 mmHg (75.0-100.0); ABG STANDARD HCO3 30.2 MEQ/L (22.0-26.0); ABG TOTAL CO2 32.1 MEQ/L (23.0-31.0); ABG pH (ARTERIAL) 7.472 UNITS (7.350-7.450)
[2016-12-29] MEDS ORDERED: ONDANSETRON 4MG/2ML VIAL (J2405) IV PRN (05:45)
[2016-12-29] MEDS ORDERED: ACETAMINOPHEN TAB 650MG DOSE (2X325MG) PEG PRN (05:45)
--- NOTE | 2016-12-29 05:56 | HPEPDOC ---
General Date of Admission 12/29/16 Primary Care Physician: Jose G Toledo [facility] Attending Physician: ERICA JOLLEY MD Chief Complaint The patient is a 61-year-old male admitted with a reason for visit of SOB. Source: [facility] Caregiver/Aid History of Present Illness 60-year-old male with intellectual disability, hypothyroidism, anxiety, depression, avoidant personality disorder, history of C2-C7 fracture, GERD, suspected achalasia or other chronic dilation of the esophagus with associated hiatal hernia, history of aspiration pneumonia, PEG tube, who resides at [facility] was brought into the emergency department after he was noted to be hypoxic at the facility. The patient was noted to be saturating in the low 80s on room air. He was seen here in the ER on 12/27 for possible aspiration pneumonia, and was discharged on antibiotics. However, the patient has been spiking fevers over at the [facility], and has been requiring 2-3 L of nausea via nasal cannula. The extent of this history was obtained by the ER physician, and [facility] personnel who is at the bedside. In the ER, a chest x-ray revealed possible right lower lobe infiltrate. Patient was also noted to be hypoxemic with a PO2 of 60 on ABG. The patient will be admitted to the hospitalist service for further evaluation and management of aspiration pneumonia. Home Medications Scheduled (Twocal Hn) 1 Liq Liq, 1 LIQ GT QID, (Reported) FLUSH WITH 100CC WATER Amoxicillin/Clavulanate Potas (Augmentin 500-125 mg) 1 Tab Tab, 500 MG PO Q12H Buspirone HCl (Buspirone HCl) 30 Mg Tab, 30 MG GT BID, (Reported) 0730,1530 Citalopram Hydrobromide (Citalopram Hydrobromide) 40 Mg Tab, 40 MG GT DAILY, ( Reported) Clonazepam (Clonazepam) 0.5 Mg Tab, 0.5 MG GT TID, (Reported) AM, 1000, 1530 Cyanocobalamin (Vitamin B-12) 500 Mcg Tab, 500 MCG GT QHS, (Reported) Folic Acid (Folic Acid) 400 Mcg Tab, 400 MCG GT QHS, (Reported) Gabapentin (Neurontin) 300 Mg Cap, 600 MG GT TID, (Reported) 0730,1130,1530 Lansoprazole (Prevacid Solutab) 30 Mg Tab, 30 MG GT DAILY, (Reported) Levofloxacin Hemihydrate (Levaquin) 750 Mg Tab, 750 MG GT Q48H Next dose is due Sept 1 Levothyroxine Sodium (Synthroid) 75 Mcg Tab, 75 MCG GT DAILY, (Reported) Metoclopramide HCl (Metoclopramide HCl) 5 Mg/5 Ml Liq, 10 MG GT AC, (Reported) 30 MINUTES PRIOR TO MEALS OLANZapine DISINTEGRATING (Olanzapine Odt) 15 Mg Tab, 15 MG GT TID, (Reported) DISSOLVE IN FLUID, 0800,1200,1530 Polyethylene Glycol (Miralax) 1 Pow Pow, 17 GM GT DAILY, (Reported) Polyethylene Glycol (Miralax) 1 Pow Pow, 17 GM GT ASDIRECTED, (Reported) GIVE ON DAYS 3, 4, & 5 OF NO BM Risperidone (Risperdal) 1 Mg Tab, 1 MG GT DAILY, (Reported) Scheduled PRN Acetaminophen (Tylenol) 325 Mg Tab, 650 MG GT Q4H PRN for PAIN, (Reported) PATIENT TAKES LIQUID TYLENOL 500MG/15ML Allergies Coded Allergies: No Known Drug Allergy (Verified Allergy, Unknown, CAREGIVER SAYS NO ALLERGIES, 05/31/16) Past Medical History Medical History As noted in HPI. Surgical History Status post PEG tube placement Family History Significant Family History: No pertinent family hx Social History * Smoker: Denies Alcohol: Denies Drugs: denies Lives at the [facility]. Review of Symptoms Other systems Unable to fully and reliably obtain secondary to baseline intellectual disability. Physical Examination General Exam: Positive: Cooperative, No Acute Distress ENT Exam: Positive: Atraumatic, Mucous membr. moist/pink Neck Exam: Negative: JVD Chest Exam: Positive: Diminished Heart Exam: Positive: Rate Normal, Normal S1, Normal S2 Abdomen Exam: Positive: Soft, Negative: Tenderness Extremity Exam: Negative: Tenderness, Swelling Vital Signs Vital Signs Date Time Temp Pulse Resp B/P (MAP) Pulse Ox O2 Delivery O2 Flow Rate FiO2 12/29/16 04:46 18 117/79 (92) 91 12/29/16 03:59 99.4 87 Laboratory Data Labs 24H Laboratory Tests 2 12/29/16 03:35: Immature Granulocyte % (Auto) 0.5H, White Blood Count 8.1, Red Blood Count 3.50L , Hemoglobin 11.4L, Hematocrit 34.7L, Mean Corpuscular Volume 99.1H, Mean Corpuscular Hemoglobin 32.6, Mean Corpuscular Hemoglobin Concent 32.9, Red Cell Distribution Width 15.4H, Platelet Count 203, Neutrophils (%) (Auto) 68.1H, Lymphocytes (%) (Auto) 13.0L, Monocytes (%) (Auto) 13.4H, Eosinophils (%) (Auto ) 4.8H, Basophils (%) (Auto) 0.2, Neutrophils # (Auto) 5.5, Lymphocytes # (Auto ) 1.1L, Monocytes # (Auto) 1.1H, Eosinophils # (Auto) 0.4, Basophils # (Auto) 0.0, Immature Granulocyte # (Auto) 0.0, Nucleated Red Blood Cells % (auto) 0.0, Blood Gas Bicarbonate Standard 30.2H, Arterial Blood pH 7.472H, Arterial Blood Partial Pressure CO2 43.0, Arterial Blood Partial Pressure O2 60.8L, Arterial Blood Total CO2 32.1H, Arterial Blood HCO3 30.7H, Arterial Blood Base Excess 6.4H, Arterial Blood Oxygen Saturation 92.4L, Anion Gap 5L, Glomerular Filtration Rate > 60.0, Lactic Acid Level 1.3, Blood Urea Nitrogen 18, Creatinine 0.97, Sodium Level 141, Potassium Level 4.0, Chloride Level 104, Carbon Dioxide Level 32, Calcium Level 8.6L CBC/BMP Laboratory Tests 12/29/16 03:35 Red Blood Count 3.50 L, Mean Corpuscular Volume 99.1 H, Mean Corpuscular Hemoglobin 32.6, Mean Corpuscular Hemoglobin Concent 32.9, Red Cell Distribution Width 15.4 H, Neutrophils (%) (Auto) 68.1 H, Lymphocytes (%) (Auto ) 13.0 L, Monocytes (%) (Auto) 13.4 H, Eosinophils (%) (Auto) 4.8 H, Basophils ( %) (Auto) 0.2, Neutrophils # (Auto) 5.5, Lymphocytes # (Auto) 1.1 L, Monocytes # (Auto) 1.1 H, Eosinophils # (Auto) 0.4, Basophils # (Auto) 0.0, Calcium Level 8.6 L Plan / VTE VTE Prophylaxis Ordered?: Yes Plan Plan Hypoxemia 2/2 Recurrent Aspiration PNA CXR noted The patient has been afebrile here, with a normal white blood cell count In addition, the patient's lactic acid level is also within normal limits Sputum cultures ordered We will start the patient on Unasyn We will continue to monitor the patient's respiratory status, and down titrate supplemental oxygen as tolerated. The patient may need to be ultimately discharged on supplemental oxygen. Hypothyroidism Continue of thyroxine History of aspiration pneumonia, with suspected achalasia s/p PEG Tube History of avoidant personality disorder Continue current regimen GERD Continue PPI History of intellectual disability DVT prophylaxis Lovenox The patient will be admitted under the service of Dr. Jolley, who will begin to follow the patient on 12/29/16 at 7am SVETA GARCIA MD Dec 29, 2016 05:56
[2016-12-29] MEDS ORDERED: cefTRIAXone SOD 1 GM in D5W 50 ML IV ONE (06:00)
[2016-12-29] MEDS ORDERED: LEVA1.256 INH (06:10)
[2016-12-29] MEDS ORDERED: AUGM500T34 GT (06:10)
[2016-12-29] MEDS ORDERED: ACET500L PO (06:10)
[2016-12-29] MEDS: AMPICILLIN SOD/SULBACTAM SOD 3 GM in D5W MINI-BAG PLUS 100 ML IV SCH ×3 (06:37→18:25)
[2016-12-29] MEDS ORDERED: LEVALBUTEROL 1.25 MG/0.5 ML CONCENTRATE NEB INH PRN (06:45)
--- NOTE | 2016-12-29 07:12 | ECGEPIP ---
Stationary ECG Study [facility] - ED Test Date: 2016-12-29 Pat Name: MAURICIO BOBBY Department: Room: [facility] Gender: M Conservation Engineer: rn : 1955 Requested By: ANAHY Gibbs Order Number: [id number] Reading MD: Libra Williamson Measurements Intervals [place] Rate: 84 P: 63 TN: 118 QRS: -34 QRSD: 98 T: 45 QT: 399 QTc: 472 Interpretive Statements SINUS RHYTHM WITH SHORT TN INTERVAL MARKED LEFT AXIS DEVIATION LOW QRS VOLTAGE IN EXTREMITY LEADS NSTTW ABNORMALITY PROLONGED QTC SIMILAR 12/27/16 Electronically Signed On 12-29-2016 7:12:21 EDT by Libra Williamson
[2016-12-29 08:15] VITALS: BP 128/92
--- NOTE | 2016-12-29 08:45 | REP ---
Chest AP and lateral views, patient sitting: Comparisons are 12/27/2016 and 12/08/[address] of 11/03/2016. The The patient has a known large hiatal hernia. There is increased radiodensity posteriorly on the lateral view compatible with a lower lobe infiltrate. This is difficult to lateralize, however, on the AP there is focal increased density above the right hemidiaphragm, suggesting that this is likely a right lower lobe infiltrate. Left lung is clear. Cardiac size is normal. The shashank, mediastinum, and bony thorax are unremarkable. Impression: Lower lobe infiltrate, likely in the right lower lobe as described. Large fixed hiatal hernia. Signed by Paddy Tate MD 12/29/2016 08:37 A
[2016-12-29] MEDS: LORazepam 2 MG/ML VIAL (J2060) IV PRN (09:26)
[2016-12-29] MEDS: ENOXAPARIN 30 MG/0.3 ML SYR (J1650) SC SCH (09:27)
[2016-12-29] MEDS: busPIRone 10 MG TAB GT SCH ×2 (09:27→16:30)
[2016-12-29] MEDS: clonazePAM 0.5 MG TAB GT SCH ×3 (09:27→16:31)
[2016-12-29] MEDS: CitaloPRAM (CeleXA) 20 MG TAB GT SCH (09:27)
[2016-12-29] MEDS: MIRALAX *UNIT DOSE* 17GM PACKET GT SCH (09:27)
[2016-12-29] MEDS: GABAPENTIN 300 MG CAP GT SCH ×3 (09:27→16:31)
[2016-12-29] MEDS: risperiDONE 1 MG TAB GT SCH (10:29)
[2016-12-29] MEDS: LEVOTHYROXINE 75MCG TABLET (0.075MG) GT SCH (10:29)
[2016-12-29] MEDS: METOCLOPRAMIDE HCL LIQUID 10 MG/10 ML UDC GT SCH ×4 (10:30→20:35)
[2016-12-29] MEDS: LANSOPRAZOLE SUSPENSION 30 MG/10 ML ORAL SYRINGE (FIRST-LANSOPRAZOLE) GT SCH (10:30)
[2016-12-29] MEDS: OLANZapine ORAL DISINTEGRATING TAB 5MG GT SCH ×3 (10:30→16:31)
[2016-12-29 14:00] VITALS: BP 103/70
[2016-12-29] MEDS: CYANOCOBALAMIN 500 MCG TAB GT SCH (20:35)
[2016-12-29 22:00] VITALS: BP 98/62
[2016-12-30] MEDS: AMPICILLIN SOD/SULBACTAM SOD 3 GM in D5W MINI-BAG PLUS 100 ML IV SCH ×4 (00:09→18:15)
[2016-12-30] MEDS: LEVOTHYROXINE 75MCG TABLET (0.075MG) GT SCH (05:52)
[2016-12-30 06:00] VITALS: BP 104/74
[2016-12-30 06:42] LABS: BASO # 0.1 10^3/uL (0.0-0.2); BASO % 0.7 % (0.0-1.0); EOS # 0.4 10^3/uL (0.0-0.50); EOS % 6.4 % (0.0-3.0); LYMPH % 14.2 % (24.0-44.0); MEAN CORPUSCULAR HEMOGLOBIN 32.3 pg (27.0-33.0); MEAN CORPUSCULAR HGB CONC 32.2 g/dl (32.0-36.5); MEAN CORPUSCULAR VOLUME 100.3 fl (80.0-96.0); MONO # 0.8 10^3/uL (0.0-0.8); MONO % 10.9 % (0.0-5.0); NEUTROPHILS # 4.5 10^3/uL (1.8-7.7); NEUTROPHILS % 65.8 % (36.0-66.0); PLATELET COUNT, AUTOMATED 212 10^3/uL (150-450); RED CELL DISTRIBUTION WIDTH 15.3 % (11.5-14.5); WHITE BLOOD COUNT 6.9 10^3/uL (4.0-10.0)
[2016-12-30 07:01] LABS: ALBUMIN 2.9 GM/DL (3.2-5.2); ALBUMIN/GLOBULIN RATIO 0.67 (1.00-1.93); ALKALINE PHOSPHATASE 112 U/L (45-117); ALT/SGPT 28 U/L (12-78); ANION GAP 6 MEQ/L (8-16); AST/SGOT 21 U/L (15-37); BILIRUBIN,TOTAL 0.4 MG/DL (0.2-1.0); BLOOD UREA NITROGEN 20 MG/DL (7-18); CALCIUM LEVEL 9.4 MG/DL (8.8-10.2); CARBON DIOXIDE LEVEL 32 MEQ/L (21-32); CHLORIDE LEVEL 104 MEQ/L (98-107); CREATININE FOR GFR 0.94 MG/DL (0.70-1.30); GLOMERULAR FILTRATION RATE > 60.0 (>49); GLUCOSE, FASTING 94 MG/DL (80-110); MAGNESIUM LEVEL 1.9 MG/DL (1.8-2.4); POTASSIUM SERUM 4.3 MEQ/L (3.5-5.1); SODIUM LEVEL 142 MEQ/L (136-145); TOTAL PROTEIN 7.2 GM/DL (6.4-8.2)
[2016-12-30] MEDS: risperiDONE 1 MG TAB GT SCH (08:24)
[2016-12-30] MEDS: clonazePAM 0.5 MG TAB GT SCH ×3 (08:25→16:43)
[2016-12-30] MEDS: CitaloPRAM (CeleXA) 20 MG TAB GT SCH (08:25)
[2016-12-30] MEDS: busPIRone 10 MG TAB GT SCH ×2 (08:25→16:44)
[2016-12-30] MEDS: MIRALAX *UNIT DOSE* 17GM PACKET GT SCH (08:26)
[2016-12-30] MEDS: GABAPENTIN 300 MG CAP GT SCH ×3 (08:26→16:42)
[2016-12-30] MEDS: METOCLOPRAMIDE HCL LIQUID 10 MG/10 ML UDC GT SCH ×4 (08:26→22:14)
[2016-12-30] MEDS: OLANZapine ORAL DISINTEGRATING TAB 5MG GT SCH ×3 (08:27→16:43)
[2016-12-30] MEDS: LANSOPRAZOLE SUSPENSION 30 MG/10 ML ORAL SYRINGE (FIRST-LANSOPRAZOLE) GT SCH (08:29)
[2016-12-30] MEDS: ENOXAPARIN 30 MG/0.3 ML SYR (J1650) SC SCH (08:33)
--- NOTE | 2016-12-30 13:04 | IPNPDOC ---
Subjective Date Seen The patient was seen on 12/30/16. Subjective Chief Complaint/HPI The patient is a 61-year-old male admitted with a reason for visit of Aspiration Pneumonia. Events since last encounter pateint does not offer any complaints says" i am fine" " can i go home? ". no fever documented, no complaints of vomiting or diarrhea , no abdominal pain. Objective Physical Examination General Exam: Positive: Alert, Cooperative, No Acute Distress Eye Exam: Positive: PERRLA, Conjunctiva & lids normal, EOMI, Negative: Sclera icteric ENT Exam: Positive: Atraumatic, Mucous membr. moist/pink Neck Exam: Negative: JVD Chest Exam: Positive: Rales, Diminished Heart Exam: Positive: Rate Normal, Normal S1, Normal S2 Abdomen Exam: Positive: Normal bowel sounds, Soft, Negative: Tenderness Extremity Exam: Negative: Cyanosis, Edema, Tenderness, Swelling, Other Assessment /Plan Problems (1) Aspiration pneumonia Status: Acute Problem Text: will continue with unasyn. (2) Acute respiratory failure with hypoxemia Status: Acute Problem Text: continue with oxygen supplementation may need to go home with oxygen. (3) PEG (percutaneous endoscopic gastrostomy) status Status: Chronic Problem Text: continue NPO , continue feeding through PEG tube (4) Anxiety and depression Status: Chronic Problem Text: continue home medications. (5) Developmental disability Status: Chronic Problem Text: resident of [facility]. (6) Esophageal dilatation Status: Chronic Problem Text: probably has achalasia (7) GERD (gastroesophageal reflux disease) Status: Chronic (8) Hypothyroidism Status: Chronic Problem Text: continue synthroid Plan/VTE VTE Prophylaxis Ordered?: Yes VS, I&O, [facility] Signs/I&O Vital Signs Date Time Temp Pulse Resp B/P (MAP) Pulse Ox O2 Delivery O2 Flow Rate FiO2 12/30/16 06:00 97.6 68 18 104/74 (84) 96 Nasal Cannula 2.0 I&O- Last 24 Hours up to 6 AM 12/31/16 06:00 Intake Total 100 ml Output Total 0 ml Balance 100 ml Laboratory Data 24H LABS Laboratory Tests 2 12/30/16 05:53: Immature Granulocyte % (Auto) 2.0H, White Blood Count 6.9, Red Blood Count 3.72L , Hemoglobin 12.0L, Hematocrit 37.3L, Mean Corpuscular Volume 100.3H, Mean Corpuscular Hemoglobin 32.3, Mean Corpuscular Hemoglobin Concent 32.2, Red Cell Distribution Width 15.3H, Platelet Count 212, Neutrophils (%) (Auto) 65.8, Lymphocytes (%) (Auto) 14.2L, Monocytes (%) (Auto) 10.9H, Eosinophils (%) (Auto ) 6.4H, Basophils (%) (Auto) 0.7, Neutrophils # (Auto) 4.5, Lymphocytes # (Auto ) 1.0L, Monocytes # (Auto) 0.8, Eosinophils # (Auto) 0.4, Basophils # (Auto) 0.1 , Immature Granulocyte # (Auto) 0.1H, Nucleated Red Blood Cells % (auto) 0.0, Anion Gap 6L, Glomerular Filtration Rate > 60.0, Blood Urea Nitrogen 20H, Creatinine 0.94, Sodium Level 142, Potassium Level 4.3, Chloride Level 104, Carbon Dioxide Level 32, Calcium Level 9.4, Aspartate Amino Transf (AST/SGOT) 21 , Alanine Aminotransferase (ALT/SGPT) 28, Alkaline Phosphatase 112, Total Bilirubin 0.4, Total Protein 7.2, Albumin 2.9L, Magnesium Level 1.9, Albumin/ Globulin Ratio 0.67L CBC/BMP Laboratory Tests 12/30/16 05:53 Red Blood Count 3.72 L, Mean Corpuscular Volume 100.3 H, Mean Corpuscular Hemoglobin 32.3, Mean Corpuscular Hemoglobin Concent 32.2, Red Cell Distribution Width 15.3 H, Neutrophils (%) (Auto) 65.8, Lymphocytes (%) (Auto) 14.2 L, Monocytes (%) (Auto) 10.9 H, Eosinophils (%) (Auto) 6.4 H, Basophils (% ) (Auto) 0.7, Neutrophils # (Auto) 4.5, Lymphocytes # (Auto) 1.0 L, Monocytes # (Auto) 0.8, Eosinophils # (Auto) 0.4, Basophils # (Auto) 0.1, Calcium Level 9.4 , Aspartate Amino Transf (AST/SGOT) 21, Alanine Aminotransferase (ALT/SGPT) 28, Alkaline Phosphatase 112, Total Bilirubin 0.4, Total Protein 7.2, Albumin 2.9 L Microbiology Microbiology 12/29/16 Gram Stain - Final, Resulted 12/29/16 Sputum Culture, Resulted Pending ERICA TORRES MD Dec 30, 2016 13:04
[2016-12-30 14:00] VITALS: BP 110/77
[2016-12-30] MEDS: LORazepam 2 MG/ML VIAL (J2060) IV PRN (14:41)
[2016-12-30 21:25] VITALS: BP 91/54
[2016-12-30] MEDS: CYANOCOBALAMIN 500 MCG TAB GT SCH (22:14)
[2016-12-31] MEDS: AMPICILLIN SOD/SULBACTAM SOD 3 GM in D5W MINI-BAG PLUS 100 ML IV SCH ×4 (00:21→18:14)
[2016-12-31 05:00] VITALS: BP 108/71
[2016-12-31] MEDS: LEVOTHYROXINE 75MCG TABLET (0.075MG) GT SCH (05:57)
[2016-12-31] MEDS: risperiDONE 1 MG TAB GT SCH (08:16)
[2016-12-31] MEDS: busPIRone 10 MG TAB GT SCH ×2 (08:17→16:37)
[2016-12-31] MEDS: CitaloPRAM (CeleXA) 20 MG TAB GT SCH (08:17)
[2016-12-31] MEDS: OLANZapine ORAL DISINTEGRATING TAB 5MG GT SCH ×3 (08:18→16:36)
[2016-12-31] MEDS: clonazePAM 0.5 MG TAB GT SCH ×3 (08:18→16:38)
[2016-12-31] MEDS: LANSOPRAZOLE SUSPENSION 30 MG/10 ML ORAL SYRINGE (FIRST-LANSOPRAZOLE) GT SCH (08:19)
[2016-12-31] MEDS: METOCLOPRAMIDE HCL LIQUID 10 MG/10 ML UDC GT SCH ×4 (08:19→21:12)
[2016-12-31] MEDS: GABAPENTIN 300 MG CAP GT SCH ×3 (08:20→16:38)
[2016-12-31] MEDS: ENOXAPARIN 30 MG/0.3 ML SYR (J1650) SC SCH (08:21)
[2016-12-31] MEDS: MIRALAX *UNIT DOSE* 17GM PACKET GT SCH (08:28)
[2016-12-31] MEDS ORDERED: INFLUENZA QUADRIVALENT PF VACCINE 0.5ML SYRINGE (90686) IM ONE (09:00)
--- NOTE | 2016-12-31 11:59 | IPNPDOC ---
Subjective Date Seen The patient was seen on 12/31/16. Subjective Chief Complaint/HPI The patient is a 61-year-old male admitted with a reason for visit of Aspiration Pneumonia. Events since last encounter No complaints this am , no fever or chills, requiring oxygen , Objective Physical Examination General Exam: Positive: Alert, Cooperative, No Acute Distress Eye Exam: Positive: PERRLA, Conjunctiva & lids normal, EOMI, Negative: Sclera icteric ENT Exam: Positive: Atraumatic, Mucous membr. moist/pink Neck Exam: Negative: JVD Chest Exam: Positive: Rales, Diminished Heart Exam: Positive: Rate Normal, Normal S1, Normal S2 Abdomen Exam: Positive: Normal bowel sounds, Soft, Negative: Tenderness Extremity Exam: Negative: Cyanosis, Edema, Tenderness, Swelling, Other Assessment /Plan Problems (1) Aspiration pneumonia Status: Acute Problem Text: will continue with unasyn. (2) Acute respiratory failure with hypoxemia Status: Acute Problem Text: continue with oxygen supplementation may need to go home with oxygen. (3) PEG (percutaneous endoscopic gastrostomy) status Status: Chronic Problem Text: continue NPO , continue feeding through PEG tube (4) Anxiety and depression Status: Chronic Problem Text: continue home medications. (5) Developmental disability Status: Chronic Problem Text: resident of [facility]. (6) Esophageal dilatation Status: Chronic Problem Text: probably has achalasia (7) GERD (gastroesophageal reflux disease) Status: Chronic (8) Hypothyroidism Status: Chronic Problem Text: continue synthroid Plan/VTE VTE Prophylaxis Ordered?: Yes VS, I&O, 24H, Fishbone Vital Signs/I&O Vital Signs Date Time Temp Pulse Resp B/P (MAP) Pulse Ox O2 Delivery O2 Flow Rate FiO2 12/31/16 05:00 98.5 82 16 108/71 (83) 92 Nasal Cannula 2.0 I&O- Last 24 Hours up to 6 AM 01/01/17 06:00 Intake Total 0 ml Output Total 0 ml Balance 0 ml Laboratory Data Microbiology Microbiology 12/29/16 Gram Stain - Final, Resulted 12/29/16 Sputum Culture, Resulted Pending ERICA TORRES MD Dec 31, 2016 11:59
[2016-12-31 14:00] VITALS: BP 118/74
[2016-12-31] MEDS: IPRATROPIUM 0.5MG/ALBUTEROL 2.5MG INH SOL UD 3ML (DUONEB)(J7620) NEB SCH ×2 (15:09→19:22)
[2016-12-31] MEDS: CYANOCOBALAMIN 500 MCG TAB GT SCH (21:12)
[2016-12-31 22:00] VITALS: BP 105/61
[2017-01-01] MEDS: AMPICILLIN SOD/SULBACTAM SOD 3 GM in D5W MINI-BAG PLUS 100 ML IV SCH ×5 (00:44→23:42)
[2017-01-01] MEDS: LEVOTHYROXINE 75MCG TABLET (0.075MG) GT SCH (05:20)
[2017-01-01 06:00] VITALS: BP 119/76
[2017-01-01 06:07] LABS: BASO # 0.1 10^3/uL (0.0-0.2); BASO % 0.9 % (0.0-1.0); EOS # 0.4 10^3/uL (0.0-0.50); EOS % 4.1 % (0.0-3.0); IMMATURE GRANULOCYTE % 4.3 % (0-0); LYMPH % 11.3 % (24.0-44.0); MEAN CORPUSCULAR HEMOGLOBIN 31.9 pg (27.0-33.0); MEAN CORPUSCULAR HGB CONC 32.2 g/dl (32.0-36.5); MONO # 0.9 10^3/uL (0.0-0.8); MONO % 10.5 % (0.0-5.0); NEUTROPHILS % 68.9 % (36.0-66.0); PLATELET COUNT, AUTOMATED 237 10^3/uL (150-450); WHITE BLOOD COUNT 8.7 10^3/uL (4.0-10.0)
[2017-01-01 06:28] LABS: ANION GAP 5 MEQ/L (8-16); BLOOD UREA NITROGEN 23 MG/DL (7-18); CALCIUM LEVEL 9.2 MG/DL (8.8-10.2); CARBON DIOXIDE LEVEL 30 MEQ/L (21-32); CHLORIDE LEVEL 107 MEQ/L (98-107); CREATININE FOR GFR 0.98 MG/DL (0.70-1.30); GLOMERULAR FILTRATION RATE > 60.0 (>49); GLUCOSE, FASTING 104 MG/DL (80-110); POTASSIUM SERUM 4.2 MEQ/L (3.5-5.1); SODIUM LEVEL 142 MEQ/L (136-145)
[2017-01-01] MEDS: IPRATROPIUM 0.5MG/ALBUTEROL 2.5MG INH SOL UD 3ML (DUONEB)(J7620) NEB SCH ×2 (07:12→15:26)
[2017-01-01] MEDS: OLANZapine ORAL DISINTEGRATING TAB 5MG GT SCH ×3 (08:28→16:38)
[2017-01-01] MEDS: busPIRone 10 MG TAB GT SCH ×2 (08:29→16:37)
[2017-01-01] MEDS: CitaloPRAM (CeleXA) 20 MG TAB GT SCH (08:29)
[2017-01-01] MEDS: risperiDONE 1 MG TAB GT SCH (08:30)
[2017-01-01] MEDS: clonazePAM 0.5 MG TAB GT SCH ×3 (08:30→16:37)
[2017-01-01] MEDS: GABAPENTIN 300 MG CAP GT SCH ×3 (08:31→16:40)
[2017-01-01] MEDS: METOCLOPRAMIDE HCL LIQUID 10 MG/10 ML UDC GT SCH ×4 (08:31→21:13)
[2017-01-01] MEDS: LANSOPRAZOLE SUSPENSION 30 MG/10 ML ORAL SYRINGE (FIRST-LANSOPRAZOLE) GT SCH (08:32)
[2017-01-01] MEDS: MIRALAX *UNIT DOSE* 17GM PACKET GT SCH (08:33)
[2017-01-01] MEDS: ENOXAPARIN 30 MG/0.3 ML SYR (J1650) SC SCH (08:35)
--- NOTE | 2017-01-01 10:13 | IPNPDOC ---
Subjective Date Seen The patient was seen on 01/01/17. Subjective Chief Complaint/HPI The patient is a 61-year-old male admitted with a reason for visit of Aspiration Pneumonia. Events since last encounter No complaints this morning , very pleasant and cooperative , had 2 bouts of coughing this am with some regurgitation of stomach contents. Objective Physical Examination General Exam: Positive: Alert, Cooperative, No Acute Distress Eye Exam: Positive: PERRLA, Conjunctiva & lids normal, EOMI, Negative: Sclera icteric ENT Exam: Positive: Atraumatic, Mucous membr. moist/pink Neck Exam: Negative: JVD Chest Exam: Positive: Rales, Diminished Heart Exam: Positive: Rate Normal, Normal S1, Normal S2 Abdomen Exam: Positive: Normal bowel sounds, Soft, Negative: Tenderness Extremity Exam: Negative: Cyanosis, Edema, Tenderness, Swelling, Other Assessment /Plan Problems (1) Aspiration pneumonia Status: Acute Problem Text: will continue with unasyn. (2) Acute respiratory failure with hypoxemia Status: Acute Problem Text: continue with oxygen supplementation may need to go home with oxygen. (3) PEG (percutaneous endoscopic gastrostomy) status Status: Chronic Problem Text: continue NPO , continue feeding through PEG tube (4) Anxiety and depression Status: Chronic Problem Text: continue home medications. (5) Developmental disability Status: Chronic Problem Text: resident of [facility]. (6) Esophageal dilatation Status: Chronic Problem Text: probably has achalasia (7) GERD (gastroesophageal reflux disease) Status: Chronic (8) Hypothyroidism Status: Chronic Problem Text: continue synthroid Plan/VTE VTE Prophylaxis Ordered?: Yes VS, I&O, 24H, Fishbone Vital Signs/I&O Vital Signs Date Time Temp Pulse Resp B/P (MAP) Pulse Ox O2 Delivery O2 Flow Rate FiO2 01/01/17 06:00 98.7 70 20 119/76 (90) 95 Nasal Cannula 2.0 I&O- Last 24 Hours up to 6 AM 01/02/17 05:59 Intake Total 0 ml Output Total 350 ml Balance -350 ml Laboratory Data 24H LABS Laboratory Tests 2 01/01/17 05:36: Immature Granulocyte % (Auto) 4.3H, White Blood Count 8.7, Red Blood Count 3.89L , Hemoglobin 12.4L, Hematocrit 38.5L, Mean Corpuscular Volume 99.0H, Mean Corpuscular Hemoglobin 31.9, Mean Corpuscular Hemoglobin Concent 32.2, Red Cell Distribution Width 15.0H, Platelet Count 237, Neutrophils (%) (Auto) 68.9H, Lymphocytes (%) (Auto) 11.3L, Monocytes (%) (Auto) 10.5H, Eosinophils (%) (Auto ) 4.1H, Basophils (%) (Auto) 0.9, Neutrophils # (Auto) 6.0, Lymphocytes # (Auto ) 1.0L, Monocytes # (Auto) 0.9H, Eosinophils # (Auto) 0.4, Basophils # (Auto) 0.1, Immature Granulocyte # (Auto) 0.4H, Nucleated Red Blood Cells % (auto) 0.0 , Anion Gap 5L, Glomerular Filtration Rate > 60.0, Blood Urea Nitrogen 23H, Creatinine 0.98, Sodium Level 142, Potassium Level 4.2, Chloride Level 107, Carbon Dioxide Level 30, Calcium Level 9.2 CBC/BMP Laboratory Tests 01/01/17 05:36 Red Blood Count 3.89 L, Mean Corpuscular Volume 99.0 H, Mean Corpuscular Hemoglobin 31.9, Mean Corpuscular Hemoglobin Concent 32.2, Red Cell Distribution Width 15.0 H, Neutrophils (%) (Auto) 68.9 H, Lymphocytes (%) (Auto ) 11.3 L, Monocytes (%) (Auto) 10.5 H, Eosinophils (%) (Auto) 4.1 H, Basophils ( %) (Auto) 0.9, Neutrophils # (Auto) 6.0, Lymphocytes # (Auto) 1.0 L, Monocytes # (Auto) 0.9 H, Eosinophils # (Auto) 0.4, Basophils # (Auto) 0.1, Calcium Level 9.2 Microbiology Microbiology 12/29/16 Gram Stain - Final, Complete 12/29/16 Sputum Culture - Final, Complete Escherichia Coli Klebsiella Pneumoniae Pseudomonas Aeruginosa ERICA TORRES MD Jan 01, 2017 10:13
[2017-01-01 14:00] VITALS: BP 112/76
[2017-01-01] MEDS: CYANOCOBALAMIN 500 MCG TAB GT SCH (21:13)
[2017-01-01 22:00] VITALS: BP 102/57
[2017-01-02] MEDS: IPRATROPIUM 0.5MG/ALBUTEROL 2.5MG INH SOL UD 3ML (DUONEB)(J7620) NEB SCH ×2 (00:06→07:13)
[2017-01-02 06:00] VITALS: BP 106/71
[2017-01-02 06:12] LABS: MEAN CORPUSCULAR HEMOGLOBIN 32.3 pg (27.0-33.0); MEAN CORPUSCULAR HGB CONC 32.5 g/dl (32.0-36.5); MEAN CORPUSCULAR VOLUME 99.4 fl (80.0-96.0); PLATELET COUNT, AUTOMATED 247 10^3/uL (150-450); RED CELL DISTRIBUTION WIDTH 15.2 % (11.5-14.5); WHITE BLOOD COUNT 8.2 10^3/uL (4.0-10.0)
[2017-01-02 06:19] LABS: ADD MANUAL DIFFER YES; DIFF SLIDE NUMBER 46; POS COUNT POS FLAG; POSITIVE MORPH POS FLAG
[2017-01-02 06:22] LABS: ANION GAP 4 MEQ/L (8-16); BLOOD UREA NITROGEN 26 MG/DL (7-18); CARBON DIOXIDE LEVEL 33 MEQ/L (21-32); CHLORIDE LEVEL 105 MEQ/L (98-107); CREATININE FOR GFR 1.02 MG/DL (0.70-1.30); GLOMERULAR FILTRATION RATE > 60.0 (>49); GLUCOSE, FASTING 93 MG/DL (80-110); POTASSIUM SERUM 4.3 MEQ/L (3.5-5.1); SODIUM LEVEL 142 MEQ/L (136-145)
[2017-01-02] MEDS: AMPICILLIN SOD/SULBACTAM SOD 3 GM in D5W MINI-BAG PLUS 100 ML IV SCH ×2 (06:28→12:00)
[2017-01-02] MEDS: LEVOTHYROXINE 75MCG TABLET (0.075MG) GT SCH (06:28)
[2017-01-02] MEDS ORDERED: AUGM500T34 PO (06:48)
[2017-01-02] MEDS: clonazePAM 0.5 MG TAB GT SCH ×2 (07:35→10:03)
[2017-01-02] MEDS: OLANZapine ORAL DISINTEGRATING TAB 5MG GT SCH ×2 (07:36→12:11)
[2017-01-02] MEDS: METOCLOPRAMIDE HCL LIQUID 10 MG/10 ML UDC GT SCH ×2 (07:36→12:11)
[2017-01-02] MEDS: MIRALAX *UNIT DOSE* 17GM PACKET GT SCH (08:26)
[2017-01-02] MEDS: risperiDONE 1 MG TAB GT SCH (08:27)
[2017-01-02] MEDS: LANSOPRAZOLE SUSPENSION 30 MG/10 ML ORAL SYRINGE (FIRST-LANSOPRAZOLE) GT SCH (08:27)
[2017-01-02] MEDS: GABAPENTIN 300 MG CAP GT SCH ×2 (08:27→12:12)
[2017-01-02] MEDS: busPIRone 10 MG TAB GT SCH (08:27)
[2017-01-02] MEDS: ENOXAPARIN 30 MG/0.3 ML SYR (J1650) SC SCH (08:27)
[2017-01-02] MEDS: CitaloPRAM (CeleXA) 20 MG TAB GT SCH (08:27)
[2017-01-02 08:51] LABS: EOSINOPHILS 3 % (0-5)
--- NOTE | 2017-01-02 11:55 | DSES ---
DATE OF ADMISSION: 12/29/2016 DATE OF DISCHARGE: PRIMARY CARE PROVIDER: Jose G Toledo DISCHARGE DIAGNOSES: Recurrent aspiration pneumonia. Acute respiratory failure with hypoxia. Developmental disability and is a resident of [facility] ([facility]). Chronic esophageal dilatation, possibly achalasia. Percutaneous endoscopic gastrostomy (PEG) tube in place with feeding only through PEG tube. Anxiety and depression. Gastroesophageal reflux disease (GERD). Hypothyroidism. Large fixed hiatal hernia. DISCHARGE MEDICATIONS: - Augmentin 500/125 one tablet by mouth three times a day for 3 days - acetaminophen extra-strength 20 mL by mouth every 4 hours as needed pain - buspirone 30 mg gastrostomy tube (G-tube) twice a day - citalopram hydrobromide 40 mg by G-tube daily - clonazepam 0.5 mg by G-tube three times a day - vitamin B12 500 mcg by G-tube at bedtime - folic acid 400 mg by G-tube at bedtime - Neurontin 600 mg by G-tube three times a day - lansoprazole 30 mg by G-tube daily - levalbuterol hydrochloride nebulizer solution 1.25 mg inhalation every 4 hours as needed shortness of breath - Synthroid 75 mcg by G-tube daily - metoclopramide 10 mg by G-tube four times a day - olanzapine 15 mg by G-tube three times a day - MiraLAX one packet by G-tube daily - risperidone 1 mg by G-tube daily - tube feedings with TwoCal HN one can by G-tube four times a day ADDITIONAL DISCHARGE DIAGNOSES: Chronic urinary retention with chronic Smith in place. History of cervical fracture. Periodontal disease. Dysphagia so has to be nothing by mouth. HOSPITAL COURSE: This is a 61-year-old male with developmental disability, a resident of [facility], presented to the hospital, brought in by staff from [facility] for fever noted at the facility, along with hypoxia with saturations in the low 80%. The patient was recently in the emergency room, where he was 2 days prior to this presentation, when he was diagnosed with aspiration pneumonia and discharged with oral antibiotics. However, he was not improving, and he had developed new fevers and hypoxia, so he was brought in to the emergency room. In the emergency department (ED), he was felt to have worsening of the aspiration pneumonia, so was admitted to the hospital. Chest x-ray shows possible right lower lobe infiltrates. The patient was started on intravenous (IV) antibiotics with good response to treatment. Unfortunately, this is his fifth hospital admission for aspiration pneumonia this year; and with his above past medical history of dysphagia, chronic esophageal dilatation, and achalasia, he is at very increased risk of recurrent aspirations, and that is what has been happening, which, unfortunately, we will be unable to control even with the placement of PEG tube because he cannot even swallow his saliva. At present, he has been weaned off oxygen and is no longer hypoxic at rest. His vital signs are stable, and he is functionally close to his baseline. PHYSICAL EXAMINATION: Vital signs: Temperature 98.7, pulse 80, respiratory rate 20, blood pressure 106/71, pulse oximetry 88% in room air and at rest. General: The patient awake, alert, and cooperative. HEENT: Normocephalic, atraumatic. Moist mucous membranes. Anicteric eyes. Chest: Bilateral basal crackles present. Cardiovascular: S1, S2, regular. No rub, murmur, or gallop. Abdomen: Soft, nontender. Bowel sounds present. EDMUND-NICK button in place. Extremities: No edema. LABORATORY WORK DATA: WBC 8.2, hemoglobin 11.4, platelet 247. Sodium 142, potassium 4.2, chloride 105, bicarbonate 33, BUN 26, creatinine 1, glucose 93, calcium 9. X-ray: Right lower lobe infiltrate, large fixed hiatal hernia. DISPOSITION: The patient is discharged to [facility]. DISCHARGE INSTRUCTIONS: The patient to followup with primary care provider in 1 week. Nothing by mouth diet. Tube feeding to continue. Activity as tolerated. MTDD
== END 2017-01-02 13:20 | disposition home or self-care (01) ==
LOC: EDBD 03:07 → M ED 03:07 → M ED INP 05:41 → M MSPAV 08:15
PROVIDERS: ADMIT Internal Medicine; ATTEND Internal Medicine Nephrology
DX: J69.0 Pneumonitis due to inhalation of food and vomit (principal); E03.9 Hypothyroidism, unspecified; J96.01 Acute respiratory failure with hypoxia; K21.9 Gastro-esophageal reflux disease without esophagitis; F60.6 Avoidant personality disorder; F79 Unspecified intellectual disabilities; R62.50 Unspecified lack of expected normal physiological development in childhood; K22.8 Other specified diseases of esophagus; F32.9 Major depressive disorder, single episode, unspecified; F41.9 Anxiety disorder, unspecified; K44.9 Diaphragmatic hernia without obstruction or gangrene; Z79.899 Other long term (current) drug therapy; Z93.1 Gastrostomy status; Z23 Encounter for immunization
CPT/HCPCS: 36415; 36600; 71020; 80048; 80053; 82803; 83605; 83735; 85025; 87070; 87077; 87186; 87205; 90686; 93005; 93041; 94640; 96372; 96374; 96375; 96376; 99285; G0378; J0696; J1650; J2060

== ENCOUNTER → 2017-01-03 | Outpatient (CLI) | payer MEDICARE, MEDICAID ==
[~2017-01-03] MED LIST changes: +ACET500L PO; +AUGM500T34 GT; +LEVA1.256 INH
--- NOTE | 2017-01-03 11:43 | REP ---
Left hand four views: I suspect there is a nondisplaced fracture of the midshaft of the ring finger metacarpal. This should be correlated with clinical point tenderness. No other fracture is identified. No dislocation. There is internal fixation of the distal radius. The study is technically difficult as the study is performed with the patient's fingers flexed, the patient unable to straighten the digits. Signed by Paddy Tate MD 01/03/2017 11:34 A
== END ==
LOC: M WUC 10:00
PROVIDERS: ATTEND Physician Assistant
DX: S62.357A Nondisplaced fracture of shaft of fifth metacarpal bone, left hand, initial encounter for closed fracture (principal); X58.XXXA Exposure to other specified factors, initial encounter; Y92.89 Other specified places as the place of occurrence of the external cause; Y93.89 Activity, other specified; Y99.8 Other external cause status

== ENCOUNTER → 2017-01-18 | Outpatient (CLI) | payer MEDICARE, MEDICAID | LOC: M WUC 08:15 | PROVIDERS: ATTEND Anesthesiology Pain Medicine | DX: Z79.899 Other long term (current) drug therapy (principal) ==

== ENCOUNTER → 2017-02-09 | Outpatient (CLI) | payer MEDICARE, MEDICAID ==
--- NOTE | 2017-02-09 11:38 | REP ---
Clinical: Pneumonia. Technique: PA and lateral. Comparison: 12/29/2016. Findings: Mediastinum and cardiac silhouette are stable with continued evidence for hiatal hernia. The lung arreola demonstrate diffuse chronic interstitial changes without acute consolidation, effusion, or pneumothorax. The previously identified lower lobe pneumonia/consolidation has resolved. Skeletal structures stable. Impression: Chronic changes. Previously noted infiltrate resolved. No new acute process. Signed by Niranjan Saenz MD 02/09/2017 11:30 A
== END ==
LOC: M WUC 11:19
PROVIDERS: ATTEND Nurse Practitioner Family
DX: J18.9 Pneumonia, unspecified organism (principal)

== ENCOUNTER 2017-02-14 05:35 | Inpatient (IN) | payer MEDICARE, MEDICAID ==
[~2017-02-14] VITALS: Ht 177.8 cm; Wt 54.5 kg
[2017-02-14] MEDS ORDERED: ACETAMINOPHEN SUSP DYE FREE 160 MG/5 ML UDC PO ONE (06:30)
[2017-02-14] MEDS ORDERED: NS 500 ML IV ONE (06:30)
[2017-02-14 07:21] LABS: BASO % 0.1 % (0.0-1.0); EOS % 0.1 % (0.0-3.0); IMMATURE GRANULOCYTE % 0.6 % (0-0); LYMPH % 1.2 % (24.0-44.0); MEAN CORPUSCULAR HEMOGLOBIN 32.3 pg (27.0-33.0); MEAN CORPUSCULAR HGB CONC 33.6 g/dl (32.0-36.5); MEAN CORPUSCULAR VOLUME 96.2 fl (80.0-96.0); MONO # 1.8 10^3/uL (0.0-0.8); MONO % 8.7 % (0.0-5.0); NEUTROPHILS # 18.7 10^3/uL (1.8-7.7); NEUTROPHILS % 89.3 % (36.0-66.0); PLATELET COUNT, AUTOMATED 229 10^3/uL (150-450); RED CELL DISTRIBUTION WIDTH 15.9 % (11.5-14.5); WHITE BLOOD COUNT 20.9 10^3/uL (4.0-10.0)
[2017-02-14 07:46] LABS: ANION GAP 8 MEQ/L (8-16); BLOOD UREA NITROGEN 29 MG/DL (7-18); CALCIUM LEVEL 9.1 MG/DL (8.8-10.2); CARBON DIOXIDE LEVEL 32 MEQ/L (21-32); CHLORIDE LEVEL 103 MEQ/L (98-107); CREATININE FOR GFR 1.19 MG/DL (0.70-1.30); GLOMERULAR FILTRATION RATE > 60.0 (>49); GLUCOSE, FASTING 109 MG/DL (80-110); POTASSIUM SERUM 3.9 MEQ/L (3.5-5.1); SODIUM LEVEL 143 MEQ/L (136-145)
--- NOTE | 2017-02-14 07:46 | REP ---
PA and lateral chest: A comparison is 02/09/2017. There is a focal subsegmental infiltrate in the left mid lung as an interval change. The lung arreola otherwise clear. No pleural effusions. There is diffuse esophageal dilatation as previously. Cardiac size is normal. The shashank, mediastinum, and bony thorax are unremarkable. Impression: New subsegmental infiltrate in the left mid lung. Chronic esophageal dilatation. Signed by Paddy Tate MD 02/14/2017 07:38 A
[2017-02-14 07:47] LABS: POSITIVE DIFF POS FLAG
[2017-02-14 07:48] LABS: LYMPH # 0.3 10^3/uL (1.5-4.5)
[2017-02-14 07:57] LABS: YEAST LIKE CELL URINE AUTO SMALL
[2017-02-14] MEDS ORDERED: NS 1,000 ML IV ONE (08:15)
[2017-02-14] MEDS ORDERED: PIPERACILLIN/TAZOBACTAM SOD 3.375 GM in APPROPRIATE DILUENT 1 EA IV ONE (08:45)
[2017-02-14] MEDS ORDERED: ONDANSETRON 4MG/2ML VIAL (J2405) IV PRN (10:45)
--- NOTE | 2017-02-14 14:51 | PHACANCOPD ---
PHARMACY VANCOMYCIN DOSING Pt Demographics Demographics Patient Age:61 , Weight:54.550 , Gender: male Adjusted Body Weight Date: 02/14/17, Adjusted Body Weight: Kg Events Past 24 Hours Events Past 24 Hours: YES: Elevation in WBC, Pending Diagnostics Vancomycin Vancomycin indication: PNEUMONIA Vancomycin Target Ranges: 10-20 mcg/ml Vancomycin Load Y/N: Yes Load Dose Date Time Vancomycin Load Dose: 1250mg Date: 02/14/17 Time: 1500 Vancomycin Dose Date: 02/14/17. Current Vancomycin Dose: [1g IV Q12H] Intermittent Dosing?: No Labs Labs Item Value Date Time White Blood Count 20.9 10^3/uL H 02/14/17 0710 Blood Urea Nitrogen 29 MG/DL H 02/14/17 0710 Creatinine 1.19 MG/DL 02/14/17 0710 Lactic Acid Level 3.0 MMOL/L *H 02/14/17 0710 Lactic Acid Followup at 4 Hours 2.4 MMOL/L *H 02/14/17 1121 Micro Microbiology 02/14/17 Blood Culture, Received Pending 02/14/17 Blood Culture, Received Pending 02/14/17 Influenza Virus Type A Antigen - Final, Complete 02/14/17 Influenza Virus Type B Antigen - Final, Complete 02/14/17 Urine Culture, Received Pending Creatinine Clearance Date:02/14/17. Estimated Creatinine Clearance: [~67ml/min]. Assessment and Plan Maintaining Current Dose?: Yes Reason for dose change: No Dose Change Pharmacist Note Pharmacist Note Date: 02/14/17. Pharmacist note: Day #1 empiric vancomycin tx initiated with a 1250mg loading dose, followed by a maintenance regimen of 1g IV Q12H for the treatment of pneumonia and UTI - aiming for a goal trough of 10-20mcg/ml. The patient has a PMH of HCAP and complicated UTI's. WBC, pulse, and lactic acid are currently elevated, and the patient is febrile. Urinalysis is remarkable. Baseline scr is ~1. CXR today shows new subsegmental infiltrate in the left mid lung. The patient does have a PMH of MRSA and vanco use here at [facility] - last received in October. Blood and urine cultures are currently pending. We will continue to monitor and schedule a trough when appropriate. [facility] Feb 14, 2017 14:51
[2017-02-14] MEDS ORDERED: LIDOCAINE 2% 5ML JELLY UROJET TOP ONE (15:00)
[2017-02-14] MEDS ORDERED: VANCOMYCIN HCL 750 MG, VIAL MATE ADAPTER 1 EACH in D5W 250 ML IV ONE (15:00)
[2017-02-14 16:00] VITALS: BP 100/62
[2017-02-14] MEDS ORDERED: VANCOMYCIN HCL 500 MG in D5W MINI-BAG PLUS 100 ML IV ONE (16:00)
--- NOTE | 2017-02-14 16:08 | HPEPDOC ---
General Date of Admission Feb 14, 2017 at 10:41 Attending Physician: ERICA JOLLEY MD Chief Complaint The patient is a 61-year-old male admitted with a reason for visit of Aspiration Pneumonia. Source: Old records, [facility] Caregiver/Aid, Caregiver Exam Limitations: Clinical conditions Associated Symptoms: Unobtainable History of Present Illness Mr. White is a 61-year-old male who presents to [facility]'s Emergency Department with a fever. He is accompanied by a [facility] aide. Past medical history is significant for: recurrent urinary tract infections ( E. coli, Pseudomonas, Enterococcus faecalis, Morganella morganii), recurrent aspiration pneumonia (MRSA, Pseudomonas, E. coli, Klebsiella pneumoniae) with PEG tube placement, hypothyroidism, avoidant personality disorder, gastroesophageal reflux disease, depression, history of basal cell carcinoma, intellectual disability, history of C2-7 fracture, suspected achalasia or other chronic dilation of the esophagus with associated hiatal hernia. The [facility] aide states that starting approximately on Monday patient was starting to act "weird." He apparently defecated a loose stool on the floor overnight on Monday which is not typical behavior for the patient. His temperature was checked at that time and was normal. Patient, however, was reported to be acting more anxious. There is not report of atypical behavior Monday during the day; however, overnight and into the early childhood education specialist on Monday patient awoke between 2-3AM. He was sweating profusely and quite agitated. Typically, the patient dusts and does the dishes at home, but when he awoke early Monday morning he would grab the dustpan and brush, clean for a little bit, and then put it away. This cycle would be repeated several times. He reportedly was also screaming and hitting people. A temperature was obtained and was recorded at > 100. The report given to the aide providing the information described the patient as "an energizer bunny on crack." Typically, the patient is independent. His usual bedtime is 5PM when he falls asleep in his recliner. He is awoken at 8PM to retreat to his bedroom where he remains asleep for several hours. He then awakes at 2-3AM and begins chores, including dusting and doing dishes. Prior hospitalization was from 12/29-. He was admitted at that time for fever noted at [facility], along with hypoxia with saturations in the low 80%. He was recently in the emergency room, where he was 2 days prior, when he was diagnosed with aspiration pneumonia and discharged with oral antibiotics. However, he was not improving, and he had developed new fevers and hypoxia, so he was brought in to the emergency room. In the emergency department (ED), he was felt to have worsening of the aspiration pneumonia, so was admitted to the hospital. Chest x-ray showed possible right lower lobe infiltrates. The patient was started on intravenous (IV) antibiotics with good response to treatment. Unfortunately, this is his fifth hospital admission for aspiration pneumonia this year; and with his above past medical history of dysphagia, chronic esophageal dilatation, and achalasia, he is at increased risk of recurrent aspirations, and that is what has been happening, which, unfortunately, we will be unable to control even with the placement of PEG tube because he cannot even swallow his saliva. At present, he has been weaned off oxygen and is no longer hypoxic at rest. His vital signs are stable, and he is functionally close to his baseline. Hospitalist service was consulted and patient was admitted for further medical management. Home Medications Scheduled (Twocal Hn) 1 Liq Liq, 1 LIQ GT QID, (Reported) FLUSH WITH 100CC WATER Buspirone HCl (Buspirone HCl) 30 Mg Tab, 30 MG GT BID, (Reported) AM AND 1530 Citalopram Hydrobromide (Citalopram Hydrobromide) 40 Mg Tab, 40 MG GT DAILY, ( Reported) Clonazepam (Clonazepam) 0.5 Mg Tab, 0.5 MG GT TID, (Reported) AM, 1000, 1530 Cyanocobalamin (Vitamin B-12) 500 Mcg Tab, 500 MCG GT QHS, (Reported) Folic Acid (Folic Acid) 400 Mcg Tab, 400 MCG GT QHS, (Reported) Gabapentin (Neurontin) 300 Mg Cap, 600 MG GT TID, (Reported) AM, 1130, 1530 Lansoprazole (Prevacid Solutab) 30 Mg Tab, 30 MG GT DAILY, (Reported) Levothyroxine Sodium (Synthroid) 75 Mcg Tab, 75 MCG GT DAILY, (Reported) Metoclopramide HCl (Metoclopramide HCl) 5 Mg/5 Ml Liq, 10 MG GT QID, (Reported) 30 MINUTES PRIOR TO MEALS: AM, 1130, 1530, AND 1930 OLANZapine DISINTEGRATING (Olanzapine Odt) 15 Mg Tab, 15 MG GT TID, (Reported) DISSOLVE IN FLUID, 0800,1200,1530 Polyethylene Glycol (Miralax) 1 Pow Pow, 17 GM GT DAILY, (Reported) Risperidone (Risperdal) 1 Mg Tab, 1 MG GT DAILY, (Reported) Scheduled PRN (Acetaminophen Extra Stren) 500 Mg/15 Ml Liq, 20 ML PO Q4H PRN for PAIN / FEVER , (Reported) Allergies Coded Allergies: No Known Drug Allergy (Verified Allergy, Unknown, CAREGIVER SAYS NO ALLERGIES, 02/14/17) Past Medical History Medical History 1. Recurrent urinary tract infections (E. coli, Pseudomonas, Enterococcus faecalis, Morganella morganii) 2. Recurrent aspiration pneumonia (MRSA, Pseudomonas, E. coli, Klebsiella pneumoniae) with PEG tube placement 3. Hypothyroidism 4. Avoidant personality disorder 5. Gastroesophageal reflux disease 6. Depression/anxiety 7. History of basal cell carcinoma 8. Intellectual disability 9. History of C2-7 fracture 10. Suspected achalasia or other chronic dilation of the esophagus with associated hiatal hernia Surgical History 1. Basal cell carcinoma resection 2. Resection of lipoma 3. ORIF of left distal radius and left colles fracture 4. Sliding hip screw-type implant of intertrochanteric hip fracture 5. EGD 6. EGD with percutaneous endoscopic gastrostomy 7. Colonoscopy Family History Father: Mother: Brother: Alive, Niranjan, resides in [place] Social History Resident of [facility]. No pets. Denies EtOH, tobacco, or illicit drug use. Prior to residence at [facility], lived with parents. Has a brother, Niranjan, who is actively involved in his care. No children. Aide is unsure of travel history. Review of Symptoms Other systems Unobtainable Physical Examination General Exam: Positive: Cooperative, No Acute Distress, Negative: Alert ENT Exam: Positive: Atraumatic, Tongue Midline, Nares Patent, Negative: Mucous membr. moist/pink (Lips appear somewhat dry), Pharyngeal Edema Neck Exam: Positive: Supple, JVD (3+), +2 carotid pulse wo bruit, Negative: thyromegaly, Lymphadenopathy Chest Exam: Positive: Diminished Heart Exam: Positive: Tachycardic, Normal S1, Normal S2, Negative: Gallops, Murmurs, Rubs Telemetry: Positive: Tachycardia Abdomen Exam: Positive: Normal bowel sounds, Soft, Tenderness, Other (PEG tube in place in LUQ), Negative: Hepatospenomegaly, Mass, Hernia Extremity Exam: Negative: Clubbing, Cyanosis, Edema, Normal pulses (Tachycardic ), Tenderness, Swelling Skin Exam: Negative: Rash, Lesion Other physical findings Chest x-ray, 2 view, PA and lateral IMPRESSION: New subsegmental infiltrate in the left mid lung. Chronic esophageal dilatation. Vital Signs Vital Signs Date Time Temp Pulse Resp B/P (MAP) Pulse Ox O2 Delivery O2 Flow Rate FiO2 02/14/17 12:00 Room Air 02/14/17 07:18 02/14/17 05:39 102.3 139 20 89 Height (in): 70 Weight (kg): 54.55 BMI (kg): 17.3 Laboratory Data Labs 24H Laboratory Tests 2 02/14/17 07:10: Immature Granulocyte % (Auto) 0.6H, White Blood Count 20.9H, Red Blood Count 4.21L, Hemoglobin 13.6L, Hematocrit 40.5L, Mean Corpuscular Volume 96.2H, Mean Corpuscular Hemoglobin 32.3, Mean Corpuscular Hemoglobin Concent 33.6, Red Cell Distribution Width 15.9H, Platelet Count 229, Neutrophils (%) (Auto) 89.3H, Lymphocytes (%) (Auto) 1.2L, Monocytes (%) (Auto) 8.7H, Eosinophils (%) (Auto) 0.1, Basophils (%) (Auto) 0.1, Neutrophils # (Auto) 18.7H, Lymphocytes # (Auto) 0.3L, Monocytes # (Auto) 1.8H, Eosinophils # (Auto) 0.0, Basophils # (Auto) 0.0 , Immature Granulocyte # (Auto) 0.1H, Nucleated Red Blood Cells % (auto) 0.0, Anion Gap 8, Glomerular Filtration Rate > 60.0, Lactic Acid Level 3.0*H, Blood Urea Nitrogen 29H, Creatinine 1.19, Sodium Level 143, Potassium Level 3.9, Chloride Level 103, Carbon Dioxide Level 32, Calcium Level 9.1 02/14/17 07:27: Urine Appearance CLOUDYH, Urine Color NIGEL, Urine pH 7.0, Urine Specific [place] 1.015, Urine Protein 2+H, Urine Glucose (UA) NEGATIVE, Urine Ketones NEGATIVE, Urine Urobilinogen 0.2, Urine Bilirubin NEGATIVE, Urine Leukocyte Esterase 3+H, Urine Blood 1+H, Urine Nitrite NEGATIVE, Urine WBC (Auto) 48H, Urine RBC (Auto) 8H, Urine Hyaline Casts (Auto) 0, Urine Bacteria (Auto) 2+H, Urine Squamous Epithelial Cells 0, Urine Yeast-Like Cells (Auto) SMALLH, Urine Sperm (Auto) 02/14/17 11:21: Lactic Acid Followup at 4 Hours 2.4*H CBC/BMP Laboratory Tests 02/14/17 07:10 Red Blood Count 4.21 L, Mean Corpuscular Volume 96.2 H, Mean Corpuscular Hemoglobin 32.3, Mean Corpuscular Hemoglobin Concent 33.6, Red Cell Distribution Width 15.9 H, Neutrophils (%) (Auto) 89.3 H, Lymphocytes (%) (Auto ) 1.2 L, Monocytes (%) (Auto) 8.7 H, Eosinophils (%) (Auto) 0.1, Basophils (%) ( Auto) 0.1, Neutrophils # (Auto) 18.7 H, Lymphocytes # (Auto) 0.3 L, Monocytes # (Auto) 1.8 H, Eosinophils # (Auto) 0.0, Basophils # (Auto) 0.0, Calcium Level 9.1 Microbiology Microbiology 02/14/17 Blood Culture, Received Pending 02/14/17 Blood Culture, Received Pending 02/14/17 Influenza Virus Type A Antigen - Final, Complete 02/14/17 Influenza Virus Type B Antigen - Final, Complete 02/14/17 Urine Culture, Received Pending Plan / VTE VTE Prophylaxis Ordered?: Yes (Lovenox 40mg SC daily) Plan Plan 1. Sepsis due to HAP and UTI with fever: CXR consistent with subsegmental infiltrate in the left mid lung. Influenza screen is negative. Urinalysis positive for UTI. Urine and blood culture pending. Lactic acid was 3 and repeat was 2.4. Pending follow-up lactic acid at 1521. Started Vancomycin and Meropenem due to patient's history of recurrent UTIs and recurrent aspiration pneumonias. Tylenol for fever. Chronic urinary catheter in place. Patient has a PEG tube in place in the LUQ. Patient is nothing by mouth. 2. GERD: Continue with Reglan and Lansoprazole. Zofran for nausea. 3. Hyperthyroidism: Continue with Synthroid. 4. Avoidant personality disorder: Continue with Risperdal, Zyprexa, and Ativan. 5. Neuropathy: Continue with Gabapentin. Disposition Admit: Medical-surgical unit Anticipated hospitalization: 2 nights Attending: Dr. Jolley Diet: Continue Current Activity: Continue Current Therapy: PT Medications: Start Antibiotics (Vancomycin, Meropenem) Diagnostics: Check Labs, Repeat Labs in AM Anticipated Discharge: Assisted Living ([facility]) MAGALYJOSE DO Feb 14, 2017 16:07
[2017-02-14] MEDS: ENOXAPARIN 40 MG/0.4 ML SYRINGE (J1650) SC SCH (16:15)
[2017-02-14] MEDS: GABAPENTIN 300 MG CAP GT SCH (16:37)
[2017-02-14] MEDS: MIRALAX *UNIT DOSE* 17GM PACKET GT SCH (16:37)
[2017-02-14] MEDS: busPIRone 10 MG TAB GT SCH (16:37)
[2017-02-14] MEDS: CitaloPRAM (CeleXA) 20 MG TAB GT SCH (16:37)
[2017-02-14] MEDS: METOCLOPRAMIDE HCL LIQUID 10 MG/10 ML UDC GT SCH ×2 (17:30→20:53)
[2017-02-14] MEDS: LORazepam 2 MG/ML VIAL (J2060) IV PRN (18:26)
[2017-02-14] MEDS: NS 1,000 ML IV SCH (20:26)
[2017-02-14] MEDS: OLANZapine ORAL DISINTEGRATING TAB 5MG GT SCH (20:40)
[2017-02-14] MEDS: MEROPENEM INJ 1 GM in APPROPRIATE DILUENT 1 EA IV SCH (20:40)
[2017-02-14] MEDS: LANSOPRAZOLE SUSPENSION 30 MG/10 ML ORAL SYRINGE (FIRST-LANSOPRAZOLE) GT SCH (20:40)
[2017-02-14] MEDS: risperiDONE 1 MG TAB GT SCH (20:40)
[2017-02-14] MEDS: CYANOCOBALAMIN 500 MCG TAB GT SCH (20:42)
[2017-02-14 22:00] VITALS: BP 82/53
[2017-02-15] MEDS: MEROPENEM INJ 1 GM in APPROPRIATE DILUENT 1 EA IV SCH ×3 (00:26→16:47)
[2017-02-15] MEDS: VANCOMYCIN HCL 1,000 MG, VIAL MATE ADAPTER 1 EACH in D5W 250 ML IV SCH ×2 (02:06→14:49)
[2017-02-15] MEDS: LEVOTHYROXINE 75MCG TABLET (0.075MG) GT SCH (05:56)
[2017-02-15 06:00] VITALS: BP 112/60
[2017-02-15 07:28] LABS: BASO % 0.2 % (0.0-1.0); EOS # 0.1 10^3/uL (0.0-0.50); EOS % 0.5 % (0.0-3.0); IMMATURE GRANULOCYTE % 0.5 % (0-0); LYMPH # 1.5 10^3/uL (1.5-4.5); LYMPH % 8.4 % (24.0-44.0); MEAN CORPUSCULAR HEMOGLOBIN 31.7 pg (27.0-33.0); MEAN CORPUSCULAR HGB CONC 32.5 g/dl (32.0-36.5); MEAN CORPUSCULAR VOLUME 97.3 fl (80.0-96.0); MONO # 1.3 10^3/uL (0.0-0.8); MONO % 7.5 % (0.0-5.0); NEUTROPHILS # 14.8 10^3/uL (1.8-7.7); NEUTROPHILS % 82.9 % (36.0-66.0); PLATELET COUNT, AUTOMATED 192 10^3/uL (150-450); RED CELL DISTRIBUTION WIDTH 16.4 % (11.5-14.5); WHITE BLOOD COUNT 17.8 10^3/uL (4.0-10.0)
[2017-02-15 07:31] LABS: ANION GAP 3 MEQ/L (8-16); BLOOD UREA NITROGEN 25 MG/DL (7-18); CALCIUM LEVEL 8.4 MG/DL (8.8-10.2); CARBON DIOXIDE LEVEL 31 MEQ/L (21-32); CHLORIDE LEVEL 107 MEQ/L (98-107); CREATININE FOR GFR 0.91 MG/DL (0.70-1.30); GLOMERULAR FILTRATION RATE > 60.0 (>49); GLUCOSE, FASTING 87 MG/DL (80-110); POTASSIUM SERUM 3.9 MEQ/L (3.5-5.1); SODIUM LEVEL 141 MEQ/L (136-145)
[2017-02-15] MEDS: NS 1,000 ML IV SCH (08:36)
[2017-02-15] MEDS: busPIRone 10 MG TAB GT SCH ×2 (08:37→15:59)
[2017-02-15] MEDS: CitaloPRAM (CeleXA) 20 MG TAB GT SCH (08:37)
[2017-02-15] MEDS: GABAPENTIN 300 MG CAP GT SCH ×3 (08:37→15:58)
[2017-02-15] MEDS: OLANZapine ORAL DISINTEGRATING TAB 5MG GT SCH ×3 (08:37→15:59)
[2017-02-15] MEDS: METOCLOPRAMIDE HCL LIQUID 10 MG/10 ML UDC GT SCH ×4 (08:37→20:06)
[2017-02-15] MEDS: risperiDONE 1 MG TAB GT SCH (08:37)
[2017-02-15] MEDS: MIRALAX *UNIT DOSE* 17GM PACKET GT SCH (08:37)
[2017-02-15] MEDS: ENOXAPARIN 40 MG/0.4 ML SYRINGE (J1650) SC SCH (08:38)
[2017-02-15] MEDS: LANSOPRAZOLE SUSPENSION 30 MG/10 ML ORAL SYRINGE (FIRST-LANSOPRAZOLE) GT SCH (08:38)
[2017-02-15] MEDS: SCOPOLAMINE 1.5 MG TRANSDERMAL TOP SCH (09:42)
--- NOTE | 2017-02-15 11:18 | IPNPDOC ---
Date Seen The patient was seen on 02/15/17. Progress Note SUBJECTIVE: Patient is a 61-year-old male with recurrent aspiration pneumonia and recurrent urinary tract infections. He is evaluated at bedside this morning. A [facility] aide is present. Patient has no complaints. He says my hands are cold. He has a bit of wet cough, but it is not productive. Will attempt to obtain a sputum sample. Urinary catheter in place with blood-tinged fluid in receptacle, likely from traumatic insertion. Leukocytosis is improving. Decreased RBC, likely dilutional as patient has received > 1L of fluid overnight. Lactic acid has normalized. OBJECTIVE PHYSICAL EXAMINATION: VITAL SIGNS: Please see below. GENERAL: male, appears stated age, intellectually disabled, but somewhat able to converse, no acute distress HEENT: Atraumatic, normocephalic, PERRL, EOMI, oral mucosa appears pink and moist, plenty of oral secretions noted, nasal septum appears midline, nares are patent CARDIOVASCULAR: Regular rate and rhythm, normal S1 and S2, no murmur, rub, click RESPIRATORY: Clear to auscultation in the upper lung lobes, crackles and coarse breath sounds appreciated in the left lower lobe, no wheeze ABDOMINAL: Soft, flat, non-tender, non-distended, bowel sounds appreciated EXTREMITIES: Warm, dry, intact, radial and posterior tibial pulses equal and symmetrical, +2, without edema NEUROLOGICAL: Deferred PSYCHOLOGICAL: Intellectual disability LABORATORY DATA: Please see below. MICROBIOLOGY: Please see below. DVT prophylaxis ordered?: Lovenox 40mg SC daily. ASSESSMENT AND PLAN: This is a 61-year-old male with recurrent aspiration pneumonia and recurrent urinary tract infection which could be colonization. PROBLEMS: 1. Sepsis due to HAP and UTI with fever: CXR consistent with subsegmental infiltrate in the left mid lung. Influenza screen is negative. Urinalysis positive for UTI. Urine culture pending. Blood culture negative. Lactic acid has normalized. Discontinuing fluids. Remains on Vancomycin and Meropenem until urine culture returns. Attempt to obtain sputum culture. Tylenol for fever 2. Urinary retention: Chronic Smith catheter in place. Catheter receptacle is blood-tinged, likely from a traumatic catheter insertion. 3. Esophageal dysmotility: NPO. PEG tube in place. Feedings and medications through PEG tube. 4. GERD: Continue with Reglan and Lansoprazole. Zofran for nausea. 5. Hyperthyroidism: Continue with Synthroid. 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 7. Neuropathy: Continue with Gabapentin. VS, I&O, 24H, Fishbone Vital Signs/I&O Vital Signs Date Time Temp Pulse Resp B/P (MAP) Pulse Ox O2 Delivery O2 Flow Rate FiO2 02/15/17 09:00 Room Air 02/15/17 06:00 99.3 85 18 112/60 (77) 90 I&O- Last 24 Hours up to 6 AM 02/16/17 06:00 Intake Total 50 ml Output Total 0 ml Balance 50 ml Laboratory Data 24H LABS Laboratory Tests 2 02/14/17 11:21: Lactic Acid Followup at 4 Hours 2.4*H 02/14/17 15:19: Lactic Acid Level 2.5*H 02/14/17 19:35: Lactic Acid Followup at 4 Hours 2.2*H 02/15/17 01:08: Lactic Acid Level 0.8 02/15/17 06:48: Immature Granulocyte % (Auto) 0.5H, White Blood Count 17.8H, Red Blood Count 3.38L, Hemoglobin 10.7L, Hematocrit 32.9L, Mean Corpuscular Volume 97.3H, Mean Corpuscular Hemoglobin 31.7, Mean Corpuscular Hemoglobin Concent 32.5, Red Cell Distribution Width 16.4H, Platelet Count 192, Neutrophils (%) (Auto) 82.9H, Lymphocytes (%) (Auto) 8.4L, Monocytes (%) (Auto) 7.5H, Eosinophils (%) (Auto) 0.5, Basophils (%) (Auto) 0.2, Neutrophils # (Auto) 14.8H, Lymphocytes # (Auto) 1.5, Monocytes # (Auto) 1.3H, Eosinophils # (Auto) 0.1, Basophils # (Auto) 0.0, Immature Granulocyte # (Auto) 0.1H, Nucleated Red Blood Cells % (auto) 0.0, Anion Gap 3L, Glomerular Filtration Rate > 60.0, Blood Urea Nitrogen 25H, Creatinine 0.91, Sodium Level 141, Potassium Level 3.9, Chloride Level 107, Carbon Dioxide Level 31, Calcium Level 8.4L CBC/BMP Laboratory Tests 02/14/17 23:49 02/15/17 06:48 Red Blood Count 3.38 L, Mean Corpuscular Volume 97.3 H, Mean Corpuscular Hemoglobin 31.7, Mean Corpuscular Hemoglobin Concent 32.5, Red Cell Distribution Width 16.4 H, Neutrophils (%) (Auto) 82.9 H, Lymphocytes (%) (Auto ) 8.4 L, Monocytes (%) (Auto) 7.5 H, Eosinophils (%) (Auto) 0.5, Basophils (%) ( Auto) 0.2, Neutrophils # (Auto) 14.8 H, Lymphocytes # (Auto) 1.5, Monocytes # ( Auto) 1.3 H, Eosinophils # (Auto) 0.1, Basophils # (Auto) 0.0, Calcium Level 8.4 L Microbiology Microbiology 02/14/17 Blood Culture - Preliminary, Resulted No growth after 24 hours . All specim... 02/14/17 Blood Culture - Preliminary, Resulted No growth after 24 hours . All specim... 02/14/17 Influenza Virus Type A Antigen - Final, Complete 02/14/17 Influenza Virus Type B Antigen - Final, Complete 02/14/17 Urine Culture, Received Pending JOSE MCKENZIE DO Feb 15, 2017 11:18
[2017-02-15 15:00] VITALS: BP 92/64
[2017-02-15] MEDS: ACETAMINOPHEN 325 MG/10.15 ML UDC GT PRN (16:15)
[2017-02-15] MEDS: CYANOCOBALAMIN 500 MCG TAB GT SCH (20:06)
[2017-02-15 22:00] VITALS: BP 100/62
[2017-02-16] MEDS: MEROPENEM INJ 1 GM in APPROPRIATE DILUENT 1 EA IV SCH ×3 (01:56→17:03)
--- NOTE | 2017-02-16 03:13 | PHACANCOPD ---
PHARMACY VANCOMYCIN DOSING Pt Demographics Demographics Patient Age:61 , Weight:54.55 , Gender: male Adjusted Body Weight Date: 02/14/17, Adjusted Body Weight: Kg Events Past 24 Hours Events Past 24 Hours: NO: Dialysis, Diuretic Therapy, Change in CrCl, Fever, Elevation in WBC, Pending Diagnostics, Pending Procedures, Other Vancomycin Vancomycin indication: PNEUMONIA Vancomycin Target Ranges: 10-20 mcg/ml Vancomycin Load Y/N: Yes Load Dose Date Time Vancomycin Load Dose: 1250mg Date: 02/14/17 Time: 1500 Vancomycin Dose Date: 02/16/17. Current Vancomycin Dose: [1g IV Q18H] Intermittent Dosing?: No Labs Labs Item Value Date Time White Blood Count 17.8 10^3/uL H 02/15/17 0648 Creatinine 0.91 MG/DL 02/15/17 0648 Blood Urea Nitrogen 25 MG/DL H 02/15/17 0648 Vancomycin Level Trough 21.5 UG/ML H 02/16/17 0208 Vital Signs Label Value Date Time Patient Temperature 99.1 degrees F 02/15/17 2200 Temperature Source Core 02/15/17 2200 Micro Microbiology 02/14/17 Blood Culture - Preliminary, Resulted No growth after 24 hours . All specim... 02/14/17 Blood Culture - Preliminary, Resulted No growth after 24 hours . All specim... 02/14/17 Influenza Virus Type A Antigen - Final, Complete 02/14/17 Influenza Virus Type B Antigen - Final, Complete 02/14/17 Urine Culture, Received Pending Creatinine Clearance Date:02/14/17. Estimated Creatinine Clearance: [~67ml/min]. Pending Labs Trough 12-8 @1500 Assessment and Plan Maintaining Current Dose?: No Reason for dose change: Trough too high Pharmacist Note Pharmacist Note Date: 02/14/17. Pharmacist note:Trough of 21.5 is above target range. Dose reduced to 1000mg q18h with a trough ordered for 12-8 @1500. Will continue to monitor and make adjustments as needed. MAYTE VARGAS PHARMACY Feb 16, 2017 03:13
[2017-02-16] MEDS: VANCOMYCIN HCL 1,000 MG, VIAL MATE ADAPTER 1 EACH in D5W 250 ML IV SCH ×3 (04:19→22:15)
[2017-02-16 06:00] VITALS: BP 101/70
[2017-02-16] MEDS: LEVOTHYROXINE 75MCG TABLET (0.075MG) GT SCH (06:24)
[2017-02-16 07:09] LABS: BASO % 0.2 % (0.0-1.0); EOS # 0.3 10^3/uL (0.0-0.50); EOS % 2.2 % (0.0-3.0); IMMATURE GRANULOCYTE % 0.6 % (0-0); LYMPH # 1.4 10^3/uL (1.5-4.5); LYMPH % 11.3 % (24.0-44.0); MEAN CORPUSCULAR HEMOGLOBIN 32.2 pg (27.0-33.0); MEAN CORPUSCULAR HGB CONC 32.4 g/dl (32.0-36.5); MEAN CORPUSCULAR VOLUME 99.4 fl (80.0-96.0); MONO # 1.3 10^3/uL (0.0-0.8); MONO % 10.8 % (0.0-5.0); NEUTROPHILS # 9.2 10^3/uL (1.8-7.7); NEUTROPHILS % 74.9 % (36.0-66.0); PLATELET COUNT, AUTOMATED 176 10^3/uL (150-450); RED CELL DISTRIBUTION WIDTH 16.7 % (11.5-14.5); WHITE BLOOD COUNT 12.3 10^3/uL (4.0-10.0)
[2017-02-16 07:27] LABS: ANION GAP 6 MEQ/L (8-16); BLOOD UREA NITROGEN 20 MG/DL (7-18); CALCIUM LEVEL 8.5 MG/DL (8.8-10.2); CARBON DIOXIDE LEVEL 28 MEQ/L (21-32); CHLORIDE LEVEL 109 MEQ/L (98-107); GLOMERULAR FILTRATION RATE > 60.0 (>49); GLUCOSE, FASTING 87 MG/DL (80-110); SODIUM LEVEL 143 MEQ/L (136-145)
[2017-02-16] MEDS: METOCLOPRAMIDE HCL LIQUID 10 MG/10 ML UDC GT SCH ×4 (08:14→20:02)
[2017-02-16] MEDS: LANSOPRAZOLE SUSPENSION 30 MG/10 ML ORAL SYRINGE (FIRST-LANSOPRAZOLE) GT SCH (08:15)
[2017-02-16] MEDS: OLANZapine ORAL DISINTEGRATING TAB 5MG GT SCH ×3 (08:15→17:02)
[2017-02-16] MEDS: MIRALAX *UNIT DOSE* 17GM PACKET GT SCH (08:15)
[2017-02-16] MEDS: ENOXAPARIN 40 MG/0.4 ML SYRINGE (J1650) SC SCH (08:15)
[2017-02-16] MEDS: CitaloPRAM (CeleXA) 20 MG TAB GT SCH (08:15)
[2017-02-16] MEDS: GABAPENTIN 300 MG CAP GT SCH ×3 (08:16→17:02)
[2017-02-16] MEDS: risperiDONE 1 MG TAB GT SCH (08:16)
[2017-02-16] MEDS: busPIRone 10 MG TAB GT SCH ×2 (08:16→17:02)
--- NOTE | 2017-02-16 10:22 | IPNPDOC ---
Date Seen The patient was seen on 02/16/17. Progress Note SUBJECTIVE: Patient is a 61-year-old male with recurrent aspiration pneumonia and recurrent urinary tract infections. He is evaluated at bedside this morning. A [facility] aide is present. Patient would like to go home. He had a fever yesterday of 101.9. Continues to have excessive sputum production. Sputum culture pending. Blood culture negative. Urine culture pending. De- escalate antibiotics once cultures return. Leukocytosis continues to improved. Smith catheter remains in place. Urinary receptacle contains yellow fluid. OBJECTIVE PHYSICAL EXAMINATION: VITAL SIGNS: Please see below. GENERAL: male, appears stated age, intellectually disabled, but somewhat able to converse, no acute distress, wants to go home HEENT: Atraumatic, normocephalic, PERRL, EOMI, oral mucosa appears pink and moist, excessive oral secretions noted, nasal septum appears midline, nares are patent CARDIOVASCULAR: Regular rate and rhythm, normal S1 and S2, no murmur, rub, click RESPIRATORY: Improving lung sounds appreciated, clear to auscultation, adequate inspiratory and expiratory airway excursion ABDOMINAL: Soft, flat, non-tender, non-distended, bowel sounds appreciated EXTREMITIES: Warm, dry, intact, radial and posterior tibial pulses equal and symmetrical, +2, without edema NEUROLOGICAL: Deferred PSYCHOLOGICAL: Intellectual disability LABORATORY DATA: Please see below. MICROBIOLOGY: Please see below. DVT prophylaxis ordered?: Lovenox 40mg SC daily. ASSESSMENT AND PLAN: This is a 61-year-old male with recurrent aspiration pneumonia and recurrent urinary tract infection which could be colonization. PROBLEMS: 1. Fever: Tmax of 101.9. Continue with Tylenol, as needed. Monitor vital signs. 2. HAP: Sputum culture is pending. Continue with Vancomycin and Meropenem. Blood cultures are negative. Urine culture is pending. 3. Urinary tract infection: Likely contaminant, but since patient presented with sepsis, positive urinalysis could be the result of presentation. Continue with Vancomycin and Meropenem until urine culture returns. 2. Urinary retention: Chronic Smith catheter in place. Catheter receptacle contains yellow fluid. 3. Esophageal dysmotility: NPO. PEG tube in place. Feedings and medications through PEG tube. 4. GERD: Continue with Reglan and Lansoprazole. Zofran for nausea. 5. Hyperthyroidism: Continue with Synthroid. 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 7. Neuropathy: Continue with Gabapentin. DISPOSITION: Admitted to the medical-surgical unit. Continue with antibiotics with de-escalation upon urine culture return. VS, I&O, 24H, Fishbone Vital Signs/I&O Vital Signs Date Time Temp Pulse Resp B/P (MAP) Pulse Ox O2 Delivery O2 Flow Rate FiO2 02/16/17 06:00 99.3 80 18 101/70 (80) 91 Room Air I&O- Last 24 Hours up to 6 AM 02/17/17 06:00 Intake Total 790 ml Balance 790 ml Laboratory Data 24H LABS Laboratory Tests 2 02/16/17 02:08: Vancomycin Level Trough 21.5H 02/16/17 07:00: Immature Granulocyte % (Auto) 0.6H, White Blood Count 12.3H, Red Blood Count 3.45L, Hemoglobin 11.1L, Hematocrit 34.3L, Mean Corpuscular Volume 99.4H, Mean Corpuscular Hemoglobin 32.2, Mean Corpuscular Hemoglobin Concent 32.4, Red Cell Distribution Width 16.7H, Platelet Count 176, Neutrophils (%) (Auto) 74.9H, Lymphocytes (%) (Auto) 11.3L, Monocytes (%) (Auto) 10.8H, Eosinophils (%) (Auto ) 2.2, Basophils (%) (Auto) 0.2, Neutrophils # (Auto) 9.2H, Lymphocytes # (Auto ) 1.4L, Monocytes # (Auto) 1.3H, Eosinophils # (Auto) 0.3, Basophils # (Auto) 0.0, Immature Granulocyte # (Auto) 0.1H, Nucleated Red Blood Cells % (auto) 0.0 , Anion Gap 6L, Glomerular Filtration Rate > 60.0, Blood Urea Nitrogen 20H, Creatinine 1.00, Sodium Level 143, Potassium Level 4.0, Chloride Level 109H, Carbon Dioxide Level 28, Calcium Level 8.5L CBC/BMP Laboratory Tests 02/16/17 07:00 Red Blood Count 3.45 L, Mean Corpuscular Volume 99.4 H, Mean Corpuscular Hemoglobin 32.2, Mean Corpuscular Hemoglobin Concent 32.4, Red Cell Distribution Width 16.7 H, Neutrophils (%) (Auto) 74.9 H, Lymphocytes (%) (Auto ) 11.3 L, Monocytes (%) (Auto) 10.8 H, Eosinophils (%) (Auto) 2.2, Basophils (% ) (Auto) 0.2, Neutrophils # (Auto) 9.2 H, Lymphocytes # (Auto) 1.4 L, Monocytes # (Auto) 1.3 H, Eosinophils # (Auto) 0.3, Basophils # (Auto) 0.0, Calcium Level 8.5 L Microbiology Microbiology 02/14/17 Blood Culture - Preliminary, Resulted No Growth after 48 hours. All Specime... 02/14/17 Blood Culture - Preliminary, Resulted No Growth after 48 hours. All Specime... 02/16/17 Gram Stain, Received Pending 02/16/17 Sputum Culture, Received Pending 02/14/17 Influenza Virus Type A Antigen - Final, Complete 02/14/17 Influenza Virus Type B Antigen - Final, Complete 02/14/17 Urine Culture - Preliminary, Resulted Klebsiella Pneumoniae Morganella Morganii JOSE Barba DO Feb 16, 2017 10:22
[2017-02-16] MEDS: ACETAMINOPHEN 325 MG/10.15 ML UDC GT PRN ×2 (12:59→20:03)
[2017-02-16 15:00] VITALS: BP 91/63
[2017-02-16] MEDS: CYANOCOBALAMIN 500 MCG TAB GT SCH (20:04)
[2017-02-16 22:00] VITALS: BP 92/57
[2017-02-17] MEDS: MEROPENEM INJ 1 GM in APPROPRIATE DILUENT 1 EA IV SCH ×2 (01:11→09:03)
[2017-02-17] MEDS: LEVOTHYROXINE 75MCG TABLET (0.075MG) GT SCH (05:43)
[2017-02-17 06:00] VITALS: BP 124/72
[2017-02-17 07:14] LABS: BASO % 0.4 % (0.0-1.0); EOS # 0.5 10^3/uL (0.0-0.50); EOS % 4.7 % (0.0-3.0); IMMATURE GRANULOCYTE % 1.1 % (0-0); LYMPH # 0.8 10^3/uL (1.5-4.5); LYMPH % 7.8 % (24.0-44.0); MEAN CORPUSCULAR HEMOGLOBIN 32.1 pg (27.0-33.0); MEAN CORPUSCULAR HGB CONC 33.1 g/dl (32.0-36.5); MEAN CORPUSCULAR VOLUME 97.3 fl (80.0-96.0); MONO # 1.1 10^3/uL (0.0-0.8); MONO % 10.1 % (0.0-5.0); NEUTROPHILS % 75.9 % (36.0-66.0); PLATELET COUNT, AUTOMATED 190 10^3/uL (150-450); RED CELL DISTRIBUTION WIDTH 16.3 % (11.5-14.5); WHITE BLOOD COUNT 10.5 10^3/uL (4.0-10.0)
[2017-02-17 07:34] LABS: ANION GAP 4 MEQ/L (8-16); BLOOD UREA NITROGEN 23 MG/DL (7-18); CARBON DIOXIDE LEVEL 32 MEQ/L (21-32); CHLORIDE LEVEL 107 MEQ/L (98-107); CREATININE FOR GFR 0.87 MG/DL (0.70-1.30); GLOMERULAR FILTRATION RATE > 60.0 (>49); GLUCOSE, FASTING 92 MG/DL (80-110); POTASSIUM SERUM 4.1 MEQ/L (3.5-5.1); SODIUM LEVEL 143 MEQ/L (136-145)
[2017-02-17] MEDS: MIRALAX *UNIT DOSE* 17GM PACKET GT SCH (09:03)
[2017-02-17] MEDS: METOCLOPRAMIDE HCL LIQUID 10 MG/10 ML UDC GT SCH ×4 (09:03→22:10)
[2017-02-17] MEDS: LANSOPRAZOLE SUSPENSION 30 MG/10 ML ORAL SYRINGE (FIRST-LANSOPRAZOLE) GT SCH (09:04)
[2017-02-17] MEDS: GABAPENTIN 300 MG CAP GT SCH ×3 (09:04→15:04)
[2017-02-17] MEDS: risperiDONE 1 MG TAB GT SCH (09:04)
[2017-02-17] MEDS: ENOXAPARIN 40 MG/0.4 ML SYRINGE (J1650) SC SCH (09:04)
[2017-02-17] MEDS: busPIRone 10 MG TAB GT SCH ×2 (09:04→15:05)
[2017-02-17] MEDS: CitaloPRAM (CeleXA) 20 MG TAB GT SCH (09:05)
[2017-02-17] MEDS: OLANZapine ORAL DISINTEGRATING TAB 5MG GT SCH ×3 (09:05→15:04)
--- NOTE | 2017-02-17 10:49 | IPNPDOC ---
Date Seen The patient was seen on 02/17/17. Progress Note SUBJECTIVE: Patient is a 61-year-old male with recurrent aspiration pneumonia and recurrent urinary tract infections. He is evaluated at bedside this morning. A [facility] aide is present. Patient is alert and awake. He offers no complaints besides some abdominal pain with palpation. Continues to have intermittent fevers - 100.4 at approximately 1PM yesterday. Will de-escalate antibiotics based on antimicrobial stewardship and urine culture sensitivities. OBJECTIVE PHYSICAL EXAMINATION: VITAL SIGNS: Please see below. GENERAL: male, appears stated age, intellectually disabled, but somewhat able to converse, no acute distress HEENT: Atraumatic, normocephalic, PERRL, EOMI, oral mucosa appears pink and moist, oral secretions are significantly improved, nasal septum appears midline , nares are patent CARDIOVASCULAR: Regular rate and rhythm, normal S1 and S2, no murmur, rub, click RESPIRATORY: Improving lung sounds appreciated, clear to auscultation, adequate inspiratory and expiratory airway excursion ABDOMINAL: Soft, flat, non-tender, non-distended, bowel sounds appreciated, PEG tube noted in the LUQ EXTREMITIES: Warm, dry, intact, radial and posterior tibial pulses equal and symmetrical, +2, without edema NEUROLOGICAL: Deferred PSYCHOLOGICAL: Intellectual disability LABORATORY DATA: Please see below. MICROBIOLOGY: Please see below. DVT prophylaxis ordered?: Lovenox 40mg SC daily. ASSESSMENT AND PLAN: This is a 61-year-old male with recurrent aspiration pneumonia and recurrent urinary tract infection which could be colonization. PROBLEMS: 1. Fever: Tmax of 100.4 at approximately 1PM yesterday. Continue with Tylenol , as needed. Monitor vital signs. 2. HAP: Sputum culture shows few gram positive cocci in pairs and chains and few gram positive rods. De-escalate antibiotics to oral Levaquin. 3. Urinary tract infection: Likely contaminant, but since patient presented with sepsis, positive urinalysis could be the result of presentation. Have de- escalated antibiotics to Levaquin. 2. Urinary retention: Chronic Smith catheter in place. Catheter receptacle contains yellow fluid. 3. Esophageal dysmotility: NPO. PEG tube in place. Feedings and medications through PEG tube. 4. GERD: Continue with Reglan and Lansoprazole. Zofran for nausea. 5. Hyperthyroidism: Continue with Synthroid. 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 7. Neuropathy: Continue with Gabapentin. DISPOSITION: Admitted to the medical-surgical unit. De-escalate antibiotics to Levaquin. Monitor VS. VS, I&O, 24H, Fishbone Vital Signs/I&O Vital Signs Date Time Temp Pulse Resp B/P (MAP) Pulse Ox O2 Delivery O2 Flow Rate FiO2 02/17/17 06:00 98.6 107 20 124/72 (89) 96 Room Air I&O- Last 24 Hours up to 6 AM 02/18/17 06:00 Intake Total 300 ml Balance 300 ml Laboratory Data 24H LABS Laboratory Tests 2 02/17/17 06:25: Immature Granulocyte % (Auto) 1.1H, White Blood Count 10.5H, Red Blood Count 3.64L, Hemoglobin 11.7L, Hematocrit 35.4L, Mean Corpuscular Volume 97.3H, Mean Corpuscular Hemoglobin 32.1, Mean Corpuscular Hemoglobin Concent 33.1, Red Cell Distribution Width 16.3H, Platelet Count 190, Neutrophils (%) (Auto) 75.9H, Lymphocytes (%) (Auto) 7.8L, Monocytes (%) (Auto) 10.1H, Eosinophils (%) (Auto) 4.7H, Basophils (%) (Auto) 0.4, Neutrophils # (Auto) 8.0H, Lymphocytes # (Auto) 0.8L, Monocytes # (Auto) 1.1H, Eosinophils # (Auto) 0.5, Basophils # (Auto) 0.0 , Immature Granulocyte # (Auto) 0.1H, Nucleated Red Blood Cells % (auto) 0.0, Anion Gap 4L, Glomerular Filtration Rate > 60.0, Blood Urea Nitrogen 23H, Creatinine 0.87, Sodium Level 143, Potassium Level 4.1, Chloride Level 107, Carbon Dioxide Level 32, Calcium Level 9.0 CBC/BMP Laboratory Tests 02/17/17 06:25 Red Blood Count 3.64 L, Mean Corpuscular Volume 97.3 H, Mean Corpuscular Hemoglobin 32.1, Mean Corpuscular Hemoglobin Concent 33.1, Red Cell Distribution Width 16.3 H, Neutrophils (%) (Auto) 75.9 H, Lymphocytes (%) (Auto ) 7.8 L, Monocytes (%) (Auto) 10.1 H, Eosinophils (%) (Auto) 4.7 H, Basophils (% ) (Auto) 0.4, Neutrophils # (Auto) 8.0 H, Lymphocytes # (Auto) 0.8 L, Monocytes # (Auto) 1.1 H, Eosinophils # (Auto) 0.5, Basophils # (Auto) 0.0, Calcium Level 9.0 Microbiology Microbiology 02/14/17 Blood Culture - Preliminary, Resulted No Growth after 72 hours. All specime... 02/14/17 Blood Culture - Preliminary, Resulted No Growth after 72 hours. All specime... 02/16/17 Gram Stain - Final, Resulted 02/16/17 Sputum Culture, Resulted Pending 02/14/17 Influenza Virus Type A Antigen - Final, Complete 02/14/17 Influenza Virus Type B Antigen - Final, Complete 02/14/17 Urine Culture - Final, Complete Klebsiella Pneumoniae Morganella Morganii Ssp Jagjit Enterococcus Faecalis JOSE MCKENZIE DO Feb 17, 2017 10:49
[2017-02-17] MEDS: LevoFLOXacin 750 MG TABLET PO SCH (12:25)
[2017-02-17 14:00] VITALS: BP 110/72
[2017-02-17] MEDS: ACETAMINOPHEN 325 MG/10.15 ML UDC GT PRN ×2 (15:04→22:10)
[2017-02-17 22:00] VITALS: BP 112/73
[2017-02-17] MEDS: CYANOCOBALAMIN 500 MCG TAB GT SCH (22:11)
[2017-02-18 06:00] VITALS: BP 108/74
[2017-02-18] MEDS: LevoFLOXacin 750 MG TABLET PO SCH (06:19)
[2017-02-18] MEDS: LEVOTHYROXINE 75MCG TABLET (0.075MG) GT SCH (06:19)
[2017-02-18] MEDS: ACETAMINOPHEN 325 MG/10.15 ML UDC GT PRN ×2 (06:19→21:57)
[2017-02-18 06:56] LABS: BASO % 0.5 % (0.0-1.0); EOS # 0.2 10^3/uL (0.0-0.50); EOS % 3.4 % (0.0-3.0); IMMATURE GRANULOCYTE % 1.7 % (0-0); LYMPH # 0.9 10^3/uL (1.5-4.5); LYMPH % 14.2 % (24.0-44.0); MEAN CORPUSCULAR HEMOGLOBIN 32.1 pg (27.0-33.0); MEAN CORPUSCULAR HGB CONC 32.5 g/dl (32.0-36.5); MEAN CORPUSCULAR VOLUME 98.9 fl (80.0-96.0); MONO # 0.7 10^3/uL (0.0-0.8); MONO % 10.2 % (0.0-5.0); NEUTROPHILS # 4.5 10^3/uL (1.8-7.7); PLATELET COUNT, AUTOMATED 222 10^3/uL (150-450); RED CELL DISTRIBUTION WIDTH 16.1 % (11.5-14.5); WHITE BLOOD COUNT 6.4 10^3/uL (4.0-10.0)
[2017-02-18 07:12] LABS: ANION GAP 4 MEQ/L (8-16); BLOOD UREA NITROGEN 26 MG/DL (7-18); CALCIUM LEVEL 9.3 MG/DL (8.8-10.2); CARBON DIOXIDE LEVEL 33 MEQ/L (21-32); CHLORIDE LEVEL 107 MEQ/L (98-107); CREATININE FOR GFR 0.98 MG/DL (0.70-1.30); GLOMERULAR FILTRATION RATE > 60.0 (>49); GLUCOSE, FASTING 100 MG/DL (80-110); POTASSIUM SERUM 4.1 MEQ/L (3.5-5.1); SODIUM LEVEL 144 MEQ/L (136-145)
[2017-02-18] MEDS: METOCLOPRAMIDE HCL LIQUID 10 MG/10 ML UDC GT SCH ×4 (07:46→21:56)
--- NOTE | 2017-02-18 09:12 | IPNPDOC ---
Date Seen The patient was seen on 02/18/17. Progress Note SUBJECTIVE: Patient is a 61-year-old male with recurrent aspiration pneumonia and recurrent urinary tract infections. He is evaluated at bedside this morning. A [facility] aide is present. Patient is alert and awake. He offers no complaints besides some abdominal pain with palpation. Continues to have intermittent, low grade fevers - 100.3 at approximately 2PM yesterday. Antibiotics have been de-escalated to oral Levaquin. Sputum was positive for Pseudomonas which is sensitive to Levaquin. Patient's oral secretions have improved significantly with the Scopolamine patch. Discussed with aide that this is not a long-term solution and that initial treatment is behavioral modification. Other medications (i.e. Botox) have shown promise without the adverse effects that often accompany Scopolamine or Glycopyrrolate (both anticholinergics - dry mouth, constipation, urinary retention, blurry vision, drowsiness, sedation). OBJECTIVE PHYSICAL EXAMINATION: VITAL SIGNS: Please see below. GENERAL: male, appears stated age, intellectually disabled, but somewhat able to converse, no acute distress HEENT: Atraumatic, normocephalic, PERRL, EOMI, oral mucosa appears pink and moist, oral secretions are significantly improved, nasal septum appears midline , nares are patent, earphones in place CARDIOVASCULAR: Regular rate and rhythm, normal S1 and S2, no murmur, rub, click RESPIRATORY: Clear to auscultation, adequate inspiratory and expiratory airway excursion ABDOMINAL: Soft, flat, non-tender, non-distended, bowel sounds appreciated, PEG tube noted in the LUQ EXTREMITIES: Warm, dry, intact, radial and posterior tibial pulses equal and symmetrical, +2, without edema NEUROLOGICAL: Deferred PSYCHOLOGICAL: Intellectual disability LABORATORY DATA: Please see below. MICROBIOLOGY: Please see below. DVT prophylaxis ordered?: Lovenox 40mg SC daily. ASSESSMENT AND PLAN: This is a 61-year-old male with recurrent aspiration pneumonia and recurrent urinary tract infection which could be colonization. PROBLEMS: 1. Abdominal pain: Continues to experience abdominal pain secondary to palpation. Will obtain KUB. Continue with Tylenol, as needed. 2. Fever: Tmax of 100.3 at approximately 2PM yesterday. Continue with Tylenol , as needed. Monitor vital signs. Fever curve is improving as Tmax has gone from 101.9 to 100.4 to 100.3. 3. HAP: Sputum culture positive for Pseudomonas. Sensitive to oral Levaquin. Adjusted antibiotics yesterday per antimicrobial stewardship. 4. Oral secretions: Currently controlled with Scopolamine patch. However, this is not an ideal long-term treatment as there are adverse side-effects associated with anticholinergics, including dry eyes, blurry vision, constipation, sedation, and urinary retention. Initial treatment is behavioral modification; however, other treatments, including Botox may be beneficial to help mitigate secretions. Surgery is a last resort option. 5. Urinary tract infection with underlying chronic urinary retention: Urine culture results likely that of colonization. Patient has chronic Smith catheter in place. Catheter receptacle contains yellow fluid. Have de- escalated antibiotics to oral Levaquin. Leukocytosis has resolved. 6. Esophageal dysmotility: NPO. PEG tube in place. Feedings and medications through PEG tube. Likely contributing to patient's recurrent aspiration pneumonias. Controlling oral secretions may also control/mitigate aspiration pneumonias. 7. GERD: Continue with Reglan and Lansoprazole. Zofran for nausea. 8. Hyperthyroidism: Continue with Synthroid. 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 10. Neuropathy: Continue with Gabapentin. DISPOSITION: Admitted to the medical-surgical unit. Continue with oral Levaquin. Monitor VS. Obtain KUB for continued abdominal pain. VS, [facility] Vital Signs Date Time Temp Pulse Resp B/P (MAP) Pulse Ox O2 Delivery O2 Flow Rate FiO2 02/18/17 06:00 97.9 89 18 108/74 (85) 96 Room Air I&O- Last 24 Hours up to 6 AM 02/19/17 06:00 Intake Total 300 ml Balance 300 ml Laboratory Data 24H LABS Laboratory Tests 2 02/18/17 06:26: Immature Granulocyte % (Auto) 1.7H, White Blood Count 6.4, Red Blood Count 3.58L , Hemoglobin 11.5L, Hematocrit 35.4L, Mean Corpuscular Volume 98.9H, Mean Corpuscular Hemoglobin 32.1, Mean Corpuscular Hemoglobin Concent 32.5, Red Cell Distribution Width 16.1H, Platelet Count 222, Neutrophils (%) (Auto) 70.0H, Lymphocytes (%) (Auto) 14.2L, Monocytes (%) (Auto) 10.2H, Eosinophils (%) (Auto ) 3.4H, Basophils (%) (Auto) 0.5, Neutrophils # (Auto) 4.5, Lymphocytes # (Auto ) 0.9L, Monocytes # (Auto) 0.7, Eosinophils # (Auto) 0.2, Basophils # (Auto) 0.0 , Immature Granulocyte # (Auto) 0.1H, Nucleated Red Blood Cells % (auto) 0.0, Anion Gap 4L, Glomerular Filtration Rate > 60.0, Blood Urea Nitrogen 26H, Creatinine 0.98, Sodium Level 144, Potassium Level 4.1, Chloride Level 107, Carbon Dioxide Level 33H, Calcium Level 9.3 CBC/BMP Laboratory Tests 02/18/17 06:26 Red Blood Count 3.58 L, Mean Corpuscular Volume 98.9 H, Mean Corpuscular Hemoglobin 32.1, Mean Corpuscular Hemoglobin Concent 32.5, Red Cell Distribution Width 16.1 H, Neutrophils (%) (Auto) 70.0 H, Lymphocytes (%) (Auto ) 14.2 L, Monocytes (%) (Auto) 10.2 H, Eosinophils (%) (Auto) 3.4 H, Basophils ( %) (Auto) 0.5, Neutrophils # (Auto) 4.5, Lymphocytes # (Auto) 0.9 L, Monocytes # (Auto) 0.7, Eosinophils # (Auto) 0.2, Basophils # (Auto) 0.0, Calcium Level 9.3 Microbiology Microbiology 02/14/17 Blood Culture - Preliminary, Resulted No Growth after 72 hours. All specime... 02/14/17 Blood Culture - Preliminary, Resulted No Growth after 72 hours. All specime... 02/16/17 Gram Stain - Final, Complete 02/16/17 Sputum Culture - Final, Complete Pseudomonas Aeruginosa 02/14/17 Influenza Virus Type A Antigen - Final, Complete 02/14/17 Influenza Virus Type B Antigen - Final, Complete 02/14/17 Urine Culture - Final, Complete Klebsiella Pneumoniae Morganella Morganii Ssp Jagjit Enterococcus Faecalis JOSE MCKENZIE DO Feb 18, 2017 09:12
[2017-02-18] MEDS: MIRALAX *UNIT DOSE* 17GM PACKET GT SCH (09:22)
[2017-02-18] MEDS: ENOXAPARIN 40 MG/0.4 ML SYRINGE (J1650) SC SCH (09:23)
[2017-02-18] MEDS: LANSOPRAZOLE SUSPENSION 30 MG/10 ML ORAL SYRINGE (FIRST-LANSOPRAZOLE) GT SCH (09:23)
[2017-02-18] MEDS: OLANZapine ORAL DISINTEGRATING TAB 5MG GT SCH ×3 (09:24→16:28)
[2017-02-18] MEDS: SCOPOLAMINE 1.5 MG TRANSDERMAL TOP SCH (09:24)
[2017-02-18] MEDS: busPIRone 10 MG TAB GT SCH ×2 (09:25→16:28)
[2017-02-18] MEDS: risperiDONE 1 MG TAB GT SCH (09:25)
[2017-02-18] MEDS: CitaloPRAM (CeleXA) 20 MG TAB GT SCH (09:25)
[2017-02-18] MEDS: GABAPENTIN 300 MG CAP GT SCH ×3 (09:25→16:28)
--- NOTE | 2017-02-18 12:07 | REP ---
REASON: Abdominal pain. PRIORS: None. Multiple dilated gas filled bowel loops are present. These are predominately small bowel loops, however, some large bowel loops may also be involved. There is no evidence of gas or content in the rectosigmoid region. There is no evidence of free air. No upright view was obtained. A linear radiodensity is seen in the upper abdomen, unchanged from prior chest radiograph of 12/30/2011. IMPRESSION: Bowel obstruction. Signed by Michael Goel DO 02/18/2017 11:18 A
[2017-02-18 14:00] VITALS: BP 120/81
[2017-02-18] MEDS: CYANOCOBALAMIN 500 MCG TAB GT SCH (21:00)
[2017-02-18 22:00] VITALS: BP 123/86
[2017-02-19 06:00] VITALS: BP 121/83
[2017-02-19] MEDS: LevoFLOXacin 750 MG TABLET PO SCH (06:47)
[2017-02-19] MEDS: LEVOTHYROXINE 75MCG TABLET (0.075MG) GT SCH (06:47)
[2017-02-19 06:57] LABS: BASO # 0.1 10^3/uL (0.0-0.2); BASO % 0.8 % (0.0-1.0); EOS # 0.2 10^3/uL (0.0-0.50); IMMATURE GRANULOCYTE % 3.3 % (0-0); LYMPH % 16.4 % (24.0-44.0); MEAN CORPUSCULAR HEMOGLOBIN 31.3 pg (27.0-33.0); MEAN CORPUSCULAR HGB CONC 32.6 g/dl (32.0-36.5); MEAN CORPUSCULAR VOLUME 96.2 fl (80.0-96.0); MONO # 0.5 10^3/uL (0.0-0.8); MONO % 8.4 % (0.0-5.0); NEUTROPHILS # 4.3 10^3/uL (1.8-7.7); NEUTROPHILS % 68.1 % (36.0-66.0); PLATELET COUNT, AUTOMATED 240 10^3/uL (150-450); WHITE BLOOD COUNT 6.3 10^3/uL (4.0-10.0)
[2017-02-19 07:12] LABS: ANION GAP 6 MEQ/L (8-16); BLOOD UREA NITROGEN 29 MG/DL (7-18); CALCIUM LEVEL 9.5 MG/DL (8.8-10.2); CARBON DIOXIDE LEVEL 32 MEQ/L (21-32); CHLORIDE LEVEL 105 MEQ/L (98-107); GLOMERULAR FILTRATION RATE > 60.0 (>49); GLUCOSE, FASTING 93 MG/DL (80-110); POTASSIUM SERUM 4.3 MEQ/L (3.5-5.1); SODIUM LEVEL 143 MEQ/L (136-145)
[2017-02-19] MEDS: busPIRone 10 MG TAB GT SCH ×2 (09:13→15:29)
[2017-02-19] MEDS: risperiDONE 1 MG TAB GT SCH (09:13)
[2017-02-19] MEDS: ENOXAPARIN 40 MG/0.4 ML SYRINGE (J1650) SC SCH (09:13)
[2017-02-19] MEDS: CitaloPRAM (CeleXA) 20 MG TAB GT SCH (09:13)
[2017-02-19] MEDS: MIRALAX *UNIT DOSE* 17GM PACKET GT SCH (09:13)
[2017-02-19] MEDS: OLANZapine ORAL DISINTEGRATING TAB 5MG GT SCH ×3 (09:14→15:28)
[2017-02-19] MEDS: GABAPENTIN 300 MG CAP GT SCH ×3 (09:14→15:28)
[2017-02-19] MEDS: LANSOPRAZOLE SUSPENSION 30 MG/10 ML ORAL SYRINGE (FIRST-LANSOPRAZOLE) GT SCH (09:14)
[2017-02-19] MEDS: METOCLOPRAMIDE HCL LIQUID 10 MG/10 ML UDC GT SCH ×4 (09:14→21:00)
[2017-02-19] MEDS: ACETAMINOPHEN 325 MG/10.15 ML UDC GT PRN ×2 (11:14→21:00)
--- NOTE | 2017-02-19 12:20 | IPNPDOC ---
Text Note Date of Service The patient was seen on 02/19/17. NOTE SUBJECTIVE: Patient is a 61-year-old male with recurrent aspiration pneumonia and recurrent urinary tract infections. He is evaluated at bedside this morning. A [facility] aide is present. Patient is alert and awake. He offers no complaints. No fevers in the past 24 hours. Antibiotics have been de- escalated to oral Levaquin. Sputum was positive for Pseudomonas which is sensitive to Levaquin. Patient's oral secretions have improved significantly with the Scopolamine patch. Discussed with aide that this is not a long-term solution and that initial treatment is behavioral modification. Other medications (i.e. Botox) have shown promise without the adverse effects that often accompany Scopolamine or Glycopyrrolate (both anticholinergics - dry mouth , constipation, urinary retention, blurry vision, drowsiness, sedation). OBJECTIVE PHYSICAL EXAMINATION: VITAL SIGNS: Please see below. GENERAL: male, appears stated age, intellectually disabled, but somewhat able to converse, no acute distress HEENT: Atraumatic, normocephalic, PERRL, EOMI, oral mucosa appears pink and moist, oral secretions are significantly improved, nasal septum appears midline , nares are patent, earphones in place CARDIOVASCULAR: Regular rate and rhythm, normal S1 and S2, no murmur, rub, click RESPIRATORY: Clear to auscultation, adequate inspiratory and expiratory airway excursion ABDOMINAL: Soft, flat, non-tender, non-distended, bowel sounds appreciated, PEG tube noted in the LUQ EXTREMITIES: Warm, dry, intact, radial and posterior tibial pulses equal and symmetrical, +2, without edema NEUROLOGICAL: Deferred PSYCHOLOGICAL: Intellectual disability LABORATORY DATA: Please see below. MICROBIOLOGY: Please see below. DVT prophylaxis ordered?: Lovenox 40mg SC daily. ASSESSMENT AND PLAN: This is a 61-year-old male with recurrent aspiration pneumonia and recurrent urinary tract infection which could be colonization. PROBLEMS: 1. Abdominal pain: Continues to experience abdominal pain secondary to palpation. Will obtain KUB. Continue with Tylenol, as needed. 2. Fever: due to infection resolved. 3. Aspiration pneumonia: Sputum culture positive for Pseudomonas. Sensitive to oral Levaquin. On levofloxacin. 4. Oral secretions: Currently controlled with Scopolamine patch. However, this is not an ideal long-term treatment as there are adverse side-effects associated with anticholinergics, including dry eyes, blurry vision, constipation, sedation, and urinary retention. Initial treatment is behavioral modification; however, other treatments, including Botox may be beneficial to help mitigate secretions. Surgery is a last resort option. 5. Urinary tract infection with chronic villasenor catheter: Patient has chronic Villasenor catheter in place. Have de-escalated antibiotics to oral Levaquin. Leukocytosis has resolved. 6. Esophageal dysmotility: NPO. PEG tube in place. Feedings and medications through PEG tube. Likely contributing to patient's recurrent aspiration pneumonias. Controlling oral secretions may also control/mitigate aspiration pneumonias. 7. GERD: Continue with Reglan and Lansoprazole. Zofran for nausea. 8. Hyperthyroidism: Continue with Synthroid. 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 10. Neuropathy: Continue with Gabapentin. DISPOSITION: Admitted to the medical-surgical unit. Continue with oral Levaquin. Monitor VS. Obtain KUB for continued abdominal pain. VS,Fishbone, I+O VS, Fishbone, I+O Laboratory Tests 02/19/17 06:43 Red Blood Count 3.64 L, Mean Corpuscular Volume 96.2 H, Mean Corpuscular Hemoglobin 31.3, Mean Corpuscular Hemoglobin Concent 32.6, Red Cell Distribution Width 16.0 H, Neutrophils (%) (Auto) 68.1 H, Lymphocytes (%) (Auto ) 16.4 L, Monocytes (%) (Auto) 8.4 H, Eosinophils (%) (Auto) 3.0, Basophils (%) (Auto) 0.8, Neutrophils # (Auto) 4.3, Lymphocytes # (Auto) 1.0 L, Monocytes # ( Auto) 0.5, Eosinophils # (Auto) 0.2, Basophils # (Auto) 0.1, Calcium Level 9.5 Vital Signs Date Time Temp Pulse Resp B/P (MAP) Pulse Ox O2 Delivery O2 Flow Rate FiO2 02/19/17 11:15 99.4 02/19/17 07:43 Room Air 02/19/17 06:00 89 18 121/83 (96) 94 I&O- Last 24 Hours up to 6 AM 02/20/17 06:00 Intake Total 0 ml Output Total 525 ml Balance -525 ml ERICA TORRES MD Feb 19, 2017 12:20
[2017-02-19 14:00] VITALS: BP 112/72
[2017-02-19] MEDS: CYANOCOBALAMIN 500 MCG TAB GT SCH (21:00)
[2017-02-19 22:00] VITALS: BP 107/66
[2017-02-20] MEDS: LevoFLOXacin 750 MG TABLET PO SCH (05:20)
[2017-02-20] MEDS: LEVOTHYROXINE 75MCG TABLET (0.075MG) GT SCH (05:20)
[2017-02-20 06:00] VITALS: BP 107/72
[2017-02-20 06:41] LABS: BASO # 0.1 10^3/uL (0.0-0.2); BASO % 1.1 % (0.0-1.0); EOS # 0.5 10^3/uL (0.0-0.50); EOS % 7.5 % (0.0-3.0); LYMPH # 1.7 10^3/uL (1.5-4.5); LYMPH % 27.9 % (24.0-44.0); MEAN CORPUSCULAR HEMOGLOBIN 31.4 pg (27.0-33.0); MONO # 0.6 10^3/uL (0.0-0.8); MONO % 9.8 % (0.0-5.0); NEUTROPHILS % 48.7 % (36.0-66.0); PLATELET COUNT, AUTOMATED 253 10^3/uL (150-450); WHITE BLOOD COUNT 6.2 10^3/uL (4.0-10.0)
[2017-02-20 07:01] LABS: ANION GAP 5 MEQ/L (8-16); BLOOD UREA NITROGEN 25 MG/DL (7-18); CALCIUM LEVEL 9.1 MG/DL (8.8-10.2); CARBON DIOXIDE LEVEL 32 MEQ/L (21-32); CHLORIDE LEVEL 107 MEQ/L (98-107); CREATININE FOR GFR 0.91 MG/DL (0.70-1.30); GLOMERULAR FILTRATION RATE > 60.0 (>49); GLUCOSE, FASTING 78 MG/DL (80-110); SODIUM LEVEL 144 MEQ/L (136-145)
[2017-02-20] MEDS ORDERED: LEVA750T7 PO (08:06)
[2017-02-20] MEDS: MIRALAX *UNIT DOSE* 17GM PACKET GT SCH (08:32)
[2017-02-20] MEDS: METOCLOPRAMIDE HCL LIQUID 10 MG/10 ML UDC GT SCH ×4 (08:32→21:13)
[2017-02-20] MEDS: OLANZapine ORAL DISINTEGRATING TAB 5MG GT SCH ×3 (08:32→17:01)
[2017-02-20] MEDS: ENOXAPARIN 40 MG/0.4 ML SYRINGE (J1650) SC SCH (08:32)
[2017-02-20] MEDS: LANSOPRAZOLE SUSPENSION 30 MG/10 ML ORAL SYRINGE (FIRST-LANSOPRAZOLE) GT SCH (08:32)
[2017-02-20] MEDS: GABAPENTIN 300 MG CAP GT SCH ×3 (08:33→17:01)
[2017-02-20] MEDS: CitaloPRAM (CeleXA) 20 MG TAB GT SCH (08:33)
[2017-02-20] MEDS: busPIRone 10 MG TAB GT SCH ×2 (08:33→17:01)
[2017-02-20] MEDS: risperiDONE 1 MG TAB GT SCH (08:33)
[2017-02-20] MEDS ORDERED: GASTROGRAFIN SOLUTION 30ML PO ONE (11:00)
[2017-02-20] MEDS ORDERED: GASTROGRAFIN SOLUTION 30ML (Q9963) PO ONE (11:30)
[2017-02-20 14:00] VITALS: BP 107/71
--- NOTE | 2017-02-20 16:21 | REP ---
CT of the abdomen and pelvis without IV contrast but with bowel contrast: Comparison is a 2016. There are bilateral lower lobe infiltrates. These have decreased size from the prior study. There is a fixed hiatal hernia measuring 8.5 cm in diameter. The previous NG tube is again identified, unchanged. There is distension of the entire colon from cecum to rectum. Bowel contrast is reached in the proximal transverse colon. There is air and fluid in the distal transverse colon, descending colon and sigmoid colon. Findings are compatible with large bowel obstruction versus Wlai's. This is a change from the prior study. There is no small bowel distension. There is no ascites. The gallbladder, pancreas, spleen, adrenals, unenhanced kidneys and abdominal aorta are unremarkable. There is no ascites or adenopathy. Pelvis: There is a Smith catheter in the bladder. There is no ascites or adenopathy. Distension of the entire colon from cecum to rectum compatible with large bowel obstruction versus Wali's. No ascites. No pneumoperitoneum. Bilateral lower lobe infiltrates. Hiatal hernia. Signed by Paddy Tate MD 02/20/2017 04:12 P
[2017-02-20] MEDS: LORazepam 2 MG/ML VIAL (J2060) IV PRN ×2 (17:07→21:14)
[2017-02-20] MEDS ORDERED: BISACODYL 10 MG SUPP PR ONE (17:30)
--- NOTE | 2017-02-20 18:17 | IPNPDOC ---
Text Note Date of Service The patient was seen on 02/20/17. NOTE SUBJECTIVE: Patient is a 61-year-old male with recurrent aspiration pneumonia and recurrent urinary tract infections. He is evaluated at bedside this morning. A [facility] aide is present. Patient is alert and awake. He offers no complaints. No fevers in the past 24 hours. Antibiotics have been de- escalated to oral Levaquin. Sputum was positive for Pseudomonas which is sensitive to Levaquin. Abdominal xray with huge distension of colon possibility of bowel obstruction. Had liquid stools yesterday , No residual of tube feeds. OBJECTIVE PHYSICAL EXAMINATION: VITAL SIGNS: Please see below. GENERAL: male, appears stated age, intellectually disabled, but somewhat able to converse, no acute distress HEENT: Atraumatic, normocephalic, PERRL, EOMI, oral mucosa appears pink and moist, oral secretions are significantly improved, nasal septum appears midline , nares are patent, earphones in place CARDIOVASCULAR: Regular rate and rhythm, normal S1 and S2, no murmur, rub, click RESPIRATORY: Clear to auscultation, adequate inspiratory and expiratory airway excursion ABDOMINAL: Soft, flat, non-tender, non-distended, bowel sounds appreciated, PEG tube noted in the LUQ EXTREMITIES: Warm, dry, intact, radial and posterior tibial pulses equal and symmetrical, +2, without edema NEUROLOGICAL: Deferred PSYCHOLOGICAL: Intellectual disability LABORATORY DATA: Please see below. MICROBIOLOGY: Please see below. DVT prophylaxis ordered?: Lovenox 40mg SC daily. ASSESSMENT AND PLAN: This is a 61-year-old male with recurrent aspiration pneumonia and recurrent urinary tract infection which could be colonization. PROBLEMS: 1. Abdominal pain: xray reviewed huge distension of colon. CT abd pelvis huge dilatation of colon with liquid stools from rectum to caecum. There is no obstruction . appreciate input by surgery . Review of CT scans from prior admissions show previous episodes of small and large bowel gaseous distension in an ileus pattern. So this may be a chronic issues. Will dc scopolamine patch which may be aggravating the problem. 2. Fever: due to infection resolved. 3. Aspiration pneumonia: Sputum culture positive for Pseudomonas. Sensitive to oral Levaquin. On levofloxacin. 4. Oral secretions: was controlled with scopolamine patch . discontinued today. have ordered suction machine for the patient . 5. Urinary tract infection with chronic villasenor catheter: Patient has chronic Villasenor catheter in place. Have de-escalated antibiotics to oral Levaquin. Leukocytosis has resolved. 6. Esophageal dysmotility and hiatal hernia: NPO. PEG tube in place. Feedings and medications through PEG tube. Likely contributing to patient's recurrent aspiration pneumonias. Controlling oral secretions may also control/ mitigate aspiration pneumonias. 7. GERD: Continue with Reglan and Lansoprazole. Zofran for nausea. 8. Hyperthyroidism: Continue with Synthroid. 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 10. Neuropathy: Continue with Gabapentin. DISPOSITION: Was planned to be discharged however discharge cancelled due to massive colonic distension to be evaluated by surgery. VS,Jeannie, I+O VS, Jeannie, I+O Laboratory Tests 02/20/17 06:01 Red Blood Count 3.54 L, Mean Corpuscular Volume 98.0 H, Mean Corpuscular Hemoglobin 31.4, Mean Corpuscular Hemoglobin Concent 32.0, Red Cell Distribution Width 16.0 H, Neutrophils (%) (Auto) 48.7, Lymphocytes (%) (Auto) 27.9, Monocytes (%) (Auto) 9.8 H, Eosinophils (%) (Auto) 7.5 H, Basophils (%) ( Auto) 1.1 H, Neutrophils # (Auto) 3.0, Lymphocytes # (Auto) 1.7, Monocytes # ( Auto) 0.6, Eosinophils # (Auto) 0.5, Basophils # (Auto) 0.1, Calcium Level 9.1 Vital Signs Date Time Temp Pulse Resp B/P (MAP) Pulse Ox O2 Delivery O2 Flow Rate FiO2 02/20/17 14:00 98.6 94 20 107/71 (83) 93 Room Air I&O- Last 24 Hours up to 6 AM 02/21/17 06:00 Intake Total 1900 ml Output Total 0 ml Balance 1900 ml ERICA TORRES MD Feb 20, 2017 18:17
[2017-02-20] MEDS: SIMETHICONE 40MG/0.6ML DROPS 30ML GT SCH (18:29)
[2017-02-20 20:00] VITALS: BP 111/64
[2017-02-20] MEDS: BISACODYL 10 MG SUPP PR SCH ×2 (21:00→21:13)
[2017-02-20] MEDS: CYANOCOBALAMIN 500 MCG TAB GT SCH (21:14)
[2017-02-21] MEDS: SIMETHICONE 40MG/0.6ML DROPS 30ML GT SCH ×4 (00:58→17:49)
[2017-02-21] MEDS: LEVOTHYROXINE 75MCG TABLET (0.075MG) GT SCH (05:08)
[2017-02-21] MEDS: LevoFLOXacin 750 MG TABLET PO SCH (05:08)
[2017-02-21 06:00] VITALS: BP 104/57
[2017-02-21 06:44] LABS: MEAN CORPUSCULAR HEMOGLOBIN 31.3 pg (27.0-33.0); MEAN CORPUSCULAR HGB CONC 32.5 g/dl (32.0-36.5); MEAN CORPUSCULAR VOLUME 96.3 fl (80.0-96.0); PLATELET COUNT, AUTOMATED 275 10^3/uL (150-450); POS COUNT POS FLAG; POSITIVE MORPH POS FLAG; RED CELL DISTRIBUTION WIDTH 16.1 % (11.5-14.5); WHITE BLOOD COUNT 6.7 10^3/uL (4.0-10.0)
[2017-02-21 06:45] LABS: ADD MANUAL DIFFER YES; DIFF SLIDE NUMBER 6
[2017-02-21 07:00] LABS: ANION GAP 6 MEQ/L (8-16); BLOOD UREA NITROGEN 26 MG/DL (7-18); CALCIUM LEVEL 8.8 MG/DL (8.8-10.2); CARBON DIOXIDE LEVEL 31 MEQ/L (21-32); CHLORIDE LEVEL 105 MEQ/L (98-107); CREATININE FOR GFR 0.84 MG/DL (0.70-1.30); GLOMERULAR FILTRATION RATE > 60.0 (>49); GLUCOSE, FASTING 82 MG/DL (80-110); POTASSIUM SERUM 3.9 MEQ/L (3.5-5.1); SODIUM LEVEL 142 MEQ/L (136-145)
[2017-02-21 07:11] LABS: EOSINOPHILS 5 % (0-5)
[2017-02-21 07:12] LABS: ANISOCYTOSIS 1+; POLYCHROMASIA 1+
[2017-02-21] MEDS: GABAPENTIN 300 MG CAP GT SCH ×3 (08:34→17:48)
[2017-02-21] MEDS: LANSOPRAZOLE SUSPENSION 30 MG/10 ML ORAL SYRINGE (FIRST-LANSOPRAZOLE) GT SCH (08:34)
[2017-02-21] MEDS: CitaloPRAM (CeleXA) 20 MG TAB GT SCH (08:34)
[2017-02-21] MEDS: METOCLOPRAMIDE HCL LIQUID 10 MG/10 ML UDC GT SCH ×4 (08:34→22:18)
[2017-02-21] MEDS: MIRALAX *UNIT DOSE* 17GM PACKET GT SCH (08:34)
[2017-02-21] MEDS: ENOXAPARIN 40 MG/0.4 ML SYRINGE (J1650) SC SCH (08:34)
[2017-02-21] MEDS: risperiDONE 1 MG TAB GT SCH (08:35)
[2017-02-21] MEDS: OLANZapine ORAL DISINTEGRATING TAB 5MG GT SCH ×3 (08:35→17:48)
[2017-02-21] MEDS: busPIRone 10 MG TAB GT SCH ×2 (08:35→17:48)
[2017-02-21] MEDS: BISACODYL 10 MG SUPP PR SCH (08:35)
[2017-02-21] MEDS: ACETAMINOPHEN 325 MG/10.15 ML UDC GT PRN (10:39)
[2017-02-21 14:00] VITALS: BP 111/69
--- NOTE | 2017-02-21 15:39 | IPNPDOC ---
Subjective Date Seen The patient was seen on 02/21/17. Subjective Chief Complaint/HPI The patient is a 61-year-old male admitted with a reason for visit of Aspiration Pneumonia. Events since last encounter Patient seen and examined at the bedside. No acute overnight events noted as per bedside staff. Objective Physical Examination General Exam: Positive: Cooperative, No Acute Distress, Negative: Alert ENT Exam: Positive: Atraumatic, Mucous membr. moist/pink Chest Exam: Positive: Diminished Heart Exam: Positive: Rate Normal, Normal S1, Normal S2 Abdomen Exam: Positive: Normal bowel sounds, Soft, Tenderness (Mild tenderness to deep palpation in the lower quadrants. No rebound tenderness, guarding, or rigidity.), Other (PEG tube in place in LUQ) Extremity Exam: Negative: Tenderness, Swelling Assessment /Plan Plan/VTE VTE Prophylaxis Ordered?: Yes (Lovenox 40mg SC daily) Plan Abdominal pain Xray of Abd notable for distension of colon CT abd/pelvis revealed dilatation of colon with liquid stools from rectum to caecum. Review of CT scans from prior admissions show previous episodes of small and large bowel gaseous distension in an ileus pattern. So this may be a chronic issue in nature. Surgery consulted here--will follow up with recommendations Aspiration pneumonia Sputum culture positive for Pseudomonas. Sensitive to oral Levaquin. On levofloxacin. Urinary tract infection with chronic villasenor catheter Patient has chronic Villasenor catheter in place Cont oral Levaquin. Hx of Esophageal dysmotility and hiatal hernia s/p PEG tube. Feedings and medications administered through PEG tube. Likely contributing to patient's recurrent aspiration pneumonias GERD Continue with Reglan and Lansoprazole. Zofran for nausea. Hypothyroidism Continue with Synthroid. Avoidant personality disorder Continue with Risperdal, Zyprexa, and Ativan. Neuropathy Continue with Gabapentin. DVT prophylaxis Lovenox DISPOSITION: Will f/u with surgical recommendations, D/C pending clinical improvement. VS, I&O, 24H, [place] Vital Signs/I&O Vital Signs Date Time Temp Pulse Resp B/P (MAP) Pulse Ox O2 Delivery O2 Flow Rate FiO2 02/21/17 14:00 98.7 92 14 111/69 (83) 94 Room Air I&O- Last 24 Hours up to 6 AM 02/22/17 06:00 Intake Total 880 ml Output Total 275 ml Balance 605 ml Laboratory Data 24H LABS Laboratory Tests 2 02/21/17 06:13: Immature Granulocyte % (Auto) , Nucleated Red Blood Cells % (auto) 0.0, Neutrophils 68, Lymphocytes (Manual) 17, Monocytes (Manual) 8, Eosinophils ( Manual) 5, Atypical Lymphocytes 2, Platelet Estimate NORMAL, Polychromasia 1+, Anisocytosis 1+, Anion Gap 6L, Glomerular Filtration Rate > 60.0, Blood Urea Nitrogen 26H, Creatinine 0.84, Sodium Level 142, Potassium Level 3.9, Chloride Level 105, Carbon Dioxide Level 31, Calcium Level 8.8 CBC/BMP Laboratory Tests 02/21/17 06:13 Red Blood Count 3.74 L, Mean Corpuscular Volume 96.3 H, Mean Corpuscular Hemoglobin 31.3, Mean Corpuscular Hemoglobin Concent 32.5, Red Cell Distribution Width 16.1 H, Calcium Level 8.8 Microbiology Microbiology 02/14/17 Blood Culture - Final, Complete NO GROWTH AFTER 5 DAYS 02/14/17 Blood Culture - Final, Complete NO GROWTH AFTER 5 DAYS 02/16/17 Gram Stain - Final, Complete 02/16/17 Sputum Culture - Final, Complete Pseudomonas Aeruginosa 02/14/17 Influenza Virus Type A Antigen - Final, Complete 02/14/17 Influenza Virus Type B Antigen - Final, Complete 02/14/17 Urine Culture - Final, Complete Klebsiella Pneumoniae Morganella Morganii Ssp Jagjit Enterococcus Faecalis SVETA GARCIA MD Feb 21, 2017 15:39
[2017-02-21 22:00] VITALS: BP 121/61
[2017-02-21] MEDS: CYANOCOBALAMIN 500 MCG TAB GT SCH (22:18)
[2017-02-22] MEDS: SIMETHICONE 40MG/0.6ML DROPS 30ML GT SCH ×5 (00:07→20:23)
[2017-02-22] MEDS: LEVOTHYROXINE 75MCG TABLET (0.075MG) GT SCH (05:26)
[2017-02-22] MEDS: LevoFLOXacin 750 MG TABLET PO SCH (05:26)
[2017-02-22] MEDS: LORazepam 2 MG/ML VIAL (J2060) IV PRN (05:26)
[2017-02-22 06:00] VITALS: BP 115/72
[2017-02-22] MEDS: MIRALAX *UNIT DOSE* 17GM PACKET GT SCH (08:26)
[2017-02-22] MEDS: METOCLOPRAMIDE HCL LIQUID 10 MG/10 ML UDC GT SCH ×4 (08:26→20:23)
[2017-02-22] MEDS: LANSOPRAZOLE SUSPENSION 30 MG/10 ML ORAL SYRINGE (FIRST-LANSOPRAZOLE) GT SCH (08:26)
[2017-02-22] MEDS: GABAPENTIN 300 MG CAP GT SCH ×3 (08:26→16:03)
[2017-02-22] MEDS: ENOXAPARIN 40 MG/0.4 ML SYRINGE (J1650) SC SCH (08:26)
[2017-02-22] MEDS: CitaloPRAM (CeleXA) 20 MG TAB GT SCH (08:26)
[2017-02-22] MEDS: risperiDONE 1 MG TAB GT SCH (08:27)
[2017-02-22] MEDS: busPIRone 10 MG TAB GT SCH ×2 (08:27→16:03)
[2017-02-22] MEDS: OLANZapine ORAL DISINTEGRATING TAB 5MG GT SCH ×3 (08:27→16:03)
[2017-02-22] MEDS: BISACODYL 10 MG SUPP PR SCH (08:28)
[2017-02-22 14:00] VITALS: BP 82/66
--- NOTE | 2017-02-22 14:10 | IPNPDOC ---
Subjective Date Seen The patient was seen on 02/22/17. Subjective Chief Complaint/HPI The patient is a 61-year-old male admitted with a reason for visit of Aspiration Pneumonia. Events since last encounter Patient seen and examined at the bedside. States that he is feeling well, and denies any acute complaints of abdominal pain. As per bedside staff, the patient had a large bowel movement early this morning. No other acute events noted from overnight. Objective Physical Examination General Exam: Positive: Cooperative, No Acute Distress, Negative: Alert ENT Exam: Positive: Atraumatic, Mucous membr. moist/pink Chest Exam: Positive: Diminished Heart Exam: Positive: Rate Normal, Normal S1, Normal S2 Abdomen Exam: Positive: Soft, Other (PEG tube in place in LUQ), Negative: Tenderness Extremity Exam: Negative: Tenderness, Swelling Assessment /Plan Plan/VTE VTE Prophylaxis Ordered?: Yes (Lovenox 40mg SC daily) Plan Abdominal pain, resolved Xray of Abd notable for distension of colon CT abd/pelvis revealed dilatation of colon with liquid stools from rectum to caecum. Review of CT scans from prior admissions show previous episodes of small and large bowel gaseous distension in an ileus pattern. So this may be a chronic issue in nature. Patient had a large BM early this AM according to nursing staff--patient's abdomen is non-tender, non-distended at this time and he does not offer any acute complaints Cont bowel regimen as ordered Aspiration pneumonia Sputum culture positive for Pseudomonas. Sensitive to oral Levaquin. On levofloxacin. Urinary tract infection with chronic villasenor catheter Patient has chronic Villasenor catheter in place Cont oral Levaquin. Hx of Esophageal dysmotility and hiatal hernia s/p PEG tube. Feedings and medications administered through PEG tube. Likely contributing to patient's recurrent aspiration pneumonias GERD Continue with Reglan and Lansoprazole. Zofran for nausea. Hypothyroidism Continue with Synthroid. Avoidant personality disorder Continue with Risperdal, Zyprexa, and Ativan. Neuropathy Continue with Gabapentin. DVT prophylaxis Lovenox DISPOSITION: Anticipate D/C to [facility] in the AM. VS, I&O, 24H, Fishbone Vital Signs/I&O Vital Signs Date Time Temp Pulse Resp B/P (MAP) Pulse Ox O2 Delivery O2 Flow Rate FiO2 02/22/17 12:15 99.2 02/22/17 08:40 Room Air 02/22/17 06:00 77 15 115/72 (40) 98 I&O- Last 24 Hours up to 6 AM 02/23/17 06:00 Intake Total 0 ml Output Total 0 ml Balance 0 ml Laboratory Data Microbiology Microbiology 02/14/17 Blood Culture - Final, Complete NO GROWTH AFTER 5 DAYS 02/14/17 Blood Culture - Final, Complete NO GROWTH AFTER 5 DAYS 02/16/17 Gram Stain - Final, Complete 02/16/17 Sputum Culture - Final, Complete Pseudomonas Aeruginosa 02/14/17 Influenza Virus Type A Antigen - Final, Complete 02/14/17 Influenza Virus Type B Antigen - Final, Complete 02/14/17 Urine Culture - Final, Complete Klebsiella Pneumoniae Morganella Morganii Ssp Jagjit Enterococcus Faecalis SVETA GARCIA MD Feb 22, 2017 14:10
[2017-02-22] MEDS: ACETAMINOPHEN 325 MG/10.15 ML UDC GT PRN (18:00)
[2017-02-22] MEDS: CYANOCOBALAMIN 500 MCG TAB GT SCH (20:23)
[2017-02-22 22:00] VITALS: BP 87/52
[2017-02-23] MEDS: SIMETHICONE 40MG/0.6ML DROPS 30ML GT SCH ×3 (03:00→14:31)
[2017-02-23 06:00] VITALS: BP 104/63
[2017-02-23] MEDS: LevoFLOXacin 750 MG TABLET PO SCH (06:37)
[2017-02-23] MEDS: METOCLOPRAMIDE HCL LIQUID 10 MG/10 ML UDC GT SCH ×2 (06:37→12:46)
[2017-02-23] MEDS: LEVOTHYROXINE 75MCG TABLET (0.075MG) GT SCH (06:37)
[2017-02-23] MEDS: LANSOPRAZOLE SUSPENSION 30 MG/10 ML ORAL SYRINGE (FIRST-LANSOPRAZOLE) GT SCH (08:18)
[2017-02-23] MEDS: MIRALAX *UNIT DOSE* 17GM PACKET GT SCH (08:18)
[2017-02-23] MEDS: risperiDONE 1 MG TAB GT SCH (08:19)
[2017-02-23] MEDS: BISACODYL 10 MG SUPP PR SCH (08:19)
[2017-02-23] MEDS: OLANZapine ORAL DISINTEGRATING TAB 5MG GT SCH ×2 (08:19→12:47)
[2017-02-23] MEDS: GABAPENTIN 300 MG CAP GT SCH ×2 (08:19→12:47)
[2017-02-23] MEDS: busPIRone 10 MG TAB GT SCH (08:19)
[2017-02-23] MEDS: CitaloPRAM (CeleXA) 20 MG TAB GT SCH (08:19)
[2017-02-23] MEDS: ACETAMINOPHEN 325 MG/10.15 ML UDC GT PRN (12:46)
[2017-02-23 13:22] VITALS: BP 135/90
--- NOTE | 2017-02-23 15:52 | DS.PDOC ---
Discharge Summary General Date of Admission Feb 14, 2017 at 10:41 Date of Discharge 02/23/17 Specialist/Consultants Involve: Xochitl Rdz,Phan Carlson Discharge Summary PROCEDURES PERFORMED DURING STAY: None. ADMITTING/DISCHARGE DIAGNOSES: Aspiration pneumonia Possible urinary tract infection with chronic Smith catheter Hx of Esophageal dysmotility and hiatal hernia s/p PEG tube COMPLICATIONS/CHIEF COMPLAINT: Aspiration Pneumonia. HISTORY OF PRESENT ILLNESS: . 61-year-old male with PMH significant for recurrent urinary tract infections ( E. coli, Pseudomonas, Enterococcus faecalis, Morganella morganii), recurrent aspiration pneumonia (MRSA, Pseudomonas, E. coli, Klebsiella pneumoniae) with PEG tube placement, hypothyroidism, avoidant personality disorder, gastroesophageal reflux disease, depression, history of basal cell carcinoma, intellectual disability, history of C2-7 fracture, suspected achalasia or other chronic dilation of the esophagus with associated hiatal hernia presented to [facility]'s Emergency Department with a fever. He was accompanied by a [facility] aide, who provided most of the history. The patient was apparently noted to be more confused, and at times agitated which is a change from his baseline. In the ER, the patient was noted to have an aspiration pneumonia due to a chest x-ray revealing possible lower lobe infiltrates. The patient was admitted to the hospitalist service for further evaluation and management. During hospitalization, the patient was treated with IV vancomycin and Zosyn initially, and subsequently transitioned to by mouth Levaquin for a completion of his antibiotic trial. The patient's respiratory status subsequently returned back to its baseline. Of note, the patient was complaining of some abdominal pain, and a CT scan of the abdomen/pelvis was ordered. This revealed dilatation of the colon with liquid stools from the rectum to the cecum. However, the patient does have a history of chronic dilatation, and previous CT scans of the abdomen/pelvis did reveal small and large gaseous patterns. General surgery was consulted, and the patient was treated with a bowel regimen and supportive care. The patient's abdominal pain subsequently resolved following a voluminous bowel movement. At this time, the patient seems to be back to his baseline mentation. The patient will be discharged back to the [facility] facility. DISCHARGE MEDICATIONS: Please see below. ALLERGIES: Please see below. PHYSICAL EXAMINATION ON DISCHARGE: VITAL SIGNS: Please see below. General Exam: Positive: Cooperative, No Acute Distress, Negative: Alert ENT Exam: Positive: Atraumatic, Mucous membr. moist/pink Chest Exam: Positive: Diminished Heart Exam: Positive: Rate Normal, Normal S1, Normal S2 Abdomen Exam: Positive: Soft, Other (PEG tube in place in LUQ), Negative: Tenderness Extremity Exam: Negative: Tenderness, Swelling LABORATORY DATA: Please see below. IMAGING: CT of the abdomen and pelvis without IV contrast but with bowel contrast: Comparison is a 2016. There are bilateral lower lobe infiltrates. These have decreased size from the prior study. There is a fixed hiatal hernia measuring 8.5 cm in diameter. The previous NG tube is again identified, unchanged. There is distension of the entire colon from cecum to rectum. Bowel contrast is reached in the proximal transverse colon. There is air and fluid in the distal transverse colon, descending colon and sigmoid colon. Findings are compatible with large bowel obstruction versus [place]'s. This is a change from the prior study. There is no small bowel distension. There is no ascites. The gallbladder, pancreas, spleen, adrenals, unenhanced kidneys and abdominal aorta are unremarkable. There is no ascites or adenopathy. Pelvis: There is a Smith catheter in the bladder. There is no ascites or adenopathy. Distension of the entire colon from cecum to rectum compatible with large bowel obstruction versus [place]'s. No ascites. No pneumoperitoneum. Bilateral lower lobe infiltrates. Hiatal hernia. PA and lateral chest: A comparison is 02/09/2017. There is a focal subsegmental infiltrate in the left mid lung as an interval change. The lung arreola otherwise clear. No pleural effusions. There is diffuse esophageal dilatation as previously. Cardiac size is normal. The shashank, mediastinum, and bony thorax are unremarkable. Impression: New subsegmental infiltrate in the left mid lung. Chronic esophageal dilatation. PROGNOSIS: Fair ACTIVITY: As tolerated. DIET: . Via Feeding tube DISCHARGE PLAN: [facility] DISPOSITION: 70 Xfer Other. DISCHARGE INSTRUCTIONS: Follow-up with PCP within 7 days. Return to the ER for any acute emergencies DISCHARGE CONDITION: Stable. TIME SPENT ON DISCHARGE: Greater than 30 minutes. Vital Signs/I&Os Vital Signs Date Time Temp Pulse Resp B/P (MAP) Pulse Ox O2 Delivery O2 Flow Rate FiO2 02/23/17 13:22 99.6 123 20 135/90 (105) 02/23/17 09:00 Room Air 02/23/17 06:00 96 I&O- Last 24 Hours up to 6 AM 02/24/17 06:00 Intake Total 880 ml Output Total 800 ml Balance 80 ml Microbiology Microbiology 02/14/17 Blood Culture - Final, Complete NO GROWTH AFTER 5 DAYS 02/14/17 Blood Culture - Final, Complete NO GROWTH AFTER 5 DAYS 02/23/17 MRSA Screen, Received Pending 02/16/17 Gram Stain - Final, Complete 02/16/17 Sputum Culture - Final, Complete Pseudomonas Aeruginosa 02/14/17 Influenza Virus Type A Antigen - Final, Complete 02/14/17 Influenza Virus Type B Antigen - Final, Complete 02/14/17 Urine Culture - Final, Complete Klebsiella Pneumoniae Morganella Morganii Ssp Jagjit Enterococcus Faecalis Discharge Medications Scheduled ([place] Hn) 1 Liq Liq, 1 LIQ GT QID, (Reported) FLUSH WITH 100CC WATER Buspirone HCl (Buspirone HCl) 30 Mg Tab, 30 MG GT BID, (Reported) AM AND 1530 Citalopram Hydrobromide (Citalopram Hydrobromide) 40 Mg Tab, 40 MG GT DAILY, ( Reported) Clonazepam (Clonazepam) 0.5 Mg Tab, 0.5 MG GT TID, (Reported) AM, 1000, 1530 Cyanocobalamin (Vitamin B-12) 500 Mcg Tab, 500 MCG GT QHS, (Reported) Folic Acid (Folic Acid) 400 Mcg Tab, 400 MCG GT QHS, (Reported) Gabapentin (Neurontin) 300 Mg Cap, 600 MG GT TID, (Reported) AM, 1130, 1530 Lansoprazole (Prevacid Solutab) 30 Mg Tab, 30 MG GT DAILY, (Reported) Levofloxacin Hemihydrate (Levaquin) 750 Mg Tab, 750 MG PO DAILY@06 Levothyroxine Sodium (Synthroid) 75 Mcg Tab, 75 MCG GT DAILY, (Reported) Metoclopramide HCl (Metoclopramide HCl) 5 Mg/5 Ml Liq, 10 MG GT QID, (Reported) 30 MINUTES PRIOR TO MEALS: AM, 1130, 1530, AND 1930 OLANZapine DISINTEGRATING (Olanzapine Odt) 15 Mg Tab, 15 MG GT TID, (Reported) DISSOLVE IN FLUID, 0800,1200,1530 Polyethylene Glycol (Miralax) 1 Pow Pow, 17 GM GT DAILY, (Reported) Risperidone (Risperdal) 1 Mg Tab, 1 MG GT DAILY, (Reported) Scheduled PRN (Acetaminophen Extra Stren) 500 Mg/15 Ml Liq, 20 ML PO Q4H PRN for PAIN / FEVER , (Reported) Allergies Coded Allergies: No Known Drug Allergy (Verified Allergy, Unknown, CAREGIVER SAYS NO ALLERGIES, 02/14/17) SVETA GARCIA MD Feb 23, 2017 15:52
== END 2017-02-23 14:53 | disposition home or self-care (01) | DRG 871 ==
LOC: M ED 05:35 → M ED INP 10:41 → M MS5PR 15:51
PROVIDERS: ADMIT Internal Medicine Nephrology; ATTEND Internal Medicine
DX: A41.9 Sepsis, unspecified organism (principal); J69.0 Pneumonitis due to inhalation of food and vomit; N39.0 Urinary tract infection, site not specified; E03.9 Hypothyroidism, unspecified; K21.9 Gastro-esophageal reflux disease without esophagitis; F32.9 Major depressive disorder, single episode, unspecified; F79 Unspecified intellectual disabilities; F60.6 Avoidant personality disorder; K44.9 Diaphragmatic hernia without obstruction or gangrene; K22.0 Achalasia of cardia; Z93.1 Gastrostomy status; R33.9 Retention of urine, unspecified; G62.9 Polyneuropathy, unspecified; K63.89 Other specified diseases of intestine; Z79.899 Other long term (current) drug therapy; Z85.828 Personal history of other malignant neoplasm of skin

== ENCOUNTER → 2017-03-24 | Outpatient (CLI) | payer MEDICARE, MEDICAID | LOC: M RAD 17:23 | DX: M79.89 Other specified soft tissue disorders (principal) | CPT/HCPCS: 93971 ==

== ENCOUNTER 2017-04-26 17:28 | Inpatient (IN) | payer MEDICARE, MEDICAID ==
[2017-04-26] MEDS: NS 500 ML IV (18:15)
[2017-04-26 19:03] LABS: BASO % 0.2 % (0.0-1.0); EOS # 0.1 10^3/uL (0.0-0.50); EOS % 0.7 % (0.0-3.0); HEMATOCRIT 32.3 % (42.0-52.0); HEMOGLOBIN 10.7 g/dl (14.0-18.0); IMMATURE GRANULOCYTE % 0.4 % (0-3.0); LYMPH # 0.8 10^3/uL (1.5-4.5); LYMPH % 6.8 % (24.0-44.0); MEAN CORPUSCULAR HEMOGLOBIN 31.6 pg (27.0-33.0); MEAN CORPUSCULAR HGB CONC 33.1 g/dl (32.0-36.5); MEAN CORPUSCULAR VOLUME 95.3 fl (80.0-96.0); MONO # 1.6 10^3/uL (0.0-0.8); MONO % 13.9 % (0.0-5.0); NEUTROPHILS # 9.2 10^3/uL (1.8-7.7); PLATELET COUNT, AUTOMATED 174 10^3/uL (150-450); RED BLOOD COUNT 3.39 10^6/uL (4.30-6.10); RED CELL DISTRIBUTION WIDTH 16.4 % (11.5-14.5); WHITE BLOOD COUNT 11.7 10^3/uL (4.0-10.0)
[2017-04-26 19:09] LABS: AMORPHOUS SEDIMENT SMALL (NEGATIVE); APPEARANCE, URINE HAZY (CLEAR); BACTERIA, URINE AUTO NEGATIVE (NEGATIVE); BILIRUBIN, URINE AUTO NEGATIVE (NEGATIVE); BLOOD, URINE BLOOD NEGATIVE (NEGATIVE); COLOR, URINE YELLOW (YELLOW); GLUCOSE, URINE (UA) AUTO NEGATIVE (NEGATIVE); KETONE, URINE AUTO NEGATIVE (NEGATIVE); LEUKOCYTE ESTERASE, URINE AUTO 1+ (NEGATIVE); NITRITE, URINE AUTO NEGATIVE (NEGATIVE); PROTEIN, URINE AUTO NEGATIVE (NEGATIVE); RBC, URINE AUTO 2 /HPF (0-3); SPECIFIC GRAVITY URINE AUTO 1.014 (1.002-1.035); SQUAMOUS EPITHELIAL CELL UR AU 0 /HPF (0-6); UROBILINOGEN, URINE AUTO 0.2 mg/dL (0.0-2.0); WBC, URINE AUTO 5 /HPF (0-3)
[2017-04-26 19:32] LABS: ALBUMIN 2.9 GM/DL (3.2-5.2); ALBUMIN/GLOBULIN RATIO 0.78 (1.00-1.93); ALKALINE PHOSPHATASE 122 U/L (45-117); ALT/SGPT 36 U/L (12-78); ANION GAP 8 MEQ/L (8-16); AST/SGOT 30 U/L (7-37); BILIRUBIN,DIRECT 0.1 MG/DL (0.0-0.2); BILIRUBIN,TOTAL 0.3 MG/DL (0.2-1.0); BLOOD UREA NITROGEN 32 MG/DL (7-18); CALCIUM LEVEL 8.4 MG/DL (8.8-10.2); CARBON DIOXIDE LEVEL 29 MEQ/L (21-32); CHLORIDE LEVEL 100 MEQ/L (98-107); CREATININE FOR GFR 1.11 MG/DL (0.70-1.30); GLOMERULAR FILTRATION RATE > 60.0 (>49); GLUCOSE, FASTING 158 MG/DL (70-100); POTASSIUM SERUM 3.7 MEQ/L (3.5-5.1); SODIUM LEVEL 137 MEQ/L (136-145); TOTAL PROTEIN 6.6 GM/DL (6.4-8.2)
[2017-04-26 19:48] LABS: CPK CREATINE PHOSPHOKINASE 361 U/L (39-308); TROPONIN I < 0.02 NG/ML (< 0.10)
[2017-04-26 19:49] LABS: LACTIC ACID SEPSIS PROTOCOL 1.9 MMOL/L (0.4-2.0)
[2017-04-26 19:49] LABS: CK-MB VALUE MASS 3.3 NG/ML (0.0-3.6); MB/CK RELATIVE INDEX 0.91 (< OR =4); NT-PRO BNP 1058 PG/ML (<125)
[2017-04-26] MEDS ORDERED: ISOVUE-370 76% 100ML VIAL (Q9967) As Ordered (20:18)
[2017-04-26] MEDS: VANCOMYCIN HCL 1,000 MG, VIAL MATE ADAPTER 1 EACH in D5W 250 ML IV (21:45)
[2017-04-26] MEDS: PIPERACILLIN/TAZOBACTAM SOD 3.375 GM in APPROPRIATE DILUENT 1 EA IV (21:50)
[2017-04-26] MEDS: NS 1,000 ML IV (22:08)
[2017-04-26] MEDS ORDERED: LEVALBUTEROL 1.25 MG/0.5 ML CONCENTRATE NEB NEB (23:00)
[2017-04-26] MEDS: HEPARIN SOD (PORCINE) 5000 UNITS/ML VIAL SC (23:05)
[2017-04-26] MEDS: CYANOCOBALAMIN 500 MCG TAB GT (23:27)
[2017-04-27 05:57] LABS: BASO % 0.2 % (0.0-1.0); EOS # 0.1 10^3/uL (0.0-0.50); EOS % 0.8 % (0.0-3.0); HEMATOCRIT 35.5 % (42.0-52.0); HEMOGLOBIN 11.7 g/dl (14.0-18.0); IMMATURE GRANULOCYTE % 0.5 % (0-3.0); LYMPH # 0.8 10^3/uL (1.5-4.5); LYMPH % 5.9 % (24.0-44.0); MEAN CORPUSCULAR HEMOGLOBIN 31.4 pg (27.0-33.0); MEAN CORPUSCULAR VOLUME 95.2 fl (80.0-96.0); MONO # 1.7 10^3/uL (0.0-0.8); MONO % 12.8 % (0.0-5.0); NEUTROPHILS # 10.3 10^3/uL (1.8-7.7); NEUTROPHILS % 79.8 % (36.0-66.0); PLATELET COUNT, AUTOMATED 187 10^3/uL (150-450); RED BLOOD COUNT 3.73 10^6/uL (4.30-6.10); RED CELL DISTRIBUTION WIDTH 16.4 % (11.5-14.5); WHITE BLOOD COUNT 12.9 10^3/uL (4.0-10.0)
[2017-04-27] MEDS: HEPARIN SOD (PORCINE) 5000 UNITS/ML VIAL SC ×3 (06:00→22:12)
[2017-04-27 06:13] LABS: ALBUMIN 2.7 GM/DL (3.2-5.2); ALBUMIN/GLOBULIN RATIO 0.71 (1.00-1.93); ALKALINE PHOSPHATASE 107 U/L (45-117); ALT/SGPT 32 U/L (12-78); ANION GAP 5 MEQ/L (8-16); AST/SGOT 27 U/L (7-37); BILIRUBIN,TOTAL 0.6 MG/DL (0.2-1.0); BLOOD UREA NITROGEN 22 MG/DL (7-18); CALCIUM LEVEL 8.6 MG/DL (8.8-10.2); CARBON DIOXIDE LEVEL 30 MEQ/L (21-32); CHLORIDE LEVEL 105 MEQ/L (98-107); CREATININE FOR GFR 0.88 MG/DL (0.70-1.30); GLOMERULAR FILTRATION RATE > 60.0 (>49); GLUCOSE, FASTING 85 MG/DL (70-100); MAGNESIUM LEVEL 1.9 MG/DL (1.8-2.4); POTASSIUM SERUM 4.1 MEQ/L (3.5-5.1); SODIUM LEVEL 140 MEQ/L (136-145); TOTAL PROTEIN 6.5 GM/DL (6.4-8.2)
[2017-04-27] MEDS: ACETAMINOPHEN TAB 650MG DOSE (2X325MG) PO ×3 (08:28→22:12)
[2017-04-27] MEDS: clonazePAM 0.5 MG TAB GT ×3 (08:28→16:40)
[2017-04-27] MEDS: busPIRone 10 MG TAB GT ×2 (08:28→16:40)
[2017-04-27] MEDS: PANTOPRAZOLE 40MG INJ (PROTONIX) (C9113) IV (08:28)
[2017-04-27] MEDS: MIRALAX *UNIT DOSE* 17GM PACKET GT (08:29)
[2017-04-27] MEDS: risperiDONE 1 MG TAB GT (08:29)
[2017-04-27] MEDS: OLANZapine ORAL DISINTEGRATING TAB 5MG GT ×3 (08:29→20:22)
[2017-04-27] MEDS: CitaloPRAM (CeleXA) 20 MG TAB GT (08:29)
[2017-04-27] MEDS: LEVOTHYROXINE 75MCG TABLET (0.075MG) GT (08:29)
[2017-04-27] MEDS: GABAPENTIN 300 MG CAP GT ×3 (08:29→16:40)
[2017-04-27] MEDS: METOCLOPRAMIDE HCL LIQUID 10 MG/10 ML UDC GT ×4 (08:30→19:37)
[2017-04-27] MEDS: PIPERACILLIN/TAZOBACTAM SOD 3.375 GM in APPROPRIATE DILUENT 1 EA IV ×2 (08:39→16:58)
[2017-04-27] MEDS ORDERED: LEVOTHYROXINE 75MCG TABLET (0.075MG) GT (09:00)
[2017-04-27] MEDS: VANCOMYCIN HCL 750 MG, VIAL MATE ADAPTER 1 EACH in D5W 250 ML IV ×2 (10:07→20:31)
[2017-04-27] MEDS: NS 1,000 ML IV (10:38)
[2017-04-27] MEDS: CYANOCOBALAMIN 500 MCG TAB GT (20:22)
[2017-04-28] MEDS: PIPERACILLIN/TAZOBACTAM SOD 3.375 GM in APPROPRIATE DILUENT 1 EA IV ×3 (00:13→15:31)
[2017-04-28] MEDS: ACETAMINOPHEN TAB 650MG DOSE (2X325MG) PO (03:17)
[2017-04-28] MEDS: LEVOTHYROXINE 75MCG TABLET (0.075MG) GT (06:01)
[2017-04-28] MEDS: guaiFENesin SYRUP 200 MG/10 ML UDC PO (06:01)
[2017-04-28] MEDS: HEPARIN SOD (PORCINE) 5000 UNITS/ML VIAL SC ×3 (06:02→21:18)
[2017-04-28 06:14] LABS: BASO % 0.2 % (0.0-1.0); EOS # 0.1 10^3/uL (0.0-0.50); EOS % 0.6 % (0.0-3.0); HEMATOCRIT 32.4 % (42.0-52.0); HEMOGLOBIN 10.8 g/dl (14.0-18.0); IMMATURE GRANULOCYTE % 0.5 % (0-3.0); LYMPH # 0.9 10^3/uL (1.5-4.5); LYMPH % 7.9 % (24.0-44.0); MEAN CORPUSCULAR HEMOGLOBIN 31.5 pg (27.0-33.0); MEAN CORPUSCULAR HGB CONC 33.3 g/dl (32.0-36.5); MEAN CORPUSCULAR VOLUME 94.5 fl (80.0-96.0); MONO # 1.8 10^3/uL (0.0-0.8); MONO % 15.5 % (0.0-5.0); NEUTROPHILS # 8.7 10^3/uL (1.8-7.7); NEUTROPHILS % 75.3 % (36.0-66.0); PLATELET COUNT, AUTOMATED 172 10^3/uL (150-450); RED BLOOD COUNT 3.43 10^6/uL (4.30-6.10); RED CELL DISTRIBUTION WIDTH 16.3 % (11.5-14.5); WHITE BLOOD COUNT 11.5 10^3/uL (4.0-10.0)
[2017-04-28 06:38] LABS: ALBUMIN 2.6 GM/DL (3.2-5.2); ALBUMIN/GLOBULIN RATIO 0.68 (1.00-1.93); ALKALINE PHOSPHATASE 101 U/L (45-117); ALT/SGPT 27 U/L (12-78); ANION GAP 6 MEQ/L (8-16); AST/SGOT 27 U/L (7-37); BILIRUBIN,TOTAL 0.5 MG/DL (0.2-1.0); BLOOD UREA NITROGEN 28 MG/DL (7-18); CALCIUM LEVEL 8.3 MG/DL (8.8-10.2); CARBON DIOXIDE LEVEL 31 MEQ/L (21-32); CHLORIDE LEVEL 101 MEQ/L (98-107); CREATININE FOR GFR 1.12 MG/DL (0.70-1.30); GLOMERULAR FILTRATION RATE > 60.0 (>49); GLUCOSE, FASTING 106 MG/DL (70-100); MAGNESIUM LEVEL 2.1 MG/DL (1.8-2.4); POTASSIUM SERUM 3.9 MEQ/L (3.5-5.1); SODIUM LEVEL 138 MEQ/L (136-145); TOTAL PROTEIN 6.4 GM/DL (6.4-8.2)
[2017-04-28] MEDS: MIRALAX *UNIT DOSE* 17GM PACKET GT (08:33)
[2017-04-28] MEDS: METOCLOPRAMIDE HCL LIQUID 10 MG/10 ML UDC GT ×4 (08:35→18:08)
[2017-04-28] MEDS: GABAPENTIN 300 MG CAP GT ×3 (08:35→15:31)
[2017-04-28] MEDS: PANTOPRAZOLE 40MG INJ (PROTONIX) (C9113) IV (08:35)
[2017-04-28] MEDS: OLANZapine ORAL DISINTEGRATING TAB 5MG GT ×3 (08:36→21:18)
[2017-04-28] MEDS: busPIRone 10 MG TAB GT ×2 (08:36→15:31)
[2017-04-28] MEDS: risperiDONE 1 MG TAB GT (08:36)
[2017-04-28] MEDS: clonazePAM 0.5 MG TAB GT ×3 (08:36→15:32)
[2017-04-28] MEDS: CitaloPRAM (CeleXA) 20 MG TAB GT (08:36)
[2017-04-28] MEDS ORDERED: guaiFENesin SYRUP 200 MG/10 ML UDC PO (09:00)
[2017-04-28 09:15] LABS: VANCOMYCIN LEVEL TROUGH 15.8 UG/ML (10.0-20.0)
[2017-04-28] MEDS ORDERED: VANCOMYCIN 1000 MG/20 ML VIAL (J3370) As Ordered (11:04)
[2017-04-28] MEDS: VANCOMYCIN HCL 1,000 MG, VIAL MATE ADAPTER 1 EACH in D5W 250 ML IV ×2 (11:09→23:12)
[2017-04-28] MEDS: CYANOCOBALAMIN 500 MCG TAB GT (21:18)
[2017-04-29] MEDS: PIPERACILLIN/TAZOBACTAM SOD 3.375 GM in APPROPRIATE DILUENT 1 EA IV ×3 (01:40→15:23)
[2017-04-29] MEDS: LEVOTHYROXINE 75MCG TABLET (0.075MG) GT (06:11)
[2017-04-29] MEDS: HEPARIN SOD (PORCINE) 5000 UNITS/ML VIAL SC ×3 (06:11→22:44)
[2017-04-29 06:28] LABS: BASO % 0.1 % (0.0-1.0); EOS # 0.1 10^3/uL (0.0-0.50); EOS % 0.6 % (0.0-3.0); HEMATOCRIT 32.3 % (42.0-52.0); HEMOGLOBIN 10.5 g/dl (14.0-18.0); IMMATURE GRANULOCYTE % 0.5 % (0-3.0); LYMPH % 9.6 % (24.0-44.0); MEAN CORPUSCULAR HGB CONC 32.5 g/dl (32.0-36.5); MEAN CORPUSCULAR VOLUME 95.3 fl (80.0-96.0); MONO # 1.3 10^3/uL (0.0-0.8); MONO % 12.7 % (0.0-5.0); NEUTROPHILS # 7.6 10^3/uL (1.8-7.7); NEUTROPHILS % 76.5 % (36.0-66.0); PLATELET COUNT, AUTOMATED 180 10^3/uL (150-450); RED BLOOD COUNT 3.39 10^6/uL (4.30-6.10); WHITE BLOOD COUNT 9.9 10^3/uL (4.0-10.0)
[2017-04-29 06:52] LABS: ALBUMIN 2.7 GM/DL (3.2-5.2); ALBUMIN/GLOBULIN RATIO 0.68 (1.00-1.93); ALKALINE PHOSPHATASE 97 U/L (45-117); ALT/SGPT 27 U/L (12-78); ANION GAP 6 MEQ/L (8-16); AST/SGOT 24 U/L (7-37); BILIRUBIN,TOTAL 0.5 MG/DL (0.2-1.0); BLOOD UREA NITROGEN 25 MG/DL (7-18); CALCIUM LEVEL 8.4 MG/DL (8.8-10.2); CARBON DIOXIDE LEVEL 30 MEQ/L (21-32); CHLORIDE LEVEL 104 MEQ/L (98-107); CREATININE FOR GFR 1.03 MG/DL (0.70-1.30); GLOMERULAR FILTRATION RATE > 60.0 (>49); GLUCOSE, FASTING 112 MG/DL (70-100); MAGNESIUM LEVEL 2.1 MG/DL (1.8-2.4); POTASSIUM SERUM 4.1 MEQ/L (3.5-5.1); SODIUM LEVEL 140 MEQ/L (136-145); TOTAL PROTEIN 6.7 GM/DL (6.4-8.2)
[2017-04-29] MEDS: clonazePAM 0.5 MG TAB GT ×3 (08:20→15:23)
[2017-04-29] MEDS: PANTOPRAZOLE 40MG INJ (PROTONIX) (C9113) IV (08:20)
[2017-04-29] MEDS: GABAPENTIN 300 MG CAP GT ×3 (08:20→15:23)
[2017-04-29] MEDS: CitaloPRAM (CeleXA) 20 MG TAB GT (08:20)
[2017-04-29] MEDS: MIRALAX *UNIT DOSE* 17GM PACKET GT (08:21)
[2017-04-29] MEDS: METOCLOPRAMIDE HCL LIQUID 10 MG/10 ML UDC GT ×4 (08:21→19:45)
[2017-04-29] MEDS: busPIRone 10 MG TAB GT ×2 (08:21→15:23)
[2017-04-29] MEDS: OLANZapine ORAL DISINTEGRATING TAB 5MG GT ×3 (08:21→20:47)
[2017-04-29] MEDS: risperiDONE 1 MG TAB GT (08:21)
[2017-04-29] MEDS: VANCOMYCIN HCL 1,000 MG, VIAL MATE ADAPTER 1 EACH in D5W 250 ML IV ×2 (11:08→22:45)
[2017-04-29] MEDS: CYANOCOBALAMIN 500 MCG TAB GT (20:47)
[2017-04-29 23:00] LABS: VANCOMYCIN LEVEL TROUGH 19.8 UG/ML (10.0-20.0)
[2017-04-30] MEDS: PIPERACILLIN/TAZOBACTAM SOD 3.375 GM in APPROPRIATE DILUENT 1 EA IV ×3 (00:36→15:33)
[2017-04-30] MEDS: LEVOTHYROXINE 75MCG TABLET (0.075MG) GT (06:02)
[2017-04-30] MEDS: HEPARIN SOD (PORCINE) 5000 UNITS/ML VIAL SC ×3 (06:07→22:48)
[2017-04-30 06:41] LABS: BASO % 0.2 % (0.0-1.0); EOS # 0.3 10^3/uL (0.0-0.50); EOS % 3.3 % (0.0-3.0); HEMATOCRIT 31.4 % (42.0-52.0); HEMOGLOBIN 10.1 g/dl (14.0-18.0); IMMATURE GRANULOCYTE % 0.8 % (0-3.0); LYMPH # 1.1 10^3/uL (1.5-4.5); LYMPH % 12.6 % (24.0-44.0); MEAN CORPUSCULAR HEMOGLOBIN 31.2 pg (27.0-33.0); MEAN CORPUSCULAR HGB CONC 32.2 g/dl (32.0-36.5); MEAN CORPUSCULAR VOLUME 96.9 fl (80.0-96.0); MONO # 1.3 10^3/uL (0.0-0.8); MONO % 14.8 % (0.0-5.0); NEUTROPHILS # 6.1 10^3/uL (1.8-7.7); NEUTROPHILS % 68.3 % (36.0-66.0); PLATELET COUNT, AUTOMATED 192 10^3/uL (150-450); RED BLOOD COUNT 3.24 10^6/uL (4.30-6.10); RED CELL DISTRIBUTION WIDTH 16.1 % (11.5-14.5); WHITE BLOOD COUNT 8.9 10^3/uL (4.0-10.0)
[2017-04-30 07:13] LABS: ALBUMIN 2.3 GM/DL (3.2-5.2); ALBUMIN/GLOBULIN RATIO 0.59 (1.00-1.93); ALKALINE PHOSPHATASE 87 U/L (45-117); ALT/SGPT 23 U/L (12-78); ANION GAP 5 MEQ/L (8-16); AST/SGOT 20 U/L (7-37); BILIRUBIN,TOTAL 0.3 MG/DL (0.2-1.0); BLOOD UREA NITROGEN 21 MG/DL (7-18); CALCIUM LEVEL 8.5 MG/DL (8.8-10.2); CARBON DIOXIDE LEVEL 32 MEQ/L (21-32); CHLORIDE LEVEL 105 MEQ/L (98-107); CREATININE FOR GFR 0.94 MG/DL (0.70-1.30); GLOMERULAR FILTRATION RATE > 60.0 (>49); GLUCOSE, FASTING 105 MG/DL (70-100); MAGNESIUM LEVEL 2.2 MG/DL (1.8-2.4); SODIUM LEVEL 142 MEQ/L (136-145); TOTAL PROTEIN 6.2 GM/DL (6.4-8.2)
[2017-04-30] MEDS: risperiDONE 1 MG TAB GT (08:03)
[2017-04-30] MEDS: GABAPENTIN 300 MG CAP GT ×3 (08:03→15:32)
[2017-04-30] MEDS: busPIRone 10 MG TAB GT ×2 (08:03→15:32)
[2017-04-30] MEDS: CitaloPRAM (CeleXA) 20 MG TAB GT (08:03)
[2017-04-30] MEDS: OLANZapine ORAL DISINTEGRATING TAB 5MG GT ×3 (08:04→20:47)
[2017-04-30] MEDS: clonazePAM 0.5 MG TAB GT ×3 (08:04→15:32)
[2017-04-30] MEDS: METOCLOPRAMIDE HCL LIQUID 10 MG/10 ML UDC GT ×4 (08:04→19:58)
[2017-04-30] MEDS: PANTOPRAZOLE 40MG INJ (PROTONIX) (C9113) IV (08:04)
[2017-04-30] MEDS: MIRALAX *UNIT DOSE* 17GM PACKET GT (08:05)
[2017-04-30] MEDS: VANCOMYCIN HCL 1,000 MG, VIAL MATE ADAPTER 1 EACH in D5W 250 ML IV ×2 (12:03→22:48)
[2017-04-30] MEDS: CYANOCOBALAMIN 500 MCG TAB GT (20:48)
[2017-05-01] MEDS: PIPERACILLIN/TAZOBACTAM SOD 3.375 GM in APPROPRIATE DILUENT 1 EA IV ×4 (00:58→23:48)
[2017-05-01] MEDS: HEPARIN SOD (PORCINE) 5000 UNITS/ML VIAL SC ×3 (05:38→20:24)
[2017-05-01] MEDS: LEVOTHYROXINE 75MCG TABLET (0.075MG) GT (05:38)
[2017-05-01] MEDS: MIRALAX *UNIT DOSE* 17GM PACKET GT (08:25)
[2017-05-01] MEDS: GABAPENTIN 300 MG CAP GT ×3 (08:26→14:37)
[2017-05-01] MEDS: OLANZapine ORAL DISINTEGRATING TAB 5MG GT ×3 (08:26→20:24)
[2017-05-01] MEDS: busPIRone 10 MG TAB GT ×2 (08:26→14:37)
[2017-05-01] MEDS: risperiDONE 1 MG TAB GT (08:26)
[2017-05-01] MEDS: ACETAMINOPHEN TAB 650MG DOSE (2X325MG) PO ×2 (08:26→20:25)
[2017-05-01] MEDS: PANTOPRAZOLE 40MG INJ (PROTONIX) (C9113) IV (08:26)
[2017-05-01] MEDS: CitaloPRAM (CeleXA) 20 MG TAB GT (08:27)
[2017-05-01] MEDS: METOCLOPRAMIDE HCL LIQUID 10 MG/10 ML UDC GT ×4 (08:27→19:23)
[2017-05-01] MEDS: clonazePAM 0.5 MG TAB GT ×3 (08:27→14:37)
[2017-05-01 10:21] LABS: BASO # 0.1 10^3/uL (0.0-0.2); BASO % 0.8 % (0.0-1.0); EOS # 0.4 10^3/uL (0.0-0.50); EOS % 4.8 % (0.0-3.0); HEMATOCRIT 33.5 % (42.0-52.0); HEMOGLOBIN 10.8 g/dl (14.0-18.0); IMMATURE GRANULOCYTE % 2.8 % (0-3.0); LYMPH # 1.6 10^3/uL (1.5-4.5); LYMPH % 18.7 % (24.0-44.0); MEAN CORPUSCULAR HEMOGLOBIN 30.9 pg (27.0-33.0); MEAN CORPUSCULAR HGB CONC 32.2 g/dl (32.0-36.5); MONO % 11.5 % (0.0-5.0); NEUTROPHILS # 5.2 10^3/uL (1.8-7.7); NEUTROPHILS % 61.4 % (36.0-66.0); PLATELET COUNT, AUTOMATED 243 10^3/uL (150-450); RED BLOOD COUNT 3.49 10^6/uL (4.30-6.10); RED CELL DISTRIBUTION WIDTH 15.9 % (11.5-14.5); WHITE BLOOD COUNT 8.5 10^3/uL (4.0-10.0)
[2017-05-01 10:35] LABS: VANCOMYCIN LEVEL TROUGH 24.4 UG/ML (10.0-20.0)
[2017-05-01 10:37] LABS: ALBUMIN 2.5 GM/DL (3.2-5.2); ALBUMIN/GLOBULIN RATIO 0.69 (1.00-1.93); ALKALINE PHOSPHATASE 88 U/L (45-117); ALT/SGPT 24 U/L (12-78); ANION GAP 6 MEQ/L (8-16); AST/SGOT 20 U/L (7-37); BILIRUBIN,TOTAL 0.3 MG/DL (0.2-1.0); BLOOD UREA NITROGEN 22 MG/DL (7-18); CALCIUM LEVEL 8.6 MG/DL (8.8-10.2); CARBON DIOXIDE LEVEL 30 MEQ/L (21-32); CHLORIDE LEVEL 105 MEQ/L (98-107); CREATININE FOR GFR 0.92 MG/DL (0.70-1.30); GLOMERULAR FILTRATION RATE > 60.0 (>49); GLUCOSE, FASTING 99 MG/DL (70-100); MAGNESIUM LEVEL 2.2 MG/DL (1.8-2.4); POTASSIUM SERUM 4.5 MEQ/L (3.5-5.1); SODIUM LEVEL 141 MEQ/L (136-145); TOTAL PROTEIN 6.1 GM/DL (6.4-8.2)
[2017-05-01] MEDS: VANCOMYCIN HCL 1,000 MG, VIAL MATE ADAPTER 1 EACH in D5W 250 ML IV (17:18)
[2017-05-01] MEDS: CYANOCOBALAMIN 500 MCG TAB GT (20:24)
[2017-05-02] MEDS: LEVOTHYROXINE 75MCG TABLET (0.075MG) GT (05:43)
[2017-05-02] MEDS: HEPARIN SOD (PORCINE) 5000 UNITS/ML VIAL SC ×3 (05:43→20:45)
[2017-05-02 06:36] LABS: HEMATOCRIT 37.7 % (42.0-52.0); HEMOGLOBIN 12.1 g/dl (14.0-18.0); MEAN CORPUSCULAR HGB CONC 32.1 g/dl (32.0-36.5); MEAN CORPUSCULAR VOLUME 96.7 fl (80.0-96.0); PLATELET COUNT, AUTOMATED 257 10^3/uL (150-450); RED CELL DISTRIBUTION WIDTH 15.9 % (11.5-14.5); WHITE BLOOD COUNT 6.8 10^3/uL (4.0-10.0)
[2017-05-02 06:46] LABS: ADD MANUAL DIFFER YES; DIFF SLIDE NUMBER 9; POS COUNT POS FLAG; POSITIVE MORPH POS FLAG
[2017-05-02 06:50] LABS: ALBUMIN 2.5 GM/DL (3.2-5.2); ALBUMIN/GLOBULIN RATIO 0.54 (1.00-1.93); ALKALINE PHOSPHATASE 91 U/L (45-117); ALT/SGPT 24 U/L (12-78); ANION GAP 4 MEQ/L (8-16); AST/SGOT 19 U/L (7-37); BILIRUBIN,TOTAL 0.3 MG/DL (0.2-1.0); BLOOD UREA NITROGEN 23 MG/DL (7-18); CALCIUM LEVEL 9.2 MG/DL (8.8-10.2); CARBON DIOXIDE LEVEL 31 MEQ/L (21-32); CHLORIDE LEVEL 104 MEQ/L (98-107); CREATININE FOR GFR 0.97 MG/DL (0.70-1.30); GLOMERULAR FILTRATION RATE > 60.0 (>49); GLUCOSE, FASTING 75 MG/DL (70-100); MAGNESIUM LEVEL 2.3 MG/DL (1.8-2.4); POTASSIUM SERUM 4.7 MEQ/L (3.5-5.1); SODIUM LEVEL 139 MEQ/L (136-145); TOTAL PROTEIN 7.1 GM/DL (6.4-8.2)
[2017-05-02 07:08] LABS: ANISOCYTOSIS 1+; BASOPHILS 1 % (0-4); EOSINOPHILS 8 % (0-5); LYMPHOCYTES 20 % (16-52); METAMYELOCYTES 1 % (0-0); MONOCYTES 6 % (0-8); MYELOCYTES 1 % (0-0); NEUTROPHILS 63 % (35-75); PLATELET ESTIMATE NORMAL (NORMAL)
[2017-05-02] MEDS: PIPERACILLIN/TAZOBACTAM SOD 3.375 GM in APPROPRIATE DILUENT 1 EA IV (08:00)
[2017-05-02] MEDS: OLANZapine ORAL DISINTEGRATING TAB 5MG GT ×3 (08:00→20:45)
[2017-05-02] MEDS: GABAPENTIN 300 MG CAP GT ×3 (08:00→15:06)
[2017-05-02] MEDS: METOCLOPRAMIDE HCL LIQUID 10 MG/10 ML UDC GT ×4 (08:00→20:45)
[2017-05-02] MEDS: clonazePAM 0.5 MG TAB GT ×3 (08:00→15:06)
[2017-05-02] MEDS: PANTOPRAZOLE 40MG INJ (PROTONIX) (C9113) IV (09:20)
[2017-05-02] MEDS: MIRALAX *UNIT DOSE* 17GM PACKET GT (09:20)
[2017-05-02] MEDS: CitaloPRAM (CeleXA) 20 MG TAB GT (09:21)
[2017-05-02] MEDS: busPIRone 10 MG TAB GT ×2 (09:21→15:06)
[2017-05-02] MEDS: risperiDONE 1 MG TAB GT (09:21)
[2017-05-02] MEDS: CYANOCOBALAMIN 500 MCG TAB GT (20:45)
[2017-05-02] MEDS: AUGMENTIN 875 MG TAB GT (20:45)
[2017-05-02] MEDS: ACETAMINOPHEN TAB 650MG DOSE (2X325MG) PO (20:46)
[2017-05-03 00:01] LABS: ABG BASE EXCESS 4.2 (-2.0-2.0); ABG HCO3 29.2 MEQ/L (22.0-26.0); ABG O2 SATURATION 86.4 % (95.0-99.0); ABG PARTIAL PRESSURE CO2 45.5 mmHg (35.0-45.0); ABG PARTIAL PRESSURE O2 55.1 mmHg (75.0-100.0); ABG TOTAL CO2 30.6 MEQ/L (23.0-31.0); ABG pH (ARTERIAL) 7.425 UNITS (7.350-7.450)
[2017-05-03 03:08] LABS: CPK CREATINE PHOSPHOKINASE 75 U/L (39-308); MB/CK RELATIVE INDEX 1.33 (< OR =4); TROPONIN I < 0.02 NG/ML (< 0.10)
[2017-05-03] MEDS ORDERED: ISOVUE-370 76% 100ML VIAL (Q9967) As Ordered (04:08)
[2017-05-03] MEDS: LEVOTHYROXINE 75MCG TABLET (0.075MG) GT (05:35)
[2017-05-03] MEDS: HEPARIN SOD (PORCINE) 5000 UNITS/ML VIAL SC ×3 (05:35→22:49)
[2017-05-03] MEDS: OLANZapine ORAL DISINTEGRATING TAB 5MG GT ×3 (07:48→19:57)
[2017-05-03] MEDS: METOCLOPRAMIDE HCL LIQUID 10 MG/10 ML UDC GT ×4 (07:48→19:57)
[2017-05-03] MEDS: GABAPENTIN 300 MG CAP GT ×3 (07:48→15:09)
[2017-05-03] MEDS: clonazePAM 0.5 MG TAB GT ×3 (07:48→15:09)
[2017-05-03 08:53] LABS: HEMATOCRIT 34.9 % (42.0-52.0); HEMOGLOBIN 11.5 g/dl (14.0-18.0); MEAN CORPUSCULAR HEMOGLOBIN 31.3 pg (27.0-33.0); MEAN CORPUSCULAR VOLUME 95.1 fl (80.0-96.0); PLATELET COUNT, AUTOMATED 329 10^3/uL (150-450); RED BLOOD COUNT 3.67 10^6/uL (4.30-6.10); RED CELL DISTRIBUTION WIDTH 15.8 % (11.5-14.5); WHITE BLOOD COUNT 8.6 10^3/uL (4.0-10.0)
[2017-05-03 09:17] LABS: ADD MANUAL DIFFER YES; DIFF SLIDE NUMBER 6; POS COUNT POS FLAG; POSITIVE MORPH POS FLAG
[2017-05-03 09:20] LABS: ANISOCYTOSIS 1+; BANDS 2 % (< 11); EOSINOPHILS 2 % (0-5); LYMPHOCYTES 10 % (16-52); METAMYELOCYTES 1 % (0-0); MONOCYTES 3 % (0-8); MYELOCYTES 3 % (0-0); NEUTROPHILS 79 % (35-75); PLATELET ESTIMATE NORMAL (NORMAL)
[2017-05-03 09:29] LABS: ALBUMIN 2.8 GM/DL (3.2-5.2); ALBUMIN/GLOBULIN RATIO 0.68 (1.00-1.93); ALKALINE PHOSPHATASE 97 U/L (45-117); ALT/SGPT 24 U/L (12-78); ANION GAP 9 MEQ/L (8-16); AST/SGOT 25 U/L (7-37); BILIRUBIN,TOTAL 0.3 MG/DL (0.2-1.0); BLOOD UREA NITROGEN 23 MG/DL (7-18); CALCIUM LEVEL 9.2 MG/DL (8.8-10.2); CARBON DIOXIDE LEVEL 30 MEQ/L (21-32); CHLORIDE LEVEL 101 MEQ/L (98-107); CREATININE FOR GFR 1.03 MG/DL (0.70-1.30); GLOMERULAR FILTRATION RATE > 60.0 (>49); GLUCOSE, FASTING 81 MG/DL (70-100); MAGNESIUM LEVEL 2.2 MG/DL (1.8-2.4); POTASSIUM SERUM 4.8 MEQ/L (3.5-5.1); SODIUM LEVEL 140 MEQ/L (136-145); TOTAL PROTEIN 6.9 GM/DL (6.4-8.2)
[2017-05-03] MEDS: PANTOPRAZOLE 40MG INJ (PROTONIX) (C9113) IV (09:45)
[2017-05-03] MEDS: busPIRone 10 MG TAB GT ×2 (09:46→15:09)
[2017-05-03] MEDS: PIPERACILLIN/TAZOBACTAM SOD 3.375 GM in APPROPRIATE DILUENT 1 EA IV ×2 (09:46→17:39)
[2017-05-03] MEDS: risperiDONE 1 MG TAB GT (09:46)
[2017-05-03] MEDS: CitaloPRAM (CeleXA) 20 MG TAB GT (09:46)
[2017-05-03] MEDS: MIRALAX *UNIT DOSE* 17GM PACKET GT (09:46)
[2017-05-03 10:55] LABS: CPK CREATINE PHOSPHOKINASE 90 U/L (39-308); MB/CK RELATIVE INDEX 1.11 (< OR =4); TROPONIN I < 0.02 NG/ML (< 0.10)
[2017-05-03 18:42] LABS: CPK CREATINE PHOSPHOKINASE 72 U/L (39-308); TROPONIN I < 0.02 NG/ML (< 0.10)
[2017-05-03 18:43] LABS: MB/CK RELATIVE INDEX 1.38 (< OR =4)
[2017-05-03] MEDS: CYANOCOBALAMIN 500 MCG TAB GT (19:58)
[2017-05-03] MEDS: NS 500 ML IV ×2 (21:50→23:19)
[2017-05-04] MEDS: PIPERACILLIN/TAZOBACTAM SOD 3.375 GM in APPROPRIATE DILUENT 1 EA IV ×3 (01:15→18:09)
[2017-05-04] MEDS: ACETAMINOPHEN TAB 650MG DOSE (2X325MG) PO ×2 (03:51→12:37)
[2017-05-04] MEDS: LEVOTHYROXINE 75MCG TABLET (0.075MG) GT (05:25)
[2017-05-04] MEDS: HEPARIN SOD (PORCINE) 5000 UNITS/ML VIAL SC ×3 (05:25→22:30)
[2017-05-04] MEDS: busPIRone 10 MG TAB GT ×2 (08:26→14:55)
[2017-05-04] MEDS: risperiDONE 1 MG TAB GT (08:26)
[2017-05-04] MEDS: OLANZapine ORAL DISINTEGRATING TAB 5MG GT ×3 (08:26→22:29)
[2017-05-04] MEDS: GABAPENTIN 300 MG CAP GT ×3 (08:26→14:55)
[2017-05-04] MEDS: clonazePAM 0.5 MG TAB GT ×3 (08:26→14:55)
[2017-05-04] MEDS: CitaloPRAM (CeleXA) 20 MG TAB GT (08:26)
[2017-05-04] MEDS: METOCLOPRAMIDE HCL LIQUID 10 MG/10 ML UDC GT ×4 (08:27→22:29)
[2017-05-04] MEDS: PANTOPRAZOLE 40MG INJ (PROTONIX) (C9113) IV (08:27)
[2017-05-04] MEDS: MIRALAX *UNIT DOSE* 17GM PACKET GT (08:27)
[2017-05-04 10:36] LABS: HEMATOCRIT 35.6 % (42.0-52.0); HEMOGLOBIN 11.6 g/dl (14.0-18.0); MEAN CORPUSCULAR HEMOGLOBIN 31.2 pg (27.0-33.0); MEAN CORPUSCULAR HGB CONC 32.6 g/dl (32.0-36.5); MEAN CORPUSCULAR VOLUME 95.7 fl (80.0-96.0); PLATELET COUNT, AUTOMATED 353 10^3/uL (150-450); RED BLOOD COUNT 3.72 10^6/uL (4.30-6.10); RED CELL DISTRIBUTION WIDTH 15.7 % (11.5-14.5); WHITE BLOOD COUNT 7.8 10^3/uL (4.0-10.0)
[2017-05-04 10:51] LABS: ANION GAP 6 MEQ/L (8-16); BLOOD UREA NITROGEN 24 MG/DL (7-18); CARBON DIOXIDE LEVEL 29 MEQ/L (21-32); CHLORIDE LEVEL 106 MEQ/L (98-107); CREATININE FOR GFR 1.06 MG/DL (0.70-1.30); GLOMERULAR FILTRATION RATE > 60.0 (>49); GLUCOSE, FASTING 85 MG/DL (70-100); POTASSIUM SERUM 4.3 MEQ/L (3.5-5.1); SODIUM LEVEL 141 MEQ/L (136-145)
[2017-05-04] MEDS: CYANOCOBALAMIN 500 MCG TAB GT (22:29)
[2017-05-05] MEDS: PIPERACILLIN/TAZOBACTAM SOD 3.375 GM in APPROPRIATE DILUENT 1 EA IV ×3 (01:23→16:24)
[2017-05-05 06:28] LABS: HEMATOCRIT 35.7 % (42.0-52.0); HEMOGLOBIN 11.3 g/dl (14.0-18.0); MEAN CORPUSCULAR HEMOGLOBIN 30.4 pg (27.0-33.0); MEAN CORPUSCULAR HGB CONC 31.7 g/dl (32.0-36.5); PLATELET COUNT, AUTOMATED 367 10^3/uL (150-450); RED BLOOD COUNT 3.72 10^6/uL (4.30-6.10); RED CELL DISTRIBUTION WIDTH 15.6 % (11.5-14.5); WHITE BLOOD COUNT 7.7 10^3/uL (4.0-10.0)
[2017-05-05] MEDS: HEPARIN SOD (PORCINE) 5000 UNITS/ML VIAL SC ×3 (06:30→21:45)
[2017-05-05] MEDS: LEVOTHYROXINE 75MCG TABLET (0.075MG) GT (06:30)
[2017-05-05] MEDS: ACETAMINOPHEN TAB 650MG DOSE (2X325MG) PO (06:36)
[2017-05-05 06:46] LABS: ANION GAP 9 MEQ/L (8-16); BLOOD UREA NITROGEN 23 MG/DL (7-18); CALCIUM LEVEL 9.5 MG/DL (8.8-10.2); CARBON DIOXIDE LEVEL 30 MEQ/L (21-32); CHLORIDE LEVEL 104 MEQ/L (98-107); CREATININE FOR GFR 1.11 MG/DL (0.70-1.30); GLOMERULAR FILTRATION RATE > 60.0 (>49); GLUCOSE, FASTING 77 MG/DL (70-100); SODIUM LEVEL 143 MEQ/L (136-145)
[2017-05-05] MEDS: CitaloPRAM (CeleXA) 20 MG TAB GT (08:22)
[2017-05-05] MEDS: PANTOPRAZOLE 40MG INJ (PROTONIX) (C9113) IV (08:22)
[2017-05-05] MEDS: OLANZapine ORAL DISINTEGRATING TAB 5MG GT ×3 (08:22→21:45)
[2017-05-05] MEDS: risperiDONE 1 MG TAB GT (08:22)
[2017-05-05] MEDS: GABAPENTIN 300 MG CAP GT ×3 (08:24→16:07)
[2017-05-05] MEDS: METOCLOPRAMIDE HCL LIQUID 10 MG/10 ML UDC GT ×4 (08:25→21:44)
[2017-05-05] MEDS: clonazePAM 0.5 MG TAB GT ×3 (08:25→16:07)
[2017-05-05] MEDS: MIRALAX *UNIT DOSE* 17GM PACKET GT (08:26)
[2017-05-05] MEDS: busPIRone 10 MG TAB GT ×2 (08:26→16:07)
[2017-05-05 12:06] LABS: BEDSIDE GLUCOSE 75 MG/DL (80-115)
[2017-05-05] MEDS: D5W/0.9% SODIUM CHLORIDE 1,000 ML IV (13:34)
[2017-05-05 17:14] LABS: BEDSIDE GLUCOSE 103 MG/DL (80-115)
[2017-05-05] MEDS: SCOPOLAMINE 1MG TRANSDERMAL PATCH TOP (17:31)
[2017-05-05] MEDS: CYANOCOBALAMIN 500 MCG TAB GT (21:44)
[2017-05-06] MEDS: PIPERACILLIN/TAZOBACTAM SOD 3.375 GM in APPROPRIATE DILUENT 1 EA IV ×3 (00:51→17:04)
[2017-05-06] MEDS: LEVOTHYROXINE 75MCG TABLET (0.075MG) GT (05:45)
[2017-05-06] MEDS: HEPARIN SOD (PORCINE) 5000 UNITS/ML VIAL SC ×3 (05:45→21:28)
[2017-05-06 06:28] LABS: HEMATOCRIT 35.7 % (42.0-52.0); HEMOGLOBIN 11.5 g/dl (14.0-18.0); MEAN CORPUSCULAR HEMOGLOBIN 31.1 pg (27.0-33.0); MEAN CORPUSCULAR HGB CONC 32.2 g/dl (32.0-36.5); MEAN CORPUSCULAR VOLUME 96.5 fl (80.0-96.0); PLATELET COUNT, AUTOMATED 407 10^3/uL (150-450); RED CELL DISTRIBUTION WIDTH 15.9 % (11.5-14.5); WHITE BLOOD COUNT 7.5 10^3/uL (4.0-10.0)
[2017-05-06 06:31] LABS: ANION GAP 8 MEQ/L (8-16); BLOOD UREA NITROGEN 25 MG/DL (7-18); CALCIUM LEVEL 9.2 MG/DL (8.8-10.2); CARBON DIOXIDE LEVEL 29 MEQ/L (21-32); CHLORIDE LEVEL 107 MEQ/L (98-107); CREATININE FOR GFR 1.28 MG/DL (0.70-1.30); GLOMERULAR FILTRATION RATE > 60.0 (>49); GLUCOSE, FASTING 87 MG/DL (70-100); POTASSIUM SERUM 4.1 MEQ/L (3.5-5.1); SODIUM LEVEL 144 MEQ/L (136-145)
[2017-05-06] MEDS: OLANZapine ORAL DISINTEGRATING TAB 5MG GT ×3 (08:00→21:39)
[2017-05-06] MEDS: METOCLOPRAMIDE INJ 10MG/2ML VIAL (J2765) IV ×3 (09:09→17:04)
[2017-05-06] MEDS: GABAPENTIN 300 MG CAP GT ×3 (09:09→15:31)
[2017-05-06] MEDS: clonazePAM 0.5 MG TAB GT ×3 (09:09→15:30)
[2017-05-06] MEDS: D5W/0.9% SODIUM CHLORIDE 1,000 ML IV (10:57)
[2017-05-06] MEDS: PANTOPRAZOLE 40MG INJ (PROTONIX) (C9113) IV (10:57)
[2017-05-06] MEDS: NS 1,000 ML IV (11:17)
[2017-05-06] MEDS ORDERED: METOCLOPRAMIDE INJ 10MG/2ML VIAL (J2765) IV (12:00)
[2017-05-06] MEDS: busPIRone 10 MG TAB GT ×2 (12:01→15:31)
[2017-05-06] MEDS: MIRALAX *UNIT DOSE* 17GM PACKET GT (12:01)
[2017-05-06] MEDS: risperiDONE 1 MG TAB GT (12:01)
[2017-05-06] MEDS: CitaloPRAM (CeleXA) 20 MG TAB GT (12:01)
[2017-05-06] MEDS: NS 500 ML IV (21:34)
[2017-05-06] MEDS: CYANOCOBALAMIN 500 MCG TAB GT (21:39)
[2017-05-07] MEDS: NS 500 ML IV (00:14)
[2017-05-07] MEDS: PIPERACILLIN/TAZOBACTAM SOD 3.375 GM in APPROPRIATE DILUENT 1 EA IV ×3 (01:40→17:13)
[2017-05-07] MEDS: NS 1,000 ML IV (02:00)
[2017-05-07] MEDS: D5W/0.9% SODIUM CHLORIDE 1,000 ML IV ×2 (05:25→22:13)
[2017-05-07] MEDS: LEVOTHYROXINE 75MCG TABLET (0.075MG) GT (05:45)
[2017-05-07] MEDS: HEPARIN SOD (PORCINE) 5000 UNITS/ML VIAL SC ×3 (05:45→21:50)
[2017-05-07 06:11] LABS: HEMATOCRIT 33.6 % (42.0-52.0); HEMOGLOBIN 10.5 g/dl (14.0-18.0); MEAN CORPUSCULAR HEMOGLOBIN 30.4 pg (27.0-33.0); MEAN CORPUSCULAR HGB CONC 31.3 g/dl (32.0-36.5); MEAN CORPUSCULAR VOLUME 97.4 fl (80.0-96.0); PLATELET COUNT, AUTOMATED 372 10^3/uL (150-450); RED BLOOD COUNT 3.45 10^6/uL (4.30-6.10); RED CELL DISTRIBUTION WIDTH 16.1 % (11.5-14.5); WHITE BLOOD COUNT 5.2 10^3/uL (4.0-10.0)
[2017-05-07 06:32] LABS: ANION GAP 6 MEQ/L (8-16); BLOOD UREA NITROGEN 19 MG/DL (7-18); CALCIUM LEVEL 8.1 MG/DL (8.8-10.2); CARBON DIOXIDE LEVEL 26 MEQ/L (21-32); CHLORIDE LEVEL 114 MEQ/L (98-107); CREATININE FOR GFR 0.98 MG/DL (0.70-1.30); GLOMERULAR FILTRATION RATE > 60.0 (>49); GLUCOSE, FASTING 99 MG/DL (70-100); SODIUM LEVEL 146 MEQ/L (136-145)
[2017-05-07] MEDS: clonazePAM 0.5 MG TAB GT ×5 (07:30→14:51)
[2017-05-07] MEDS: OLANZapine ORAL DISINTEGRATING TAB 5MG GT ×4 (08:00→21:50)
[2017-05-07] MEDS: MIRALAX *UNIT DOSE* 17GM PACKET GT (08:42)
[2017-05-07] MEDS: GABAPENTIN 300 MG CAP GT ×3 (08:42→15:11)
[2017-05-07] MEDS: CitaloPRAM (CeleXA) 20 MG TAB GT (08:42)
[2017-05-07] MEDS: busPIRone 10 MG TAB GT ×2 (08:42→15:11)
[2017-05-07] MEDS: PANTOPRAZOLE 40MG INJ (PROTONIX) (C9113) IV (08:43)
[2017-05-07] MEDS: risperiDONE 1 MG TAB GT (10:56)
[2017-05-07] MEDS: CYANOCOBALAMIN 500 MCG TAB GT (21:51)
[2017-05-08] MEDS: PIPERACILLIN/TAZOBACTAM SOD 3.375 GM in APPROPRIATE DILUENT 1 EA IV ×3 (00:28→17:30)
[2017-05-08] MEDS: LEVOTHYROXINE 75MCG TABLET (0.075MG) GT (05:30)
[2017-05-08] MEDS: ACETAMINOPHEN TAB 650MG DOSE (2X325MG) PO ×2 (05:30→13:50)
[2017-05-08] MEDS: HEPARIN SOD (PORCINE) 5000 UNITS/ML VIAL SC ×3 (05:30→21:52)
[2017-05-08 06:11] LABS: HEMATOCRIT 34.8 % (42.0-52.0); HEMOGLOBIN 11.3 g/dl (14.0-18.0); MEAN CORPUSCULAR HEMOGLOBIN 31.6 pg (27.0-33.0); MEAN CORPUSCULAR HGB CONC 32.5 g/dl (32.0-36.5); MEAN CORPUSCULAR VOLUME 97.2 fl (80.0-96.0); PLATELET COUNT, AUTOMATED 374 10^3/uL (150-450); RED BLOOD COUNT 3.58 10^6/uL (4.30-6.10); RED CELL DISTRIBUTION WIDTH 16.3 % (11.5-14.5); WHITE BLOOD COUNT 5.3 10^3/uL (4.0-10.0)
[2017-05-08 06:28] LABS: ANION GAP 6 MEQ/L (8-16); BLOOD UREA NITROGEN 13 MG/DL (7-18); CALCIUM LEVEL 8.8 MG/DL (8.8-10.2); CARBON DIOXIDE LEVEL 27 MEQ/L (21-32); CHLORIDE LEVEL 112 MEQ/L (98-107); CREATININE FOR GFR 1.02 MG/DL (0.70-1.30); GLOMERULAR FILTRATION RATE > 60.0 (>49); GLUCOSE, FASTING 107 MG/DL (70-100); POTASSIUM SERUM 3.8 MEQ/L (3.5-5.1); SODIUM LEVEL 145 MEQ/L (136-145)
[2017-05-08] MEDS: PANTOPRAZOLE 40MG INJ (PROTONIX) (C9113) IV (08:26)
[2017-05-08] MEDS: MIRALAX *UNIT DOSE* 17GM PACKET GT (08:27)
[2017-05-08] MEDS: busPIRone 10 MG TAB GT ×2 (08:27→15:43)
[2017-05-08] MEDS: OLANZapine ORAL DISINTEGRATING TAB 5MG GT ×3 (08:27→21:52)
[2017-05-08] MEDS: GABAPENTIN 300 MG CAP GT ×3 (08:27→15:42)
[2017-05-08] MEDS: clonazePAM 0.5 MG TAB GT ×3 (08:27→15:43)
[2017-05-08] MEDS: CitaloPRAM (CeleXA) 20 MG TAB GT (08:27)
[2017-05-08] MEDS: risperiDONE 1 MG TAB GT (08:27)
[2017-05-08] MEDS: METOCLOPRAMIDE HCL LIQUID 10 MG/10 ML UDC NG ×3 (12:00→21:52)
[2017-05-08] MEDS: CYANOCOBALAMIN 500 MCG TAB GT (21:51)
[2017-05-09] MEDS: guaiFENesin SYRUP 200 MG/10 ML UDC PO ×5 (00:58→22:25)
[2017-05-09] MEDS: PIPERACILLIN/TAZOBACTAM SOD 3.375 GM in APPROPRIATE DILUENT 1 EA IV ×3 (00:58→17:09)
[2017-05-09] MEDS: ACETAMINOPHEN TAB 650MG DOSE (2X325MG) PO (00:59)
[2017-05-09] MEDS: LEVOTHYROXINE 75MCG TABLET (0.075MG) GT (05:59)
[2017-05-09] MEDS: HEPARIN SOD (PORCINE) 5000 UNITS/ML VIAL SC ×3 (06:00→22:26)
[2017-05-09 06:50] LABS: HEMATOCRIT 33.2 % (42.0-52.0); HEMOGLOBIN 10.9 g/dl (14.0-18.0); MEAN CORPUSCULAR HEMOGLOBIN 31.9 pg (27.0-33.0); MEAN CORPUSCULAR HGB CONC 32.8 g/dl (32.0-36.5); MEAN CORPUSCULAR VOLUME 97.1 fl (80.0-96.0); PLATELET COUNT, AUTOMATED 354 10^3/uL (150-450); RED BLOOD COUNT 3.42 10^6/uL (4.30-6.10); RED CELL DISTRIBUTION WIDTH 16.6 % (11.5-14.5); WHITE BLOOD COUNT 13.6 10^3/uL (4.0-10.0)
[2017-05-09 07:12] LABS: ANION GAP 6 MEQ/L (8-16); BLOOD UREA NITROGEN 13 MG/DL (7-18); CALCIUM LEVEL 8.8 MG/DL (8.8-10.2); CARBON DIOXIDE LEVEL 28 MEQ/L (21-32); CHLORIDE LEVEL 112 MEQ/L (98-107); CREATININE FOR GFR 1.01 MG/DL (0.70-1.30); GLOMERULAR FILTRATION RATE > 60.0 (>49); GLUCOSE, FASTING 83 MG/DL (70-100); POTASSIUM SERUM 3.8 MEQ/L (3.5-5.1); SODIUM LEVEL 146 MEQ/L (136-145)
[2017-05-09] MEDS: MIRALAX *UNIT DOSE* 17GM PACKET GT (08:21)
[2017-05-09] MEDS: PANTOPRAZOLE 40MG INJ (PROTONIX) (C9113) IV (08:21)
[2017-05-09] MEDS: CitaloPRAM (CeleXA) 20 MG TAB GT (08:22)
[2017-05-09] MEDS: clonazePAM 0.5 MG TAB GT ×3 (08:22→15:47)
[2017-05-09] MEDS: METOCLOPRAMIDE HCL LIQUID 10 MG/10 ML UDC NG ×4 (08:22→22:26)
[2017-05-09] MEDS: busPIRone 10 MG TAB GT ×2 (08:22→15:46)
[2017-05-09] MEDS: risperiDONE 1 MG TAB GT (08:23)
[2017-05-09] MEDS: OLANZapine ORAL DISINTEGRATING TAB 5MG GT ×3 (08:23→22:26)
[2017-05-09] MEDS: GABAPENTIN 300 MG CAP GT ×3 (08:23→15:46)
[2017-05-09] MEDS: CYANOCOBALAMIN 500 MCG TAB GT (22:26)
[2017-05-10] MEDS: PIPERACILLIN/TAZOBACTAM SOD 3.375 GM in APPROPRIATE DILUENT 1 EA IV ×3 (02:00→17:43)
[2017-05-10] MEDS: LEVOTHYROXINE 75MCG TABLET (0.075MG) GT (06:29)
[2017-05-10] MEDS: HEPARIN SOD (PORCINE) 5000 UNITS/ML VIAL SC ×3 (06:47→21:23)
[2017-05-10 07:03] LABS: BASO # 0.1 10^3/uL (0.0-0.2); BASO % 0.4 % (0.0-1.0); EOS # 0.3 10^3/uL (0.0-0.50); EOS % 2.2 % (0.0-3.0); HEMATOCRIT 34.8 % (42.0-52.0); HEMOGLOBIN 11.5 g/dl (14.0-18.0); IMMATURE GRANULOCYTE % 1.9 % (0-3.0); LYMPH # 1.2 10^3/uL (1.5-4.5); MEAN CORPUSCULAR HEMOGLOBIN 31.9 pg (27.0-33.0); MEAN CORPUSCULAR VOLUME 96.7 fl (80.0-96.0); MONO # 0.9 10^3/uL (0.0-0.8); MONO % 7.7 % (0.0-5.0); NEUTROPHILS % 77.8 % (36.0-66.0); PLATELET COUNT, AUTOMATED 363 10^3/uL (150-450); WHITE BLOOD COUNT 11.6 10^3/uL (4.0-10.0)
[2017-05-10] MEDS: MIRALAX *UNIT DOSE* 17GM PACKET GT (08:41)
[2017-05-10] MEDS: METOCLOPRAMIDE HCL LIQUID 10 MG/10 ML UDC NG ×4 (08:41→21:22)
[2017-05-10] MEDS: guaiFENesin SYRUP 200 MG/10 ML UDC PO ×4 (08:41→21:22)
[2017-05-10] MEDS: PANTOPRAZOLE 40MG INJ (PROTONIX) (C9113) IV (08:41)
[2017-05-10] MEDS: CitaloPRAM (CeleXA) 20 MG TAB GT (08:41)
[2017-05-10] MEDS: risperiDONE 1 MG TAB GT (08:42)
[2017-05-10] MEDS: GABAPENTIN 300 MG CAP GT ×3 (08:42→15:35)
[2017-05-10] MEDS: OLANZapine ORAL DISINTEGRATING TAB 5MG GT ×3 (08:43→21:23)
[2017-05-10] MEDS: busPIRone 10 MG TAB GT ×2 (08:43→15:35)
[2017-05-10] MEDS: clonazePAM 0.5 MG TAB PO ×2 (10:52→15:35)
[2017-05-10] MEDS: CYANOCOBALAMIN 500 MCG TAB GT (21:22)
[2017-05-10] MEDS: SENNA SYRUP 15 ML UDC PEG (21:22)
[2017-05-10] MEDS: ERYTHROMYCIN LACTOBIONATE INJ 250 MG in NS 250 ML IV (22:12)
[2017-05-11] MEDS: PIPERACILLIN/TAZOBACTAM SOD 3.375 GM in APPROPRIATE DILUENT 1 EA IV ×3 (00:41→16:31)
[2017-05-11] MEDS: HEPARIN SOD (PORCINE) 5000 UNITS/ML VIAL SC ×3 (05:48→22:05)
[2017-05-11] MEDS: LEVOTHYROXINE 75MCG TABLET (0.075MG) GT (05:48)
[2017-05-11] MEDS: guaiFENesin SYRUP 200 MG/10 ML UDC PO ×4 (08:50→22:04)
[2017-05-11] MEDS: METOCLOPRAMIDE HCL LIQUID 10 MG/10 ML UDC NG ×4 (08:50→22:04)
[2017-05-11] MEDS: clonazePAM 0.5 MG TAB PO ×3 (08:50→15:30)
[2017-05-11] MEDS: OLANZapine ORAL DISINTEGRATING TAB 5MG GT ×3 (08:51→22:06)
[2017-05-11] MEDS: CitaloPRAM (CeleXA) 20 MG TAB GT (08:51)
[2017-05-11] MEDS: MIRALAX *UNIT DOSE* 17GM PACKET GT (08:51)
[2017-05-11] MEDS: GABAPENTIN 300 MG CAP GT ×3 (08:51→16:32)
[2017-05-11] MEDS: busPIRone 10 MG TAB GT ×2 (08:51→16:32)
[2017-05-11] MEDS: risperiDONE 1 MG TAB GT (08:51)
[2017-05-11] MEDS: PANTOPRAZOLE 40MG INJ (PROTONIX) (C9113) IV (08:51)
[2017-05-11] MEDS: ERYTHROMYCIN LACTOBIONATE INJ 250 MG in NS 250 ML IV ×2 (09:51→23:26)
[2017-05-11 10:19] LABS: HEMATOCRIT 35.9 % (42.0-52.0); HEMOGLOBIN 11.6 g/dl (14.0-18.0); MEAN CORPUSCULAR HEMOGLOBIN 31.5 pg (27.0-33.0); MEAN CORPUSCULAR HGB CONC 32.3 g/dl (32.0-36.5); MEAN CORPUSCULAR VOLUME 97.6 fl (80.0-96.0); PLATELET COUNT, AUTOMATED 367 10^3/uL (150-450); RED BLOOD COUNT 3.68 10^6/uL (4.30-6.10); RED CELL DISTRIBUTION WIDTH 17.4 % (11.5-14.5); WHITE BLOOD COUNT 12.4 10^3/uL (4.0-10.0)
[2017-05-11 10:30] LABS: ANION GAP 8 MEQ/L (8-16); BLOOD UREA NITROGEN 18 MG/DL (7-18); CALCIUM LEVEL 9.1 MG/DL (8.8-10.2); CARBON DIOXIDE LEVEL 29 MEQ/L (21-32); CHLORIDE LEVEL 108 MEQ/L (98-107); CREATININE FOR GFR 1.11 MG/DL (0.70-1.30); GLOMERULAR FILTRATION RATE > 60.0 (>49); GLUCOSE, FASTING 103 MG/DL (70-100); POTASSIUM SERUM 3.7 MEQ/L (3.5-5.1); SODIUM LEVEL 145 MEQ/L (136-145)
[2017-05-11] MEDS: BISACODYL ENEMA 10 MG/30 ML PR (11:58)
[2017-05-11] MEDS: FLEET ENEMA PR (11:59)
[2017-05-11] MEDS: SENNA SYRUP 15 ML UDC PEG (22:03)
[2017-05-11] MEDS: CYANOCOBALAMIN 500 MCG TAB GT (22:06)
[2017-05-12] MEDS: PIPERACILLIN/TAZOBACTAM SOD 3.375 GM in APPROPRIATE DILUENT 1 EA IV ×3 (00:33→16:45)
[2017-05-12] MEDS: ACETAMINOPHEN TAB 650MG DOSE (2X325MG) PO ×2 (03:13→16:45)
[2017-05-12] MEDS: HEPARIN SOD (PORCINE) 5000 UNITS/ML VIAL SC ×3 (05:26→21:33)
[2017-05-12] MEDS: LEVOTHYROXINE 75MCG TABLET (0.075MG) GT (05:27)
[2017-05-12 06:01] LABS: HEMATOCRIT 35.9 % (42.0-52.0); HEMOGLOBIN 11.5 g/dl (14.0-18.0); MEAN CORPUSCULAR HEMOGLOBIN 31.3 pg (27.0-33.0); MEAN CORPUSCULAR VOLUME 97.8 fl (80.0-96.0); PLATELET COUNT, AUTOMATED 324 10^3/uL (150-450); RED BLOOD COUNT 3.67 10^6/uL (4.30-6.10); RED CELL DISTRIBUTION WIDTH 17.5 % (11.5-14.5); WHITE BLOOD COUNT 5.1 10^3/uL (4.0-10.0)
[2017-05-12 06:12] LABS: ANION GAP 6 MEQ/L (8-16); BLOOD UREA NITROGEN 21 MG/DL (7-18); CALCIUM LEVEL 8.9 MG/DL (8.8-10.2); CARBON DIOXIDE LEVEL 28 MEQ/L (21-32); CHLORIDE LEVEL 110 MEQ/L (98-107); CREATININE FOR GFR 1.12 MG/DL (0.70-1.30); GLOMERULAR FILTRATION RATE > 60.0 (>49); GLUCOSE, FASTING 110 MG/DL (70-100); SODIUM LEVEL 144 MEQ/L (136-145)
[2017-05-12] MEDS: METOCLOPRAMIDE HCL LIQUID 10 MG/10 ML UDC NG ×4 (06:39→21:36)
[2017-05-12] MEDS: GABAPENTIN 300 MG CAP GT ×3 (06:39→15:15)
[2017-05-12] MEDS: clonazePAM 0.5 MG TAB PO ×3 (06:40→15:15)
[2017-05-12] MEDS: guaiFENesin SYRUP 200 MG/10 ML UDC PO ×4 (08:18→21:36)
[2017-05-12] MEDS: busPIRone 10 MG TAB GT ×2 (08:19→15:15)
[2017-05-12] MEDS: PANTOPRAZOLE 40MG INJ (PROTONIX) (C9113) IV (08:19)
[2017-05-12] MEDS: OLANZapine ORAL DISINTEGRATING TAB 5MG GT ×3 (08:19→21:38)
[2017-05-12] MEDS: CitaloPRAM (CeleXA) 20 MG TAB GT (08:19)
[2017-05-12] MEDS: risperiDONE 1 MG TAB GT (08:19)
[2017-05-12] MEDS: MIRALAX *UNIT DOSE* 17GM PACKET GT (08:20)
[2017-05-12] MEDS: ERYTHROMYCIN LACTOBIONATE INJ 250 MG in NS 250 ML IV ×2 (09:28→23:03)
[2017-05-12] MEDS: CYANOCOBALAMIN 500 MCG TAB GT (21:36)
[2017-05-12] MEDS: SENNA SYRUP 15 ML UDC PEG (21:36)
[2017-05-13] MEDS: PIPERACILLIN/TAZOBACTAM SOD 3.375 GM in APPROPRIATE DILUENT 1 EA IV ×3 (01:21→16:52)
[2017-05-13] MEDS: HEPARIN SOD (PORCINE) 5000 UNITS/ML VIAL SC ×3 (06:00→22:07)
[2017-05-13] MEDS: LEVOTHYROXINE 75MCG TABLET (0.075MG) GT (06:03)
[2017-05-13 07:06] LABS: HEMATOCRIT 32.8 % (42.0-52.0); HEMOGLOBIN 10.4 g/dl (14.0-18.0); MEAN CORPUSCULAR HEMOGLOBIN 30.9 pg (27.0-33.0); MEAN CORPUSCULAR HGB CONC 31.7 g/dl (32.0-36.5); MEAN CORPUSCULAR VOLUME 97.3 fl (80.0-96.0); PLATELET COUNT, AUTOMATED 302 10^3/uL (150-450); RED BLOOD COUNT 3.37 10^6/uL (4.30-6.10); RED CELL DISTRIBUTION WIDTH 17.4 % (11.5-14.5)
[2017-05-13 07:27] LABS: ANION GAP 5 MEQ/L (8-16); BLOOD UREA NITROGEN 18 MG/DL (7-18); CALCIUM LEVEL 8.4 MG/DL (8.8-10.2); CARBON DIOXIDE LEVEL 29 MEQ/L (21-32); CHLORIDE LEVEL 110 MEQ/L (98-107); CREATININE FOR GFR 0.95 MG/DL (0.70-1.30); GLOMERULAR FILTRATION RATE > 60.0 (>49); GLUCOSE, FASTING 87 MG/DL (70-100); POTASSIUM SERUM 4.1 MEQ/L (3.5-5.1); SODIUM LEVEL 144 MEQ/L (136-145)
[2017-05-13] MEDS: METOCLOPRAMIDE HCL LIQUID 10 MG/10 ML UDC NG ×2 (08:27→12:46)
[2017-05-13] MEDS: PANTOPRAZOLE 40MG INJ (PROTONIX) (C9113) IV (08:27)
[2017-05-13] MEDS: guaiFENesin SYRUP 200 MG/10 ML UDC PO ×4 (08:27→22:06)
[2017-05-13] MEDS: busPIRone 10 MG TAB GT ×2 (08:28→15:12)
[2017-05-13] MEDS: MIRALAX *UNIT DOSE* 17GM PACKET GT (08:28)
[2017-05-13] MEDS: risperiDONE 1 MG TAB GT (08:28)
[2017-05-13] MEDS: clonazePAM 0.5 MG TAB PO ×3 (08:28→14:53)
[2017-05-13] MEDS: OLANZapine ORAL DISINTEGRATING TAB 5MG GT ×2 (08:28→12:47)
[2017-05-13] MEDS: CitaloPRAM (CeleXA) 20 MG TAB GT (08:28)
[2017-05-13] MEDS: GABAPENTIN 300 MG CAP GT ×3 (08:28→15:12)
[2017-05-13] MEDS: ERYTHROMYCIN ETHYLSUCC 200 MG SUSP (ERYPED) 100MLBTL PEG (10:29)
[2017-05-13] MEDS: NS 500 ML IV ×2 (14:30→15:15)
[2017-05-13] MEDS: MAG SULF 1GM/100ML (MAG RUN) 1 GM in APPROPRIATE DILUENT 1 EA IV (15:12)
[2017-05-13 15:25] LABS: BASO % 0.5 % (0.0-1.0); EOS # 0.3 10^3/uL (0.0-0.50); EOS % 4.2 % (0.0-3.0); HEMATOCRIT 29.5 % (42.0-52.0); HEMOGLOBIN 9.6 g/dl (14.0-18.0); IMMATURE GRANULOCYTE % 1.1 % (0-3.0); LYMPH # 1.2 10^3/uL (1.5-4.5); MEAN CORPUSCULAR HEMOGLOBIN 32.2 pg (27.0-33.0); MEAN CORPUSCULAR HGB CONC 32.5 g/dl (32.0-36.5); MONO # 0.6 10^3/uL (0.0-0.8); MONO % 8.3 % (0.0-5.0); NEUTROPHILS # 5.3 10^3/uL (1.8-7.7); NEUTROPHILS % 69.9 % (36.0-66.0); PLATELET COUNT, AUTOMATED 301 10^3/uL (150-450); RED BLOOD COUNT 2.98 10^6/uL (4.30-6.10); RED CELL DISTRIBUTION WIDTH 17.5 % (11.5-14.5); WHITE BLOOD COUNT 7.6 10^3/uL (4.0-10.0)
[2017-05-13 15:43] LABS: ANION GAP 6 MEQ/L (8-16); BLOOD UREA NITROGEN 19 MG/DL (7-18); CALCIUM LEVEL 8.4 MG/DL (8.8-10.2); CARBON DIOXIDE LEVEL 27 MEQ/L (21-32); CHLORIDE LEVEL 110 MEQ/L (98-107); CREATININE FOR GFR 0.97 MG/DL (0.70-1.30); GLOMERULAR FILTRATION RATE > 60.0 (>49); GLUCOSE, FASTING 71 MG/DL (70-100); MAGNESIUM LEVEL 1.9 MG/DL (1.8-2.4); POTASSIUM SERUM 4.4 MEQ/L (3.5-5.1); SODIUM LEVEL 143 MEQ/L (136-145)
[2017-05-13 17:11] LABS: ABG BASE EXCESS 1.3 (-2.0-2.0); ABG HCO3 26.1 MEQ/L (22.0-26.0); ABG O2 SATURATION 95.2 % (95.0-99.0); ABG PARTIAL PRESSURE CO2 42.2 mmHg (35.0-45.0); ABG PARTIAL PRESSURE O2 81.7 mmHg (75.0-100.0); ABG STANDARD HCO3 25.6 MEQ/L (22.0-26.0); ABG TOTAL CO2 27.4 MEQ/L (23.0-31.0); ABG pH (ARTERIAL) 7.409 UNITS (7.350-7.450)
[2017-05-13] MEDS: CYANOCOBALAMIN 500 MCG TAB GT (21:00)
[2017-05-13] MEDS: SENNA SYRUP 15 ML UDC PEG (22:06)
[2017-05-14] MEDS: PIPERACILLIN/TAZOBACTAM SOD 3.375 GM in APPROPRIATE DILUENT 1 EA IV ×3 (01:23→16:41)
[2017-05-14] MEDS: LEVOTHYROXINE 75MCG TABLET (0.075MG) GT (05:57)
[2017-05-14] MEDS: HEPARIN SOD (PORCINE) 5000 UNITS/ML VIAL SC ×3 (05:57→22:01)
[2017-05-14 07:34] LABS: HEMATOCRIT 35.1 % (42.0-52.0); HEMOGLOBIN 11.5 g/dl (14.0-18.0); MEAN CORPUSCULAR HEMOGLOBIN 31.9 pg (27.0-33.0); MEAN CORPUSCULAR HGB CONC 32.8 g/dl (32.0-36.5); MEAN CORPUSCULAR VOLUME 97.5 fl (80.0-96.0); PLATELET COUNT, AUTOMATED 323 10^3/uL (150-450); RED CELL DISTRIBUTION WIDTH 17.5 % (11.5-14.5); WHITE BLOOD COUNT 5.5 10^3/uL (4.0-10.0)
[2017-05-14 07:53] LABS: ANION GAP 7 MEQ/L (8-16); BLOOD UREA NITROGEN 19 MG/DL (7-18); CALCIUM LEVEL 9.1 MG/DL (8.8-10.2); CARBON DIOXIDE LEVEL 28 MEQ/L (21-32); CHLORIDE LEVEL 107 MEQ/L (98-107); CREATININE FOR GFR 1.15 MG/DL (0.70-1.30); GLOMERULAR FILTRATION RATE > 60.0 (>49); GLUCOSE, FASTING 122 MG/DL (70-100); SODIUM LEVEL 142 MEQ/L (136-145)
[2017-05-14] MEDS: GABAPENTIN 300 MG CAP GT ×3 (08:16→16:41)
[2017-05-14] MEDS: clonazePAM 0.5 MG TAB PO ×3 (08:16→16:41)
[2017-05-14] MEDS: busPIRone 10 MG TAB GT ×2 (10:08→16:41)
[2017-05-14] MEDS: MIRALAX *UNIT DOSE* 17GM PACKET GT (10:09)
[2017-05-14] MEDS: PANTOPRAZOLE 40MG INJ (PROTONIX) (C9113) IV (10:09)
[2017-05-14] MEDS: guaiFENesin SYRUP 200 MG/10 ML UDC PO ×4 (10:09→22:01)
[2017-05-14] MEDS: METOCLOPRAMIDE HCL LIQUID 10 MG/10 ML UDC NG ×2 (18:12→22:00)
[2017-05-14] MEDS: SENNA SYRUP 15 ML UDC PEG (22:00)
[2017-05-14] MEDS: ERYTHROMYCIN ETHYLSUCC 200 MG SUSP (ERYPED) 100MLBTL PEG (22:02)
[2017-05-14] MEDS: CYANOCOBALAMIN 500 MCG TAB GT (22:02)
[2017-05-14] MEDS: OLANZapine ORAL DISINTEGRATING TAB 5MG GT (23:05)
[2017-05-15] MEDS: PIPERACILLIN/TAZOBACTAM SOD 3.375 GM in APPROPRIATE DILUENT 1 EA IV ×3 (00:26→18:02)
[2017-05-15] MEDS: HEPARIN SOD (PORCINE) 5000 UNITS/ML VIAL SC ×3 (05:28→21:28)
[2017-05-15] MEDS: LEVOTHYROXINE 75MCG TABLET (0.075MG) GT (05:29)
[2017-05-15 05:51] LABS: HEMATOCRIT 34.6 % (42.0-52.0); HEMOGLOBIN 11.3 g/dl (14.0-18.0); MEAN CORPUSCULAR HEMOGLOBIN 31.7 pg (27.0-33.0); MEAN CORPUSCULAR HGB CONC 32.7 g/dl (32.0-36.5); MEAN CORPUSCULAR VOLUME 96.9 fl (80.0-96.0); PLATELET COUNT, AUTOMATED 278 10^3/uL (150-450); RED BLOOD COUNT 3.57 10^6/uL (4.30-6.10); RED CELL DISTRIBUTION WIDTH 17.4 % (11.5-14.5); WHITE BLOOD COUNT 4.8 10^3/uL (4.0-10.0)
[2017-05-15 06:08] LABS: ANION GAP 7 MEQ/L (8-16); BLOOD UREA NITROGEN 21 MG/DL (7-18); CALCIUM LEVEL 8.7 MG/DL (8.8-10.2); CARBON DIOXIDE LEVEL 27 MEQ/L (21-32); CHLORIDE LEVEL 108 MEQ/L (98-107); CREATININE FOR GFR 1.23 MG/DL (0.70-1.30); GLOMERULAR FILTRATION RATE > 60.0 (>49); GLUCOSE, FASTING 118 MG/DL (70-100); SODIUM LEVEL 142 MEQ/L (136-145)
[2017-05-15] MEDS: busPIRone 10 MG TAB GT ×2 (08:39→15:30)
[2017-05-15] MEDS: CitaloPRAM (CeleXA) 20 MG TAB GT (08:39)
[2017-05-15] MEDS: clonazePAM 0.5 MG TAB PO ×3 (08:39→15:27)
[2017-05-15] MEDS: GABAPENTIN 300 MG CAP GT ×3 (08:39→15:30)
[2017-05-15] MEDS: guaiFENesin SYRUP 200 MG/10 ML UDC PO ×4 (08:40→20:17)
[2017-05-15] MEDS: METOCLOPRAMIDE HCL LIQUID 10 MG/10 ML UDC NG ×4 (08:40→20:18)
[2017-05-15] MEDS: PANTOPRAZOLE 40MG INJ (PROTONIX) (C9113) IV (08:40)
[2017-05-15] MEDS: MIRALAX *UNIT DOSE* 17GM PACKET GT (08:40)
[2017-05-15] MEDS: OLANZapine ORAL DISINTEGRATING TAB 5MG GT ×3 (10:20→21:00)
[2017-05-15] MEDS: risperiDONE 1 MG TAB GT (10:20)
[2017-05-15] MEDS: NS 1,000 ML IV (15:28)
[2017-05-15] MEDS: SENNA SYRUP 15 ML UDC PEG (20:17)
[2017-05-15] MEDS: CYANOCOBALAMIN 500 MCG TAB GT (20:18)
[2017-05-16] MEDS: PIPERACILLIN/TAZOBACTAM SOD 3.375 GM in APPROPRIATE DILUENT 1 EA IV ×3 (01:00→15:42)
[2017-05-16] MEDS: LEVOTHYROXINE 75MCG TABLET (0.075MG) GT (06:18)
[2017-05-16] MEDS: HEPARIN SOD (PORCINE) 5000 UNITS/ML VIAL SC ×3 (06:18→21:54)
[2017-05-16 06:28] LABS: HEMATOCRIT 37.3 % (42.0-52.0); HEMOGLOBIN 12.2 g/dl (14.0-18.0); MEAN CORPUSCULAR HEMOGLOBIN 31.1 pg (27.0-33.0); MEAN CORPUSCULAR HGB CONC 32.7 g/dl (32.0-36.5); MEAN CORPUSCULAR VOLUME 95.2 fl (80.0-96.0); PLATELET COUNT, AUTOMATED 262 10^3/uL (150-450); RED BLOOD COUNT 3.92 10^6/uL (4.30-6.10); RED CELL DISTRIBUTION WIDTH 17.3 % (11.5-14.5)
[2017-05-16 06:41] LABS: ANION GAP 7 MEQ/L (8-16); BLOOD UREA NITROGEN 22 MG/DL (7-18); CALCIUM LEVEL 9.2 MG/DL (8.8-10.2); CARBON DIOXIDE LEVEL 30 MEQ/L (21-32); CHLORIDE LEVEL 104 MEQ/L (98-107); CREATININE FOR GFR 1.24 MG/DL (0.70-1.30); GLOMERULAR FILTRATION RATE > 60.0 (>49); GLUCOSE, FASTING 89 MG/DL (70-100); POTASSIUM SERUM 3.9 MEQ/L (3.5-5.1); SODIUM LEVEL 141 MEQ/L (136-145)
[2017-05-16] MEDS: guaiFENesin SYRUP 200 MG/10 ML UDC PO ×4 (08:24→21:53)
[2017-05-16] MEDS: PANTOPRAZOLE 40MG INJ (PROTONIX) (C9113) IV (08:25)
[2017-05-16] MEDS: GABAPENTIN 300 MG CAP GT ×3 (08:25→15:43)
[2017-05-16] MEDS: risperiDONE 1 MG TAB GT (08:25)
[2017-05-16] MEDS: busPIRone 10 MG TAB GT ×2 (08:25→15:42)
[2017-05-16] MEDS: METOCLOPRAMIDE HCL LIQUID 10 MG/10 ML UDC NG ×4 (08:25→21:53)
[2017-05-16] MEDS: CitaloPRAM (CeleXA) 20 MG TAB GT (08:25)
[2017-05-16] MEDS: MIRALAX *UNIT DOSE* 17GM PACKET GT (08:26)
[2017-05-16 09:15] LABS: BEDSIDE GLUCOSE 79 MG/DL (80-115)
[2017-05-16] MEDS: OLANZapine ORAL DISINTEGRATING TAB 5MG GT ×3 (09:57→21:00)
[2017-05-16] MEDS: ACETAMINOPHEN TAB 650MG DOSE (2X325MG) PO ×3 (09:57→21:56)
[2017-05-16 12:59] LABS: AMORPHOUS SEDIMENT RFX SMALL (NEGATIVE); KETONE, URINE AUTO RFX NEGATIVE (NEGATIVE); MUCUS, URINE RFX SMALL (NEGATIVE); NITRITE, URINE AUTO RFX NEGATIVE (NEGATIVE); RBC, URINE AUTO RFX 16 /HPF (0-3); SPECIFIC GRAVITY UR AUTO RFX 1.016 (1.002-1.035); SQUAM EPITHELIAL CELL UR AURFX 0 /HPF (0-6); WBC, URINE AUTO RFX 4 /HPF (0-3)
[2017-05-16 13:25] LABS: LEUKOCYTE ESTERASE UR AUTO RFX TRACE (NEGATIVE)
[2017-05-16] MEDS: D5W/0.9% SODIUM CHLORIDE 1,000 ML IV (16:30)
[2017-05-16] MEDS: VANCOMYCIN ORAL SOL 250MG/5ML ORAL SYRINGE PO (18:00)
[2017-05-16] MEDS: NS 1,000 ML IV (18:30)
[2017-05-16] MEDS: SENNA SYRUP 15 ML UDC PEG (21:00)
[2017-05-16] MEDS: CYANOCOBALAMIN 500 MCG TAB GT (21:52)
[2017-05-17] MEDS: PIPERACILLIN/TAZOBACTAM SOD 3.375 GM in APPROPRIATE DILUENT 1 EA IV (00:25)
[2017-05-17] MEDS: VANCOMYCIN ORAL SOL 250MG/5ML ORAL SYRINGE PO ×4 (00:25→17:56)
[2017-05-17 05:56] LABS: HEMATOCRIT 32.9 % (42.0-52.0); HEMOGLOBIN 10.5 g/dl (14.0-18.0); MEAN CORPUSCULAR HEMOGLOBIN 31.2 pg (27.0-33.0); MEAN CORPUSCULAR HGB CONC 31.9 g/dl (32.0-36.5); MEAN CORPUSCULAR VOLUME 97.6 fl (80.0-96.0); PLATELET COUNT, AUTOMATED 217 10^3/uL (150-450); RED BLOOD COUNT 3.37 10^6/uL (4.30-6.10); RED CELL DISTRIBUTION WIDTH 17.5 % (11.5-14.5); WHITE BLOOD COUNT 3.9 10^3/uL (4.0-10.0)
[2017-05-17 06:12] LABS: ANION GAP 6 MEQ/L (8-16); BLOOD UREA NITROGEN 18 MG/DL (7-18); CALCIUM LEVEL 8.7 MG/DL (8.8-10.2); CARBON DIOXIDE LEVEL 24 MEQ/L (21-32); CHLORIDE LEVEL 113 MEQ/L (98-107); CREATININE FOR GFR 1.08 MG/DL (0.70-1.30); GLOMERULAR FILTRATION RATE > 60.0 (>49); GLUCOSE, FASTING 86 MG/DL (70-100); POTASSIUM SERUM 4.1 MEQ/L (3.5-5.1); SODIUM LEVEL 143 MEQ/L (136-145)
[2017-05-17] MEDS: LEVOTHYROXINE 75MCG TABLET (0.075MG) GT (06:16)
[2017-05-17] MEDS: HEPARIN SOD (PORCINE) 5000 UNITS/ML VIAL SC ×2 (06:17→14:41)
[2017-05-17] MEDS: D5W/0.9% SODIUM CHLORIDE 1,000 ML IV ×2 (06:17→18:26)
[2017-05-17] MEDS: METOCLOPRAMIDE HCL LIQUID 10 MG/10 ML UDC NG ×4 (09:50→21:58)
[2017-05-17] MEDS: PANTOPRAZOLE 40MG INJ (PROTONIX) (C9113) IV (09:50)
[2017-05-17] MEDS: guaiFENesin SYRUP 200 MG/10 ML UDC PO ×4 (09:50→21:58)
[2017-05-17] MEDS: OLANZapine ORAL DISINTEGRATING TAB 5MG GT ×3 (09:51→21:59)
[2017-05-17] MEDS: GABAPENTIN 300 MG CAP GT ×3 (09:51→15:59)
[2017-05-17] MEDS: busPIRone 10 MG TAB GT ×2 (09:51→14:42)
[2017-05-17] MEDS: BISACODYL 10 MG SUPP PR (09:51)
[2017-05-17] MEDS: CitaloPRAM (CeleXA) 20 MG TAB GT (09:51)
[2017-05-17] MEDS: MIRALAX *UNIT DOSE* 17GM PACKET GT (09:51)
[2017-05-17] MEDS: ACETAMINOPHEN TAB 650MG DOSE (2X325MG) PO (10:04)
[2017-05-17] MEDS: risperiDONE 1 MG TAB GT (14:41)
[2017-05-17] MEDS: NS 1,000 ML IV (18:26)
[2017-05-17] MEDS: CYANOCOBALAMIN 500 MCG TAB GT (21:58)
[2017-05-17] MEDS: SENNA SYRUP 15 ML UDC PEG (21:58)
[2017-05-18] MEDS: VANCOMYCIN ORAL SOL 250MG/5ML ORAL SYRINGE PO ×2 (00:28→06:15)
[2017-05-18 05:58] LABS: HEMATOCRIT 33.8 % (42.0-52.0); MEAN CORPUSCULAR HGB CONC 32.5 g/dl (32.0-36.5); MEAN CORPUSCULAR VOLUME 98.3 fl (80.0-96.0); PLATELET COUNT, AUTOMATED 198 10^3/uL (150-450); RED BLOOD COUNT 3.44 10^6/uL (4.30-6.10); RED CELL DISTRIBUTION WIDTH 17.3 % (11.5-14.5); WHITE BLOOD COUNT 2.8 10^3/uL (4.0-10.0)
[2017-05-18] MEDS: LEVOTHYROXINE 75MCG TABLET (0.075MG) GT (06:15)
[2017-05-18 06:16] LABS: ANION GAP 5 MEQ/L (8-16); BLOOD UREA NITROGEN 13 MG/DL (7-18); CALCIUM LEVEL 8.8 MG/DL (8.8-10.2); CARBON DIOXIDE LEVEL 27 MEQ/L (21-32); CHLORIDE LEVEL 111 MEQ/L (98-107); CREATININE FOR GFR 0.89 MG/DL (0.70-1.30); GLOMERULAR FILTRATION RATE > 60.0 (>49); GLUCOSE, FASTING 113 MG/DL (70-100); POTASSIUM SERUM 4.1 MEQ/L (3.5-5.1); SODIUM LEVEL 143 MEQ/L (136-145)
[2017-05-18] MEDS: busPIRone 10 MG TAB GT ×2 (08:10→15:14)
[2017-05-18] MEDS: GABAPENTIN 300 MG CAP GT ×3 (08:10→15:14)
[2017-05-18] MEDS: PANTOPRAZOLE 40MG INJ (PROTONIX) (C9113) IV (08:10)
[2017-05-18] MEDS: guaiFENesin SYRUP 200 MG/10 ML UDC PO ×4 (08:11→21:53)
[2017-05-18] MEDS: OLANZapine ORAL DISINTEGRATING TAB 5MG GT ×3 (08:11→21:54)
[2017-05-18] MEDS: METOCLOPRAMIDE HCL LIQUID 10 MG/10 ML UDC NG ×4 (08:11→21:53)
[2017-05-18] MEDS: risperiDONE 1 MG TAB GT (08:11)
[2017-05-18] MEDS: MIRALAX *UNIT DOSE* 17GM PACKET GT (08:11)
[2017-05-18] MEDS: CitaloPRAM (CeleXA) 20 MG TAB GT (08:11)
[2017-05-18 08:50] LABS: BASO % 0.4 % (0.0-1.0); EOS # 0.1 10^3/uL (0.0-0.50); EOS % 2.6 % (0.0-3.0); HEMATOCRIT 34.3 % (42.0-52.0); HEMOGLOBIN 11.1 g/dl (14.0-18.0); IMMATURE GRANULOCYTE % 1.5 % (0-3.0); LYMPH # 0.7 10^3/uL (1.5-4.5); LYMPH % 27.1 % (24.0-44.0); MEAN CORPUSCULAR HGB CONC 32.4 g/dl (32.0-36.5); MEAN CORPUSCULAR VOLUME 95.8 fl (80.0-96.0); MONO # 0.7 10^3/uL (0.0-0.8); MONO % 27.4 % (0.0-5.0); NEUTROPHILS # 1.1 10^3/uL (1.8-7.7); PLATELET COUNT, AUTOMATED 219 10^3/uL (150-450); RED BLOOD COUNT 3.58 10^6/uL (4.30-6.10); RED CELL DISTRIBUTION WIDTH 17.2 % (11.5-14.5); WHITE BLOOD COUNT 2.7 10^3/uL (4.0-10.0)
[2017-05-18] MEDS: D5W/0.9% SODIUM CHLORIDE 1,000 ML IV ×2 (09:34→22:27)
[2017-05-18] MEDS: ACETAMINOPHEN TAB 650MG DOSE (2X325MG) PO (09:34)
[2017-05-18] MEDS ORDERED: BISACODYL 10 MG SUPP PR (09:45)
[2017-05-18] MEDS: clonazePAM 0.5 MG TAB PO (15:14)
[2017-05-18] MEDS: OSELTAMIVIR PHOSPHATE 75 MG CAP (TAMIFLU) PO ×2 (15:14→21:53)
[2017-05-18] MEDS: CYANOCOBALAMIN 500 MCG TAB GT (21:53)
[2017-05-18] MEDS: SENNA SYRUP 15 ML UDC PEG (21:53)
[2017-05-19] MEDS: LEVOTHYROXINE 75MCG TABLET (0.075MG) GT (06:17)
[2017-05-19] MEDS: HEPARIN SOD (PORCINE) 5000 UNITS/ML VIAL SQ ×3 (06:17→22:06)
[2017-05-19] MEDS: ACETAMINOPHEN TAB 650MG DOSE (2X325MG) PO ×2 (06:18→22:39)
[2017-05-19 06:23] LABS: HEMATOCRIT 36.1 % (42.0-52.0); HEMOGLOBIN 11.7 g/dl (14.0-18.0); MEAN CORPUSCULAR HEMOGLOBIN 31.1 pg (27.0-33.0); MEAN CORPUSCULAR HGB CONC 32.4 g/dl (32.0-36.5); PLATELET COUNT, AUTOMATED 210 10^3/uL (150-450); RED BLOOD COUNT 3.76 10^6/uL (4.30-6.10); RED CELL DISTRIBUTION WIDTH 17.3 % (11.5-14.5); WHITE BLOOD COUNT 3.1 10^3/uL (4.0-10.0)
[2017-05-19 06:45] LABS: ANION GAP 7 MEQ/L (8-16); BLOOD UREA NITROGEN 12 MG/DL (7-18); CALCIUM LEVEL 8.7 MG/DL (8.8-10.2); CARBON DIOXIDE LEVEL 26 MEQ/L (21-32); CHLORIDE LEVEL 112 MEQ/L (98-107); CREATININE FOR GFR 0.81 MG/DL (0.70-1.30); GLOMERULAR FILTRATION RATE > 60.0 (>49); GLUCOSE, FASTING 116 MG/DL (70-100); POTASSIUM SERUM 3.9 MEQ/L (3.5-5.1); SODIUM LEVEL 145 MEQ/L (136-145)
[2017-05-19] MEDS: OLANZapine ORAL DISINTEGRATING TAB 5MG GT ×3 (08:31→22:07)
[2017-05-19] MEDS: METOCLOPRAMIDE HCL LIQUID 10 MG/10 ML UDC NG ×4 (08:31→22:06)
[2017-05-19] MEDS: OSELTAMIVIR PHOSPHATE 75 MG CAP (TAMIFLU) PO ×2 (08:31→22:07)
[2017-05-19] MEDS: busPIRone 10 MG TAB GT ×2 (08:31→16:01)
[2017-05-19] MEDS: CitaloPRAM (CeleXA) 20 MG TAB GT (08:31)
[2017-05-19] MEDS: GABAPENTIN 300 MG CAP GT ×3 (08:31→16:01)
[2017-05-19] MEDS: guaiFENesin SYRUP 200 MG/10 ML UDC PO ×4 (08:31→22:07)
[2017-05-19] MEDS: MIRALAX *UNIT DOSE* 17GM PACKET GT (08:31)
[2017-05-19] MEDS: PANTOPRAZOLE 40MG INJ (PROTONIX) (C9113) IV (08:31)
[2017-05-19] MEDS: risperiDONE 1 MG TAB GT (10:57)
[2017-05-19] MEDS: D5W/0.9% SODIUM CHLORIDE 1,000 ML IV (11:14)
[2017-05-19] MEDS: SENNA SYRUP 15 ML UDC PEG (22:07)
[2017-05-19] MEDS: CYANOCOBALAMIN 500 MCG TAB GT (22:08)
[2017-05-20 05:42] LABS: HEMATOCRIT 35.8 % (42.0-52.0); HEMOGLOBIN 11.6 g/dl (14.0-18.0); MEAN CORPUSCULAR HEMOGLOBIN 31.4 pg (27.0-33.0); MEAN CORPUSCULAR HGB CONC 32.4 g/dl (32.0-36.5); PLATELET COUNT, AUTOMATED 211 10^3/uL (150-450); RED BLOOD COUNT 3.69 10^6/uL (4.30-6.10); RED CELL DISTRIBUTION WIDTH 17.5 % (11.5-14.5); WHITE BLOOD COUNT 5.1 10^3/uL (4.0-10.0)
[2017-05-20 06:07] LABS: ANION GAP 6 MEQ/L (8-16); BLOOD UREA NITROGEN 17 MG/DL (7-18); CALCIUM LEVEL 8.9 MG/DL (8.8-10.2); CARBON DIOXIDE LEVEL 29 MEQ/L (21-32); CHLORIDE LEVEL 110 MEQ/L (98-107); CREATININE FOR GFR 0.89 MG/DL (0.70-1.30); GLOMERULAR FILTRATION RATE > 60.0 (>49); GLUCOSE, FASTING 87 MG/DL (70-100); POTASSIUM SERUM 4.5 MEQ/L (3.5-5.1); SODIUM LEVEL 145 MEQ/L (136-145)
[2017-05-20] MEDS: HEPARIN SOD (PORCINE) 5000 UNITS/ML VIAL SQ ×3 (06:28→21:17)
[2017-05-20] MEDS: LEVOTHYROXINE 75MCG TABLET (0.075MG) GT (06:28)
[2017-05-20] MEDS: OLANZapine ORAL DISINTEGRATING TAB 5MG GT ×3 (07:57→21:17)
[2017-05-20] MEDS: METOCLOPRAMIDE HCL LIQUID 10 MG/10 ML UDC NG ×4 (07:57→21:16)
[2017-05-20] MEDS: PANTOPRAZOLE 40MG INJ (PROTONIX) (C9113) IV (07:57)
[2017-05-20] MEDS: OSELTAMIVIR PHOSPHATE 75 MG CAP (TAMIFLU) PO ×2 (07:57→21:17)
[2017-05-20] MEDS: guaiFENesin SYRUP 200 MG/10 ML UDC PO ×4 (07:57→21:16)
[2017-05-20] MEDS: risperiDONE 1 MG TAB GT (07:57)
[2017-05-20] MEDS: GABAPENTIN 300 MG CAP GT ×3 (07:57→14:06)
[2017-05-20] MEDS: CitaloPRAM (CeleXA) 20 MG TAB GT (07:58)
[2017-05-20] MEDS: busPIRone 10 MG TAB GT ×2 (07:58→14:06)
[2017-05-20] MEDS: MIRALAX *UNIT DOSE* 17GM PACKET GT (07:58)
[2017-05-20] MEDS: SENNA SYRUP 15 ML UDC PEG (21:16)
[2017-05-20] MEDS: ACETAMINOPHEN TAB 650MG DOSE (2X325MG) PO (21:16)
[2017-05-20] MEDS: CYANOCOBALAMIN 500 MCG TAB GT (21:17)
[2017-05-21] MEDS: LEVOTHYROXINE 75MCG TABLET (0.075MG) GT (05:35)
[2017-05-21] MEDS: HEPARIN SOD (PORCINE) 5000 UNITS/ML VIAL SQ ×3 (05:36→21:41)
[2017-05-21 07:27] LABS: HEMATOCRIT 37.1 % (42.0-52.0); HEMOGLOBIN 12.2 g/dl (14.0-18.0); MEAN CORPUSCULAR HEMOGLOBIN 31.7 pg (27.0-33.0); MEAN CORPUSCULAR HGB CONC 32.9 g/dl (32.0-36.5); MEAN CORPUSCULAR VOLUME 96.4 fl (80.0-96.0); PLATELET COUNT, AUTOMATED 189 10^3/uL (150-450); RED BLOOD COUNT 3.85 10^6/uL (4.30-6.10); RED CELL DISTRIBUTION WIDTH 17.3 % (11.5-14.5); WHITE BLOOD COUNT 4.9 10^3/uL (4.0-10.0)
[2017-05-21] MEDS: METOCLOPRAMIDE HCL LIQUID 10 MG/10 ML UDC NG ×2 (07:52→11:21)
[2017-05-21] MEDS: guaiFENesin SYRUP 200 MG/10 ML UDC PO ×4 (07:52→21:41)
[2017-05-21] MEDS: GABAPENTIN 300 MG CAP GT ×3 (07:52→14:00)
[2017-05-21] MEDS: PANTOPRAZOLE 40MG INJ (PROTONIX) (C9113) IV (07:53)
[2017-05-21] MEDS: CitaloPRAM (CeleXA) 20 MG TAB GT (07:53)
[2017-05-21] MEDS: risperiDONE 1 MG TAB GT (07:53)
[2017-05-21] MEDS: OSELTAMIVIR PHOSPHATE 75 MG CAP (TAMIFLU) PO ×2 (07:53→21:41)
[2017-05-21] MEDS: OLANZapine ORAL DISINTEGRATING TAB 5MG GT ×3 (07:53→21:41)
[2017-05-21] MEDS: clonazePAM 0.5 MG TAB PO (07:53)
[2017-05-21] MEDS: busPIRone 10 MG TAB GT ×2 (07:53→14:00)
[2017-05-21] MEDS: MIRALAX *UNIT DOSE* 17GM PACKET GT (07:54)
[2017-05-21 07:58] LABS: ANION GAP 3 MEQ/L (8-16); BLOOD UREA NITROGEN 19 MG/DL (7-18); CARBON DIOXIDE LEVEL 30 MEQ/L (21-32); CHLORIDE LEVEL 108 MEQ/L (98-107); CREATININE FOR GFR 0.98 MG/DL (0.70-1.30); GLOMERULAR FILTRATION RATE > 60.0 (>49); GLUCOSE, FASTING 93 MG/DL (70-100); SODIUM LEVEL 141 MEQ/L (136-145)
[2017-05-21 15:21] LABS: LACTIC ACID SEPSIS PROTOCOL 1.2 MMOL/L (0.4-2.0)
[2017-05-21] MEDS: METOCLOPRAMIDE HCL LIQUID 10 MG/10 ML UDC GT ×2 (16:42→21:41)
[2017-05-21] MEDS: NS 1,000 ML IV ×2 (16:47→17:46)
[2017-05-21 17:09] LABS: BEDSIDE GLUCOSE 91 MG/DL (80-115)
[2017-05-21] MEDS: CYANOCOBALAMIN 500 MCG TAB GT (21:00)
[2017-05-21] MEDS: SENNA SYRUP 15 ML UDC PEG (21:41)
[2017-05-21] MEDS: NS 500 ML IV (22:45)
[2017-05-22] MEDS: HEPARIN SOD (PORCINE) 5000 UNITS/ML VIAL SQ ×3 (05:43→21:15)
[2017-05-22] MEDS: LEVOTHYROXINE 75MCG TABLET (0.075MG) GT (05:43)
[2017-05-22 05:56] LABS: HEMATOCRIT 36.5 % (42.0-52.0); HEMOGLOBIN 11.7 g/dl (14.0-18.0); MEAN CORPUSCULAR HEMOGLOBIN 31.1 pg (27.0-33.0); MEAN CORPUSCULAR HGB CONC 32.1 g/dl (32.0-36.5); MEAN CORPUSCULAR VOLUME 97.1 fl (80.0-96.0); PLATELET COUNT, AUTOMATED 181 10^3/uL (150-450); RED BLOOD COUNT 3.76 10^6/uL (4.30-6.10); RED CELL DISTRIBUTION WIDTH 17.5 % (11.5-14.5); WHITE BLOOD COUNT 4.2 10^3/uL (4.0-10.0)
[2017-05-22 06:29] LABS: ANION GAP 7 MEQ/L (8-16); BLOOD UREA NITROGEN 22 MG/DL (7-18); CARBON DIOXIDE LEVEL 27 MEQ/L (21-32); CHLORIDE LEVEL 110 MEQ/L (98-107); CREATININE FOR GFR 1.06 MG/DL (0.70-1.30); GLOMERULAR FILTRATION RATE > 60.0 (>49); GLUCOSE, FASTING 105 MG/DL (70-100); POTASSIUM SERUM 4.2 MEQ/L (3.5-5.1); SODIUM LEVEL 144 MEQ/L (136-145)
[2017-05-22] MEDS: METOCLOPRAMIDE HCL LIQUID 10 MG/10 ML UDC GT ×4 (07:30→21:14)
[2017-05-22] MEDS: OLANZapine ORAL DISINTEGRATING TAB 5MG GT ×3 (08:00→21:15)
[2017-05-22] MEDS: PANTOPRAZOLE 40MG INJ (PROTONIX) (C9113) IV (09:00)
[2017-05-22] MEDS: guaiFENesin SYRUP 200 MG/10 ML UDC PO ×4 (09:01→21:15)
[2017-05-22] MEDS: MIRALAX *UNIT DOSE* 17GM PACKET GT (09:01)
[2017-05-22] MEDS: OSELTAMIVIR PHOSPHATE 75 MG CAP (TAMIFLU) PO ×2 (09:01→21:15)
[2017-05-22] MEDS: busPIRone 10 MG TAB GT ×2 (09:02→15:34)
[2017-05-22] MEDS: GABAPENTIN 300 MG CAP GT ×3 (09:02→15:34)
[2017-05-22] MEDS: CitaloPRAM (CeleXA) 20 MG TAB GT (09:02)
[2017-05-22] MEDS: clonazePAM 0.5 MG TAB PO (09:33)
[2017-05-22] MEDS: risperiDONE 1 MG TAB GT (11:14)
[2017-05-22] MEDS: CYANOCOBALAMIN 500 MCG TAB GT (21:15)
[2017-05-22] MEDS: SENNA SYRUP 15 ML UDC PEG (21:15)
[2017-05-23 05:54] LABS: HEMATOCRIT 36.4 % (42.0-52.0); HEMOGLOBIN 11.9 g/dl (14.0-18.0); MEAN CORPUSCULAR HEMOGLOBIN 31.8 pg (27.0-33.0); MEAN CORPUSCULAR HGB CONC 32.7 g/dl (32.0-36.5); MEAN CORPUSCULAR VOLUME 97.3 fl (80.0-96.0); PLATELET COUNT, AUTOMATED 166 10^3/uL (150-450); RED BLOOD COUNT 3.74 10^6/uL (4.30-6.10); RED CELL DISTRIBUTION WIDTH 17.8 % (11.5-14.5); WHITE BLOOD COUNT 6.3 10^3/uL (4.0-10.0)
[2017-05-23 06:16] LABS: ANION GAP 6 MEQ/L (8-16); BLOOD UREA NITROGEN 26 MG/DL (7-18); CALCIUM LEVEL 9.4 MG/DL (8.8-10.2); CARBON DIOXIDE LEVEL 29 MEQ/L (21-32); CHLORIDE LEVEL 111 MEQ/L (98-107); GLOMERULAR FILTRATION RATE > 60.0 (>49); GLUCOSE, FASTING 103 MG/DL (70-100); POTASSIUM SERUM 4.2 MEQ/L (3.5-5.1); SODIUM LEVEL 146 MEQ/L (136-145)
[2017-05-23] MEDS: HEPARIN SOD (PORCINE) 5000 UNITS/ML VIAL SQ ×2 (06:23→14:00)
[2017-05-23] MEDS: LEVOTHYROXINE 75MCG TABLET (0.075MG) GT (06:23)
[2017-05-23] MEDS: clonazePAM 0.5 MG TAB PO (07:01)
[2017-05-23] MEDS: MIRALAX *UNIT DOSE* 17GM PACKET GT (07:01)
[2017-05-23] MEDS: guaiFENesin SYRUP 200 MG/10 ML UDC PO ×4 (07:01→22:33)
[2017-05-23] MEDS: METOCLOPRAMIDE HCL LIQUID 10 MG/10 ML UDC GT ×4 (07:01→22:32)
[2017-05-23] MEDS: OLANZapine ORAL DISINTEGRATING TAB 5MG GT ×3 (07:02→22:32)
[2017-05-23] MEDS: busPIRone 10 MG TAB GT ×2 (07:02→16:06)
[2017-05-23] MEDS: risperiDONE 1 MG TAB GT (07:02)
[2017-05-23] MEDS: GABAPENTIN 300 MG CAP GT ×3 (07:02→16:06)
[2017-05-23] MEDS: CitaloPRAM (CeleXA) 20 MG TAB GT (07:02)
[2017-05-23] MEDS: PANTOPRAZOLE 40MG INJ (PROTONIX) (C9113) IV (07:03)
[2017-05-23] MEDS: CYANOCOBALAMIN 500 MCG TAB GT (22:32)
[2017-05-23] MEDS: SENNA SYRUP 15 ML UDC PEG (22:33)
[2017-05-24] MEDS: NS 1,000 ML IV ×2 (05:29→11:42)
[2017-05-24 06:34] LABS: HEMATOCRIT 40.7 % (42.0-52.0); HEMOGLOBIN 12.9 g/dl (14.0-18.0); MEAN CORPUSCULAR HEMOGLOBIN 31.4 pg (27.0-33.0); MEAN CORPUSCULAR HGB CONC 31.7 g/dl (32.0-36.5); PLATELET COUNT, AUTOMATED 169 10^3/uL (150-450); RED BLOOD COUNT 4.11 10^6/uL (4.30-6.10); RED CELL DISTRIBUTION WIDTH 17.9 % (11.5-14.5); WHITE BLOOD COUNT 5.6 10^3/uL (4.0-10.0)
[2017-05-24 06:59] LABS: ANION GAP 7 MEQ/L (8-16); BLOOD UREA NITROGEN 26 MG/DL (7-18); CALCIUM LEVEL 9.5 MG/DL (8.8-10.2); CARBON DIOXIDE LEVEL 30 MEQ/L (21-32); CHLORIDE LEVEL 110 MEQ/L (98-107); CREATININE FOR GFR 1.09 MG/DL (0.70-1.30); GLOMERULAR FILTRATION RATE > 60.0 (>49); GLUCOSE, FASTING 113 MG/DL (70-100); SODIUM LEVEL 147 MEQ/L (136-145)
[2017-05-24] MEDS: LEVOTHYROXINE 75MCG TABLET (0.075MG) GT (07:00)
[2017-05-24] MEDS: METOCLOPRAMIDE HCL LIQUID 10 MG/10 ML UDC GT ×5 (08:33→21:35)
[2017-05-24] MEDS: clonazePAM 0.5 MG TAB PO (08:34)
[2017-05-24] MEDS: OLANZapine ORAL DISINTEGRATING TAB 5MG GT ×3 (08:34→21:35)
[2017-05-24] MEDS: GABAPENTIN 300 MG CAP GT ×3 (08:34→14:30)
[2017-05-24] MEDS: PANTOPRAZOLE 40MG INJ (PROTONIX) (C9113) IV (10:18)
[2017-05-24] MEDS: CitaloPRAM (CeleXA) 20 MG TAB GT (10:18)
[2017-05-24] MEDS: guaiFENesin SYRUP 200 MG/10 ML UDC PO ×4 (10:18→21:35)
[2017-05-24] MEDS: busPIRone 10 MG TAB GT ×2 (10:19→14:30)
[2017-05-24] MEDS: risperiDONE 1 MG TAB GT (10:19)
[2017-05-24] MEDS: MIRALAX *UNIT DOSE* 17GM PACKET GT (10:19)
[2017-05-24] MEDS: CYANOCOBALAMIN 500 MCG TAB GT (21:35)
[2017-05-24] MEDS: SENNA SYRUP 15 ML UDC PEG (21:35)
[2017-05-25] MEDS: NS 1,000 ML IV ×2 (03:40→20:13)
[2017-05-25] MEDS: LEVOTHYROXINE 75MCG TABLET (0.075MG) GT (05:58)
[2017-05-25 06:13] LABS: HEMATOCRIT 36.9 % (42.0-52.0); HEMOGLOBIN 11.8 g/dl (14.0-18.0); MEAN CORPUSCULAR HEMOGLOBIN 31.6 pg (27.0-33.0); MEAN CORPUSCULAR VOLUME 98.7 fl (80.0-96.0); PLATELET COUNT, AUTOMATED 156 10^3/uL (150-450); RED BLOOD COUNT 3.74 10^6/uL (4.30-6.10); RED CELL DISTRIBUTION WIDTH 18.1 % (11.5-14.5); WHITE BLOOD COUNT 5.8 10^3/uL (4.0-10.0)
[2017-05-25 06:36] LABS: ANION GAP 7 MEQ/L (8-16); BLOOD UREA NITROGEN 27 MG/DL (7-18); CALCIUM LEVEL 9.4 MG/DL (8.8-10.2); CARBON DIOXIDE LEVEL 29 MEQ/L (21-32); CHLORIDE LEVEL 111 MEQ/L (98-107); GLOMERULAR FILTRATION RATE > 60.0 (>49); GLUCOSE, FASTING 87 MG/DL (70-100); POTASSIUM SERUM 4.2 MEQ/L (3.5-5.1); SODIUM LEVEL 147 MEQ/L (136-145)
[2017-05-25] MEDS: D5/0.45%NACL 1000ML IV (06:45)
[2017-05-25] MEDS: PANTOPRAZOLE 40MG INJ (PROTONIX) (C9113) IV (07:52)
[2017-05-25] MEDS: MIRALAX *UNIT DOSE* 17GM PACKET GT (07:52)
[2017-05-25] MEDS: METOCLOPRAMIDE HCL LIQUID 10 MG/10 ML UDC GT ×4 (07:53→21:20)
[2017-05-25] MEDS: busPIRone 10 MG TAB GT ×2 (07:53→15:47)
[2017-05-25] MEDS: guaiFENesin SYRUP 200 MG/10 ML UDC PO ×4 (07:53→21:20)
[2017-05-25] MEDS: GABAPENTIN 300 MG CAP GT ×3 (07:53→15:47)
[2017-05-25] MEDS: CitaloPRAM (CeleXA) 20 MG TAB GT (07:53)
[2017-05-25] MEDS: OLANZapine ORAL DISINTEGRATING TAB 5MG GT ×3 (07:53→21:20)
[2017-05-25] MEDS: risperiDONE 1 MG TAB GT (07:54)
[2017-05-25] MEDS: D5W/0.45% SODIUM CHLORIDE 1,000 ML IV ×2 (11:12→16:27)
[2017-05-25 13:00] LABS: ALBUMIN 2.9 GM/DL (3.2-5.2); ANION GAP 7 MEQ/L (8-16); BLOOD UREA NITROGEN 23 MG/DL (7-18); CALCIUM LEVEL 8.7 MG/DL (8.8-10.2); CARBON DIOXIDE LEVEL 27 MEQ/L (21-32); CHLORIDE LEVEL 112 MEQ/L (98-107); GLOMERULAR FILTRATION RATE > 60.0 (>49); GLUCOSE, FASTING 82 MG/DL (70-100); PHOSPHORUS LEVEL 2.8 MG/DL (2.5-4.9); POTASSIUM SERUM 3.8 MEQ/L (3.5-5.1); SODIUM LEVEL 146 MEQ/L (136-145)
[2017-05-25] MEDS: BISACODYL 10 MG SUPP PR (15:47)
[2017-05-25] MEDS: CYANOCOBALAMIN 500 MCG TAB GT (21:00)
[2017-05-25] MEDS: SENNA SYRUP 15 ML UDC PEG (21:20)
[2017-05-26] MEDS: D5W/0.45% SODIUM CHLORIDE 1,000 ML IV ×2 (04:15→14:17)
[2017-05-26] MEDS: LEVOTHYROXINE 75MCG TABLET (0.075MG) GT (06:00)
[2017-05-26 06:03] LABS: HEMATOCRIT 35.3 % (42.0-52.0); HEMOGLOBIN 11.2 g/dl (14.0-18.0); MEAN CORPUSCULAR HEMOGLOBIN 31.5 pg (27.0-33.0); MEAN CORPUSCULAR HGB CONC 31.7 g/dl (32.0-36.5); MEAN CORPUSCULAR VOLUME 99.2 fl (80.0-96.0); PLATELET COUNT, AUTOMATED 147 10^3/uL (150-450); RED BLOOD COUNT 3.56 10^6/uL (4.30-6.10); RED CELL DISTRIBUTION WIDTH 17.4 % (11.5-14.5); WHITE BLOOD COUNT 5.8 10^3/uL (4.0-10.0)
[2017-05-26 06:22] LABS: ANION GAP 6 MEQ/L (8-16); BLOOD UREA NITROGEN 18 MG/DL (7-18); CALCIUM LEVEL 8.5 MG/DL (8.8-10.2); CARBON DIOXIDE LEVEL 28 MEQ/L (21-32); CHLORIDE LEVEL 109 MEQ/L (98-107); CREATININE FOR GFR 0.87 MG/DL (0.70-1.30); GLOMERULAR FILTRATION RATE > 60.0 (>49); GLUCOSE, FASTING 100 MG/DL (70-100); POTASSIUM SERUM 3.7 MEQ/L (3.5-5.1); SODIUM LEVEL 143 MEQ/L (136-145)
[2017-05-26] MEDS: BISACODYL 10 MG SUPP PR (07:38)
[2017-05-26] MEDS: PANTOPRAZOLE 40MG INJ (PROTONIX) (C9113) IV (07:39)
[2017-05-26] MEDS: risperiDONE 1 MG TAB GT (07:39)
[2017-05-26] MEDS: guaiFENesin SYRUP 200 MG/10 ML UDC PO ×4 (07:39→21:15)
[2017-05-26] MEDS: OLANZapine ORAL DISINTEGRATING TAB 5MG GT ×3 (07:39→21:16)
[2017-05-26] MEDS: CitaloPRAM (CeleXA) 20 MG TAB GT (07:39)
[2017-05-26] MEDS: GABAPENTIN 300 MG CAP GT ×3 (07:39→16:11)
[2017-05-26] MEDS: MIRALAX *UNIT DOSE* 17GM PACKET GT (07:39)
[2017-05-26] MEDS: METOCLOPRAMIDE HCL LIQUID 10 MG/10 ML UDC GT ×4 (07:39→21:15)
[2017-05-26] MEDS: busPIRone 10 MG TAB GT ×2 (07:39→16:11)
[2017-05-26] MEDS: clonazePAM 0.5 MG TAB PO (11:01)
[2017-05-26] MEDS: SENNA SYRUP 15 ML UDC PEG (21:00)
[2017-05-26] MEDS: CYANOCOBALAMIN 500 MCG TAB GT (21:15)
[2017-05-27] MEDS: D5W/0.45% SODIUM CHLORIDE 1,000 ML IV ×3 (02:47→21:39)
[2017-05-27] MEDS: LEVOTHYROXINE 75MCG TABLET (0.075MG) GT (06:00)
[2017-05-27 06:33] LABS: HEMATOCRIT 32.8 % (42.0-52.0); HEMOGLOBIN 10.6 g/dl (14.0-18.0); MEAN CORPUSCULAR HEMOGLOBIN 31.9 pg (27.0-33.0); MEAN CORPUSCULAR HGB CONC 32.3 g/dl (32.0-36.5); MEAN CORPUSCULAR VOLUME 98.8 fl (80.0-96.0); PLATELET COUNT, AUTOMATED 136 10^3/uL (150-450); RED BLOOD COUNT 3.32 10^6/uL (4.30-6.10); RED CELL DISTRIBUTION WIDTH 17.3 % (11.5-14.5); WHITE BLOOD COUNT 5.1 10^3/uL (4.0-10.0)
[2017-05-27 06:50] LABS: ANION GAP 7 MEQ/L (8-16); BLOOD UREA NITROGEN 13 MG/DL (7-18); CALCIUM LEVEL 8.5 MG/DL (8.8-10.2); CARBON DIOXIDE LEVEL 28 MEQ/L (21-32); CHLORIDE LEVEL 109 MEQ/L (98-107); CREATININE FOR GFR 0.88 MG/DL (0.70-1.30); GLOMERULAR FILTRATION RATE > 60.0 (>49); GLUCOSE, FASTING 96 MG/DL (70-100); POTASSIUM SERUM 3.6 MEQ/L (3.5-5.1); SODIUM LEVEL 144 MEQ/L (136-145)
[2017-05-27] MEDS: METOCLOPRAMIDE HCL LIQUID 10 MG/10 ML UDC GT ×3 (08:44→16:44)
[2017-05-27] MEDS: OLANZapine ORAL DISINTEGRATING TAB 5MG GT ×3 (08:45→21:37)
[2017-05-27] MEDS: GABAPENTIN 300 MG CAP GT ×3 (08:45→16:45)
[2017-05-27] MEDS: CitaloPRAM (CeleXA) 20 MG TAB GT (08:45)
[2017-05-27] MEDS: guaiFENesin SYRUP 200 MG/10 ML UDC PO ×4 (08:45→21:38)
[2017-05-27] MEDS: MIRALAX *UNIT DOSE* 17GM PACKET GT (08:46)
[2017-05-27] MEDS: risperiDONE 1 MG TAB GT (08:46)
[2017-05-27] MEDS: busPIRone 10 MG TAB GT ×2 (08:46→16:45)
[2017-05-27] MEDS: PANTOPRAZOLE 40MG INJ (PROTONIX) (C9113) IV (08:47)
[2017-05-27] MEDS: BISACODYL 10 MG SUPP PR (08:47)
[2017-05-27 17:32] LABS: BEDSIDE GLUCOSE 103 MG/DL (80-115)
[2017-05-27] MEDS: NS 500 ML IV ×2 (20:30→21:30)
[2017-05-27 21:03] LABS: HEMATOCRIT 32.2 % (42.0-52.0); HEMOGLOBIN 10.3 g/dl (14.0-18.0); MEAN CORPUSCULAR HEMOGLOBIN 31.7 pg (27.0-33.0); MEAN CORPUSCULAR VOLUME 99.1 fl (80.0-96.0); PLATELET COUNT, AUTOMATED 143 10^3/uL (150-450); RED BLOOD COUNT 3.25 10^6/uL (4.30-6.10); RED CELL DISTRIBUTION WIDTH 17.4 % (11.5-14.5); WHITE BLOOD COUNT 4.3 10^3/uL (4.0-10.0)
[2017-05-27 21:10] LABS: ANION GAP 4 MEQ/L (8-16); BLOOD UREA NITROGEN 9 MG/DL (7-18); CALCIUM LEVEL 8.5 MG/DL (8.8-10.2); CARBON DIOXIDE LEVEL 31 MEQ/L (21-32); CHLORIDE LEVEL 110 MEQ/L (98-107); CREATININE FOR GFR 0.91 MG/DL (0.70-1.30); GLOMERULAR FILTRATION RATE > 60.0 (>49); GLUCOSE, FASTING 79 MG/DL (70-100); POTASSIUM SERUM 3.9 MEQ/L (3.5-5.1); SODIUM LEVEL 145 MEQ/L (136-145)
[2017-05-27] MEDS: SENNA SYRUP 15 ML UDC PEG (21:37)
[2017-05-27] MEDS: CYANOCOBALAMIN 500 MCG TAB GT (21:38)
[2017-05-28 05:59] LABS: HEMATOCRIT 35.5 % (42.0-52.0); HEMOGLOBIN 11.7 g/dl (14.0-18.0); PLATELET COUNT, AUTOMATED 141 10^3/uL (150-450); RED BLOOD COUNT 3.66 10^6/uL (4.30-6.10); RED CELL DISTRIBUTION WIDTH 17.4 % (11.5-14.5); WHITE BLOOD COUNT 5.8 10^3/uL (4.0-10.0)
[2017-05-28] MEDS: LEVOTHYROXINE 75MCG TABLET (0.075MG) GT (06:00)
[2017-05-28 06:35] LABS: ANION GAP 6 MEQ/L (8-16); BLOOD UREA NITROGEN 8 MG/DL (7-18); CALCIUM LEVEL 8.6 MG/DL (8.8-10.2); CARBON DIOXIDE LEVEL 27 MEQ/L (21-32); CHLORIDE LEVEL 109 MEQ/L (98-107); CREATININE FOR GFR 0.91 MG/DL (0.70-1.30); GLOMERULAR FILTRATION RATE > 60.0 (>49); GLUCOSE, FASTING 95 MG/DL (70-100); POTASSIUM SERUM 3.7 MEQ/L (3.5-5.1); SODIUM LEVEL 142 MEQ/L (136-145)
[2017-05-28] MEDS: GABAPENTIN 300 MG CAP GT ×3 (10:17→16:09)
[2017-05-28] MEDS: PANTOPRAZOLE 40MG INJ (PROTONIX) (C9113) IV (10:17)
[2017-05-28] MEDS: risperiDONE 1 MG TAB GT (10:17)
[2017-05-28] MEDS: BISACODYL 10 MG SUPP PR (10:18)
[2017-05-28] MEDS: guaiFENesin SYRUP 200 MG/10 ML UDC PO ×4 (10:18→20:48)
[2017-05-28] MEDS: CitaloPRAM (CeleXA) 20 MG TAB GT (10:18)
[2017-05-28] MEDS: MIRALAX *UNIT DOSE* 17GM PACKET GT (10:19)
[2017-05-28] MEDS: busPIRone 10 MG TAB GT ×2 (10:19→16:10)
[2017-05-28] MEDS: OLANZapine ORAL DISINTEGRATING TAB 5MG GT ×3 (10:19→20:48)
[2017-05-28] MEDS: D5W/0.45% SODIUM CHLORIDE 1,000 ML IV ×2 (10:20→19:44)
[2017-05-28] MEDS: clonazePAM 0.5 MG TAB PO (13:03)
[2017-05-28] MEDS: NS 500 ML IV ×2 (19:44→20:48)
[2017-05-28] MEDS: CYANOCOBALAMIN 500 MCG TAB GT (20:48)
[2017-05-28] MEDS: SENNA SYRUP 15 ML UDC PEG (20:48)
[2017-05-29 05:49] LABS: HEMATOCRIT 33.2 % (42.0-52.0); HEMOGLOBIN 10.9 g/dl (14.0-18.0); MEAN CORPUSCULAR HGB CONC 32.8 g/dl (32.0-36.5); MEAN CORPUSCULAR VOLUME 97.4 fl (80.0-96.0); PLATELET COUNT, AUTOMATED 143 10^3/uL (150-450); RED BLOOD COUNT 3.41 10^6/uL (4.30-6.10); RED CELL DISTRIBUTION WIDTH 17.2 % (11.5-14.5); WHITE BLOOD COUNT 4.9 10^3/uL (4.0-10.0)
[2017-05-29] MEDS: LEVOTHYROXINE 75MCG TABLET (0.075MG) GT (05:56)
[2017-05-29 06:09] LABS: ANION GAP 8 MEQ/L (8-16); BLOOD UREA NITROGEN 5 MG/DL (7-18); CALCIUM LEVEL 8.4 MG/DL (8.8-10.2); CARBON DIOXIDE LEVEL 26 MEQ/L (21-32); CHLORIDE LEVEL 111 MEQ/L (98-107); CREATININE FOR GFR 0.84 MG/DL (0.70-1.30); GLOMERULAR FILTRATION RATE > 60.0 (>49); GLUCOSE, FASTING 90 MG/DL (70-100); POTASSIUM SERUM 3.5 MEQ/L (3.5-5.1); SODIUM LEVEL 145 MEQ/L (136-145)
[2017-05-29] MEDS: D5W/0.45% SODIUM CHLORIDE 1,000 ML IV ×3 (07:06→22:15)
[2017-05-29] MEDS: GABAPENTIN 300 MG CAP GT ×3 (07:30→16:05)
[2017-05-29] MEDS: OLANZapine ORAL DISINTEGRATING TAB 5MG GT ×3 (08:00→21:47)
[2017-05-29] MEDS ORDERED: E-Z-PAQUE 96% w/w SUSP 176GM BTL As Ordered (08:59)
[2017-05-29] MEDS: MIRALAX *UNIT DOSE* 17GM PACKET GT (09:00)
[2017-05-29] MEDS: BISACODYL 10 MG SUPP PR (09:00)
[2017-05-29] MEDS: guaiFENesin SYRUP 200 MG/10 ML UDC PO ×4 (09:00→21:47)
[2017-05-29] MEDS: CitaloPRAM (CeleXA) 20 MG TAB GT (11:03)
[2017-05-29] MEDS: risperiDONE 1 MG TAB GT (11:03)
[2017-05-29] MEDS: busPIRone 10 MG TAB GT ×2 (11:03→16:05)
[2017-05-29] MEDS: PANTOPRAZOLE 40MG INJ (PROTONIX) (C9113) IV (11:04)
[2017-05-29] MEDS: SENNA SYRUP 15 ML UDC PEG (21:00)
[2017-05-29] MEDS: CYANOCOBALAMIN 500 MCG TAB GT (21:47)
[2017-05-30] MEDS: LEVOTHYROXINE 75MCG TABLET (0.075MG) GT (05:26)
[2017-05-30 06:20] LABS: HEMATOCRIT 32.9 % (42.0-52.0); HEMOGLOBIN 10.9 g/dl (14.0-18.0); MEAN CORPUSCULAR HEMOGLOBIN 31.4 pg (27.0-33.0); MEAN CORPUSCULAR HGB CONC 33.1 g/dl (32.0-36.5); MEAN CORPUSCULAR VOLUME 94.8 fl (80.0-96.0); PLATELET COUNT, AUTOMATED 143 10^3/uL (150-450); RED BLOOD COUNT 3.47 10^6/uL (4.30-6.10); RED CELL DISTRIBUTION WIDTH 17.2 % (11.5-14.5); WHITE BLOOD COUNT 6.1 10^3/uL (4.0-10.0)
[2017-05-30 06:39] LABS: ANION GAP 6 MEQ/L (8-16); BLOOD UREA NITROGEN 4 MG/DL (7-18); CALCIUM LEVEL 8.3 MG/DL (8.8-10.2); CARBON DIOXIDE LEVEL 28 MEQ/L (21-32); CHLORIDE LEVEL 111 MEQ/L (98-107); CREATININE FOR GFR 0.83 MG/DL (0.70-1.30); GLOMERULAR FILTRATION RATE > 60.0 (>49); GLUCOSE, FASTING 88 MG/DL (70-100); POTASSIUM SERUM 3.2 MEQ/L (3.5-5.1); SODIUM LEVEL 145 MEQ/L (136-145)
[2017-05-30] MEDS: OLANZapine ORAL DISINTEGRATING TAB 5MG GT ×3 (10:03→20:24)
[2017-05-30] MEDS: GABAPENTIN 300 MG CAP GT ×3 (10:03→16:03)
[2017-05-30] MEDS: busPIRone 10 MG TAB GT ×2 (10:03→16:03)
[2017-05-30] MEDS: risperiDONE 1 MG TAB GT (10:04)
[2017-05-30] MEDS: CitaloPRAM (CeleXA) 20 MG TAB GT (10:04)
[2017-05-30] MEDS: PANTOPRAZOLE 40MG INJ (PROTONIX) (C9113) IV (10:04)
[2017-05-30] MEDS: guaiFENesin SYRUP 200 MG/10 ML UDC PO ×4 (10:04→20:24)
[2017-05-30] MEDS: MIRALAX *UNIT DOSE* 17GM PACKET GT (10:06)
[2017-05-30] MEDS: D5W/0.45% SODIUM CHLORIDE 1,000 ML IV ×2 (10:07→20:24)
[2017-05-30] MEDS: BISACODYL 10 MG SUPP PR ×2 (16:02→16:22)
[2017-05-30] MEDS: CYANOCOBALAMIN 500 MCG TAB GT (20:24)
[2017-05-30] MEDS: SENNA SYRUP 15 ML UDC PEG (20:25)
[2017-05-31] MEDS: D5W/0.45% SODIUM CHLORIDE 1,000 ML IV (05:42)
[2017-05-31] MEDS: LEVOTHYROXINE 75MCG TABLET (0.075MG) GT (05:42)
[2017-05-31 06:05] LABS: BASO % 0.4 % (0.0-1.0); EOS # 0.3 10^3/uL (0.0-0.50); EOS % 5.1 % (0.0-3.0); HEMATOCRIT 33.5 % (42.0-52.0); HEMOGLOBIN 11.1 g/dl (14.0-18.0); IMMATURE GRANULOCYTE % 1.3 % (0-3.0); LYMPH # 1.1 10^3/uL (1.5-4.5); LYMPH % 20.3 % (24.0-44.0); MEAN CORPUSCULAR HEMOGLOBIN 31.2 pg (27.0-33.0); MEAN CORPUSCULAR HGB CONC 33.1 g/dl (32.0-36.5); MEAN CORPUSCULAR VOLUME 94.1 fl (80.0-96.0); MONO # 0.9 10^3/uL (0.0-0.8); NEUTROPHILS # 3.1 10^3/uL (1.8-7.7); NEUTROPHILS % 55.9 % (36.0-66.0); PLATELET COUNT, AUTOMATED 174 10^3/uL (150-450); RED BLOOD COUNT 3.56 10^6/uL (4.30-6.10); RED CELL DISTRIBUTION WIDTH 17.3 % (11.5-14.5); WHITE BLOOD COUNT 5.5 10^3/uL (4.0-10.0)
[2017-05-31 06:29] LABS: ANION GAP 7 MEQ/L (8-16); BLOOD UREA NITROGEN 3 MG/DL (7-18); CALCIUM LEVEL 8.4 MG/DL (8.8-10.2); CARBON DIOXIDE LEVEL 27 MEQ/L (21-32); CHLORIDE LEVEL 112 MEQ/L (98-107); CREATININE FOR GFR 0.85 MG/DL (0.70-1.30); GLOMERULAR FILTRATION RATE > 60.0 (>49); GLUCOSE, FASTING 90 MG/DL (70-100); MAGNESIUM LEVEL 1.5 MG/DL (1.8-2.4); POTASSIUM SERUM 3.2 MEQ/L (3.5-5.1); SODIUM LEVEL 146 MEQ/L (136-145)
[2017-05-31] MEDS: BISACODYL 10 MG SUPP PR (08:01)
[2017-05-31] MEDS: GABAPENTIN 300 MG CAP GT ×3 (08:07→16:59)
[2017-05-31] MEDS: busPIRone 10 MG TAB GT ×2 (08:07→16:59)
[2017-05-31] MEDS: OLANZapine ORAL DISINTEGRATING TAB 5MG GT ×3 (08:07→20:12)
[2017-05-31] MEDS: PANTOPRAZOLE 40MG INJ (PROTONIX) (C9113) IV (08:08)
[2017-05-31] MEDS: guaiFENesin SYRUP 200 MG/10 ML UDC PO ×4 (08:08→20:12)
[2017-05-31] MEDS: MIRALAX *UNIT DOSE* 17GM PACKET GT (08:08)
[2017-05-31] MEDS: CitaloPRAM (CeleXA) 20 MG TAB GT (08:08)
[2017-05-31] MEDS: risperiDONE 1 MG TAB GT (08:08)
[2017-05-31] MEDS ORDERED: MIRALAX *UNIT DOSE* 17GM PACKET GT (10:00)
[2017-05-31] MEDS: KCL 20MEQ IN D5/0.45NS 1000ML 1,000 ML IV ×2 (10:44→21:04)
[2017-05-31] MEDS: MAG SULF 1GM/100ML (MAG RUN) 1 GM in APPROPRIATE DILUENT 1 EA IV ×2 (10:44→12:36)
[2017-05-31] MEDS ORDERED: E-Z-PAQUE 96% w/w SUSP 176GM BTL As Ordered (12:33)
[2017-05-31 13:13] LABS: ANION GAP 6 MEQ/L (8-16); BLOOD UREA NITROGEN 3 MG/DL (7-18); CALCIUM LEVEL 8.1 MG/DL (8.8-10.2); CARBON DIOXIDE LEVEL 28 MEQ/L (21-32); CHLORIDE LEVEL 111 MEQ/L (98-107); CREATININE FOR GFR 0.86 MG/DL (0.70-1.30); GLOMERULAR FILTRATION RATE > 60.0 (>49); GLUCOSE, FASTING 90 MG/DL (70-100); POTASSIUM SERUM 3.1 MEQ/L (3.5-5.1); SODIUM LEVEL 145 MEQ/L (136-145)
[2017-05-31] MEDS: CYANOCOBALAMIN 500 MCG TAB GT (20:12)
[2017-05-31] MEDS: SENNA SYRUP 15 ML UDC PEG (20:12)
[2017-06-01] MEDS: KCL 20MEQ IN D5/0.45NS 1000ML 1,000 ML IV ×3 (05:02→16:13)
[2017-06-01] MEDS: LEVOTHYROXINE 75MCG TABLET (0.075MG) GT (05:42)
[2017-06-01 06:11] LABS: BASO % 0.4 % (0.0-1.0); EOS # 0.3 10^3/uL (0.0-0.50); HEMATOCRIT 30.3 % (42.0-52.0); HEMOGLOBIN 10.2 g/dl (14.0-18.0); IMMATURE GRANULOCYTE % 1.2 % (0-3.0); LYMPH % 18.6 % (24.0-44.0); MEAN CORPUSCULAR HGB CONC 33.7 g/dl (32.0-36.5); MONO # 0.8 10^3/uL (0.0-0.8); MONO % 14.7 % (0.0-5.0); NEUTROPHILS # 3.1 10^3/uL (1.8-7.7); NEUTROPHILS % 60.1 % (36.0-66.0); PLATELET COUNT, AUTOMATED 161 10^3/uL (150-450); RED BLOOD COUNT 3.19 10^6/uL (4.30-6.10); RED CELL DISTRIBUTION WIDTH 17.2 % (11.5-14.5); WHITE BLOOD COUNT 5.2 10^3/uL (4.0-10.0)
[2017-06-01 06:28] LABS: BLOOD UREA NITROGEN 3 MG/DL (7-18); CARBON DIOXIDE LEVEL 27 MEQ/L (21-32); CREATININE FOR GFR 0.88 MG/DL (0.70-1.30); GLOMERULAR FILTRATION RATE > 60.0 (>49); GLUCOSE, FASTING 103 MG/DL (70-100); MAGNESIUM LEVEL 1.7 MG/DL (1.8-2.4)
[2017-06-01 06:56] LABS: ANION GAP 5 MEQ/L (8-16); CHLORIDE LEVEL 112 MEQ/L (98-107); POTASSIUM SERUM 3.9 MEQ/L (3.5-5.1); SODIUM LEVEL 144 MEQ/L (136-145)
[2017-06-01] MEDS: GABAPENTIN 300 MG CAP GT ×3 (09:03→16:10)
[2017-06-01] MEDS: busPIRone 10 MG TAB GT ×2 (09:03→16:09)
[2017-06-01] MEDS: CitaloPRAM (CeleXA) 20 MG TAB GT (09:03)
[2017-06-01] MEDS: OLANZapine ORAL DISINTEGRATING TAB 5MG GT ×3 (09:04→21:49)
[2017-06-01] MEDS: risperiDONE 1 MG TAB GT (09:04)
[2017-06-01] MEDS: guaiFENesin SYRUP 200 MG/10 ML UDC PO ×4 (09:04→21:48)
[2017-06-01] MEDS: MAG SULF 1GM/100ML (MAG RUN) 1 GM in APPROPRIATE DILUENT 1 EA IV ×2 (09:04→10:20)
[2017-06-01] MEDS: PANTOPRAZOLE 40MG INJ (PROTONIX) (C9113) IV (09:04)
[2017-06-01] MEDS: clonazePAM 0.5 MG TAB PO (14:30)
[2017-06-01] MEDS: SENNA SYRUP 15 ML UDC PEG ×2 (21:00→21:49)
[2017-06-01] MEDS: CYANOCOBALAMIN 500 MCG TAB GT (21:49)
[2017-06-02] MEDS ORDERED: clonazePAM 0.5 MG TAB PEG
[2017-06-02] MEDS: KCL 20MEQ IN D5/0.45NS 1000ML 1,000 ML IV ×3 (00:07→16:27)
[2017-06-02] MEDS: LEVOTHYROXINE 75MCG TABLET (0.075MG) GT (05:31)
[2017-06-02 06:40] LABS: BASO % 0.4 % (0.0-1.0); EOS # 0.3 10^3/uL (0.0-0.50); EOS % 6.8 % (0.0-3.0); HEMOGLOBIN 10.6 g/dl (14.0-18.0); LYMPH # 1.1 10^3/uL (1.5-4.5); LYMPH % 23.1 % (24.0-44.0); MEAN CORPUSCULAR HEMOGLOBIN 31.8 pg (27.0-33.0); MEAN CORPUSCULAR HGB CONC 33.1 g/dl (32.0-36.5); MEAN CORPUSCULAR VOLUME 96.1 fl (80.0-96.0); MONO # 0.7 10^3/uL (0.0-0.8); MONO % 13.6 % (0.0-5.0); NEUTROPHILS # 2.7 10^3/uL (1.8-7.7); NEUTROPHILS % 55.1 % (36.0-66.0); PLATELET COUNT, AUTOMATED 162 10^3/uL (150-450); RED BLOOD COUNT 3.33 10^6/uL (4.30-6.10); RED CELL DISTRIBUTION WIDTH 17.2 % (11.5-14.5); WHITE BLOOD COUNT 4.8 10^3/uL (4.0-10.0)
[2017-06-02 06:57] LABS: ANION GAP 4 MEQ/L (8-16); BLOOD UREA NITROGEN 2 MG/DL (7-18); CALCIUM LEVEL 8.3 MG/DL (8.8-10.2); CARBON DIOXIDE LEVEL 28 MEQ/L (21-32); CHLORIDE LEVEL 112 MEQ/L (98-107); CREATININE FOR GFR 0.86 MG/DL (0.70-1.30); GLOMERULAR FILTRATION RATE > 60.0 (>49); GLUCOSE, FASTING 92 MG/DL (70-100); MAGNESIUM LEVEL 1.8 MG/DL (1.8-2.4); SODIUM LEVEL 144 MEQ/L (136-145)
[2017-06-02] MEDS: GABAPENTIN 300 MG CAP GT ×3 (09:02→16:27)
[2017-06-02] MEDS: OLANZapine ORAL DISINTEGRATING TAB 5MG GT ×3 (09:02→20:40)
[2017-06-02] MEDS: busPIRone 10 MG TAB GT ×2 (09:02→16:27)
[2017-06-02] MEDS: CitaloPRAM (CeleXA) 20 MG TAB GT (09:02)
[2017-06-02] MEDS: PANTOPRAZOLE 40MG INJ (PROTONIX) (C9113) IV (09:02)
[2017-06-02] MEDS: guaiFENesin SYRUP 200 MG/10 ML UDC PEG ×4 (09:03→20:40)
[2017-06-02] MEDS: risperiDONE 1 MG TAB GT (09:03)
[2017-06-02] MEDS: SENNA SYRUP 15 ML UDC PEG (20:31)
[2017-06-02] MEDS: CYANOCOBALAMIN 500 MCG TAB GT (20:40)
[2017-06-03] MEDS: KCL 20MEQ IN D5/0.45NS 1000ML 1,000 ML IV ×4 (00:26→18:30)
[2017-06-03 05:24] LABS: BASO % 0.5 % (0.0-1.0); EOS # 0.4 10^3/uL (0.0-0.50); EOS % 8.5 % (0.0-3.0); HEMATOCRIT 34.2 % (42.0-52.0); HEMOGLOBIN 11.4 g/dl (14.0-18.0); IMMATURE GRANULOCYTE % 0.5 % (0-3.0); LYMPH # 0.9 10^3/uL (1.5-4.5); LYMPH % 21.3 % (24.0-44.0); MEAN CORPUSCULAR HEMOGLOBIN 31.5 pg (27.0-33.0); MEAN CORPUSCULAR HGB CONC 33.3 g/dl (32.0-36.5); MEAN CORPUSCULAR VOLUME 94.5 fl (80.0-96.0); MONO # 0.6 10^3/uL (0.0-0.8); MONO % 14.5 % (0.0-5.0); NEUTROPHILS # 2.3 10^3/uL (1.8-7.7); NEUTROPHILS % 54.7 % (36.0-66.0); PLATELET COUNT, AUTOMATED 189 10^3/uL (150-450); RED BLOOD COUNT 3.62 10^6/uL (4.30-6.10); RED CELL DISTRIBUTION WIDTH 17.1 % (11.5-14.5); WHITE BLOOD COUNT 4.1 10^3/uL (4.0-10.0)
[2017-06-03] MEDS: LEVOTHYROXINE 75MCG TABLET (0.075MG) GT (05:25)
[2017-06-03 05:46] LABS: ANION GAP 5 MEQ/L (8-16); BLOOD UREA NITROGEN 2 MG/DL (7-18); CALCIUM LEVEL 8.6 MG/DL (8.8-10.2); CARBON DIOXIDE LEVEL 28 MEQ/L (21-32); CHLORIDE LEVEL 110 MEQ/L (98-107); CREATININE FOR GFR 0.85 MG/DL (0.70-1.30); GLOMERULAR FILTRATION RATE > 60.0 (>49); GLUCOSE, FASTING 93 MG/DL (70-100); MAGNESIUM LEVEL 1.5 MG/DL (1.8-2.4); POTASSIUM SERUM 4.1 MEQ/L (3.5-5.1); SODIUM LEVEL 143 MEQ/L (136-145)
[2017-06-03] MEDS: MAG SULF 1GM/100ML (MAG RUN) 1 GM in APPROPRIATE DILUENT 1 EA IV ×2 (06:53→08:15)
[2017-06-03] MEDS: CitaloPRAM (CeleXA) 20 MG TAB GT (08:14)
[2017-06-03] MEDS: busPIRone 10 MG TAB GT ×2 (08:14→15:30)
[2017-06-03] MEDS: GABAPENTIN 300 MG CAP GT ×3 (08:14→15:30)
[2017-06-03] MEDS: guaiFENesin SYRUP 200 MG/10 ML UDC PEG ×4 (08:15→20:01)
[2017-06-03] MEDS: risperiDONE 1 MG TAB GT (08:15)
[2017-06-03] MEDS: PANTOPRAZOLE 40MG INJ (PROTONIX) (C9113) IV (08:15)
[2017-06-03] MEDS: OLANZapine ORAL DISINTEGRATING TAB 5MG GT ×3 (08:15→20:01)
[2017-06-03] MEDS: CYANOCOBALAMIN 500 MCG TAB GT (20:01)
[2017-06-03] MEDS: SENNA SYRUP 15 ML UDC PEG (20:01)
[2017-06-04] MEDS: LEVOTHYROXINE 75MCG TABLET (0.075MG) GT (05:30)
[2017-06-04 05:41] LABS: BASO % 0.6 % (0.0-1.0); EOS # 0.3 10^3/uL (0.0-0.50); EOS % 5.9 % (0.0-3.0); IMMATURE GRANULOCYTE % 1.1 % (0-3.0); LYMPH % 21.7 % (24.0-44.0); MEAN CORPUSCULAR HEMOGLOBIN 31.2 pg (27.0-33.0); MEAN CORPUSCULAR HGB CONC 32.4 g/dl (32.0-36.5); MEAN CORPUSCULAR VOLUME 96.1 fl (80.0-96.0); MONO # 0.6 10^3/uL (0.0-0.8); MONO % 13.1 % (0.0-5.0); NEUTROPHILS # 2.7 10^3/uL (1.8-7.7); NEUTROPHILS % 57.6 % (36.0-66.0); PLATELET COUNT, AUTOMATED 204 10^3/uL (150-450); RED BLOOD COUNT 3.85 10^6/uL (4.30-6.10); WHITE BLOOD COUNT 4.7 10^3/uL (4.0-10.0)
[2017-06-04 06:03] LABS: ANION GAP 4 MEQ/L (8-16); BLOOD UREA NITROGEN 2 MG/DL (7-18); CALCIUM LEVEL 8.9 MG/DL (8.8-10.2); CARBON DIOXIDE LEVEL 28 MEQ/L (21-32); CHLORIDE LEVEL 111 MEQ/L (98-107); CREATININE FOR GFR 1.01 MG/DL (0.70-1.30); GLOMERULAR FILTRATION RATE > 60.0 (>49); GLUCOSE, FASTING 104 MG/DL (70-100); MAGNESIUM LEVEL 1.7 MG/DL (1.8-2.4); POTASSIUM SERUM 4.4 MEQ/L (3.5-5.1); SODIUM LEVEL 143 MEQ/L (136-145)
[2017-06-04] MEDS: D5W/0.45% SODIUM CHLORIDE 1,000 ML IV ×2 (07:00→15:57)
[2017-06-04] MEDS: GABAPENTIN 300 MG CAP GT ×3 (08:11→15:58)
[2017-06-04] MEDS: guaiFENesin SYRUP 200 MG/10 ML UDC PEG ×4 (08:11→20:06)
[2017-06-04] MEDS: MAG SULF 1GM/100ML (MAG RUN) 1 GM in APPROPRIATE DILUENT 1 EA IV ×2 (08:11→09:33)
[2017-06-04] MEDS: risperiDONE 1 MG TAB GT (08:12)
[2017-06-04] MEDS: CitaloPRAM (CeleXA) 20 MG TAB GT (08:12)
[2017-06-04] MEDS: busPIRone 10 MG TAB GT ×2 (08:12→15:57)
[2017-06-04] MEDS: OLANZapine ORAL DISINTEGRATING TAB 5MG GT ×3 (08:13→20:06)
[2017-06-04] MEDS: PANTOPRAZOLE 40MG INJ (PROTONIX) (C9113) IV (08:17)
[2017-06-04] MEDS: ACETAMINOPHEN TAB 650MG DOSE (2X325MG) PEG (16:00)
[2017-06-04] MEDS: SENNA SYRUP 15 ML UDC PEG (20:05)
[2017-06-04] MEDS: CYANOCOBALAMIN 500 MCG TAB GT (20:06)
[2017-06-05] MEDS: D5W/0.45% SODIUM CHLORIDE 1,000 ML IV ×3 (01:20→19:56)
[2017-06-05] MEDS: LEVOTHYROXINE 75MCG TABLET (0.075MG) GT (05:47)
[2017-06-05 05:52] LABS: BASO % 0.4 % (0.0-1.0); EOS # 0.3 10^3/uL (0.0-0.50); EOS % 5.1 % (0.0-3.0); HEMATOCRIT 34.2 % (42.0-52.0); HEMOGLOBIN 11.1 g/dl (14.0-18.0); IMMATURE GRANULOCYTE % 0.6 % (0-3.0); LYMPH # 1.3 10^3/uL (1.5-4.5); LYMPH % 26.5 % (24.0-44.0); MEAN CORPUSCULAR HEMOGLOBIN 31.4 pg (27.0-33.0); MEAN CORPUSCULAR HGB CONC 32.5 g/dl (32.0-36.5); MEAN CORPUSCULAR VOLUME 96.9 fl (80.0-96.0); MONO # 0.7 10^3/uL (0.0-0.8); MONO % 14.7 % (0.0-5.0); NEUTROPHILS # 2.6 10^3/uL (1.8-7.7); NEUTROPHILS % 52.7 % (36.0-66.0); PLATELET COUNT, AUTOMATED 208 10^3/uL (150-450); RED BLOOD COUNT 3.53 10^6/uL (4.30-6.10)
[2017-06-05 06:15] LABS: ANION GAP 4 MEQ/L (8-16); BLOOD UREA NITROGEN 3 MG/DL (7-18); CALCIUM LEVEL 8.6 MG/DL (8.8-10.2); CARBON DIOXIDE LEVEL 30 MEQ/L (21-32); CHLORIDE LEVEL 111 MEQ/L (98-107); CREATININE FOR GFR 1.06 MG/DL (0.70-1.30); GLOMERULAR FILTRATION RATE > 60.0 (>49); GLUCOSE, FASTING 95 MG/DL (70-100); MAGNESIUM LEVEL 1.7 MG/DL (1.8-2.4); POTASSIUM SERUM 4.4 MEQ/L (3.5-5.1); SODIUM LEVEL 145 MEQ/L (136-145)
[2017-06-05] MEDS: PANTOPRAZOLE 40MG INJ (PROTONIX) (C9113) IV (09:19)
[2017-06-05] MEDS: OLANZapine ORAL DISINTEGRATING TAB 5MG GT ×3 (09:19→21:05)
[2017-06-05] MEDS: GABAPENTIN 300 MG CAP GT ×3 (09:19→16:24)
[2017-06-05] MEDS: guaiFENesin SYRUP 200 MG/10 ML UDC PEG ×4 (09:19→21:05)
[2017-06-05] MEDS: risperiDONE 1 MG TAB GT (09:20)
[2017-06-05] MEDS: busPIRone 10 MG TAB GT ×2 (09:20→16:24)
[2017-06-05] MEDS: CitaloPRAM (CeleXA) 20 MG TAB GT (09:20)
[2017-06-05] MEDS: MAG SULF 1GM/100ML (MAG RUN) 1 GM in APPROPRIATE DILUENT 1 EA IV ×2 (12:28→13:33)
[2017-06-05] MEDS: CYANOCOBALAMIN 500 MCG TAB GT (21:00)
[2017-06-05] MEDS: SENNA SYRUP 15 ML UDC PEG (21:05)
[2017-06-06] MEDS: D5W/0.45% SODIUM CHLORIDE 1,000 ML IV ×4 (00:17→22:18)
[2017-06-06] MEDS: LEVOTHYROXINE 75MCG TABLET (0.075MG) GT (05:28)
[2017-06-06 06:12] LABS: BASO % 0.5 % (0.0-1.0); EOS # 0.3 10^3/uL (0.0-0.50); EOS % 6.3 % (0.0-3.0); HEMATOCRIT 35.9 % (42.0-52.0); HEMOGLOBIN 11.7 g/dl (14.0-18.0); IMMATURE GRANULOCYTE % 0.7 % (0-3.0); LYMPH # 1.4 10^3/uL (1.5-4.5); LYMPH % 34.4 % (24.0-44.0); MEAN CORPUSCULAR HEMOGLOBIN 31.6 pg (27.0-33.0); MEAN CORPUSCULAR HGB CONC 32.6 g/dl (32.0-36.5); MONO # 0.6 10^3/uL (0.0-0.8); MONO % 13.6 % (0.0-5.0); NEUTROPHILS # 1.8 10^3/uL (1.8-7.7); NEUTROPHILS % 44.5 % (36.0-66.0); PLATELET COUNT, AUTOMATED 205 10^3/uL (150-450); WHITE BLOOD COUNT 4.1 10^3/uL (4.0-10.0)
[2017-06-06 06:26] LABS: ANION GAP 4 MEQ/L (8-16); BLOOD UREA NITROGEN 2 MG/DL (7-18); CARBON DIOXIDE LEVEL 29 MEQ/L (21-32); CHLORIDE LEVEL 109 MEQ/L (98-107); CREATININE FOR GFR 1.02 MG/DL (0.70-1.30); GLOMERULAR FILTRATION RATE > 60.0 (>49); GLUCOSE, FASTING 88 MG/DL (70-100); MAGNESIUM LEVEL 1.8 MG/DL (1.8-2.4); POTASSIUM SERUM 3.8 MEQ/L (3.5-5.1); SODIUM LEVEL 142 MEQ/L (136-145)
[2017-06-06] MEDS: GABAPENTIN 300 MG CAP GT ×3 (09:55→17:36)
[2017-06-06] MEDS: risperiDONE 1 MG TAB GT (09:55)
[2017-06-06] MEDS: CitaloPRAM (CeleXA) 20 MG TAB GT (09:55)
[2017-06-06] MEDS: busPIRone 10 MG TAB GT ×2 (09:55→17:36)
[2017-06-06] MEDS: OLANZapine ORAL DISINTEGRATING TAB 5MG GT ×3 (09:56→22:42)
[2017-06-06] MEDS: PANTOPRAZOLE 40MG INJ (PROTONIX) (C9113) IV (09:56)
[2017-06-06] MEDS: guaiFENesin SYRUP 200 MG/10 ML UDC PEG ×4 (09:56→22:43)
[2017-06-06] MEDS: clonazePAM 0.5 MG TAB PEG (10:40)
[2017-06-06] MEDS: CYANOCOBALAMIN 500 MCG TAB GT (22:43)
[2017-06-06] MEDS: SENNA SYRUP 15 ML UDC PEG (22:43)
[2017-06-07] MEDS: D5W/0.45% SODIUM CHLORIDE 1,000 ML IV ×3 (06:58→22:27)
[2017-06-07] MEDS: GABAPENTIN 300 MG CAP GT ×3 (06:58→14:41)
[2017-06-07] MEDS: LEVOTHYROXINE 75MCG TABLET (0.075MG) GT (06:58)
[2017-06-07] MEDS: risperiDONE 1 MG TAB GT (08:09)
[2017-06-07] MEDS: OLANZapine ORAL DISINTEGRATING TAB 5MG GT ×3 (08:10→21:36)
[2017-06-07] MEDS: PANTOPRAZOLE 40MG INJ (PROTONIX) (C9113) IV (08:10)
[2017-06-07] MEDS: busPIRone 10 MG TAB GT ×2 (08:10→14:41)
[2017-06-07] MEDS: CitaloPRAM (CeleXA) 20 MG TAB GT (08:10)
[2017-06-07] MEDS: guaiFENesin SYRUP 200 MG/10 ML UDC PEG ×4 (08:12→21:36)
[2017-06-07] MEDS: SENNA SYRUP 15 ML UDC PEG (21:00)
[2017-06-07] MEDS: CYANOCOBALAMIN 500 MCG TAB GT (21:36)
[2017-06-08] MEDS: LEVOTHYROXINE 75MCG TABLET (0.075MG) GT (06:14)
[2017-06-08] MEDS: D5W/0.45% SODIUM CHLORIDE 1,000 ML IV ×2 (06:32→15:07)
[2017-06-08] MEDS: GABAPENTIN 300 MG CAP GT ×3 (08:26→15:07)
[2017-06-08] MEDS: busPIRone 10 MG TAB GT ×2 (08:26→15:07)
[2017-06-08] MEDS: CitaloPRAM (CeleXA) 20 MG TAB GT (08:27)
[2017-06-08] MEDS: PANTOPRAZOLE 40MG INJ (PROTONIX) (C9113) IV (08:27)
[2017-06-08] MEDS: risperiDONE 1 MG TAB GT (08:27)
[2017-06-08] MEDS: guaiFENesin SYRUP 200 MG/10 ML UDC PEG ×4 (08:27→22:15)
[2017-06-08] MEDS: OLANZapine ORAL DISINTEGRATING TAB 5MG GT ×3 (08:27→22:15)
[2017-06-08] MEDS ORDERED: MORPHINE 10MG/0.5ML ORAL CONCENTRATE SOLUTION U/D SL (12:00)
[2017-06-08] MEDS ORDERED: ATROPINE SULFATE 1% OP SOLN 2 ML BTL SL (12:00)
[2017-06-08] MEDS ORDERED: HYOSCYAMINE SULFATE 0.125 MG SUBL TABLET PO (12:00)
[2017-06-08] MEDS ORDERED: LORazepam 1 MG TAB PO (12:00)
[2017-06-08] MEDS: CYANOCOBALAMIN 500 MCG TAB GT (22:15)
[2017-06-08] MEDS: SENNA SYRUP 15 ML UDC PEG (22:15)
[2017-06-09] MEDS: D5W/0.45% SODIUM CHLORIDE 1,000 ML IV ×2 (03:28→10:19)
[2017-06-09] MEDS: LEVOTHYROXINE 75MCG TABLET (0.075MG) GT (05:58)
[2017-06-09] MEDS: guaiFENesin SYRUP 200 MG/10 ML UDC PEG ×2 (10:17→13:01)
[2017-06-09] MEDS: risperiDONE 1 MG TAB GT (10:18)
[2017-06-09] MEDS: busPIRone 10 MG TAB GT (10:18)
[2017-06-09] MEDS: OLANZapine ORAL DISINTEGRATING TAB 5MG GT ×3 (10:18→13:01)
[2017-06-09] MEDS: GABAPENTIN 300 MG CAP GT ×3 (10:18→13:01)
[2017-06-09] MEDS: CitaloPRAM (CeleXA) 20 MG TAB GT (10:18)
[2017-06-09] MEDS: PANTOPRAZOLE 40MG INJ (PROTONIX) (C9113) IV (10:19)
[2017-06-09] MEDS: clonazePAM 0.5 MG TAB PEG (11:04)
== END 2017-06-09 13:15 | disposition home or self-care (01) | DRG 177 ==
LOC: M MSPAV 04-27 15:59 → M ED 17:28 → M ED INP 22:08
DX: J69.0 Pneumonitis due to inhalation of food and vomit (principal); E43 Unspecified severe protein-calorie malnutrition; Z68.1 Body mass index [BMI] 19.9 or less, adult; K56.7 Ileus, unspecified; E03.9 Hypothyroidism, unspecified; F32.9 Major depressive disorder, single episode, unspecified; F60.6 Avoidant personality disorder; Z51.5 Encounter for palliative care; Z66 Do not resuscitate; K21.9 Gastro-esophageal reflux disease without esophagitis; K22.0 Achalasia of cardia; R63.4 Abnormal weight loss; G40.909 Epilepsy, unspecified, not intractable, without status epilepticus; K59.8 Other specified functional intestinal disorders; R45.1 Restlessness and agitation; R09.02 Hypoxemia; I45.81 Long QT syndrome; E83.42 Hypomagnesemia; M40.209 Unspecified kyphosis, site unspecified; R19.7 Diarrhea, unspecified; E87.6 Hypokalemia; T36.3X5A Adverse effect of macrolides, initial encounter; J10.1 Influenza due to other identified influenza virus with other respiratory manifestations; K29.70 Gastritis, unspecified, without bleeding; F79 Unspecified intellectual disabilities; K44.9 Diaphragmatic hernia without obstruction or gangrene; Z93.1 Gastrostomy status; Z79.899 Other long term (current) drug therapy; Z85.828 Personal history of other malignant neoplasm of skin